=== PATIENT | male | born 1950 | race Caucasian/White ===

== ENCOUNTER 2018-05-14 08:48 | Inpatient (IN) | payer MEDICAID, SELFPAY ==
[2018-05-14 08:48] VITALS: PULSE 92; BMI 24.2
--- NOTE | 2018-05-14 09:06 | C.PDOC ---
History Of Present Illness 68 years old male w/ hx of defibrillator, Valve Replacement, afib on coumadin and CAD on plavix presents to ED for complaints of shortness of breath that began 2-3 months ago but worsened over the past 2-3 days with constant cough. Patient reports symptoms worsen with deep breaths and exertion. Patient has a defibrillator and has past surgical history of 4 CABG ("Long time ago."). He notes having a POLST which states he is DNR/DNI and to not hospitalize- However patient states that at this moment if required he would like hospitalization, and would like compressions in case his heart stopped and if he stopped breathing he would want to have a tube down his throat to help him breath. He notes that he wishes to rescind the previous POLST. No GI or complaints. Denies oxygen use at home, chest pain, asthma, COPD or Hx of smoking. He notes taking his medications normally. PMD: * [facility] Palletizer: * Dr. Hernandez Time Seen by Provider: 05/14/18 09:02 Chief Complaint (Nursing): Shortness Of Breath History Per: Patient History/Exam Limitations: no limitations Onset/Duration Of Symptoms: Days Current Symptoms Are (Timing): Still Present Initiating Event: Aspiration Exacerbating Factor(s): Exertion Current Respiratory Medications: See Home Med List Associated Symptoms: denies: Fever, Chills, Chest Pain Recent travel outside of the [place]: No Past Medical History Reviewed: Historical Data, Nursing Documentation, Vital Signs Vital Signs: Last Vital Signs Temp 98.3 F 05/14/18 08:56 Pulse 98 H 05/14/18 08:56 Resp 30 H 05/14/18 08:56 BP 158/95 H 05/14/18 08:56 Pulse Ox 92 L 05/14/18 08:56 - Medical History PMH: Anemia, Anxiety, Atrial Fibrillation, Cardia Arrhythmia, CHF, HTN, Hypercholesterolemia, Mitral Valve Prolapse, Peripheral Edema Surgical History: Coronary Stent, Pacemaker - [facility] Procedures INITIAL INSERT OF TRANS. LEADS INTO VENTRICLE (01/02/15) INSERT SING CHAMB DEV, NOT SPEC RATE RESPONSIVE (01/02/15) INSERTION OF TEMPORARY TRANS PACEMAKER SYSTEM (01/02/15) INTRODUCTION OF SERUM/TOX/VACCINE INTO MUSCLE, PERC APPROACH (05/20/15) SERUM TRANSFUSION NEC (01/02/15) Family History: States: Unknown Family Hx - Social History Hx Tobacco Use: No Hx Alcohol Use: No Hx Substance Use: No - Immunization History Hx Tetanus Toxoid Vaccination: No Hx Influenza Vaccination: Yes Hx Pneumococcal Vaccination: No Review Of Systems Constitutional: Negative for: Fever, Chills Cardiovascular: Negative for: Chest Pain, Palpitations Respiratory: Positive for: Cough (Dry ), Shortness of Breath Gastrointestinal: Negative for: Nausea, Vomiting, Abdominal Pain, Diarrhea Skin: Negative for: Rash Neurological: Negative for: Weakness, Numbness Physical Exam - Physical Exam Appears: Non-toxic, No Acute Distress Skin: Normal Color, Warm, Dry, No Rash Head: Normacephalic Eye(s): bilateral: Normal Inspection, PERRL, EOMI Oral Mucosa: Moist Neck: Normal ROM, Trachea Midline, No Midline Cervical Tenderness, No Paracervical Tenderness, Supple, Other (no meningeal signs) Chest: Symmetrical, No Tenderness Cardiovascular: Rhythm Regular Respiratory: No Accessory Muscle Use, No Rales, Rhonchi, No Stridor, No Wheezing, No Plerual Rub Gastrointestinal/Abdominal: Soft, No Tenderness, No Distention Back: Normal Inspection, No CVA Tenderness Extremity: Normal ROM Extremity: Bilateral: Atraumatic, Normal Color And Temperature, Normal ROM Pulses: Left Radial: Normal, Right Radial: Normal Neurological/Psych: Oriented x3, Normal Speech Gait: Steady ED Course And Treatment - Laboratory Results Result Diagrams: 05/14/18 09:39 05/14/18 09:39 O2 Sat by Pulse Oximetry: 92 (RA) Pulse Ox Interpretation: Abnormal - Other Rad CXR X-Ray: Viewed By Me, Read By Radiologist Interpretation: Chest x-ray two views. HISTORY: Shortness of breath. COMPARISON: 06/08/2016. FINDINGS: Moderate to severe venous congestion with prominent consolidative opacities within the mid to lower lung zones. Small bilateral pleural effusions. Aortic atherosclerotic calcification noted. Enlarged heart with prominent cardiomegaly. Prior valve replacements. Left- sided pacemaker. Status post median sternotomy. Degenerative changes in the spine and shoulders. Calcifications within the right axilla. Impression: Mod erate to severe venous congestion with prominent consolidative opacities within the mid to lower lung zones. Small bilateral pleural effusions. Aortic atherosclerotic calcification noted. Enlarged heart with prominent cardiomegaly. Prior valve replacements. Left-sided pacemaker. Status post me garcia sternotomy. Degenerative changes in the spine and shoulders. Calcifications within the right axilla. Medical Decision Making Medical Decision Makin yr old male w/ hx of Valve repair, afib on coumadin, CABGx4 on plavix p/w shortness of breath and cough. No sore throat. No erythematous throat. No Meningeal signs. No headache. No body aches. Rhonchi b/l w/ scattered wheezes. No hx of COPD per pt. ?New onset vs CHF exacerbation given chronic b/l LE swelling. Will seek labs and imaging. No chest pain. Pt has hx of POLST w/ DNR+DNI but seeks to rescind it. Given Pt wishes will rescind DNR/DNI order at this time. Plan: * Blood Gas * Blood work * CXR * Blood Culture * Albuterol/ peak flow 1300 labs reviewed: BNP elevation, lasix ordered. Labs otherwise largely unremarkable. No dark or bloody stool. No hematemesis or hemoptysis. No recent admission over the past 3 mo. No longterm stays: Levoquin ordered. Pressures stable. Appreciate consult W/ Dr. Olguin: accepts admission to her service. Pt in NAD with improved O2 sat. Speaking in full sentences, protecting airway. Disposition - Disposition Disposition Time: 13:00 Condition: GOOD - Clinical Impression Clinical Impression: CHF (congestive heart failure), PNA (pneumonia) - Scribe Statement The provider has reviewed the documentation as recorded by the Iraibkatharine Underwood All medical record entries made by the Scribe were at my direction and personally dictated by me. I have reviewed the chart and agree that the record accurately reflects my personal performance of the history, physical exam, me dical decision making, and the department course for this patient. I have also personally directed, reviewed, and agree with the discharge instructions and disposition.
[2018-05-14] MEDS ORDERED: Albuterol-Ipratrop 3 mg / 0.5 (3 ml) UD INH STA ×2 (09:26→11:01)
[2018-05-14 09:43] LABS: BASO # 0.1 K/uL (0.0-0.2); BASO % 1.4 % (0.0-2.0); EOS % 0.7 % (0.0-4.0); HEMOGLOBIN 9.3 g/dL (12.0-18.0); LYMPH # 0.5 K/uL (1.0-4.3); LYMPH % 9.9 % (20.0-40.0); MEAN CORPUSCULAR HEMOGLOBIN 28.1 pg (27.0-31.0); MEAN CORPUSCULAR HGB CONC 32.2 g/dL (33.0-37.0); MEAN PLATELET VOLUME 9.2 fL (7.2-11.7); MONO # 0.8 K/uL (0.0-0.8); NEUT # 3.9 K/uL (1.8-7.0); PLATELET COUNT 230 K/uL (130-400); RBC 3.32 Mil/uL (4.40-5.90); RED CELL DISTRIBUTION WIDTH 15.8 % (11.5-14.5); WHITE BLOOD COUNT 5.3 K/uL (4.8-10.8)
[2018-05-14 09:46] LABS: MEAN CELL VOLUME 87.2 fL (80.0-94.0)
[2018-05-14 10:06] LABS: ALB/GLOB RATIO 1.3 (1.0-2.1); ALBUMIN 4.5 g/dL (3.5-5.0); CALCIUM 8.9 mg/dl (8.6-10.4)
[2018-05-14 10:14] LABS: TROPONIN I 0.02 ng/mL (0.00-0.120)
[2018-05-14 10:22] LABS: VENOUS BLOOD GAS BASE EXCESS 0.9 mmol/L (0.0-2.0); VENOUS BLOOD GAS PCO2 51 mmHg (40-60); VENOUS BLOOD GAS PO2 28 mm/Hg (30-55); VENOUS BLOOD PH 7.34 (7.32-7.43)
--- NOTE | 2018-05-14 10:36 | RAD ---
Chest x-ray two views HISTORY: Shortness of breath. COMPARISON: 06/08/2016 FINDINGS: Moderate to severe venous congestion with prominent consolidative opacities within the mid to lower lung zones. Small bilateral pleural effusions. Aortic atherosclerotic calcification noted. Enlarged heart with prominent cardiomegaly. Prior valve replacements. Left-sided pacemaker. Status post median sternotomy. Degenerative changes in the spine and shoulders. Calcifications within the right axilla. Impression: Moderate to severe venous congestion with prominent consolidative opacities within the mid to lower lung zones. Small bilateral pleural effusions. Aortic atherosclerotic calcification noted. Enlarged heart with prominent cardiomegaly. Prior valve replacements. Left-sided pacemaker. Status post median sternotomy. Degenerative changes in the spine and shoulders. Calcifications within the right axilla.
[2018-05-14 10:40] LABS: ANISOCYTOSIS SLIGHT; LYMPHOCYTE 7 % (20-40); MONOCYTE 14 % (0-10); NEUTROPHIL 79 % (50-75); PLATELET ESTIMATE NORMAL (NORMAL); TOTAL CELLS COUNTED 100
[2018-05-14 10:41] LABS: BURR CELLS SLIGHT; HYPOCHROMIC SLIGHT; LARGE PLATELETS PRESENT; OVALOCYTES SLIGHT; POIKILOCYTOSIS SLIGHT; POLYCHROMIC SLIGHT; TOXIC GRANULATION PRESENT
[2018-05-14] MEDS ORDERED: Albuterol-Ipratrop 3 mg / 0.5 (3 ml) UD ONE (11:06)
[2018-05-14] MEDS ORDERED: Moxifloxacin IV 400mg/250ml NS 400 MG/250 ML BAG IVPB ONE ×2 (12:04→12:09)
[2018-05-14] MEDS ORDERED: MethylPREDNISolone 40 mg Vial IVP STA (12:38)
[2018-05-14 13:23] LABS: INR 3.9
[2018-05-14 13:24] LABS: PROTHROMBIN TIME 42.7 SECONDS (9.7-12.2)
--- NOTE | 2018-05-14 13:50 | CP.PCM.HP ---
<Pritesh Portillo - Last Filed: 05/14/18 18:08> History of Present Illness - History of Present Illness History of Present Illness: CC " Shortness of breath" HPI: Patient is a 68 year old male with history of CHF, A fib on Coumadin, Aortic valve replacement, mitral valve replacement, tricuspid valve replacement, CAD and CABG who presents with 2 to 3 week history of shortness of breath that worsened over the past 3 days to the point where he cannot move without coughing. He states that he has some clear sputum, denies blood in his sputum. He was seen by his director design recently who recommended pulmonary function tests and a CT chest. He states he was unable to get the CT chest because his symptoms worsened. He admits to history of chronic swelling in his legs. He states he has some bleeding from one of the varicose veins on his right foot. He admits to poor appetite, but states he has not had any weight loss. He has only been drinking some water and coffee. He denies fevers, chills, headache, dizziness, blood sputum. PMH: hx of rheumatic fever, CHF, A fib on Coumadin, Aortic valve replacement, mitral valve replacement, tricuspid valve replacement, CAD and CABG PSH: Aortic valve replacement, mitral valve replacement, tricuspid valve replacement, CABG Family hx: denied Social : denies history of tobacco, alcohol or drug use Home meds: Metoprolol 25mg PO BID, Coumadin 6mg, Simvastatin 40mg, Bumex 1mg BID, Losartan 12.5mg, Gabapentin Allergies: NKDA Revoked DNR - previously had do not hospitalize form PMD: Dr. Chaidez Cardiology: Dr. Hernandez Present on Admission - Present on Admission Any Indicators Present on Admission: No Past Patient History - Infectious Disease Hx of Infectious Diseases: None - Tetanus Immunizations Tetanus Immunization: Unknown - Past Medical History & Family History Past Medical History?: Yes - Past Social History Smoking Status: Former Smoker - CARDIAC Hx Atrial Fibrillation: Yes Hx Cardia Arrhythmia: Yes Hx Congestive Heart Failure: Yes Hx Hypercholesterolemia: Yes Hx Hypertension: Yes Hx Mitral Valve Prolapse: Yes Hx Pacemaker: Yes Hx Peripheral Edema: Yes - PULMONARY Hx Respiratory Disorders: No - NEUROLOGICAL Hx Neurological Disorder: No Other/Comment: h/o near syncope from bradycardia - HEENT Hx HEENT Problems: No - RENAL Hx Chronic Kidney Disease: No - HEMATOLOGICAL/ONCOLOGICAL Hx Anemia: Yes - INTEGUMENTARY Hx Dermatological Problems: No - MUSCULOSKELETAL/RHEUMATOLOGICAL Hx Musculoskeletal Disorders: No Hx Falls: Yes - GASTROINTESTINAL Hx Gastrointestinal Disorders: No - GENITOURINARY/GYNECOLOGICAL Hx Genitourinary Disorders: No - PSYCHIATRIC Hx Anxiety: Yes Hx Substance Use: No - SURGICAL HISTORY Hx Coronary Stent: Yes - ANESTHESIA Hx Anesthesia: Yes Hx Anesthesia Reactions: No Hx Malignant Hyperthermia: No Meds Allergies/Adverse Reactions: Allergies Allergy/AdvReac Type Severity Reaction Status Date / Time No Known Allergies Allergy Verified 05/14/18 09:15 Physical Exam - Constitutional Appears: Cachectic Additional comments: Voice soft, coughing with movement - Head Exam Head Exam: ATRAUMATIC, NORMOCEPHALIC - Eye Exam Eye Exam: EOMI, PERRL - ENT Exam ENT Exam: Mucous Membranes Dry - Neck Exam Neck exam: Positive for: Full Rom - Respiratory Exam Respiratory Exam: Rales, Respiratory Distress. absent: Clear to Auscultation Bilateral, Rhonchi, Stridor - Cardiovascular Exam Cardiovascular Exam: Clicks, +S1, +S2 Additional comments: parasternal heave - GI/Abdominal Exam GI & Abdominal Exam: Normal Bowel Sounds, Soft. absent: Distended, Firm, Guarding, Pulsatile Mass, Rebound, Rigid, Tenderness - Extremities Exam Extremities exam: Positive for: pedal edema, pedal pulses present Additional comments: (+) bilateral chronic venous stasis changes, with hyperkeratotic skin and varicosities no active bleeding. - Neurological Exam Neurological exam: Alert, Oriented x3 Results - Vital Signs Recent Vital Signs: Last Vital Signs Temp 98.1 F 05/14/18 11:20 Pulse 90 05/14/18 13:32 Resp 31 H 05/14/18 13:32 BP 119/77 05/14/18 13:32 Pulse Ox 92 L 05/14/18 13:40 - Labs Result Diagrams: 05/14/18 09:39 05/14/18 09:39 Labs: Laboratory Results - last 24 hr 05/14/18 05/14/18 05/14/18 09:39 09:39 10:17 WBC 5.3 RBC 3.32 L Hgb 9.3 L Hct 29.0 L MCV 87.2 D MCH 28.1 MCHC 32.2 L RDW 15.8 H Plt Count 230 MPV 9.2 Neut % (Auto) 73.0 Lymph % (Auto) 9.9 L [place] % (Auto) 15.0 H Eos % (Auto) 0.7 Baso % (Auto) 1.4 Neut # (Auto) 3.9 Lymph # (Auto) 0.5 L [place] # (Auto) 0.8 Eos # (Auto) 0.0 Baso # (Auto) 0.1 Neutrophils % (Manual) 79 H Lymphocytes % (Manual) 7 L Monocytes % (Manual) 14 H Toxic Granulation Present Platelet Estimate Normal Large Platelets Present Polychromasia Slight Hypochromasia (manual) Slight Poikilocytosis (manual Slight Anisocytosis (manual) Slight Ovalocytes Slight [place]ki Cells Slight PT INR APTT pO2 28 L VBG pH 7.34 VBG pCO2 51 VBG HCO3 24.3 VBG Total CO2 29.1 H VBG O2 Sat (Calc) 58.3 VBG Base Excess 0.9 VBG Potassium 4.1 Glucose 82 Lactate 1.3 Liter Flow 3.0 Sodium 139 140.0 Potassium 4.7 Chloride 100 107.0 Carbon Dioxide 27 Anion Gap 17 BUN 40 H Creatinine 1.5 Est GFR ( Amer) 56 Est GFR (Non-Af Amer) 47 Random Glucose 98 Calcium 8.9 Magnesium 1.8 Total Bilirubin 1.5 H AST 44 ALT 26 Alkaline Phosphatase 171 H Troponin I 0.0200 NT-Pro-B Natriuret Pep 3670 H Total Protein 8.0 Albumin 4.5 Globulin 3.5 Albumin/Globulin Ratio 1.3 Venous Blood Potassium 4.1 Influenza Typ A,B (EIA) 05/14/18 05/14/18 12:52 13:25 WBC RBC Hgb Hct MCV MCH MCHC RDW Plt Count MPV Neut % (Auto) Lymph % (Auto) [place] % (Auto) Eos % (Auto) Baso % (Auto) Neut # (Auto) Lymph # (Auto) [place] # (Auto) Eos # (Auto) Baso # (Auto) Neutrophils % (Manual) Lymphocytes % (Manual) Monocytes % (Manual) Toxic Granulation Platelet Estimate Large Platelets Polychromasia Hypochromasia (manual) Poikilocytosis (manual Anisocytosis (manual) Ovalocytes Rikki Cells PT 42.7 H INR 3.9 H* APTT 45 H pO2 VBG pH VBG pCO2 VBG HCO3 VBG Total CO2 VBG O2 Sat (Calc) VBG Base Excess VBG Potassium Glucose Lactate Liter Flow Sodium Potassium Chloride Carbon Dioxide Anion Gap BUN Creatinine Est GFR ( Amer) Est GFR (Non-Af Amer) Random Glucose Calcium Magnesium Total Bilirubin AST ALT Alkaline Phosphatase Troponin I NT-Pro-B Natriuret Pep Total Protein Albumin Globulin Albumin/Globulin Ratio Venous Blood Potassium Influenza Typ A,B (EIA) Negative for flu a/b Assessment & Plan - Assessment and Plan (Free Text) Plan: A/P Shortness of breath History of CHF History of Aortic valve replacement, Mitral valve replacement, Tricuspid valve replacement AICD ECHO from 02/05/18: Left ventricle is moderately dilated with mild concentric hypertrophy. Hypokinetic anteroseptal wall. LV systolic function is moderately impaired. EF is visually estimated at 35-40%. Severe diastolic dysfunction. RV moderately dilated with normal systolic function via TAPSE. Pacemaker leads in the right heart noted. Severe bi-atrial enlargement. Mechanical prosthesis in mi tral and aortic position with normal function. There is evidence of tricuspid valve annuloplasty. Severe pulmonary hypertension. Right ventricular systolic pressure is estimated at greater than 60mmHg. No gross pericardial effusion. No leukocytosis, no left shift, no bands VBG pH 7.34 pCO2 51 HCO3 24.3 Lactate 1.3 proBNP 3670 CXR: Moderate to severe venous congestion with prominent consolidative opacities within mid to lower lung zones. small bilateral pleural effusions. Aortic atherosclertic calcification noted. Enlarged heart with prominent cardiomegaly. Prior valve replacements. Left sided pacemaker. Status post median sternotomy. Degenerative changes in spine and shoulders. Calcifications within the right axilla. f/u CT chest Trops x2 negative f/u CXR tomorrow Pallative care consult, help appreciated Duonebs Q4 PRN Lasix 20mg BID Imdur 60mg PO daily Nitropaste 0.5 inch topical Flonase BID Measure daily weights I&Os Fall precautions Place on NRB mask May add BIPAP if not improved EKG: paced f/u blood cultures History of A fib On Coumadin 6mg at home Hold Coumadin PT 4.27 INR 3.9 Continue to monitor PT/INR History of HTN Losartan 12.5mg PO daily History of chronic pain Gabapentin 100mg PO TID History of HLD Crestor 10mg PO HS History of anemia H/H 9.3/29.0 Continue to monitor Transfuse as necessary PPX: Heart healthy diet GI: Not indicated at this time. DVT: Hold given INR 3.[address] Gladys Portillo, PGY1 <Wero Graham H - Last Filed: 05/15/18 07:18> Results - Vital Signs Recent Vital Signs: Last Vital Signs Temp 98.1 F 05/14/18 15:58 Pulse 90 05/15/18 01:00 Resp 20 05/14/18 15:58 BP 120/64 05/14/18 17:22 Pulse Ox 97 05/14/18 15:58 - Labs Result Diagrams: 05/14/18 09:39 05/15/18 03:30 Labs: Laboratory Results - last 24 hr 05/14/18 05/14/18 05/14/18 09:39 09:39 10:17 WBC 5.3 RBC 3.32 L Hgb 9.3 L Hct 29.0 L MCV 87.2 D MCH 28.1 MCHC 32.2 L RDW 15.8 H Plt Count 230 MPV 9.2 Neut % (Auto) 73.0 Lymph % (Auto) 9.9 L [place] % (Auto) 15.0 H Eos % (Auto) 0.7 Baso % (Auto) 1.4 Neut # (Auto) 3.9 Lymph # (Auto) 0.5 L [place] # (Auto) 0.8 Eos # (Auto) 0.0 Baso # (Auto) 0.1 Neutrophils % (Manual) 79 H Lymphocytes % (Manual) 7 L Monocytes % (Manual) 14 H Toxic Granulation Present Platelet Estimate Normal Large Platelets Present Polychromasia Slight Hypochromasia (manual) Slight Poikilocytosis (manual Slight Anisocytosis (manual) Slight Ovalocytes Slight Rikki Cells Slight PT INR APTT pO2 28 L VBG pH 7.34 VBG pCO2 51 VBG HCO3 24.3 VBG Total CO2 29.1 H VBG O2 Sat (Calc) 58.3 VBG Base Excess 0.9 VBG Potassium 4.1 Glucose 82 Lactate 1.3 Liter Flow 3.0 Sodium 139 140.0 Potassium 4.7 Chloride 100 107.0 Carbon Dioxide 27 Anion Gap 17 BUN 40 H Creatinine 1.5 Est GFR ( Amer) 56 Est GFR (Non-Af Amer) 47 POC Glucose (mg/dL) Random Glucose 98 Calcium 8.9 Phosphorus Magnesium 1.8 Total Bilirubin 1.5 H AST 44 ALT 26 Alkaline Phosphatase 171 H Total Creatine Kinase CK-MB (Mass) Troponin I 0.0200 NT-Pro-B Natriuret Pep 3670 H Total Protein 8.0 Albumin 4.5 Globulin 3.5 Albumin/Globulin Ratio 1.3 Venous Blood Potassium 4.1 Influenza Typ A,B (EIA) 05/14/18 05/14/18 05/14/18 12:52 13:25 16:27 WBC RBC Hgb Hct MCV MCH MCHC RDW Plt Count MPV Neut % (Auto) Lymph % (Auto) [place] % (Auto) Eos % (Auto) Baso % (Auto) Neut # (Auto) Lymph # (Auto) [place] # (Auto) Eos # (Auto) Baso # (Auto) Neutrophils % (Manual) Lymphocytes % (Manual) Monocytes % (Manual) Toxic Granulation Platelet Estimate Large Platelets Polychromasia Hypochromasia (manual) Poikilocytosis (manual Anisocytosis (manual) Ovalocytes [place] Cells PT 42.7 H INR 3.9 H* APTT 45 H pO2 VBG pH VBG pCO2 VBG HCO3 VBG Total CO2 VBG O2 Sat (Calc) VBG Base Excess VBG Potassium Glucose Lactate Liter Flow Sodium Potassium Chloride Carbon Dioxide Anion Gap BUN Creatinine Est GFR ( Amer) Est GFR (Non-Af Amer) POC Glucose (mg/dL) 90 Random Glucose Calcium Phosphorus Magnesium Total Bilirubin AST ALT Alkaline Phosphatase Total Creatine Kinase CK-MB (Mass) Troponin I NT-Pro-B Natriuret Pep Total Protein Albumin Globulin Albumin/Globulin Ratio Venous Blood Potassium Influenza Typ A,B (EIA) Negative for flu a/b 05/14/18 05/14/18 05/14/18 17:23 21:07 23:29 WBC RBC Hgb Hct MCV MCH MCHC RDW Plt Count MPV Neut % (Auto) Lymph % (Auto) [place] % (Auto) Eos % (Auto) Baso % (Auto) Neut # (Auto) Lymph # (Auto) [place] # (Auto) Eos # (Auto) Baso # (Auto) Neutrophils % (Manual) Lymphocytes % (Manual) Monocytes % (Manual) Toxic Granulation Platelet Estimate Large Platelets Polychromasia Hypochromasia (manual) Poikilocytosis (manual Anisocytosis (manual) Ovalocytes Rikki Cells PT INR APTT pO2 VBG pH VBG pCO2 VBG HCO3 VBG Total CO2 VBG O2 Sat (Calc) VBG Base Excess VBG Potassium Glucose Lactate Liter Flow Sodium Potassium Chloride Carbon Dioxide Anion Gap BUN Creatinine Est GFR ( Amer) Est GFR (Non-Af Amer) POC Glucose (mg/dL) 176 H Random Glucose Calcium Phosphorus Magnesium Total Bilirubin AST ALT Alkaline Phosphatase Total Creatine Kinase 107 91 CK-MB (Mass) 2.47 2.29 Troponin I 0.0210 0.0220 NT-Pro-B Natriuret Pep Total Protein Albumin Globulin Albumin/Globulin Ratio Venous Blood Potassium Influenza Typ A,B (EIA) 05/15/18 03:30 WBC RBC Hgb Hct MCV MCH MCHC RDW Plt Count MPV Neut % (Auto) Lymph % (Auto) [place] % (Auto) Eos % (Auto) Baso % (Auto) Neut # (Auto) Lymph # (Auto) [place] # (Auto) Eos # (Auto) Baso # (Auto) Neutrophils % (Manual) Lymphocytes % (Manual) Monocytes % (Manual) Toxic Granulation Platelet Estimate Large Platelets Polychromasia Hypochromasia (manual) Poikilocytosis (manual Anisocytosis (manual) Ovalocytes Rikki Cells PT INR APTT pO2 VBG pH VBG pCO2 VBG HCO3 VBG Total CO2 VBG O2 Sat (Calc) VBG Base Excess VBG Potassium Glucose Lactate Liter Flow Sodium 139 Potassium 4.2 Chloride 101 Carbon Dioxide 30 Anion Gap 13 BUN 46 H Creatinine 1.6 H Est GFR ( Amer) 52 Est GFR (Non-Af Amer) 43 POC Glucose (mg/dL) Random Glucose 137 H Calcium 8.3 L Phosphorus 5.1 H Magnesium 1.8 Total Bilirubin 0.8 AST 30 ALT 25 Alkaline Phosphatase 125 Total Creatine Kinase 79 CK-MB (Mass) 1.80 Troponin I 0.0120 NT-Pro-B Natriuret Pep Total Protein 6.5 Albumin 3.6 Globulin 2.9 Albumin/Globulin Ratio 1.2 Venous Blood Potassium Influenza Typ A,B (EIA) Attending/Attestation - Attestation I have personally seen and examined this patient.: Yes I have fully participated in the care of the patient.: Yes I have reviewed all pertinent clinical information: Yes Notes (Text): 05/15/18 07:09 Medical attending: Patient was seen and examined by me. Agree with the above note by the medical device sales consultant The patient was short of breath for the past several days and he reports it had been worseing as well. He has an extensive cardiac history as listed above in resident's note including history of heart valve complications and replacments and one can readily hear the metalic clicks on exam. He needs to continue with the oral anticoagulation. He reports he has been very compliant with medication. He does not have home O2 and reports he felt much better with the nasal cannula. We can later try Bipap however he explains he did not want that We will resume medications however for the time being hold off on his BB until he feels better At this time will do low dose lasix 20 BID as well as giving nitropaste topical and Imdur to see if this helps ease with the breathing The patient's CXRAY shows a very substantially enlarged cardiomegaly as well as some venous congestion. The patient from what I understand previously had a POLST and also a DNR and DNI order - however he was scared he says so he revoked this when comming to the hospital. I asked him how he felt about things like CPR and intubation and he said he needed to think. Later if he is not improving with the oxygen and nitropaste and imdur will consider cardiology evaluation, however I feel he's had almost everything under the sun done so far. He used to come to [facility] almost monthly in the past and has had numerous surgical interventions thus far. Right now we will need a paliative care evaluation. Wero Graham
[2018-05-14] MEDS: Nitroglycerin 2% Ointment Foilpak UD TOP SCH ×2 (15:36→20:22)
[2018-05-14] MEDS: Losartan 12.5 MG TAB PO SCH (17:22)
[2018-05-14] MEDS: Fluticasone Nasal 50 mcg/Spray NAS SCH (17:23)
[2018-05-14 17:51] LABS: TROPONIN I 0.021 ng/mL (0.00-0.120)
[2018-05-14 18:13] LABS: CK-MB 2.47 ng/mL (0.0-3.38)
[2018-05-15 00:01] LABS: CK-MB 2.29 ng/mL (0.0-3.38); TROPONIN I 0.022 ng/mL (0.00-0.120)
[2018-05-15 03:50] LABS: ALB/GLOB RATIO 1.2 (1.0-2.1); ALBUMIN 3.6 g/dL (3.5-5.0); CALCIUM 8.3 mg/dl (8.6-10.4)
[2018-05-15 03:56] LABS: CK-MB 1.8 ng/mL (0.0-3.38); TROPONIN I 0.012 ng/mL (0.00-0.120)
[2018-05-15] MEDS: Nitroglycerin 2% Ointment Foilpak UD TOP SCH ×6 (06:29→21:21)
--- NOTE | 2018-05-15 07:52 | RAD ---
Chest x-ray single frontal view HISTORY: Dyspnea. COMPARISON: 05/14/2018 FINDINGS: Status post median sternotomy. Enlarged ectatic aorta with atherosclerotic calcification at the aortic knob. Moderate to severe venous congestion. Prominent consolidative opacification in the right mid to lower lung zone as well as the left lung base. Small to moderate bilateral pleural effusions. Marked cardiomegaly. Prior valve replacement. Left-sided pacemaker. Degenerative changes in the spine and shoulders. Impression: Overall no significant interval change since the prior study.
[2018-05-15 08:11] LABS: BASO % 0.1 % (0.0-2.0); LYMPH # 0.3 K/uL (1.0-4.3); LYMPH % 5.9 % (20.0-40.0); MEAN CELL VOLUME 86.8 fL (80.0-94.0); MEAN CORPUSCULAR HEMOGLOBIN 28.4 pg (27.0-31.0); MEAN CORPUSCULAR HGB CONC 32.7 g/dL (33.0-37.0); MONO # 0.3 K/uL (0.0-0.8); MONO % 7.8 % (0.0-10.0); NEUT # 3.8 K/uL (1.8-7.0); NEUT % 86.2 % (50.0-75.0); PLATELET COUNT 227 K/uL (130-400); RBC 2.82 Mil/uL (4.40-5.90); RED CELL DISTRIBUTION WIDTH 15.4 % (11.5-14.5); WHITE BLOOD COUNT 4.4 K/uL (4.8-10.8)
[2018-05-15 08:50] LABS: INR 5.4; PROTHROMBIN TIME 59.8 SECONDS (9.7-12.2)
[2018-05-15] MEDS: Losartan 12.5 MG TAB PO SCH (10:03)
[2018-05-15] MEDS: Fluticasone Nasal 50 mcg/Spray NAS SCH ×2 (10:03→17:07)
--- NOTE | 2018-05-15 10:26 | CP.PCM.PN ---
Subjective - Date & Time of Evaluation Date of Evaluation: 05/15/18 Time of Evaluation: 09:30 - Subjective Subjective: Patient was seen and examined by me. Denied headache, denied chest pain, breathing is still short of breath, but much improved he says, denied palpitations He reported his breathing was much easier today than yesterday. He was speaking in full sentences today He was started on oxygen as well as nitropaste and Imdur PO. He does not have home O2 and feels that he is much better with it Today BP is slightly on lower side. Will hold off on BB until he feels more better. INR was still supratheraputic His CT scan of the chest yesterday is pending official read however the night almak suggested he does have pneumonia - he received abx in ER and today I restarted. There is a pending blood culture as well. As mentioned previously this is a 68 year old male with a history of rheumatic fever, CHF with pacer/AICD, A fib on Coumadin, Aortic valve replacement, mitral valve replacement, tricuspid valve replacement, CAD and CABG here with shortness of breath and CT imaging suggesting pnemonia. Objective - Vital Signs/Intake and Output Vital Signs (last 24 hours): Temp Pulse Resp BP Pulse Ox 98.2 F 90 20 120/74 99 05/15/18 07:00 05/15/18 08:37 05/15/18 07:00 05/15/18 10:03 05/15/18 07:00 Intake and Output: 05/15/18 05/15/18 06:59 18:59 Intake Total 350 Output Total 300 Balance 50 - Medications Medications: Current Medications Albuterol/Ipratropium (Duoneb 3 Mg/0.5 Mg (3 Ml) Ud) 3 ml INH RQ4 PRN PRN Reason: Shortness of Breath Fluticasone Propionate (Flonase) 2 spr JESSICA BID [facility] Last Admin: 05/15/18 10:03 Dose: 1 sprays Furosemide (Lasix) 20 mg IVP BID [facility] Last Admin: 05/15/18 10:03 Dose: 20 mg Gabapentin (Neurontin) 100 mg PO TID [facility] Last Admin: 05/15/18 10:03 Dose: 100 mg Isosorbide Mononitrate (Imdur) 60 mg PO DAILY [facility] Last Admin: 05/15/18 10:03 Dose: 60 mg Losartan Potassium (Cozaar) 12.5 mg PO DAILY [facility] Last Admin: 05/15/18 10:03 Dose: 12.5 mg Nitroglycerin (Nitro-Bid 2% Oint) 0 ea TOP Q12 [facility] Rosuvastatin Calcium (Crestor) 10 mg PO HS [facility] Last Admin: 05/14/18 21:03 Dose: 10 mg - Labs Labs: 05/15/18 07:58 05/15/18 03:30 PT 59.8 SECONDS (9.7-12.2) H D 05/15/18 07:58 INR 5.4 H* D 05/15/18 07:58 APTT 40 SECONDS (21-34) H D 05/15/18 07:58 - Constitutional Appears: Cachectic, Chronically Ill - Head Exam Head Exam: NORMAL INSPECTION, NORMOCEPHALIC - Eye Exam Eye Exam: EOMI, Normal appearance - ENT Exam ENT Exam: Mucous Membranes Moist - Respiratory Exam Respiratory Exam: Decreased Breath Sounds, Rales, Wheezes Additional comments: Bilateral wheezes and rales - Cardiovascular Exam Cardiovascular Exam: Clicks, JVD, Murmur Additional comments: Prominent S2 sound, also bilateral JVD as well. He has the metalic clcking sound Parasternal heave - GI/Abdominal Exam GI & Abdominal Exam: Soft, Normal Bowel Sounds. absent: Bruit, Distended, Firm, Guarding, Rigid, Tenderness - Neurological Exam Neurological Exam: Alert, Awake, Oriented x3 Neuro motor strength exam: Left Upper Extremity: 4, Right Upper Extremity: 4 - Psychiatric Exam Psychiatric exam: Depressed, Flat Affect - Skin Skin Exam: Normal Color, Warm Assessment and Plan - Assessment and Plan (Free Text) Assessment: Shortness of breath History of CHF with AICD History of Aortic valve replacement, Mitral valve replacement, Tricuspid valve replacement 05/15: This morning he is now speaking in full sentences and reports breathing is much easier. Decreased the nitropaste to BID, continue with the Imdur. He is wearing nasal cannula oxygen as well. We need to have PT see the patient and see if he has large desaturations in O2 when ambulating. He may need home oxygen ECHO from 02/05/18: Left ventricle is moderately dilated with mild concentric hypertrophy. Hypokinetic anteroseptal wall. LV systolic function is moderately impaired. EF is visually estimated at 35-40%. Severe diastolic dysfunction. RV m oderately dilated with normal systolic function via TAPSE. Pacemaker leads in the right heart noted. Severe bi-atrial enlargement. Mechanical prosthesis in mitral and aortic position with normal function. There is evidence of tricuspid valve annuloplasty. Severe pulmonary hypertension. Right ventricular systolic pressure is estimated at greater than 60mmHg. No gross pericardial effusion. No leukocytosis, no left shift, no bands proBNP 3670 CXR: Moderate to severe venous congestion with prominent consolidative opacities within mid to lower lung zones. small bilateral pleural effusions. Aortic atherosclertic calcification noted. Enlarged heart with prominent cardiomegaly. Prior valve replacements. Left sided pacemaker. Status post median sternotomy. Degenerative changes in spine and shoulders. Calcifications within the right axilla. f/u CT chest Trops x2 negative f/u CXR tomorrow Pallative care consult, help appreciated Duonebs Q4 PRN Lasix 20mg BID Imdur 60mg PO daily Nitropaste 0.5 inch topical Flonase BID Measure daily weights I&Os Fall precautions Place on NRB mask May add BIPAP if not improved EKG: paced History of A fib 05/15: This morning INR is still high. Please note with mechnical vavle replacement it should be more than INR 3 but for now will continue to hold. On Coumadin 6mg at home Hold Coumadin Continue to monitor PT/INR Pneumonia - community aquired Pending the official CT scan read Pending blood cultures at this time Patient is on Avelox 400 History of HTN Losartan 12.5mg PO daily History of chronic pain Gabapentin 100mg PO TID History of HLD Crestor 10mg PO HS History of anemia 05/15: Continue to monitor, transfusing patient maybe difficult given history of severe CHF. H/H 9.3/29.0 Continue to monitor Transfuse as necessary PPX: Heart healthy diet GI: Not indicated at this time.
[2018-05-15] MEDS: Albuterol-Ipratrop 3 mg / 0.5 (3 ml) UD INH PRN ×3 (11:30→19:13)
[2018-05-15] MEDS ORDERED: methylPREDNISolone 60 MG in Sodium Chloride 0.9% 100 ML IVPB SCH (11:34)
[2018-05-15 11:47] LABS: ANISOCYTOSIS SLIGHT; BANDS 1 % (0-2); GIANT PLATELETS PRESENT; HYPOCHROMIC SLIGHT; LARGE PLATELETS PRESENT; LYMPHOCYTE 5 % (20-40); MONOCYTE 8 % (0-10); NEUTROPHIL 86 % (50-75); PLATELET ESTIMATE NORMAL (NORMAL); POLYCHROMIC SLIGHT; TOTAL CELLS COUNTED 100; TOXIC GRANULATION PRESENT
[2018-05-15 11:48] LABS: OVALOCYTES SLIGHT; POIKILOCYTOSIS SLIGHT
[2018-05-15] MEDS ORDERED: Moxifloxacin IV 400mg/250ml NS 400 MG/250 ML BAG IVPB SCH (12:00)
[2018-05-15] MEDS: MethylPREDNISolone 40 mg Vial IVP SCH (12:13)
--- NOTE | 2018-05-15 12:18 | CT ---
CT chest HISTORY: Dyspnea. Comparison: X-ray dated 07/14/2017 Technique: Multiple contiguous axial images were performed through the chest without the use of intravenous contrast. Subsequently, sagittal and coronal reformatted images were obtained. This CT exam was performed using one or more of the following dose reduction techniques: Automated exposure control, adjustment of the mA and/or kV according to patient size, and/or use of iterative reconstruction technique. Findings: Massive and marked enlargement of the cardiac silhouette particularly the left atrium. Correlation with a contrast-enhanced CT is recommended to better evaluate the atrium and exclude underlying mass. Coronary calcifications. Prior coronary valve surgeries. Left-sided pacemaker. CABG. Right lung: Scattered areas of atelectasis and consolidation within the right middle lobe. Prominent dense consolidative opacity measuring 6.5 centimeters seen within the posterior aspect of the right lower lobe with adjacent trace right pleural effusion. Left lung: Focal consolidations seen within the posterior aspect of the left upper lobe inferiorly. Scattered areas of atelectasis and consolidation within the left lower lobe. Pulmonary venous congestion suggestive for CHF. Trachea thru central airways are patent. Aneurysmal dilatation of the ascending thoracic aorta measuring up to 4.6 centimeters. Atherosclerotic calcification and noted within the aorta. Shotty axillary lymph nodes. Shotty mediastinal and hilar lymph nodes. Prominent liver. Perihepatic ascites. Splenomegaly with a lobulated spleen with associated calcifications. Nodularity of the adrenal glands. Calcification within the left upper abdomen. Hiatal hernia. Degenerative changes in the spine with a kyphotic curvature. Cortical irregularity of several ribs. Impression: 1. Massive and marked cardiomegaly. Correlation with a contrast-enhanced scan may be helpful to better delineate the heart. 2. Scattered areas of atelectasis and consolidation within the right middle lobe of the lung. Prominent dense consolidative opacity measuring 6.5 centimeters seen within the posterior aspect of the right lower lobe with adjacent trace right pleural effusion. This may represent multifocal pneumonia. Clinical correlation. Post treatment interval follow-up is recommended. 3. Focal consolidations seen within the posterior aspect of the left upper lobe inferiorly in the lung. Scattered areas of atelectasis and consolidation within the left lower lobe. This may represent multifocal pneumonia. Clinical correlation. Post treatment interval follow-up is recommended. 4. Pulmonary venous congestion suggestive for CHF. Additional findings as above. A preliminary report was generated at 9:05 p.m. on 05/14/[address] Eitan Fair from [facility].
[2018-05-15] MEDS: Vitamins A & D Oint UD Foilpak TOP SCH (17:07)
[2018-05-16] MEDS: MethylPREDNISolone 40 mg Vial IVP SCH (06:01)
[2018-05-16 07:09] LABS: BASO % 0.1 % (0.0-2.0); HEMOGLOBIN 7.5 g/dL (12.0-18.0); LYMPH # 0.3 K/uL (1.0-4.3); LYMPH % 4.5 % (20.0-40.0); MEAN CELL VOLUME 86.5 fL (80.0-94.0); MEAN CORPUSCULAR HEMOGLOBIN 27.9 pg (27.0-31.0); MEAN CORPUSCULAR HGB CONC 32.2 g/dL (33.0-37.0); MEAN PLATELET VOLUME 8.7 fL (7.2-11.7); MONO # 0.5 K/uL (0.0-0.8); MONO % 8.5 % (0.0-10.0); NEUT # 4.9 K/uL (1.8-7.0); NEUT % 86.9 % (50.0-75.0); NRBC % 0.1 % (0.0-2.0); PLATELET COUNT 213 K/uL (130-400); RED CELL DISTRIBUTION WIDTH 15.2 % (11.5-14.5); WHITE BLOOD COUNT 5.7 K/uL (4.8-10.8)
[2018-05-16 07:27] LABS: INR 5.7; PROTHROMBIN TIME 62.5 SECONDS (9.7-12.2)
[2018-05-16] MEDS: Albuterol-Ipratrop 3 mg / 0.5 (3 ml) UD INH PRN ×2 (08:04→12:35)
[2018-05-16 08:13] LABS: ALB/GLOB RATIO 1.2 (1.0-2.1); ALBUMIN 3.5 g/dL (3.5-5.0)
[2018-05-16 08:56] LABS: ANISOCYTOSIS SLIGHT; HYPOCHROMIC SLIGHT; LYMPHOCYTE 3 % (20-40); MONOCYTE 8 % (0-10); NEUTROPHIL 89 % (50-75); PLATELET ESTIMATE NORMAL (NORMAL); TOTAL CELLS COUNTED 100
[2018-05-16 08:57] LABS: OVALOCYTES SLIGHT; POLYCHROMIC SLIGHT
[2018-05-16] MEDS ORDERED: Piperacill/Tazo 2.25gm in Dex 2.25 GM/50 ML BAG IVPB SCH (09:30)
[2018-05-16] MEDS: Vitamins A & D Oint UD Foilpak TOP SCH ×2 (09:51→17:32)
[2018-05-16] MEDS: Losartan 12.5 MG TAB PO SCH (09:54)
[2018-05-16] MEDS: Fluticasone Nasal 50 mcg/Spray NAS SCH ×2 (09:54→17:33)
[2018-05-16] MEDS: Piperacill/Tazo 2.25gm in Dex 2.25 GM/50 ML BAG IVPB SCH ×3 (09:59→22:00)
--- NOTE | 2018-05-16 10:10 | CP.PCM.PN ---
<Gavino Cross - Last Filed: 05/16/18 15:32> Subjective - Date & Time of Evaluation Date of Evaluation: 05/16/18 Time of Evaluation: 10:07 - Subjective Subjective: Hospitalist Service Pt seen and [id number] at bedside. Pt still complains of a sudden cough in the mornings as well as dyspnea upon minor exertion. He feels limited still in any physical activity and is breathing heavily. Pt denies cp fc nv dysuria or herrera es in bowel movements. Objective - Vital Signs/Intake and Output Vital Signs (last 24 hours): Temp Pulse Resp BP Pulse Ox 98.2 F 90 20 111/65 99 05/16/18 07:00 05/16/18 07:45 05/16/18 07:00 05/16/18 09:50 05/16/18 07:00 Intake and Output: 05/16/18 05/16/18 06:59 18:59 Intake Total 500 Balance 500 - Medications Medications: Current Medications Albuterol/Ipratropium (Duoneb 3 Mg/0.5 Mg (3 Ml) Ud) 3 ml INH RQ4 PRN PRN Reason: Shortness of Breath Last Admin: 05/16/18 08:04 Dose: 3 ml Fluticasone Propionate (Flonase) 2 spr JESSICA BID [facility] Last Admin: 05/16/18 09:54 Dose: 2 sprays Furosemide (Lasix) 20 mg IVP BID [facility] Last Admin: 05/16/18 09:50 Dose: 20 mg Gabapentin (Neurontin) 100 mg PO TID [facility] Last Admin: 05/16/18 09:50 Dose: 100 mg Piperacillin Sod/Tazobactam Sod (Zosyn 2.25 Gm Iv Premix) 2.25 gm in 50 mls @ 100 mls/hr IVPB Q6H [facility]; Protocol Influenza Virus Vaccine (Fluzone Quad [id number]) 60 mcg IM .ONCE ONE Stop: 05/18/18 10:01 Isosorbide Mononitrate (Imdur) 60 mg PO DAILY [facility] Last Admin: 05/16/18 09:50 Dose: 60 mg Losartan Potassium (Cozaar) 12.5 mg PO DAILY [facility] Last Admin: 05/16/18 09:54 Dose: 12.5 mg Nitroglycerin (Nitro-Bid 2% Oint) 0 ea TOP Q12 [facility] Last Admin: 05/15/18 21:21 Dose: Not Given Rosuvastatin Calcium (Crestor) 10 mg PO HS [facility] Last Admin: 05/15/18 21:20 Dose: 10 mg Vitamin A (Vitamin A & D Oint Ud Foilpak) 1 ea TOP BID [facility] Last Admin: 05/16/18 09:51 Dose: 1 ea - Labs Labs: 05/16/18 06:42 05/16/18 06:42 PT 62.5 SECONDS (9.7-12.2) H 05/16/18 06:42 INR 5.7 H* 05/16/18 06:42 APTT 40 SECONDS (21-34) H 05/16/18 06:42 - Constitutional Appears: Cachectic - Head Exam Head Exam: ATRAUMATIC, NORMAL INSPECTION - Eye Exam Eye Exam: EOMI, Normal appearance - ENT Exam ENT Exam: Mucous Membranes Moist - Respiratory Exam Respiratory Exam: Accessory Muscle Use, Wheezes - Cardiovascular Exam Cardiovascular Exam: Tachycardia, Clicks, +S1, +S2 - GI/Abdominal Exam GI & Abdominal Exam: Normal Bowel Sounds - Extremities Exam Additional comments: pigmentation of lower limbs with signs of venous insufficiency Assessment and Plan - Assessment and Plan (Free Text) Plan: Shortness of breath History of CHF History of Aortic valve replacement, Mitral valve replacement, Tricuspid valve replacement AICD ECHO from 02/05/18: EF 35% CXR: Moderate to severe venous congestion with prominent consolidative opacities within mid to lower lung zones. small bilateral pleural effusions. Aortic atherosclertic calcification noted. Enlarged heart with prominent cardiomegaly. Prior valve replacements. Left sided pacemaker. Status post median sternotomy. Degenerative changes in spine and shoulders. Calcifications within the right axilla. CT chest: multilobar pna CXR; severe venous congestion Pallative care consult, help appreciated Duonebs Q4 PRN Lasix 20mg BID Imdur 60mg PO daily Nitropaste 0.5 inch topical Flonase BID Measure daily weights I&Os Fall precautions History of A fib On Coumadin 6mg at home Hold Coumadin PT 6.25 INR 5.7 Continue to monitor PT/INR History of HTN Losartan 12.5mg PO daily History of chronic pain Gabapentin 100mg PO TID History of HLD Crestor 10mg PO HS History of anemia H/H 97.5/23.4 Continue to monitor Transfuse as necessary PPX: Heart healthy diet GI: Not indicated at this time. DVT: Hold given INR 5.7 Colby Connorliatyler PGY1 <Sophy Huynh - Last Filed: 05/16/18 16:10> Objective - Vital Signs/Intake and Output Vital Signs (last 24 hours): Temp Pulse Resp BP Pulse Ox 98.2 F 90 20 111/65 99 05/16/18 07:00 05/16/18 07:45 05/16/18 07:00 05/16/18 09:50 05/16/18 07:00 Intake and Output: 05/16/18 05/16/18 06:59 18:59 Intake Total 500 Balance 500 - Medications Medications: Current Medications Albuterol/Ipratropium (Duoneb 3 Mg/0.5 Mg (3 Ml) Ud) 3 ml INH RQ4 PRN PRN Reason: Shortness of Breath Last Admin: 05/16/18 12:35 Dose: 3 ml Fluticasone Propionate (Flonase) 2 spr JESSICA BID [facility] Last Admin: 05/16/18 09:54 Dose: 2 sprays Furosemide (Lasix) 20 mg IVP BID [facility] Last Admin: 05/16/18 09:50 Dose: 20 mg Gabapentin (Neurontin) 100 mg PO TID [facility] Last Admin: 05/16/18 14:45 Dose: 100 mg Piperacillin Sod/Tazobactam Sod (Zosyn 2.25 Gm Iv Premix) 2.25 gm in 50 mls @ 100 mls/hr IVPB Q6H [facility]; Protocol Last Admin: 05/16/18 09:59 Dose: 100 mls/hr Azithromycin 500 mg/ Sodium (Chloride) 250 mls @ 250 mls/hr IVPB Q24H [facility]; Protocol Last Admin: 05/16/18 14:45 Dose: 250 mls/hr Influenza Virus Vaccine (Fluzone Quad [id number]) 60 mcg IM .ONCE ONE Stop: 05/18/18 10:01 Isosorbide Mononitrate (Imdur) 60 mg PO DAILY [facility] Last Admin: 05/16/18 09:50 Dose: 60 mg Losartan Potassium (Cozaar) 12.5 mg PO DAILY [facility] Last Admin: 05/16/18 09:54 Dose: 12.5 mg Nitroglycerin (Nitro-Bid 2% Oint) 0 ea TOP Q12 [facility] Last Admin: 05/15/18 21:21 Dose: Not Given Rosuvastatin Calcium (Crestor) 10 mg PO HS [facility] Last Admin: 05/15/18 21:20 Dose: 10 mg Vitamin A (Vitamin A & D Oint Ud Foilpak) 1 ea TOP BID [facility] Last Admin: 05/16/18 09:51 Dose: 1 ea - Labs Labs: 05/16/18 06:42 05/16/18 06:42 PT 62.5 SECONDS (9.7-12.2) H 05/16/18 06:42 INR 5.7 H* 05/16/18 06:42 APTT 40 SECONDS (21-34) H 05/16/18 06:42 Attending/Attestation - Attestation I have personally seen and examined this patient.: Yes I have fully participated in the care of the patient.: Yes I have reviewed all pertinent clinical information, including history, physical exam and plan: Yes Notes (Text): 1.Shortness breath at rest with cough,limited ambulation due to sob acute systolic heart failure and possible pneumonia 2. Acute on chronic systolic heart failure History of Aortic valve replacement, Mitral valve replacement, Tricuspid valve replacement AICD ,CABG ECHO from 02/05/18: EF 35% CXR: Moderate to severe venous congestion with prominent consolidation CT chest: multilobar pna 3.Pneumonia/multilobar zosyn 4. Afib coumadin on hold due to high INR 5.HTN 6.Anemia-chronic anemia ,anemia work up continue lasix,imdur,nitropaste,flonase and losartan Discussed about advance directives. Patient wants full code and treatment to make him better d/w at bedside Assessment and the plan discussed with the resident I agree with the documentation
[2018-05-16] MEDS ORDERED: Piperacillin/Tazobact 2.25 GM in Sodium Chloride 100 ML IVPB SCH (12:30)
--- NOTE | 2018-05-16 12:57 | CP.PCM.CON ---
History of Present Illness - History of Present Illness History of Present Illness: Palliative consult requested by Doctor Francisca for goals of care discussion and Code status clarification Patient is a 68 yo male admitted from home with SOB, what started about 3 months ago, but got worse over the last 2-3 days. Patient has been coughing constantly with dyspnea on exertion. CXR on admission was significant for moderate to severe venous congestion and small B/L pleural effusion. CT chest was suspicious for pneumonia. Patient started on Zosyn IV and Lasix IV. Patient recalls signing the POLST in the past . Copy on chart indicating DNR/DNI. On this admission patient asked for Full Code WBC 5.7, Hb 7.5, PT 62.5, INR 5.7. Patient takes Coumadine and Plavix at home. PMH: defibrilator 2014, valve replacemnt, A Fib, CAD Soc. Hx: , lives in [place] with the children, she comes to visit him once a year and stays for few months at the time Fam. Hx: COPD from his father side Review of Systems - Constitutional Constitutional: Fatigue, Malaise, Weakness - EENT Eyes: absent: As Per HPI, Blind Spots, Blurred Vision, Change in Vision, Decreased Night Vision, Diplopia, Discharge, Dry Eye, Exophthalmos, Floaters, Irritation, Itchy Eyes, Loss of Peripheral Vision, Pain, Photophobia, Requires Corrective Lenses, Sees Flashes, Spots in Vision, Tunnel Vision, Other Visual Disturbances, Loss of Vision, Other Ears: absent: As Per HPI, Decreased Hearing, Ear Discharge, Ear Pain, Tinnitus, Abnormal Hearing, Disequilibrium, Dizziness, Other Nose/Mouth/Throat: absent: As Per HPI, Epistaxis, Nasal Congestion, Nasal Discharge, Nasal Obstruction, Nasal Trauma, Nose Pain, Post Nasal Drip, Sinus Pain, Sinus Pressure, Bleeding Gums, Change in Voice, Dental Pain, Dry Mouth, Dysphagia, Halitosis, Hoarsness, Lip Swelling, Mouth Lesions, Mouth Pain, Odynophagia, Sore Throat, Throat Swelling, Tongue Swelling, Facial Pain, Neck Pain, Neck Mass, Other - Cardiovascular Cardiovascular: Dyspnea, Dyspnea on Exertion - Respiratory Respiratory: Cough, Dyspnea, Dyspnea on Exertion, Chest Congestion - Gastrointestinal Gastrointestinal: absent: As Per HPI, Abdominal Pain, Belching, Bloating, Change in Bowel Habits, Change in Stool Character, Coffee Ground Emesis, Constipation, Cramping, Diarrhea, Dyspepsia, Dysphagia, Early Satiety, Excessive Flatus, Fecal Incontinence, Heartburn, Hematemesis, Hematochezia, Loose Stools, Melena, Karsten sea, Odynophagia, Temesmus, Vomiting, Other - Genitourinary Genitourinary: Voiding Freq/Small Amts - Musculoskeletal Musculoskeletal: Muscle Weakness - Integumentary Integumentary: Change in Pigmentation, Dry Skin - Neurological Neurological: Abnormal Gait - Psychiatric Psychiatric: Anxiety - Endocrine Endocrine: absent: As Per HPI, Change in Body Appearance, Change in Libido, Cold Intolorance, Deepening of Voice, Excessive Sweating, Fatigue, Flushing, Heat Intolorance, Increase in Ring/Shoe/Hat Size, Palpitations, Polydipsia, Polyphagia, Polyuria, Other - Hematologic/Lymphatic Hematologic: Easy Bleeding Past Patient History - Infectious Disease Hx of Infectious Diseases: None - Tetanus Immunizations Tetanus Immunization: Unknown - Past Medical History & Family History Past Medical History?: Yes - Past Social History Smoking Status: Former Smoker - CARDIAC Hx Atrial Fibrillation: Yes Hx Cardia Arrhythmia: Yes Hx Congestive Heart Failure: Yes Hx Hypercholesterolemia: Yes Hx Hypertension: Yes Hx Mitral Valve Prolapse: Yes Hx Pacemaker: Yes Hx Peripheral Edema: Yes - PULMONARY Hx Respiratory Disorders: No - NEUROLOGICAL Hx Neurological Disorder: No Other/Comment: h/o near syncope from bradycardia - HEENT Hx HEENT Problems: No - RENAL Hx Chronic Kidney Disease: No - HEMATOLOGICAL/ONCOLOGICAL Hx Anemia: Yes - INTEGUMENTARY Hx Dermatological Problems: No - MUSCULOSKELETAL/RHEUMATOLOGICAL Hx Musculoskeletal Disorders: No Hx Falls: Yes - GASTROINTESTINAL Hx Gastrointestinal Disorders: No - GENITOURINARY/GYNECOLOGICAL Hx Genitourinary Disorders: No - PSYCHIATRIC Hx Anxiety: Yes Hx Substance Use: No - SURGICAL HISTORY Hx Coronary Stent: Yes - ANESTHESIA Hx Anesthesia: Yes Hx Anesthesia Reactions: No Hx Malignant Hyperthermia: No Meds Allergies/Adverse Reactions: Allergies Allergy/AdvReac Type Severity Reaction Status Date / Time No Known Allergies Allergy Verified 05/14/18 09:15 - Medications Medications: Current Medications Albuterol/Ipratropium (Duoneb 3 Mg/0.5 Mg (3 Ml) Ud) 3 ml INH RQ4 PRN PRN Reason: Shortness of Breath Last Admin: 05/16/18 12:35 Dose: 3 ml Fluticasone Propionate (Flonase) 2 spr JESSICA BID [facility] Last Admin: 05/16/18 09:54 Dose: 2 sprays Furosemide (Lasix) 20 mg IVP BID [facility] Last Admin: 05/16/18 09:50 Dose: 20 mg Gabapentin (Neurontin) 100 mg PO TID [facility] Last Admin: 05/16/18 09:50 Dose: 100 mg Piperacillin Sod/Tazobactam Sod (Zosyn 2.25 Gm Iv Premix) 2.25 gm in 50 mls @ 100 mls/hr IVPB Q6H [facility]; Protocol Azithromycin 500 mg/ Sodium (Chloride) 250 mls @ 250 mls/hr IVPB Q24H [facility]; Pr otocol Influenza Virus Vaccine (Fluzone Quad [id number]) 60 mcg IM .ONCE ONE Stop: 05/18/18 10:01 Isosorbide Mononitrate (Imdur) 60 mg PO DAILY [facility] Last Admin: 05/16/18 09:50 Dose: 60 mg Losartan Potassium (Cozaar) 12.5 mg PO DAILY [facility] Last Admin: 05/16/18 09:54 Dose: 12.5 mg Nitroglycerin (Nitro-Bid 2% Oint) 0 ea TOP Q12 [facility] Last Admin: 05/15/18 21:21 Dose: Not Given Rosuvastatin Calcium (Crestor) 10 mg PO HS [facility] Last Admin: 05/15/18 21:20 Dose: 10 mg Vitamin A (Vitamin A & D Oint Ud Foilpak) 1 ea TOP BID [facility] Last Admin: 05/16/18 09:51 Dose: 1 ea Physical Exam - Constitutional Appears: Chronically Ill - Head Exam Head Exam: ATRAUMATIC, NORMAL INSPECTION, NORMOCEPHALIC - Eye Exam Eye Exam: EOMI, Normal appearance, PERRL Pupil Exam: NORMAL ACCOMODATION, PERRL - ENT Exam ENT Exam: Mucous Membranes Dry - Neck Exam Neck exam: Positive for: Normal Inspection - Respiratory Exam Respiratory Exam: Decreased Breath Sounds, Rhonchi, NORMAL BREATHING PATTERN - Cardiovascular Exam Cardiovascular Exam: +S1, +S2 - GI/Abdominal Exam GI & Abdominal Exam: Normal Bowel Sounds, Soft - Rectal Exam Rectal Exam: Deferred - Exam Exam: NORMAL INSPECTION - Extremities Exam Extremities exam: Positive for: pedal edema, tenderness, pedal pulses present - Back Exam Back exam: NORMAL INSPECTION - Neurological Exam Neurological exam: Alert, Oriented x3 - Psychiatric Exam Psychiatric exam: Anxious, Normal Affect, Normal Mood - Skin Skin Exam: Pallor, Petechiae Results - Vital Signs Recent Vital Signs: Last Vital Signs Temp 98.2 F 05/16/18 07:00 Pulse 90 05/16/18 07:45 Resp 20 05/16/18 07:00 BP 111/65 05/16/18 09:50 Pulse Ox 99 05/16/18 07:00 - Labs Result Diagrams: 05/16/18 06:42 05/16/18 06:42 Labs: Laboratory Results - last 24 hr 05/15/18 05/15/18 05/15/18 06:05 17:05 21:43 WBC RBC Hgb Hct MCV MCH MCHC RDW Plt Count MPV Neut % (Auto) Lymph % (Auto) Dawes % (Auto) Eos % (Auto) Baso % (Auto) Neut # (Auto) Lymph # (Auto) Dawes # (Auto) Eos # (Auto) Baso # (Auto) Neutrophils % (Manual) Lymphocytes % (Manual) Monocytes % (Manual) Platelet Estimate Polychromasia Hypochromasia (manual) Anisocytosis (manual) Ovalocytes PT INR APTT Sodium Potassium Chloride Carbon Dioxide Anion Gap BUN Creatinine Est GFR ( Amer) Est GFR (Non-Af Amer) POC Glucose (mg/dL) 144 H 187 H 256 H Random Glucose Calcium Phosphorus Magnesium Total Bilirubin AST ALT Alkaline Phosphatase Total Protein Albumin Globulin Albumin/Globulin Ratio 05/16/18 05/16/18 05/16/18 06:42 06:42 06:42 WBC 5.7 RBC 2.70 L Hgb 7.5 L Hct 23.4 L MCV 86.5 MCH 27.9 MCHC 32.2 L RDW 15.2 H Plt Count 213 MPV 8.7 Neut % (Auto) 86.9 H Lymph % (Auto) 4.5 L Dawes % (Auto) 8.5 Eos % (Auto) 0.0 Baso % (Auto) 0.1 Neut # (Auto) 4.9 Lymph # (Auto) 0.3 L Dawes # (Auto) 0.5 Eos # (Auto) 0.0 Baso # (Auto) 0.0 Neutrophils % (Manual) 89 H Lymphocytes % (Manual) 3 L Monocytes % (Manual) 8 Platelet Estimate Normal Polychromasia Slight Hypochromasia (manual) Slight Anisocytosis (manual) Slight Ovalocytes Slight PT 62.5 H INR 5.7 H* APTT 40 H Sodium 137 Potassium 4.2 Chloride 96 L Carbon Dioxide 27 Anion Gap 18 BUN 54 H Creatinine 2.0 H Est GFR ( Amer) 41 Est GFR (Non-Af Amer) 33 POC Glucose (mg/dL) Random Glucose 117 H Calcium 8.0 L Phosphorus 4.9 H Magnesium 2.0 Total Bilirubin 1.0 AST 27 ALT 22 Alkaline Phosphatase 90 Total Protein 6.5 Albumin 3.5 Globulin 3.0 Albumin/Globulin Ratio 1.2 Assessment & Plan - Assessment and Plan (Free Text) Assessment: Palliative consult Copy of POLST on chart indicating DNR/DNI I reviewed medical records, all diagnostic studies, examined and interviewed brian hadleyailyn at bed side Patient is alert, oriented X 3, with speech that is clear. at bed side. Pat alvin looks chronically ill. He admits to feeling tired and feeling like sleeping all the time. Breathing is shallow, lungs congested, patient coughs often, minimal sputum production. Abdomen soft, active bowel sounds, denies constipation, reports fair appetite, denies N/V. Urinates using urinal. Feels he should be urinating more since is on Lasix. Urine is clear yellow, denies burning on urination. Urine output 300 cc/ day. LEs severely discolored. Pedal pulses diminished. Good sensation to touch. Limited ROM. Reports difficulties ambulating due to pain. Neurontin 100 mg TID on board. Goals of care discussed with patient and his . His biggest concern is lack of help at home once his leaves. Patient has 5 stairs before entering his apartment. 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 Monique care as of present. Patient is trying to get Medicaid services. His lives in [place] with children. Patient does not want to return to [place] as he believes he could not get appropriate Medical care there. Code status discussed. Patient is aware of signing POLST. he states at that time he did not fully understand what he signed. As of now he wishes all agressive measures to be applied to prolong his . I further discussed POLST with emphasis on DNR/DNI. I reassured patient that it did not mean cessation of all care, but withholding aggressive interventions if pulse has stopped and no recovery was expected. Patient stated understanding and decided that as of now he remains FULL CODE and if he loses decision making capacity his ill be his surrogate decision maker. I offered my concerns that his is not here all the time and may be time when she was hard to reach. Patient asked to talk about it with his before any other decision made, but as of now he wants Full Code. Impression * Chronically ill male with CHF exacerbation * Possible pneumonia * general weakness * Anemia, Hb 7.5 * At risk for abnormal bleeding, INR 5.7, much higher than recommended for prostatic heart valves * Acute renal injury * Lack of support at home * Asking for FULL CODE Suggestions * Continue Lasix, with regards to BP * Assist with OOB to chair daily * Consider blood transfusion for Hb 7.5. Patient may need slow transfusion, over 4 hr period due to CHF and extra dose of Lasix right after transfusion * Would refer to Nephrology * SS to assist with Medicid application * FULL CODE Palliative care will remain on board for further support. Advance Care planing 50 min
[2018-05-16] MEDS: Azithromycin 500 MG in Sodium Chloride 0.9% 250 ML IVPB SCH (14:45)
[2018-05-16] MEDS: Nitroglycerin 2% Ointment Foilpak UD TOP SCH (21:59)
--- NOTE | 2018-05-16 23:00 | CARD ---
APPROVED REPORT Date of service: 05/14/2018 EKG Measurement Heart [id number] <Conclusion> Atrial-sensed ventricular-paced rhythm with occasional premature ventricular complexes Abnormal ECG
--- NOTE | 2018-05-16 23:00 | CARD ---
APPROVED REPORT Date of service: 05/14/2018 EKG Measurement Heart [id number] <Conclusion> Ventricular-paced rhythm Abnormal ECG
[2018-05-16 23:03] LABS: URINE BILIRUBIN NEGATIVE (NEGATIVE); URINE BLOOD 2+ (NEGATIVE); URINE CLARITY Clear (Clear); URINE COLOR Yellow (YELLOW); URINE GLUCOSE (UA) NORMAL (Normal); URINE HYALINE CAST 0-2 /lpf (0-2); URINE LEUKOCYTE ESTERASE NEG Leu/uL (Negative); URINE PROTEIN 1+ mg/dL (NEGATIVE); URINE UROBILINOGEN NORMAL mg/dL (0.2-1.0)
[2018-05-17] MEDS: Piperacill/Tazo 2.25gm in Dex 2.25 GM/50 ML BAG IVPB SCH ×3 (04:49→20:45)
[2018-05-17 08:28] LABS: HEMOGLOBIN 8.3 g/dL (12.0-18.0); LYMPH # 0.4 K/uL (1.0-4.3); LYMPH % 4.6 % (20.0-40.0); MEAN CELL VOLUME 86.6 fL (80.0-94.0); MEAN CORPUSCULAR HEMOGLOBIN 28.3 pg (27.0-31.0); MEAN CORPUSCULAR HGB CONC 32.7 g/dL (33.0-37.0); MEAN PLATELET VOLUME 8.4 fL (7.2-11.7); MONO # 0.7 K/uL (0.0-0.8); NEUT % 86.4 % (50.0-75.0); PLATELET COUNT 224 K/uL (130-400); RBC 2.95 Mil/uL (4.40-5.90); RED CELL DISTRIBUTION WIDTH 15.4 % (11.5-14.5); WHITE BLOOD COUNT 8.1 K/uL (4.8-10.8)
[2018-05-17 08:53] LABS: IRON 48 ug/dL (49-181)
[2018-05-17 08:59] LABS: ALB/GLOB RATIO 1.3 (1.0-2.1); CALCIUM 8.6 mg/dl (8.6-10.4)
[2018-05-17 09:02] LABS: % IRON SATURATION 13 (20-55); TOTAL IRON BINDING CAPACITY 378 ug/dL (250-450)
[2018-05-17 09:21] LABS: PROTHROMBIN TIME 33.4 SECONDS (9.7-12.2)
[2018-05-17 09:23] LABS: FERRITIN 27.4 ng/mL
[2018-05-17 10:22] LABS: LYMPHOCYTE 6 % (20-40); MONOCYTE 8 % (0-10); NEUTROPHIL 86 % (50-75); TOTAL CELLS COUNTED 100
[2018-05-17 10:23] LABS: ACANTHOCYTES SLIGHT; ANISOCYTOSIS SLIGHT; BURR CELLS SLIGHT; HYPOCHROMIC SLIGHT; OVALOCYTES SLIGHT; PLATELET ESTIMATE NORMAL (NORMAL); POIKILOCYTOSIS SLIGHT
[2018-05-17 10:24] LABS: LARGE PLATELETS PRESENT
[2018-05-17] MEDS: Fluticasone Nasal 50 mcg/Spray NAS SCH ×2 (10:29→20:45)
[2018-05-17] MEDS: Nitroglycerin 2% Ointment Foilpak UD TOP SCH ×2 (10:29→21:13)
[2018-05-17] MEDS: Vitamins A & D Oint UD Foilpak TOP SCH ×2 (10:29→20:46)
--- NOTE | 2018-05-17 10:58 | CP.PCM.PN ---
<Cande Goldstein - Last Filed: 05/17/18 16:30> Subjective - Date & Time of Evaluation Date of Evaluation: 05/17/18 Time of Evaluation: 10:55 - Subjective Subjective: PGY-1 Medicine Progress Note for Dr. Huynh's service Patient seen and examined at bedside. Patient reports ongoing cough with at time s blood. Patient states he feels very weak. Patient denies fevers, chills, chest pain, shortness of breath, n/v, constipation or diarrhea, and dysuria. Objective - Vital Signs/Intake and Output Vital Signs (last 24 hours): Temp Pulse Resp BP Pulse Ox 97.7 F 90 18 138/83 100 05/17/18 07:00 05/17/18 07:46 05/17/18 07:00 05/17/18 10:30 05/17/18 07:00 Intake and Output: 05/17/18 05/17/18 06:59 18:59 Intake Total 350 Output Total 700 Balance -350 - Medications Medications: Current Medications Albuterol/Ipratropium (Duoneb 3 Mg/0.5 Mg (3 Ml) Ud) 3 ml INH RQ4 PRN PRN Reason: Shortness of Breath Last Admin: 05/16/18 12:35 Dose: 3 ml Bumetanide (Bumex) 1 mg IVP Q8H [facility] Last Admin: 05/17/18 04:46 Dose: 1 mg Fluticasone Propionate (Flonase) 2 spr JESSICA BID [facility] Last Admin: 05/17/18 10:29 Dose: 2 sprays Gabapentin (Neurontin) 100 mg PO TID [facility] Last Admin: 05/17/18 10:30 Dose: 100 mg Piperacillin Sod/Tazobactam Sod (Zosyn 2.25 Gm Iv Premix) 2.25 gm in 50 mls @ 100 mls/hr IVPB Q6H [facility]; Protocol Last Admin: 05/17/18 10:31 Dose: 100 mls/hr Azithromycin 500 mg/ Sodium (Chloride) 250 mls @ 250 mls/hr IVPB Q24H [facility]; Protocol Last Admin: 05/16/18 14:45 Dose: 250 mls/hr Influenza Virus Vaccine (Fluzone Quad [id number]) 60 mcg IM .ONCE ONE Stop: 05/18/18 10:01 Ipratropium [place] (Atrovent) 0.5 mg IH [id number] ONE Stop: 05/17/18 10:52 Isosorbide Mononitrate (Imdur) 60 mg PO DAILY [facility] Last Admin: 05/17/18 10:29 Dose: 60 mg Losartan Potassium (Cozaar) 12.5 mg PO DAILY [facility] Last Admin: 05/16/18 09:54 Dose: 12.5 mg Metoprolol Tartrate (Lopressor) 25 mg PO BID [facility] Last Admin: 05/17/18 10:30 Dose: 25 mg Nitroglycerin (Nitro-Bid 2% Oint) 0 ea TOP Q12 [facility] Last Admin: 05/17/18 10:29 Dose: 1 ea Rosuvastatin Calcium (Crestor) 10 mg PO HS [facility] Last Admin: 05/16/18 22:00 Dose: 10 mg Vitamin A (Vitamin A & D Oint Ud Foilpak) 1 ea TOP BID [facility] Last Admin: 05/17/18 10:29 Dose: 1 ea - Labs Labs: 05/17/18 08:21 05/17/18 08:21 PT 33.4 SECONDS (9.7-12.2) H D 05/17/18 08:21 INR 3.0 D 05/17/18 08:21 APTT 38 SECONDS (21-34) H 05/17/18 08:21 - Constitutional Appears: Non-toxic, No Acute Distress - Head Exam Head Exam: NORMAL INSPECTION, NORMOCEPHALIC - Eye Exam Eye Exam: EOMI, Normal appearance. absent: Nystagmus, Scleral icterus - ENT Exam ENT Exam: Mucous Membranes Dry - Respiratory Exam Respiratory Exam: Wheezes, NORMAL BREATHING PATTERN. absent: Accessory Muscle Use, Chest Wall Tenderness, Decreased Breath Sounds, Rales, Rhonchi - Cardiovascular Exam Cardiovascular Exam: REGULAR RHYTHM, +S1, +S2. absent: Tachycardia, Murmur - GI/Abdominal Exam GI & Abdominal Exam: Soft, Normal Bowel Sounds. absent: Distended, Firm, Guarding, Tenderness - Extremities Exam Extremities Exam: absent: Calf Tenderness, Normal Inspection, Pedal Edema Additional comments: chronic bilateral dry lower extremities with skin darkening - Back Exam Back Exam: NORMAL INSPECTION. absent: CVA tenderness (L), CVA tenderness (R) - Neurological Exam Neurological Exam: Alert, Awake, Oriented x3 - Psychiatric Exam Psychiatric exam: Normal Affect, Normal Mood - Skin Skin Exam: Dry, Intact, Pallor. absent: Cyanosis Assessment and Plan - Assessment and Plan (Free Text) Assessment: 68 yo male with past medical history of CHF, Afib on Coumadin, Aortic Valve Replacement, Mitral valve replacement, Tricuspid valve replacement, CAD and CABG admitted for 2-3 week history of shortness of breath and cough. Plan: Pneumonia w/ shortness of breath Pulmonology consulted- Dr. Alcocer- recommendations appreciated Azithromycin and Zosyn- held Duonebs PRN; Atrovent 1x andrés ECHO from 02/05/18: EF 35% CXR: Moderate to severe venous congestion with prominent consolidative opacities within mid to lower lung zones. small bilateral pleural effusions. Aortic atherosclertic calcification noted. Enlarged heart with prominent cardiomegaly. Prior valve replacements. Left sided pacemaker. Status post median sternotomy. Degenerative changes in spine and shoulders. Calcifications within the right axilla. CT chest: multilobar pna CXR; severe venous congestion CAD w/ CABG Crestor 10mg po HS Bumex 1mg IVP q8 andrés Imdur 60mg po daily Metoprolol 25mg po bid [facility] Nitropaste 0.5 inch topical Hx of CHF Cardio consulted- Dr. Navas- recommendations appreciated Nephrology consulted- Dr. Berg- recommendations appreciated Measure daily weights Strict Is/Os AICD in place Bumex 1mg IVP q8 andrés Imdur 60mg po daily Hydralazine 25mg po tid andrés Lopressor 25mg po bid andrés Consider metalozone for discharge as patient may beneft iwth LOUISE Likely prerenal in etiology with low blood pressure setting and anemia Nephrology consulted- Dr. Berg- recommendations appreciated Cardiorenal etiology with increased diuretics patient Cr loses Hx of Afib INR 3.0 Will restart Coumadin tomorrow at therapeutic INR Chronic pain Gabapentin 100mg po tid HTN Bumex/Imdur/Lopressor/Hydralazine PPx Influenza vaccine DVT ppx: not indicated at this time in setting of elevated INR GI ppx: protonix 40mg daily [facility] <Sohpy Huynh - Last Filed: 05/18/18 09:15> Objective - Vital Signs/Intake and Output Vital Signs (last 24 hours): Temp Pulse Resp BP Pulse Ox 98 F 92 H 25 H 95/59 L 100 05/18/18 04:00 05/18/18 06:03 05/18/18 06:03 05/18/18 04:47 05/18/18 06:03 Intake and Output: 05/18/18 05/18/18 06:59 18:59 Intake Total 105.9 Output Total 1400 Balance -1294.1 - Medications Medications: Current Medications Albuterol/Ipratropium (Duoneb 3 Mg/0.5 Mg (3 Ml) Ud) 3 ml INH RQ4 PRN PRN Reason: Shortness of Breath Last Admin: 05/17/18 12:23 Dose: 3 ml Bumetanide (Bumex) 1 mg PO Q8H [facility] Last Admin: 05/18/18 04:38 Dose: 1 mg Fluticasone Propionate (Flonase) 2 spr JESSICA BID [facility] Last Admin: 05/17/18 20:45 Dose: Not Given Gabapentin (Neurontin) 100 mg PO TID [facility] Last Admin: 05/17/18 18:34 Dose: 100 mg Hydralazine HCl (Apresoline) 25 mg PO TID [facility] Last Admin: 05/17/18 20:45 Dose: Not Given Piperacillin Sod/Tazobactam Sod (Zosyn 2.25 Gm Iv Premix) 2.25 gm in 50 mls @ 100 mls/hr IVPB Q6H [facility]; Protocol Last Admin: 05/17/18 20:45 Dose: Not Given Milrinone Lactate/Dextrose 20 (mg/ Dextrose) 100 mls @ 5.84 mls/hr IV .Q17H8M [facility]; Protocol Last Titration: 05/17/18 22:00 Dose: 0.2 mcg/kg/min, 3.54 mls/hr Influenza Virus Vaccine (Fluzone Quad [id number]) 60 mcg IM .ONCE ONE Stop: 05/18/18 10:01 Isosorbide Mononitrate (Imdur) 60 mg PO DAILY [facility] Last Admin: 05/17/18 10:29 Dose: 60 mg Metoprolol Tartrate (Lopressor) 25 mg PO BID [facility] Last Admin: 05/17/18 18:34 Dose: 25 mg Nitroglycerin (Nitro-Bid 2% Oint) 0 ea TOP Q12 [facility] Last Admin: 05/17/18 21:13 Dose: 1 ea Pantoprazole Sodium (Protonix Ec Tab) 40 mg PO DAILY [facility] Last Admin: 05/17/18 13:24 Dose: 40 mg Rosuvastatin Calcium (Crestor) 10 mg PO HS [facility] Last Admin: 05/17/18 21:12 Dose: 10 mg Vitamin A (Vitamin A & D Oint Ud Foilpak) 1 ea TOP BID [facility] Last Admin: 05/17/18 20:46 Dose: 1 ea Warfarin Sodium (Coumadin) 5 mg PO 1800 [facility] Stop: 05/18/18 18:01 - Labs Labs: 05/18/18 05:52 05/18/18 05:53 PT 22.1 SECONDS (9.7-12.2) H D 05/18/18 05:52 INR 2.0 D 05/18/18 05:52 APTT 34 SECONDS (21-34) 05/18/18 05:52 Attending/Attestation - Attestation I have personally seen and examined this patient.: Yes I have fully participated in the care of the patient.: Yes I have reviewed all pertinent clinical information, including history, physical exam and plan: Yes Notes (Text): seen and examined today. Patient is sob at rest,No fever,white sputum lungs bilateral wheeze and rales abdomen soft and nontender leg without edema,with chronic skin changes 1.Shortness breath at rest with cough,limited ambulation due to sob acute on chronic systolic heart failure D/W Dr Pantoja. Echo film reviewed with Dr Pantoja Primacor drip ordered. Patient will go to ICU stop losartan,add hydrazine and continue ,bumex imdur ,metoprolol and crestor follow repeat Echo 2. Acute on chronic systolic heart failure History of Aortic valve replacement, Mitral valve replacement, Tricuspid valve replacement AICD ,CABG ECHO from 02/05/18: EF 35% CXR: Moderate to severe venous congestion with prominent consolidation CT chest: multilobar pna 3.Pneumonia/multilobar zosyn 4. Afib coumadin on hold due to high INR 5.HTN 6.Anemia-chronic anemia ,anemia work up 7.Acute renal insufficiency likely due to diuretics,patient needs diuretics to keep him dry Discussed about advance directives. Patient wants full code and treatment to make him better Assessment and the plan discussed with the resident I agree with the documentation
--- NOTE | 2018-05-17 11:01 | CP.PCM.CON ---
History of Present Illness - History of Present Illness History of Present Illness: HPI: Patient is a 68 year old male with history of CHF, A fib on Coumadin, Aortic valve replacement, mitral valve replacement, tricuspid valve replacement, CAD and CABG who presents with 2 to 3 week history of shortness of breath that worsened over the past 3 days to the point where he cannot move without coughing. He states that he has some clear sputum, denies blood in his sputum. pt currently had a coughing spell and feels breathless after, in apparent distress. Further ROS couldnt be obtained PMH: hx of rheumatic fever, CHF, A fib on Coumadin, Aortic valve replacement, mitral valve replacement, tricuspid valve replacement, CAD and CABG PSH: Aortic valve replacement, mitral valve replacement, tricuspid valve replacement, CABG Family hx: denied Social : denies history of tobacco, alcohol or drug use Home meds: Metoprolol 25mg PO BID, Coumadin 6mg, Simvastatin 40mg, Bumex 1mg BID, Losartan 12.5mg, Gabapentin Allergies: NKDA Review of Systems - Review of Systems Systems not reviewed;Unavailable: Acuity of Condition Past Patient History - Infectious Disease Hx of Infectious Diseases: None - Tetanus Immunizations Tetanus Immunization: Unknown - Past Medical History & Family History Past Medical History?: Yes - Past Social History Smoking Status: Former Smoker - CARDIAC Hx Atrial Fibrillation: Yes Hx Cardia Arrhythmia: Yes Hx Congestive Heart Failure: Yes Hx Hypercholesterolemia: Yes Hx Hypertension: Yes Hx Mitral Valve Prolapse: Yes Hx Pacemaker: Yes Hx Peripheral Edema: Yes - PULMONARY Hx Respiratory Disorders: No - NEUROLOGICAL Hx Neurological Disorder: No Other/Comment: h/o near syncope from bradycardia - HEENT Hx HEENT Problems: No - RENAL Hx Chronic Kidney Disease: No - HEMATOLOGICAL/ONCOLOGICAL Hx Anemia: Yes - INTEGUMENTARY Hx Dermatological Problems: No - MUSCULOSKELETAL/RHEUMATOLOGICAL Hx Musculoskeletal Disorders: No Hx Falls: Yes - GASTROINTESTINAL Hx Gastrointestinal Disorders: No - GENITOURINARY/GYNECOLOGICAL Hx Genitourinary Disorders: No - PSYCHIATRIC Hx Anxiety: Yes Hx Substance Use: No - SURGICAL HISTORY Hx Coronary Stent: Yes - ANESTHESIA Hx Anesthesia: Yes Hx Anesthesia Reactions: No Hx Malignant Hyperthermia: No Meds Allergies/Adverse Reactions: Allergies Allergy/AdvReac Type Severity Reaction Status Date / Time No Known Allergies Allergy Verified 05/14/18 09:15 - Medications Medications: Current Medications Albuterol/Ipratropium (Duoneb 3 Mg/0.5 Mg (3 Ml) Ud) 3 ml INH RQ4 PRN PRN Reason: Shortness of Breath Last Admin: 05/16/18 12:35 Dose: 3 ml Bumetanide (Bumex) 1 mg IVP Q8H [facility] Last Admin: 05/17/18 04:46 Dose: 1 mg Fluticasone Propionate (Flonase) 2 spr JESSICA BID [facility] Last Admin: 05/17/18 10:29 Dose: 2 sprays Gabapentin (Neurontin) 100 mg PO TID [facility] Last Admin: 05/17/18 10:30 Dose: 100 mg Piperacillin Sod/Tazobactam Sod (Zosyn 2.25 Gm Iv Premix) 2.25 gm in 50 mls @ 100 mls/hr IVPB Q6H [facility]; Protocol Last Admin: 05/17/18 10:31 Dose: 100 mls/hr Azithromycin 500 mg/ Sodium (Chloride) 250 mls @ 250 mls/hr IVPB Q24H [facility]; Protocol Last Admin: 05/16/18 14:45 Dose: 250 mls/hr Influenza Virus Vaccine (Fluzone Quad [id number]) 60 mcg IM .ONCE ONE Stop: 05/18/18 10:01 Ipratropium [place] (Atrovent) 0.5 mg IH [id number] ONE Stop: 05/17/18 10:52 Isosorbide Mononitrate (Imdur) 60 mg PO DAILY [facility] Last Admin: 05/17/18 10:29 Dose: 60 mg Losartan Potassium (Cozaar) 12.5 mg PO DAILY [facility] Last Admin: 05/16/18 09:54 Dose: 12.5 mg Metoprolol Tartrate (Lopressor) 25 mg PO BID [facility] Last Admin: 05/17/18 10:30 Dose: 25 mg Nitroglycerin (Nitro-Bid 2% Oint) 0 ea TOP Q12 [facility] Last Admin: 05/17/18 10:29 Dose: 1 ea Rosuvastatin Calcium (Crestor) 10 mg PO HS [facility] Last Admin: 05/16/18 22:00 Dose: 10 mg Vitamin A (Vitamin A & D Oint Ud Foilpak) 1 ea TOP BID [facility] Last Admin: 05/17/18 10:29 Dose: 1 ea Physical Exam - Constitutional Appears: In Acute Distress, Chronically Ill - Head Exam Head Exam: NORMAL INSPECTION, NORMOCEPHALIC - Eye Exam Eye Exam: Normal appearance, PERRL - ENT Exam ENT Exam: Mucous Membranes Moist, Normal Exam - Neck Exam Neck exam: Positive for: Normal Inspection - Respiratory Exam Respiratory Exam: Decreased Breath Sounds Additional comments: b/l rhonchi bases - Cardiovascular Exam Cardiovascular Exam: Irregular Rhythm - GI/Abdominal Exam GI & Abdominal Exam: Normal Bowel Sounds, Soft - Extremities Exam Extremities exam: Positive for: normal inspection - Back Exam Back exam: NORMAL INSPECTION - Neurological Exam Neurological exam: Alert, Oriented x3 - Psychiatric Exam Psychiatric exam: Anxious - Skin Skin Exam: Dry, Intact Results - Vital Signs Recent Vital Signs: Last Vital Signs Temp 97.7 F 05/17/18 07:00 Pulse 90 05/17/18 07:46 Resp 18 05/17/18 07:00 BP 138/83 05/17/18 10:30 Pulse Ox 100 05/17/18 07:00 - Labs Result Diagrams: 05/17/18 08:21 05/17/18 08:21 Labs: Laboratory Results - last 24 hr 05/16/18 05/16/18 05/16/18 16:23 21:18 22:56 WBC RBC Hgb Hct MCV MCH MCHC RDW Plt Count MPV Neut % (Auto) Lymph % (Auto) [place] % (Auto) Eos % (Auto) Baso % (Auto) Neut # (Auto) Lymph # (Auto) [place] # (Auto) Eos # (Auto) Baso # (Auto) Neutrophils % (Manual) Lymphocytes % (Manual) Monocytes % (Manual) Platelet Estimate Large Platelets Hypochromasia (manual) Poikilocytosis (manual Anisocytosis (manual) Ovalocytes [place] Cells Acanthocytes (Spur) PT INR APTT Sodium Potassium Chloride Carbon Dioxide Anion Gap BUN Creatinine Est GFR ( Amer) Est GFR (Non-Af Amer) POC Glucose (mg/dL) 114 H 110 Random Glucose Calcium Phosphorus Magnesium Iron TIBC % Saturation Ferritin Total Bilirubin AST ALT Alkaline Phosphatase Total Protein Albumin Globulin Albumin/Globulin Ratio Urine Color Urine Clarity Urine pH Ur Specific [place] Urine Protein Urine Glucose (UA) Urine Ketones Urine Blood Urine Nitrate Urine Bilirubin Urine Urobilinogen Ur Leukocyte Esterase Urine WBC (Auto) Urine RBC (Auto) Hyaline Casts Ur Random Creatinine 78.0 Ur Random Sodium 5 Ur Random Urea Nitrogn 695 1105/17/18 05/17/18 22:56 08:21 08:21 WBC 8.1 RBC 2.95 L Hgb 8.3 L Hct 25.6 L MCV 86.6 MCH 28.3 MCHC 32.7 L RDW 15.4 H Plt Count 224 MPV 8.4 Neut % (Auto) 86.4 H Lymph % (Auto) 4.6 L [place] % (Auto) 9.0 Eos % (Auto) 0.0 Baso % (Auto) 0.0 Neut # (Auto) 7.0 Lymph # (Auto) 0.4 L [place] # (Auto) 0.7 Eos # (Auto) 0.0 Baso # (Auto) 0.0 Neutrophils % (Manual) 86 H Lymphocytes % (Manual) 6 L Monocytes % (Manual) 8 Platelet Estimate Normal Large Platelets Present Hypochromasia (manual) Slight Poikilocytosis (manual Slight Anisocytosis (manual) Slight Ovalocytes Slight Rikki Cells Slight Acanthocytes (Spur) Slight PT 33.4 H D INR 3.0 D APTT 38 H Sodium Potassium Chloride Carbon Dioxide Anion Gap BUN Creatinine Est GFR ( Amer) Est GFR (Non-Af Amer) POC Glucose (mg/dL) Random Glucose Calcium Phosphorus Magnesium Iron TIBC % Saturation Ferritin Total Bilirubin AST ALT Alkaline Phosphatase Total Protein Albumin Globulin Albumin/Globulin Ratio Urine Color Yellow Urine Clarity Clear Urine pH 5.0 Ur Specific [place] 1.012 Urine Protein 1+ H Urine Glucose (UA) Normal Urine Ketones Negative Urine Blood 2+ H Urine Nitrate Negative Urine Bilirubin Negative Urine Urobilinogen Normal Ur Leukocyte Esterase Neg Urine WBC (Auto) 1 Urine RBC (Auto) 12 H Hyaline Casts 0-2 Ur Random Creatinine Ur Random Sodium Ur Random Urea Nitrogn 05/17/18 05/17/18 08:21 08:21 WBC RBC Hgb Hct MCV MCH MCHC RDW Plt Count MPV Neut % (Auto) Lymph % (Auto) [place] % (Auto) Eos % (Auto) Baso % (Auto) Neut # (Auto) Lymph # (Auto) [place] # (Auto) Eos # (Auto) Baso # (Auto) Neutrophils % (Manual) Lymphocytes % (Manual) Monocytes % (Manual) Platelet Estimate Large Platelets Hypochromasia (manual) Poikilocytosis (manual Anisocytosis (manual) Ovalocytes [place] Cells Acanthocytes (Spur) PT INR APTT Sodium 138 Potassium 4.0 Chloride 96 L Carbon Dioxide 30 Anion Gap 16 BUN 61 H Creatinine 1.8 H Est GFR ( Amer) 46 Est GFR (Non-Af Amer) 38 POC Glucose (mg/dL) Random Glucose 84 Calcium 8.6 Phosphorus 3.1 Magnesium 1.9 Iron 48 L TIBC 378 % Saturation 13 L Ferritin 27.4 Total Bilirubin 1.8 H AST 37 ALT 29 Alkaline Phosphatase 101 Total Protein 7.2 Albumin 4.0 Globulin 3.2 Albumin/Globulin Ratio 1.3 Urine Color Urine Clarity Urine pH Ur Specific [place] Urine Protein Urine Glucose (UA) Urine Ketones Urine Blood Urine Nitrate Urine Bilirubin Urine Urobilinogen Ur Leukocyte Esterase Urine WBC (Auto) Urine RBC (Auto) Hyaline Casts Ur Random Creatinine Ur Random Sodium Ur Random Urea Nitrogn Assessment & Plan - Assessment and Plan (Free Text) Assessment: -fritz -?cardiorenal / atn -microscopic hematuria of unclear etiology, further w/u depending on initial tests -ckd 3 -pneumonia -supratherapeutic inr -chf check renal US, quantify urine protein hep b/c/hiv maintain bumex hold ARB antibiotics and supportive care
[2018-05-17] MEDS: Albuterol-Ipratrop 3 mg / 0.5 (3 ml) UD INH PRN ×2 (11:50→12:23)
[2018-05-17] MEDS ORDERED: Ipratropium 0.02% Inhal Soln (0.5 mg/2.5 ml) UD IH ONE ×2 (12:45→14:02)
[2018-05-17] MEDS: Pantoprazole 40 mg EC Tab PO SCH ×2 (12:47→13:24)
[2018-05-17] MEDS: Azithromycin 500 MG in Sodium Chloride 0.9% 250 ML IVPB SCH (13:25)
--- NOTE | 2018-05-17 16:36 | CP.PCM.CON ---
History of Present Illness - History of Present Illness History of Present Illness: The patient is a 68 year old man with a history of MVR mechanical, AVR, TR annuloplasty, due to rheumatic heart disease. pt is followed by Dr Hernandez. he has dyspnea, and cxr is c/w chf and cardiomegaly. An echo performed 02/05/2018 joshua pascual bi-ventricular systolic dysfunction, normal functioning valves . Pt has an ICD ([facility] [employer]?). checked two months ago. Pt had a baseline cr of 1.5, jin to 2.0 with diuretics. ECg by oh V pacing, underlying rhythm s not clear, afib first marked first degree av block. Review of Systems - Review of Systems All systems: reviewed and no additional remarkable complaints except (as above.) Past Patient History - Infectious Disease Hx of Infectious Diseases: None - Tetanus Immunizations Tetanus Immunization: Unknown - Past Medical History & Family History Past Medical History?: Yes - Past Social History Smoking Status: Former Smoker - CARDIAC Hx Atrial Fibrillation: Yes Hx Cardia Arrhythmia: Yes Hx Congestive Heart Failure: Yes Hx Hypercholesterolemia: Yes Hx Hypertension: Yes Hx Mitral Valve Prolapse: Yes Hx Pacemaker: Yes Hx Peripheral Edema: Yes - PULMONARY Hx Respiratory Disorders: No - NEUROLOGICAL Hx Neurological Disorder: No Other/Comment: h/o near syncope from bradycardia - HEENT Hx HEENT Problems: No - RENAL Hx Chronic Kidney Disease: No - HEMATOLOGICAL/ONCOLOGICAL Hx Anemia: Yes - INTEGUMENTARY Hx Dermatological Problems: No - MUSCULOSKELETAL/RHEUMATOLOGICAL Hx Musculoskeletal Disorders: No Hx Falls: Yes - GASTROINTESTINAL Hx Gastrointestinal Disorders: No - GENITOURINARY/GYNECOLOGICAL Hx Genitourinary Disorders: No - PSYCHIATRIC Hx Anxiety: Yes Hx Substance Use: No - SURGICAL HISTORY Hx Coronary Stent: Yes - ANESTHESIA Hx Anesthesia: Yes Hx Anesthesia Reactions: No Hx Malignant Hyperthermia: No Meds Allergies/Adverse Reactions: Allergies Allergy/AdvReac Type Severity Reaction Status Date / Time No Known Allergies Allergy Verified 05/14/18 09:15 - Medications Medications: Current Medications Albuterol/Ipratropium (Duoneb 3 Mg/0.5 Mg (3 Ml) Ud) 3 ml INH RQ4 PRN PRN Reason: Shortness of Breath Last Admin: 05/17/18 12:23 Dose: 3 ml Bumetanide (Bumex) 1 mg PO Q8H [facility] Fluticasone Propionate (Flonase) 2 spr JESSICA BID [facility] Last Admin: 05/17/18 10:29 Dose: 2 sprays Gabapentin (Neurontin) 100 mg PO TID [facility] Last Admin: 05/17/18 13:24 Dose: 100 mg Piperacillin Sod/Tazobactam Sod (Zosyn 2.25 Gm Iv Premix) 2.25 gm in 50 mls @ 100 mls/hr IVPB Q6H [facility]; Protocol Last Admin: 05/17/18 10:31 Dose: 100 mls/hr Azithromycin 500 mg/ Sodium (Chloride) 250 mls @ 250 mls/hr IVPB Q24H [facility]; Protocol Last Admin: 05/17/18 13:25 Dose: 250 mls/hr Influenza Virus Vaccine (Fluzone Quad [id number]) 60 mcg IM .ONCE ONE Stop: 05/18/18 10:01 Isosorbide Mononitrate (Imdur) 60 mg PO DAILY [facility] Last Admin: 05/17/18 10:29 Dose: 60 mg Losartan Potassium (Cozaar) 12.5 mg PO DAILY [facility] Last Admin: 05/16/18 09:54 Dose: 12.5 mg Metoprolol Tartrate (Lopressor) 25 mg PO BID [facility] Last Admin: 05/17/18 10:30 Dose: 25 mg Nitroglycerin (Nitro-Bid 2% Oint) 0 ea TOP Q12 [facility] Last Admin: 05/17/18 10:29 Dose: 1 ea Pantoprazole Sodium (Protonix Ec Tab) 40 mg PO DAILY [facility] Last Admin: 05/17/18 13:24 Dose: 40 mg Rosuvastatin Calcium (Crestor) 10 mg PO HS [facility] Last Admin: 05/16/18 22:00 Dose: 10 mg Vitamin A (Vitamin A & D Oint Ud Foilpak) 1 ea TOP BID [facility] Last Admin: 05/17/18 10:29 Dose: 1 ea Physical Exam - Constitutional Appears: Chronically Ill - Head Exam Head Exam: ATRAUMATIC - ENT Exam ENT Exam: Mucous Membranes Dry - Respiratory Exam Respiratory Exam: Rales, Respiratory Distress - Cardiovascular Exam Cardiovascular Exam: REGULAR RHYTHM - GI/Abdominal Exam GI & Abdominal Exam: Normal Bowel Sounds - Exam External exam: Swelling - Extremities Exam Extremities exam: Positive for: pedal edema - Neurological Exam Neurological exam: Alert, CN II-XII Intact, Oriented x3 - Skin Skin Exam: Mottled Results - Vital Signs Recent Vital Signs: Last Vital Signs Temp 97.7 F 05/17/18 07:00 Pulse 90 05/17/18 07:46 Resp 18 05/17/18 07:00 BP 138/83 05/17/18 10:30 Pulse Ox 100 05/17/18 07:00 - Labs Result Diagrams: 05/17/18 08:21 05/17/18 08:21 Labs: Laboratory Results - last 24 hr 05/16/18 05/16/18 05/16/18 16:23 21:18 22:56 WBC RBC Hgb Hct MCV MCH MCHC RDW Plt Count MPV Neut % (Auto) Lymph % (Auto) [place] % (Auto) Eos % (Auto) Baso % (Auto) Neut # (Auto) Lymph # (Auto) [place] # (Auto) Eos # (Auto) Baso # (Auto) Neutrophils % (Manual) Lymphocytes % (Manual) Monocytes % (Manual) Platelet Estimate Large Platelets Hypochromasia (manual) Poikilocytosis (manual Anisocytosis (manual) Ovalocytes Rikki Cells Acanthocytes (Spur) PT INR APTT Sodium Potassium Chloride Carbon Dioxide Anion Gap BUN Creatinine Est GFR ( Amer) Est GFR (Non-Af Amer) POC Glucose (mg/dL) 114 H 110 Random Glucose Calcium Phosphorus Magnesium Iron TIBC % Saturation Ferritin Total Bilirubin AST ALT Alkaline Phosphatase Total Protein Albumin Globulin Albumin/Globulin Ratio Urine Color Urine Clarity Urine pH Ur Specific [place] Urine Protein Urine Glucose (UA) Urine Ketones Urine Blood Urine Nitrate Urine Bilirubin Urine Urobilinogen Ur Leukocyte Esterase Urine WBC (Auto) Urine RBC (Auto) Hyaline Casts Ur Random Creatinine 78.0 Ur Random Sodium 5 Ur Random Urea Nitrogn 695 05/16/18 05/17/18 05/17/18 22:56 08:21 08:21 WBC 8.1 RBC 2.95 L Hgb 8.3 L Hct 25.6 L MCV 86.6 MCH 28.3 MCHC 32.7 L RDW 15.4 H Plt Count 224 MPV 8.4 Neut % (Auto) 86.4 H Lymph % (Auto) 4.6 L [place] % (Auto) 9.0 Eos % (Auto) 0.0 Baso % (Auto) 0.0 Neut # (Auto) 7.0 Lymph # (Auto) 0.4 L [place] # (Auto) 0.7 Eos # (Auto) 0.0 Baso # (Auto) 0.0 Neutrophils % (Manual) 86 H Lymphocytes % (Manual) 6 L Monocytes % (Manual) 8 Platelet Estimate Normal Large Platelets Present Hypochromasia (manual) Slight Poikilocytosis (manual Slight Anisocytosis (manual) Slight Ovalocytes Slight Rikki Cells Slight Acanthocytes (Spur) Slight PT 33.4 H D INR 3.0 D APTT 38 H Sodium Potassium Chloride Carbon Dioxide Anion Gap BUN Creatinine Est GFR ( Amer) Est GFR (Non-Af Amer) POC Glucose (mg/dL) Random Glucose Calcium Phosphorus Magnesium Iron TIBC % Saturation Ferritin Total Bilirubin AST ALT Alkaline Phosphatase Total Protein Albumin Globulin Albumin/Globulin Ratio Urine Color Yellow Urine Clarity Clear Urine pH 5.0 Ur Specific [place] 1.012 Urine Protein 1+ H Urine Glucose (UA) Normal Urine Ketones Negative Urine Blood 2+ H Urine Nitrate Negative Urine Bilirubin Negative Urine Urobilinogen Normal Ur Leukocyte Esterase Neg Urine WBC (Auto) 1 Urine RBC (Auto) 12 H Hyaline Casts 0-2 Ur Random Creatinine Ur Random Sodium Ur Random Urea Nitrogn 05/17/18 05/17/18 08:21 08:21 WBC RBC Hgb Hct MCV MCH MCHC RDW Plt Count MPV Neut % (Auto) Lymph % (Auto) [place] % (Auto) Eos % (Auto) Baso % (Auto) Neut # (Auto) Lymph # (Auto) [place] # (Auto) Eos # (Auto) Baso # (Auto) Neutrophils % (Manual) Lymphocytes % (Manual) Monocytes % (Manual) Platelet Estimate Large Platelets Hypochromasia (manual) Poikilocytosis (manual Anisocytosis (manual) Ovalocytes R[place]ki Cells Acanthocytes (Spur) PT INR APTT Sodium 138 Potassium 4.0 Chloride 96 L Carbon Dioxide 30 Anion Gap 16 BUN 61 H Creatinine 1.8 H Est GFR ( Amer) 46 Est GFR (Non-Af Amer) 38 POC Glucose (mg/dL) Random Glucose 84 Calcium 8.6 Phosphorus 3.1 Magnesium 1.9 Iron 48 L TIBC 378 % Saturation 13 L Ferritin 27.4 Total Bilirubin 1.8 H AST 37 ALT 29 Alkaline Phosphatase 101 Total Protein 7.2 Albumin 4.0 Globulin 3.2 Albumin/Globulin Ratio 1.3 Urine Color Urine Clarity Urine pH Ur Specific [place] Urine Protein Urine Glucose (UA) Urine Ketones Urine Blood Urine Nitrate Urine Bilirubin Urine Urobilinogen Ur Leukocyte Esterase Urine WBC (Auto) Urine RBC (Auto) Hyaline Casts Ur Random Creatinine Ur Random Sodium Ur Random Urea Nitrogn - EKG Data EKG Interpreted by: Myself (vvi pacing, underling rhythm not clear) Assessment & Plan - Assessment and Plan (Free Text) Assessment: 1. CHF: Pt has cardiorenal syndrome, and it will likely not be possible to keep this patient's lung dry unless diuretics are used and cr will surely rise. Holding diuretics is not possible at the moment. 2. ECG does not clearly show p waves, and thee are no atrial spikes. Pt may be in afib: if so, cardioversion and or ablation would be beneficial: will have icd interrogated to determine rhythm. Alternatively, if the pt has a marked first degree av block, ppm optimization of pr interval can be performed. 3. Stop jani inhibitor and replace with hydralazine and nitrates. continue beta blas 4. Pt may benefit from bi ventricualr pacing, as the interventricular septum demonstrates marked dysynergy on echo. After interrogation of icd, all options can be discussed. 5. Will transfer pt to [facility] for milrinone holiday. If pt responds well to milrinone, chronic milrinone infusion can be considered, but this would be a palliative treatment, and likely require c cath pre and post infusion to demonstrate clear benefit , in order to secure payment.
[2018-05-17] MEDS ORDERED: Primacor 1 mg/ml Inj (10 ml) IVP ONE (16:41)
--- NOTE | 2018-05-17 16:43 | CP.PCM.CON ---
History of Present Illness - History of Present Illness History of Present Illness: Patient is a 68 y/o male with PMHx of CHF, A-fib, Aortic. mitral, and triscupid valve replacements, CAD with CABG repair who presents with SOB for the past 3 months that worsened in the past 3 days. He states that there is coughing ass ociated with his SOB and clear sputum comes out. He also complains of chronic b/l leg swelling. He denies any blood in the sputum. Patient states that movement, speaking, and exertion worsen his SOB. Bumetanide was administered in place of Lasix and the patient felt improvement with breathing and urination. On 05/14, the patients ABG showed pO2 of 28 and VBG total CO2 of 29.1. PFT's and repeat Chest CT are pending. Currently, the patient states that symptoms are slightly improved but still complains of SOB. Denies chest pain, headache, blurry vision. Admits to palpitations and cough with clear sputum. On physical exam,b/l rales and mild assocary muslce use are noted. PMHx: Hx of Rheumatic fever, CHF, A-fib (on Coumadin), CAD PSHx: Aortic/mitral/triscuspid valve repair, CABG Home Meds: Metorpolol 25 mg PO BID, Coumadin 6mg, Simvastatin 40 mg, Bumex 1 mg BID, Losartan 12.5 mg, Gabapentin FHx: Denies Allergies: NKDA Social: Denies drugs, alcohol, tobacco use -CXR 05/14 : Moderate-Severe venous congestion with promiment consolidative opacities in mid-lower lungs, small b/l pleural effusions, cardiomegaly. 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 PNA, venous congestion suggestive of CHF - CXR 05/15: no change from prior CXR Past Patient History - Infectious Disease Hx of Infectious Diseases: None - Tetanus Immunizations Tetanus Immunization: Unknown - Past Medical History & Family History Past Medical History?: Yes - Past Social History Smoking Status: Former Smoker - CARDIAC Hx Atrial Fibrillation: Yes Hx Cardia Arrhythmia: Yes Hx Congestive Heart Failure: Yes Hx Hypercholesterolemia: Yes Hx Hypertension: Yes Hx Mitral Valve Prolapse: Yes Hx Pacemaker: Yes Hx Peripheral Edema: Yes - PULMONARY Hx Respiratory Disorders: No - NEUROLOGICAL Hx Neurological Disorder: No Other/Comment: h/o near syncope from bradycardia - HEENT Hx HEENT Problems: No - RENAL Hx Chronic Kidney Disease: No - HEMATOLOGICAL/ONCOLOGICAL Hx Anemia: Yes - INTEGUMENTARY Hx Dermatological Problems: No - MUSCULOSKELETAL/RHEUMATOLOGICAL Hx Musculoskeletal Disorders: No Hx Falls: Yes - GASTROINTESTINAL Hx Gastrointestinal Disorders: No - GENITOURINARY/GYNECOLOGICAL Hx Genitourinary Disorders: No - PSYCHIATRIC Hx Anxiety: Yes Hx Substance Use: No - SURGICAL HISTORY Hx Coronary Stent: Yes - ANESTHESIA Hx Anesthesia: Yes Hx Anesthesia Reactions: No Hx Malignant Hyperthermia: No Meds Allergies/Adverse Reactions: Allergies Allergy/AdvReac Type Severity Reaction Status Date / Time No Known Allergies Allergy Verified 05/14/18 09:15 - Medications Medications: Current Medications Albuterol/Ipratropium (Duoneb 3 Mg/0.5 Mg (3 Ml) Ud) 3 ml INH RQ4 PRN PRN Reason: Shortness of Breath Last Admin: 05/17/18 12:23 Dose: 3 ml Bumetanide (Bumex) 1 mg PO Q8H [facility] Fluticasone Propionate (Flonase) 2 spr JESSICA BID [facility] Last Admin: 05/17/18 10:29 Dose: 2 sprays Gabapentin (Neurontin) 100 mg PO TID [facility] Last Admin: 05/17/18 13:24 Dose: 100 mg Hydralazine HCl (Apresoline) 25 mg PO TID [facility] Piperacillin Sod/Tazobactam Sod (Zosyn 2.25 Gm Iv Premix) 2.25 gm in 50 mls @ 100 mls/hr IVPB Q6H [facility]; Protocol Last Admin: 05/17/18 10:31 Dose: 100 mls/hr Azithromycin 500 mg/ Sodium (Chloride) 250 mls @ 250 mls/hr IVPB Q24H [facility]; Protocol Last Admin: 05/17/18 13:25 Dose: 250 mls/hr Influenza Virus Vaccine (Fluzone Quad [id number]) 60 mcg IM .ONCE ONE Stop: 05/18/18 10:01 Isosorbide Mononitrate (Imdur) 60 mg PO DAILY [facility] Last Admin: 05/17/18 10:29 Dose: 60 mg Metoprolol Tartrate (Lopressor) 25 mg PO BID [facility] Nitroglycerin (Nitro-Bid 2% Oint) 0 ea TOP Q12 [facility] Last Admin: 05/17/18 10:29 Dose: 1 ea Pantoprazole Sodium (Protonix Ec Tab) 40 mg PO DAILY [facility] Last Admin: 05/17/18 13:24 Dose: 40 mg Rosuvastatin Calcium (Crestor) 10 mg PO HS [facility] Last Admin: 05/16/18 22:00 Dose: 10 mg Vitamin A (Vitamin A & D Oint Ud Foilpak) 1 ea TOP BID [facility] Last Admin: 05/17/18 10:29 Dose: 1 ea Results - Vital Signs Recent Vital Signs: Last Vital Signs Temp 97.8 F 05/17/18 15:00 Pulse 90 05/17/18 15:00 Resp 20 05/17/18 15:00 BP 93/61 L 05/17/18 15:00 Pulse Ox 99 05/17/18 15:00 - Labs Result Diagrams: 05/17/18 08:21 05/17/18 08:21 Labs: Laboratory Results - last 24 hr 05/16/18 05/16/18 05/16/18 16:23 21:18 22:56 WBC RBC Hgb Hct MCV MCH MCHC RDW Plt Count MPV Neut % (Auto) Lymph % (Auto) Page % (Auto) Eos % (Auto) Baso % (Auto) Neut # (Auto) Lymph # (Auto) Page # (Auto) Eos # (Auto) Baso # (Auto) Neutrophils % (Manual) Lymphocytes % (Manual) Monocytes % (Manual) Platelet Estimate Large Platelets Hypochromasia (manual) Poikilocytosis (manual Anisocytosis (manual) Ovalocytes [place] Cells Acanthocytes (Spur) PT INR APTT Sodium Potassium Chloride Carbon Dioxide Anion Gap BUN Creatinine Est GFR ( Amer) Est GFR (Non-Af Amer) POC Glucose (mg/dL) 114 H 110 Random Glucose Calcium Phosphorus Magnesium Iron TIBC % Saturation Ferritin Total Bilirubin AST ALT Alkaline Phosphatase Total Protein Albumin Globulin Albumin/Globulin Ratio Urine Color Urine Clarity Urine pH Ur Specific [place] Urine Protein Urine Glucose (UA) Urine Ketones Urine Blood Urine Nitrate Urine Bilirubin Urine Urobilinogen Ur Leukocyte Esterase Urine WBC (Auto) Urine RBC (Auto) Hyaline Casts Ur Random Creatinine 78.0 Ur Random Sodium 5 Ur Random Urea Nitrogn 695 05/16/18 05/17/18 05/17/18 22:56 08:21 08:21 WBC 8.1 RBC 2.95 L Hgb 8.3 L Hct 25.6 L MCV 86.6 MCH 28.3 MCHC 32.7 L RDW 15.4 H Plt Count 224 MPV 8.4 Neut % (Auto) 86.4 H Lymph % (Auto) 4.6 L Page % (Auto) 9.0 Eos % (Auto) 0.0 Baso % (Auto) 0.0 Neut # (Auto) 7.0 Lymph # (Auto) 0.4 L Page # (Auto) 0.7 Eos # (Auto) 0.0 Baso # (Auto) 0.0 Neutrophils % (Manual) 86 H Lymphocytes % (Manual) 6 L Monocytes % (Manual) 8 Platelet Estimate Normal Large Platelets Present Hypochromasia (manual) Slight Poikilocytosis (manual Slight Anisocytosis (manual) Slight Ovalocytes Slight [place] Cells Slight Acanthocytes (Spur) Slight PT 33.4 H D INR 3.0 D APTT 38 H Sodium Potassium Chloride Carbon Dioxide Anion Gap BUN Creatinine Est GFR ( Amer) Est GFR (Non-Af Amer) POC Glucose (mg/dL) Random Glucose Calcium Phosphorus Magnesium Iron TIBC % Saturation Ferritin Total Bilirubin AST ALT Alkaline Phosphatase Total Protein Albumin Globulin Albumin/Globulin Ratio Urine Color Yellow Urine Clarity Clear Urine pH 5.0 Ur Specific [place] 1.012 Urine Protein 1+ H Urine Glucose (UA) Normal Urine Ketones Negative Urine Blood 2+ H Urine Nitrate Negative Urine Bilirubin Negative Urine Urobilinogen Normal Ur Leukocyte Esterase Neg Urine WBC (Auto) 1 Urine RBC (Auto) 12 H Hyaline Casts 0-2 Ur Random Creatinine Ur Random Sodium Ur Random Urea Nitrogn 05/17/18 05/17/18 08:21 08:21 WBC RBC Hgb Hct MCV MCH MCHC RDW Plt Count MPV Neut % (Auto) Lymph % (Auto) Page % (Auto) Eos % (Auto) Baso % (Auto) Neut # (Auto) Lymph # (Auto) Page # (Auto) Eos # (Auto) Baso # (Auto) Neutrophils % (Manual) Lymphocytes % (Manual) Monocytes % (Manual) Platelet Estimate Large Platelets Hypochromasia (manual) Poikilocytosis (manual Anisocytosis (manual) Ovalocytes [place] Cells Acanthocytes (Spur) PT INR APTT Sodium 138 Potassium 4.0 Chloride 96 L Carbon Dioxide 30 Anion Gap 16 BUN 61 H Creatinine 1.8 H Est GFR ( Amer) 46 Est GFR (Non-Af Amer) 38 POC Glucose (mg/dL) Random Glucose 84 Calcium 8.6 Phosphorus 3.1 Magnesium 1.9 Iron 48 L TIBC 378 % Saturation 13 L Ferritin 27.4 Total Bilirubin 1.8 H AST 37 ALT 29 Alkaline Phosphatase 101 Total Protein 7.2 Albumin 4.0 Globulin 3.2 Albumin/Globulin Ratio 1.3 Urine Color Urine Clarity Urine pH Ur Specific [place] Urine Protein Urine Glucose (UA) Urine Ketones Urine Blood Urine Nitrate Urine Bilirubin Urine Urobilinogen Ur Leukocyte Esterase Urine WBC (Auto) Urine RBC (Auto) Hyaline Casts Ur Random Creatinine Ur Random Sodium Ur Random Urea Nitrogn
[2018-05-17] MEDS: Milrinone 20 MG in Dextrose 5% In Water 80 ML IV SCH (21:13)
[2018-05-18 06:29] LABS: HEMOGLOBIN 7.9 g/dL (12.0-18.0); MEAN CELL VOLUME 87.1 fL (80.0-94.0); MEAN CORPUSCULAR HEMOGLOBIN 28.2 pg (27.0-31.0); MEAN CORPUSCULAR HGB CONC 32.4 g/dL (33.0-37.0); MEAN PLATELET VOLUME 8.9 fL (7.2-11.7); NEUT # 6.1 K/uL (1.8-7.0); NRBC % 0.1 % (0.0-2.0); WHITE BLOOD COUNT 7.7 K/uL (4.8-10.8)
[2018-05-18 06:32] LABS: BASO % 0.2 % (0.0-2.0); EOS % 0.5 % (0.0-4.0); LYMPH # 0.5 K/uL (1.0-4.3); MONO % 12.5 % (0.0-10.0); NEUT % 79.8 % (50.0-75.0); PLATELET COUNT 216 K/uL (130-400); RBC 2.81 Mil/uL (4.40-5.90); RED CELL DISTRIBUTION WIDTH 15.2 % (11.5-14.5)
[2018-05-18 06:42] LABS: ALB/GLOB RATIO 1.3 (1.0-2.1); ALBUMIN 3.6 g/dL (3.5-5.0); CALCIUM 8.1 mg/dl (8.6-10.4)
[2018-05-18 07:26] LABS: PROTHROMBIN TIME 22.1 SECONDS (9.7-12.2)
[2018-05-18 08:23] LABS: LYMPHOCYTE 7 % (20-40); MONOCYTE 4 % (0-10); NEUTROPHIL 89 % (50-75); PLATELET ESTIMATE NORMAL (NORMAL); TOTAL CELLS COUNTED 100
[2018-05-18 08:24] LABS: ANISOCYTOSIS SLIGHT; HYPOCHROMIC SLIGHT
[2018-05-18 08:25] LABS: OVALOCYTES SLIGHT; POLYCHROMIC SLIGHT
--- NOTE | 2018-05-18 08:52 | CP.CCUPN ---
<Kevin Love - Last Filed: 05/18/18 18:02> CCU Subjective - Physician Review Subjective (Free Text): 05/18/18 11:56 PGY-1 Critical Care Progress Note for Dr. Alcocer Patient seen and examined at bedside this AM. No acute overnight events reported. Primacor drip started at 0.3 mcg/kg/min tolerated well by pt. Endorses generalized weakness. Denies fevers, chills, chest pain, shortness of breath, n/v/d/c, dysuria. Critical Care Time Spent (in minutes): 35 CCU Objective - Vital Signs / Intake & Output Vital Signs (Last 4 hours): Vital Signs Pulse Resp Pulse Ox 05/18/18 06:03 92 H 25 H 100 05/18/18 05:00 91 H 27 H 100 Intake and Output (Last 8hrs): Intake & Output 05/17/18 05/18/18 05/18/18 22:59 06:59 14:59 Intake Total 70.8 35.1 Output Total 200 1200 Balance -129.2 -1164.9 Weight 142 lb 9.6 oz Intake: IV 15 Intake, IV Amount 5.8 35.1 Left Forearm 5.8 35.1 Oral 50 Output: Urine 200 1200 Urine, Voided 200 1200 Other: # Bowel Movements 1 - Physical Exam Head: Positive for: Atraumatic, Normocephalic Pupils: Positive for: PERRL Extroacular Muscles: Positive for: EOMI Mouth: Positive for: Dry Respiratory/Chest: Positive for: Respiratory Distress, Rales Cardiovascular: Positive for: Regular Rate and Rhythm, Normal S1, S2 Abdomen: Positive for: Normal Bowel Sounds. Negative for: Tenderness, Distention, Peritoneal Signs, Rebound, Guarding Upper Extremity: Positive for: Normal Inspection, NORMAL PULSES, Neurovascularly Intact, Capillary Refill < 2s Lower Extremity: Positive for: Edema, NORMAL PULSES, Neurovascularly Intact, Capillary Refill < 2 s Neurological: Positive for: CN II-XII Intact Psychiatric: Positive for: Alert, Oriented x 3 - Medications Active Medications: Active Medications Generic Name Dose Route Start Last Admin Trade Name Freq PRN Reason Stop Dose Admin Albuterol/Ipratropium 3 ml 05/14/18 14:48 05/17/18 12:23 Duoneb 3 Mg/0.5 Mg (3 Ml) Ud INH 3 ml RQ4 PRN Administration Shortness of Breath Bumetanide 1 mg 05/17/18 21:00 05/18/18 04:38 Bumex PO 1 mg Q8H AYDEE Administration Fluticasone Propionate 2 spr 05/14/18 18:00 05/17/18 20:45 Flonase JESSICA Not Given BID AYDEE Gabapentin 100 mg 05/14/18 18:00 05/17/18 18:34 Neurontin PO 100 mg TID AYDEE Administration Hydralazine HCl 25 mg 05/17/18 18:00 05/17/18 20:45 Apresoline PO Not Given TID AYDEE Piperacillin Sod/Tazobactam Sod 2.25 gm in 50 mls @ 100 mls/hr 05/16/18 10:00 05/17/18 20:45 Zosyn 2.25 Gm Iv Premix IVPB Not Given Q6H AYDEE Protocol Milrinone Lactate/Dextrose 20 100 mls @ 5.84 mls/hr 05/17/18 16:45 05/17/18 22:00 mg/ Dextrose IV 0.2 mcg/kg/min .Q17H8M AYDEE 3.54 mls/hr Titration Protocol 0.33 MCG/KG/MIN Influenza Virus Vaccine 60 mcg 05/18/18 10:00 Fluzone Quad [id number] IM 05/18/18 10:01 .ONCE ONE Isosorbide Mononitrate 60 mg 05/14/18 15:00 05/17/18 10:29 Imdur PO 60 mg DAILY AYDEE Administration Metoprolol Tartrate 25 mg 05/17/18 16:27 05/17/18 18:34 Lopressor PO 25 mg BID AYDEE Administration Nitroglycerin 0 ea 05/15/18 10:00 05/17/18 21:13 Nitro-Bid 2% Oint TOP 1 ea Q12 AYDEE Administration Pantoprazole Sodium 40 mg 05/17/18 11:15 05/17/18 13:24 Protonix Ec Tab PO 40 mg DAILY AYDEE Administration Rosuvastatin Calcium 10 mg 05/14/18 22:00 05/17/18 21:12 Crestor PO 10 mg HS AYDEE Administration Vitamin A 1 ea 05/15/18 18:00 05/17/18 20:46 Vitamin A & D Oint Ud Foilpak TOP 1 ea BID AYDEE Administration Warfarin Sodium 5 mg 05/18/18 18:00 Coumadin PO 05/18/18 18:01 1800 AYDEE - Patient Studies Lab Studies: Microbiology Studies 05/14/18 10:36 Blood Culture - Preliminary Blood NO GROWTH AFTER 3 DAYS 05/14/18 10:16 Blood Culture - Preliminary Blood NO GROWTH AFTER 3 DAYS Lab Studies 05/18/18 05/18/18 05/18/18 Range/Units 08:35 05:53 05:52 WBC 7.7 (4.8-10.8) K/uL RBC 2.81 L (4.40-5.90) Mil/uL Hgb 7.9 L (12.0-18.0) g/dL Hct 24.5 L (35.0-51.0) % MCV 87.1 (80.0-94.0) fL MCH 28.2 (27.0-31.0) pg MCHC 32.4 L (33.0-37.0) g/dL RDW 15.2 H (11.5-14.5) % Plt Count 216 (130-400) K/uL MPV 8.9 (7.2-11.7) fL Neut % (Auto) 79.8 H (50.0-75.0) % Lymph % (Auto) 7.0 L (20.0-40.0) % Kern % (Auto) 12.5 H (0.0-10.0) % Eos % (Auto) 0.5 (0.0-4.0) % Baso % (Auto) 0.2 (0.0-2.0) % Neut # (Auto) 6.1 (1.8-7.0) K/uL Lymph # (Auto) 0.5 L (1.0-4.3) K/uL Kern # (Auto) 1.0 H (0.0-0.8) K/uL Eos # (Auto) 0.0 (0.0-0.7) K/uL Baso # (Auto) 0.0 (0.0-0.2) K/uL Neutrophils % (Manual) 89 H (50-75) % Lymphocytes % (Manual) 7 L (20-40) % Monocytes % (Manual) 4 (0-10) % Platelet Estimate Normal (NORMAL) Large Platelets Polychromasia Slight Hypochromasia (manual) Slight Poikilocytosis (manual Anisocytosis (manual) Slight Ovalocytes Slight Rikki Cells Acanthocytes (Spur) PT (9.7-12.2) SECONDS INR APTT (21-34) SECONDS Sodium 138 (132-148) mmol/L Potassium 3.6 (3.6-5.2) mmol/L Chloride 100 (98-107) mmol/L Carbon Dioxide 28 (22-30) mmol/L Anion Gap 14 (10-20) BUN 57 H (9-20) mg/dL Creatinine 1.7 H (0.8-1.5) mg/dL Est GFR ( Amer) 49 Est GFR (Non-Af Amer) 40 POC Glucose (mg/dL) 74 (65-110) mg/dL Random Glucose 90 (75-110) mg/dL Calcium 8.1 L (8.6-10.4) mg/dl Phosphorus 3.2 (2.5-4.5) mg/dL Magnesium 1.8 (1.6-2.3) mg/dL Iron (49-181) ug/dL TIBC (250-450) ug/dL % Saturation (20-55) Ferritin ng/mL Total Bilirubin 1.3 (0.2-1.3) mg/dL AST 35 (17-59) U/L ALT 30 (21-72) U/L Alkaline Phosphatase 99 (38-126) U/L Total Protein 6.5 (6.3-8.3) g/dL Albumin 3.6 (3.5-5.0) g/dL Globulin 2.9 (2.2-3.9) gm/dL Albumin/Globulin Ratio 1.3 (1.0-2.1) 05/18/18 05/17/18 05/17/18 Range/Units 05:52 21:24 08:21 WBC (4.8-10.8) K/uL RBC (4.40-5.90) Mil/uL Hgb (12.0-18.0) g/dL Hct (35.0-51.0) % MCV (80.0-94.0) fL MCH (27.0-31.0) pg MCHC (33.0-37.0) g/dL RDW (11.5-14.5) % Plt Count (130-400) K/uL MPV (7.2-11.7) fL Neut % (Auto) (50.0-75.0) % Lymph % (Auto) (20.0-40.0) % Kern % (Auto) (0.0-10.0) % Eos % (Auto) (0.0-4.0) % Baso % (Auto) (0.0-2.0) % Neut # (Auto) (1.8-7.0) K/uL Lymph # (Auto) (1.0-4.3) K/uL Kern # (Auto) (0.0-0.8) K/uL Eos # (Auto) (0.0-0.7) K/uL Baso # (Auto) (0.0-0.2) K/uL Neutrophils % (Manual) (50-75) % Lymphocytes % (Manual) (20-40) % Monocytes % (Manual) (0-10) % Platelet Estimate (NORMAL) Large Platelets Polychromasia Hypochromasia (manual) Poikilocytosis (manual Anisocytosis (manual) Ovalocytes Rikki Cells Acanthocytes (Spur) PT 22.1 H D (9.7-12.2) SECONDS INR 2.0 D APTT 34 (21-34) SECONDS Sodium (132-148) mmol/L Potassium (3.6-5.2) mmol/L Chloride (98-107) mmol/L Carbon Dioxide (22-30) mmol/L Anion Gap (10-20) BUN (9-20) mg/dL Creatinine (0.8-1.5) mg/dL Est GFR ( Amer) Est GFR (Non-Af Amer) POC Glucose (mg/dL) 117 H (65-110) mg/dL Random Glucose (75-110) mg/dL Calcium (8.6-10.4) mg/dl Phosphorus (2.5-4.5) mg/dL Magnesium (1.6-2.3) mg/dL Iron 48 L (49-181) ug/dL TIBC 378 (250-450) ug/dL % Saturation 13 L (20-55) Ferritin ng/mL Total Bilirubin (0.2-1.3) mg/dL AST (17-59) U/L ALT (21-72) U/L Alkaline Phosphatase (38-126) U/L Total Protein (6.3-8.3) g/dL Albumin (3.5-5.0) g/dL Globulin (2.2-3.9) gm/dL Albumin/Globulin Ratio (1.0-2.1) 05/17/18 05/17/18 05/17/18 Range/Units 08:21 08:21 08:21 WBC (4.8-10.8) K/uL RBC (4.40-5.90) Mil/uL Hgb (12.0-18.0) g/dL Hct (35.0-51.0) % MCV (80.0-94.0) fL MCH (27.0-31.0) pg MCHC (33.0-37.0) g/dL RDW (11.5-14.5) % Plt Count (130-400) K/uL MPV (7.2-11.7) fL Neut % (Auto) (50.0-75.0) % Lymph % (Auto) (20.0-40.0) % Kern % (Auto) (0.0-10.0) % Eos % (Auto) (0.0-4.0) % Baso % (Auto) (0.0-2.0) % Neut # (Auto) (1.8-7.0) K/uL Lymph # (Auto) (1.0-4.3) K/uL Kern # (Auto) (0.0-0.8) K/uL Eos # (Auto) (0.0-0.7) K/uL Baso # (Auto) (0.0-0.2) K/uL Neutrophils % (Manual) 86 H (50-75) % Lymphocytes % (Manual) 6 L (20-40) % Monocytes % (Manual) 8 (0-10) % Platelet Estimate Normal (NORMAL) Large Platelets Present Polychromasia Hypochromasia (manual) Slight Poikilocytosis (manual Slight Anisocytosis (manual) Slight Ovalocytes Slight Elsie Cells Slight Acanthocytes (Spur) Slight PT 33.4 H D (9.7-12.2) SECONDS INR 3.0 D APTT (21-34) SECONDS Sodium 138 (132-148) mmol/L Potassium 4.0 (3.6-5.2) mmol/L Chloride 96 L (98-107) mmol/L Carbon Dioxide 30 (22-30) mmol/L Anion Gap 16 (10-20) BUN 61 H (9-20) mg/dL Creatinine 1.8 H (0.8-1.5) mg/dL Est GFR ( Amer) 46 Est GFR (Non-Af Amer) 38 POC Glucose (mg/dL) (65-110) mg/dL Random Glucose 84 (75-110) mg/dL Calcium 8.6 (8.6-10.4) mg/dl Phosphorus 3.1 (2.5-4.5) mg/dL Magnesium 1.9 (1.6-2.3) mg/dL Iron (49-181) ug/dL TIBC (250-450) ug/dL % Saturation (20-55) Ferritin 27.4 ng/mL Total Bilirubin 1.8 H (0.2-1.3) mg/dL AST 37 (17-59) U/L ALT 29 (21-72) U/L Alkaline Phosphatase 101 (38-126) U/L Total Protein 7.2 (6.3-8.3) g/dL Albumin 4.0 (3.5-5.0) g/dL Globulin 3.2 (2.2-3.9) gm/dL Albumin/Globulin Ratio 1.3 (1.0-2.1) Laboratory Results - last 24 hr 05/17/18 05/17/18 05/17/18 08:21 08:21 08:21 WBC RBC Hgb Hct MCV MCH MCHC RDW Plt Count MPV Neut % (Auto) Lymph % (Auto) Kern % (Auto) Eos % (Auto) Baso % (Auto) Neut # (Auto) Lymph # (Auto) Kern # (Auto) Eos # (Auto) Baso # (Auto) Neutrophils % (Manual) 86 H Lymphocytes % (Manual) 6 L Monocytes % (Manual) 8 Platelet Estimate Normal Large Platelets Present Polychromasia Hypochromasia (manual) Slight Poikilocytosis (manual Slight Anisocytosis (manual) Slight Ovalocytes Slight Elsie Cells Slight Acanthocytes (Spur) Slight PT 33.4 H D INR 3.0 D APTT Sodium 138 Potassium 4.0 Chloride 96 L Carbon Dioxide 30 Anion Gap 16 BUN 61 H Creatinine 1.8 H Est GFR ( Amer) 46 Est GFR (Non-Af Amer) 38 POC Glucose (mg/dL) Random Glucose 84 Calcium 8.6 Phosphorus 3.1 Magnesium 1.9 Iron TIBC % Saturation Ferritin 27.4 Total Bilirubin 1.8 H AST 37 ALT 29 Alkaline Phosphatase 101 Total Protein 7.2 Albumin 4.0 Globulin 3.2 Albumin/Globulin Ratio 1.3 05/17/18 05/17/18 05/18/18 08:21 21:24 05:52 WBC RBC Hgb Hct MCV MCH MCHC RDW Plt Count MPV Neut % (Auto) Lymph % (Auto) Kern % (Auto) Eos % (Auto) Baso % (Auto) Neut # (Auto) Lymph # (Auto) Kern # (Auto) Eos # (Auto) Baso # (Auto) Neutrophils % (Manual) Lymphocytes % (Manual) Monocytes % (Manual) Platelet Estimate Large Platelets Polychromasia Hypochromasia (manual) Poikilocytosis (manual Anisocytosis (manual) Ovalocytes Rikki Cells Acanthocytes (Spur) PT 22.1 H D INR 2.0 D APTT 34 Sodium Potassium Chloride Carbon Dioxide Anion Gap BUN Creatinine Est GFR ( Amer) Est GFR (Non-Af Amer) POC Glucose (mg/dL) 117 H Random Glucose Calcium Phosphorus Magnesium Iron 48 L TIBC 378 % Saturation 13 L Ferritin Total Bilirubin AST ALT Alkaline Phosphatase Total Protein Albumin Globulin Albumin/Globulin Ratio 05/18/18 05/18/18 05/18/18 05:52 05:53 08:35 WBC 7.7 RBC 2.81 L Hgb 7.9 L Hct 24.5 L MCV 87.1 MCH 28.2 MCHC 32.4 L RDW 15.2 H Plt Count 216 MPV 8.9 Neut % (Auto) 79.8 H Lymph % (Auto) 7.0 L Kern % (Auto) 12.5 H Eos % (Auto) 0.5 Baso % (Auto) 0.2 Neut # (Auto) 6.1 Lymph # (Auto) 0.5 L Kern # (Auto) 1.0 H Eos # (Auto) 0.0 Baso # (Auto) 0.0 Neutrophils % (Manual) 89 H Lymphocytes % (Manual) 7 L Monocytes % (Manual) 4 Platelet Estimate Normal Large Platelets Polychromasia Slight Hypochromasia (manual) Slight Poikilocytosis (manual Anisocytosis (manual) Slight Ovalocytes Slight Elsie Cells Acanthocytes (Spur) PT INR APTT Sodium 138 Potassium 3.6 Chloride 100 Carbon Dioxide 28 Anion Gap 14 BUN 57 H Creatinine 1.7 H Est GFR ( Amer) 49 Est GFR (Non-Af Amer) 40 POC Glucose (mg/dL) 74 Random Glucose 90 Calcium 8.1 L Phosphorus 3.2 Magnesium 1.8 Iron TIBC % Saturation Ferritin Total Bilirubin 1.3 AST 35 ALT 30 Alkaline Phosphatase 99 Total Protein 6.5 Albumin 3.6 Globulin 2.9 Albumin/Globulin Ratio 1.3 Fingerstick Blood Sugar Results: 117 Review of Systems - Review of Systems All systems: reviewed and no additional remarkable complaints except Review of Systems: as per [facility] Critical Care Progress Note - Nutrition Nutrition: Nutrition Category Date Time Status Heart Healthy Diet [DIET] Diets 05/14/18 Breakfast Active Assessment/Plan - Assessment and Plan (Free Text) Assessment: 68 yo male with past medical history of CHF, Afib on Coumadin, aortic/mitral/tricuspid valve replacement, CAD and CABG admitted for 2-3 week history of shortness of breath and cough that worsened over last 2-3 days. CTC- massive cardiomegaly, severe systolic CHF, multifocal PNA. Plan: Neuro: -chronic pain, on neurontin 100 TID Pulm: -f/u CXR (05/18) -CXR (05/15): No significant interval changes since prior study -CXR (05/14): Moderate to severe venous congestion with prominent consolidative opacities within the mid to lower lung zones. Small bilateral pleural effusions. Aortic atherosclerotic calcifications noted. Enlarged heart with prominent car diomegaly. Prior valve replacements. L sided pacemaker. Status post median sternotomy. Calcifications within the R axilla. -Chest CT (05/14): Massive cardiomegaly. Scattered areas of atelectasis and consolidation within the R middle lobe of the lung. Prominent dense consolidative opacity measuring 6.5cm seen within the posterior aspect of the R lower lobe with adjacent trace R pleural effusion. This may represent multifocal PNA. Pulmonary venous congestion suggestive of CHF. Focal consolidations within the posterior aspect of the L upper lobe inferiorly in the lung. Scattered area of atelectasis and consolidation within the L lower lobe. -continue w/ zosyn CV: -ECHO from 02/05/18: EF 35% -Cardiology (Dr. Pantoja) on board: Echo performed on 02/05/2018 demonstrates bi-ventricular systolic dysfunction, normal functioning valves. C/w beta blas, stop ACEi and replace with hydralazine and nitrates. ICU for milrinone holiday. -Acute on Chronic systolic CHF -Primacor drip ordered -lopressor 25 BID -Imdur 60 Daily Heme: -chronic anemia -anemia workup -coumadin on hold due to high INR -on heparin drip Renal: -LOUISE likely 2/2 diuretics, patient needs diuretics to keep him dry -Pt had baseline Cr of 1.5, jin to 2.0 with diuretics -CKD 3 -Nephrology on board: check renal us, quantify urine protein. Maintain Bumex, hold ARBs. GI: -protonix ID: -on zosyn PPx, Diet, Disposition -on heparin drip, coumadin on hold due to supratherapeutic INR -GI: protonix -Diet: HHD -Code status: Full code Case discussed with Dr. Leodan Love DO, PGY-1 <Shaun Alcocer S - Last Filed: 05/18/18 18:27> CCU Objective - Vital Signs / Intake & Output Vital Signs (Last 4 hours): Vital Signs Temp Pulse Resp BP Pulse Ox 05/18/18 17:18 98/56 L 05/18/18 16:47 93 H 24 98/56 L 100 05/18/18 16:00 97.9 F 100 05/18/18 15:47 95/57 L 05/18/18 15:40 90 05/18/18 15:02 92 H 26 H 109/58 L 100 Intake and Output (Last 8hrs): Intake & Output 05/18/18 05/18/18 05/18/18 06:59 14:59 22:59 Intake Total 35.1 297.1 346.5 Output Total 1200 1200 200 Balance -1164.9 -902.9 146.5 Weight 142 lb 9.6 oz Intake: IV 85 Intake, IV Amount 35.1 62.1 346.5 Left Forearm 35.1 27.3 11.7 Left Forearm Y-Port 300 Right Forearm 34.8 34.8 Oral 150 Output: Urine 1200 1200 200 Urine, Voided 1200 1200 200 Other: # Voids Urine, Voided 1 1 # Bowel Movements 1 - Medications Active Medications: Active Medications Generic Name Dose Route Start Last Admin Trade Name Freq PRN Reason Stop Dose Admin Albuterol/Ipratropium 3 ml 05/14/18 14:48 05/18/18 15:40 Duoneb 3 Mg/0.5 Mg (3 Ml) Ud INH 3 ml RQ4 PRN Administration Shortness of Breath Bumetanide 1 mg 05/17/18 21:00 05/18/18 13:07 Bumex PO Not Given Q8H AYDEE Fluticasone Propionate 2 spr 05/14/18 18:00 05/18/18 17:17 Flonase JESSICA 2 sprays BID AYDEE Administration Furosemide 40 mg 05/18/18 19:00 Lasix IVP Q12H AYDEE Gabapentin 100 mg 05/14/18 18:00 05/18/18 17:17 Neurontin PO 100 mg TID AYDEE Administration Hydralazine HCl 25 mg 05/17/18 18:00 05/18/18 17:17 Apresoline PO 25 mg TID AYDEE Administration Piperacillin Sod/Tazobactam Sod 2.25 gm in 50 mls @ 100 mls/hr 05/16/18 10:00 05/18/18 16:41 Zosyn 2.25 Gm Iv Premix IVPB 100 mls/hr Q6H AYDEE Administration Protocol Milrinone Lactate/Dextrose 20 100 mls @ 5.84 mls/hr 05/17/18 16:45 05/18/18 11:40 mg/ Dextrose IV 0.2 mcg/kg/min .Q17H8M AYDEE 3.54 mls/hr Administration Protocol 0.33 MCG/KG/MIN Heparin Sodium/Sodium Chloride 25,000 units in 250 mls @ 11.643 mls/hr 05/18/18 12:15 05/18/18 12:19 Heparin 95488 Units/250ml 1/2 Normal Saline IV 18 units/kg/hr .[id number] PRN 11.643 mls/hr PROTOCOL Administration Protocol 18 UNITS/KG/HR Azithromycin 500 mg/ Sodium 250 mls @ 250 mls/hr 05/18/18 16:30 05/18/18 17:18 Chloride IVPB 250 mls/hr DAILY AYDEE Administration Protocol Isosorbide Mononitrate 60 mg 05/14/18 15:00 05/18/18 11:03 Imdur PO 60 mg DAILY AYDEE Administration Metoprolol Tartrate 25 mg 05/17/18 16:27 05/18/18 17:18 Lopressor PO 25 mg BID AYDEE Administration Pantoprazole Sodium 40 mg 05/17/18 11:15 05/18/18 11:01 Protonix Ec Tab PO 40 mg DAILY AYDEE Administration Rosuvastatin Calcium 10 mg 05/14/18 22:00 05/17/18 21:12 Crestor PO 10 mg HS AYDEE Administration Vitamin A 1 ea 05/15/18 18:00 05/18/18 17:19 Vitamin A & D Oint Ud Foilpak TOP 1 ea BID AYDEE Administration - Patient Studies Lab Studies: Microbiology Studies 05/14/18 10:36 Blood Culture - Preliminary Blood NO GROWTH AFTER 4 DAYS 05/14/18 10:16 Blood Culture - Preliminary Blood NO GROWTH AFTER 4 DAYS Lab Studies 05/18/18 05/18/18 05/18/18 Range/Units 17:50 16:08 12:24 WBC (4.8-10.8) K/uL RBC (4.40-5.90) Mil/uL Hgb (12.0-18.0) g/dL Hct (35.0-51.0) % MCV (80.0-94.0) fL MCH (27.0-31.0) pg MCHC (33.0-37.0) g/dL RDW (11.5-14.5) % Plt Count (130-400) K/uL MPV (7.2-11.7) fL Neut % (Auto) (50.0-75.0) % Lymph % (Auto) (20.0-40.0) % Kern % (Auto) (0.0-10.0) % Eos % (Auto) (0.0-4.0) % Baso % (Auto) (0.0-2.0) % Neut # (Auto) (1.8-7.0) K/uL Lymph # (Auto) (1.0-4.3) K/uL Kern # (Auto) (0.0-0.8) K/uL Eos # (Auto) (0.0-0.7) K/uL Baso # (Auto) (0.0-0.2) K/uL Neutrophils % (Manual) (50-75) % Lymphocytes % (Manual) (20-40) % Monocytes % (Manual) (0-10) % Eosinophils % (Manual) (0-4) % Platelet Estimate (NORMAL) Polychromasia Hypochromasia (manual) Poikilocytosis (manual Anisocytosis (manual) Ovalocytes PT 23.1 H 24.2 H (9.7-12.2) SECONDS INR 2.1 2.2 APTT 104 H* D 92 H D (21-34) SECONDS Sodium (132-148) mmol/L Potassium (3.6-5.2) mmol/L Chloride (98-107) mmol/L Carbon Dioxide (22-30) mmol/L Anion Gap (10-20) BUN (9-20) mg/dL Creatinine (0.8-1.5) mg/dL Est GFR ( Amer) Est GFR (Non-Af Amer) POC Glucose (mg/dL) 129 H (65-110) mg/dL Random Glucose (75-110) mg/dL Calcium (8.6-10.4) mg/dl Phosphorus (2.5-4.5) mg/dL Magnesium (1.6-2.3) mg/dL Total Bilirubin (0.2-1.3) mg/dL AST (17-59) U/L ALT (21-72) U/L Alkaline Phosphatase (38-126) U/L Total Protein (6.3-8.3) g/dL Albumin (3.5-5.0) g/dL Globulin (2.2-3.9) gm/dL Albumin/Globulin Ratio (1.0-2.1) 05/18/18 05/18/18 05/18/18 Range/Units 12:24 11:12 08:35 WBC 8.5 (4.8-10.8) K/uL RBC 2.80 L (4.40-5.90) Mil/uL Hgb 7.9 L (12.0-18.0) g/dL Hct 24.1 L (35.0-51.0) % MCV 86.1 (80.0-94.0) fL MCH 28.3 (27.0-31.0) pg MCHC 32.9 L (33.0-37.0) g/dL RDW 15.2 H (11.5-14.5) % Plt Count 201 (130-400) K/uL MPV 8.2 (7.2-11.7) fL Neut % (Auto) 80.2 H (50.0-75.0) % Lymph % (Auto) 6.6 L (20.0-40.0) % Kern % (Auto) 11.8 H (0.0-10.0) % Eos % (Auto) 1.1 (0.0-4.0) % Baso % (Auto) 0.3 (0.0-2.0) % Neut # (Auto) 6.8 (1.8-7.0) K/uL Lymph # (Auto) 0.6 L (1.0-4.3) K/uL Kern # (Auto) 1.0 H (0.0-0.8) K/uL Eos # (Auto) 0.1 (0.0-0.7) K/uL Baso # (Auto) 0.0 (0.0-0.2) K/uL Neutrophils % (Manual) 79 H (50-75) % Lymphocytes % (Manual) 6 L (20-40) % Monocytes % (Manual) 13 H (0-10) % Eosinophils % (Manual) 2 (0-4) % Platelet Estimate Normal (NORMAL) Polychromasia Hypochromasia (manual) Slight Poikilocytosis (manual Slight Anisocytosis (manual) Slight Ovalocytes Slight PT (9.7-12.2) SECONDS INR APTT (21-34) SECONDS Sodium (132-148) mmol/L Potassium (3.6-5.2) mmol/L Chloride (98-107) mmol/L Carbon Dioxide (22-30) mmol/L Anion Gap (10-20) BUN (9-20) mg/dL Creatinine (0.8-1.5) mg/dL Est GFR ( Amer) Est GFR (Non-Af Amer) POC Glucose (mg/dL) 111 H 74 (65-110) mg/dL Random Glucose (75-110) mg/dL Calcium (8.6-10.4) mg/dl Phosphorus (2.5-4.5) mg/dL Magnesium (1.6-2.3) mg/dL Total Bilirubin (0.2-1.3) mg/dL AST (17-59) U/L ALT (21-72) U/L Alkaline Phosphatase (38-126) U/L Total Protein (6.3-8.3) g/dL Albumin (3.5-5.0) g/dL Globulin (2.2-3.9) gm/dL Albumin/Globulin Ratio (1.0-2.1) 05/18/18 05/18/18 05/18/18 Range/Units 05:53 05:52 05:52 WBC 7.7 (4.8-10.8) K/uL RBC 2.81 L (4.40-5.90) Mil/uL Hgb 7.9 L (12.0-18.0) g/dL Hct 24.5 L (35.0-51.0) % MCV 87.1 (80.0-94.0) fL MCH 28.2 (27.0-31.0) pg MCHC 32.4 L (33.0-37.0) g/dL RDW 15.2 H (11.5-14.5) % Plt Count 216 (130-400) K/uL MPV 8.9 (7.2-11.7) fL Neut % (Auto) 79.8 H (50.0-75.0) % Lymph % (Auto) 7.0 L (20.0-40.0) % Kern % (Auto) 12.5 H (0.0-10.0) % Eos % (Auto) 0.5 (0.0-4.0) % Baso % (Auto) 0.2 (0.0-2.0) % Neut # (Auto) 6.1 (1.8-7.0) K/uL Lymph # (Auto) 0.5 L (1.0-4.3) K/uL Kern # (Auto) 1.0 H (0.0-0.8) K/uL Eos # (Auto) 0.0 (0.0-0.7) K/uL Baso # (Auto) 0.0 (0.0-0.2) K/uL Neutrophils % (Manual) 89 H (50-75) % Lymphocytes % (Manual) 7 L (20-40) % Monocytes % (Manual) 4 (0-10) % Eosinophils % (Manual) (0-4) % Platelet Estimate Normal (NORMAL) Polychromasia Slight Hypochromasia (manual) Slight Poikilocytosis (manual Anisocytosis (manual) Slight Ovalocytes Slight PT 22.1 H D (9.7-12.2) SECONDS INR 2.0 D APTT 34 (21-34) SECONDS Sodium 138 (132-148) mmol/L Potassium 3.6 (3.6-5.2) mmol/L Chloride 100 (98-107) mmol/L Carbon Dioxide 28 (22-30) mmol/L Anion Gap 14 (10-20) BUN 57 H (9-20) mg/dL Creatinine 1.7 H (0.8-1.5) mg/dL Est GFR ( Amer) 49 Est GFR (Non-Af Amer) 40 POC Glucose (mg/dL) (65-110) mg/dL Random Glucose 90 (75-110) mg/dL Calcium 8.1 L (8.6-10.4) mg/dl Phosphorus 3.2 (2.5-4.5) mg/dL Magnesium 1.8 (1.6-2.3) mg/dL Total Bilirubin 1.3 (0.2-1.3) mg/dL AST 35 (17-59) U/L ALT 30 (21-72) U/L Alkaline Phosphatase 99 (38-126) U/L Total Protein 6.5 (6.3-8.3) g/dL Albumin 3.6 (3.5-5.0) g/dL Globulin 2.9 (2.2-3.9) gm/dL Albumin/Globulin Ratio 1.3 (1.0-2.1) 05/17/18 Range/Units 21:24 WBC (4.8-10.8) K/uL RBC (4.40-5.90) Mil/uL Hgb (12.0-18.0) g/dL Hct (35.0-51.0) % MCV (80.0-94.0) fL MCH (27.0-31.0) pg MCHC (33.0-37.0) g/dL RDW (11.5-14.5) % Plt Count (130-400) K/uL MPV (7.2-11.7) fL Neut % (Auto) (50.0-75.0) % Lymph % (Auto) (20.0-40.0) % Kern % (Auto) (0.0-10.0) % Eos % (Auto) (0.0-4.0) % Baso % (Auto) (0.0-2.0) % Neut # (Auto) (1.8-7.0) K/uL Lymph # (Auto) (1.0-4.3) K/uL Kern # (Auto) (0.0-0.8) K/uL Eos # (Auto) (0.0-0.7) K/uL Baso # (Auto) (0.0-0.2) K/uL Neutrophils % (Manual) (50-75) % Lymphocytes % (Manual) (20-40) % Monocytes % (Manual) (0-10) % Eosinophils % (Manual) (0-4) % Platelet Estimate (NORMAL) Polychromasia Hypochromasia (manual) Poikilocytosis (manual Anisocytosis (manual) Ovalocytes PT (9.7-12.2) SECONDS INR APTT (21-34) SECONDS Sodium (132-148) mmol/L Potassium (3.6-5.2) mmol/L Chloride (98-107) mmol/L Carbon Dioxide (22-30) mmol/L Anion Gap (10-20) BUN (9-20) mg/dL Creatinine (0.8-1.5) mg/dL Est GFR ( Amer) Est GFR (Non-Af Amer) POC Glucose (mg/dL) 117 H (65-110) mg/dL Random Glucose (75-110) mg/dL Calcium (8.6-10.4) mg/dl Phosphorus (2.5-4.5) mg/dL Magnesium (1.6-2.3) mg/dL Total Bilirubin (0.2-1.3) mg/dL AST (17-59) U/L ALT (21-72) U/L Alkaline Phosphatase (38-126) U/L Total Protein (6.3-8.3) g/dL Albumin (3.5-5.0) g/dL Globulin (2.2-3.9) gm/dL Albumin/Globulin Ratio (1.0-2.1) Laboratory Results - last 24 hr 05/17/18 05/18/18 05/18/18 21:24 05:52 05:52 WBC 7.7 RBC 2.81 L Hgb 7.9 L Hct 24.5 L MCV 87.1 MCH 28.2 MCHC 32.4 L RDW 15.2 H Plt Count 216 MPV 8.9 Neut % (Auto) 79.8 H Lymph % (Auto) 7.0 L Kern % (Auto) 12.5 H Eos % (Auto) 0.5 Baso % (Auto) 0.2 Neut # (Auto) 6.1 Lymph # (Auto) 0.5 L Kern # (Auto) 1.0 H Eos # (Auto) 0.0 Baso # (Auto) 0.0 Neutrophils % (Manual) 89 H Lymphocytes % (Manual) 7 L Monocytes % (Manual) 4 Eosinophils % (Manual) Platelet Estimate Normal Polychromasia Slight Hypochromasia (manual) Slight Poikilocytosis (manual Anisocytosis (manual) Slight Ovalocytes Slight PT 22.1 H D INR 2.0 D APTT 34 Sodium Potassium Chloride Carbon Dioxide Anion Gap BUN Creatinine Est GFR ( Amer) Est GFR (Non-Af Amer) POC Glucose (mg/dL) 117 H Random Glucose Calcium Phosphorus Magnesium Total Bilirubin AST ALT Alkaline Phosphatase Total Protein Albumin Globulin Albumin/Globulin Ratio 05/18/18 05/18/18 05/18/18 05:53 08:35 11:12 WBC RBC Hgb Hct MCV MCH MCHC RDW Plt Count MPV Neut % (Auto) Lymph % (Auto) Kern % (Auto) Eos % (Auto) Baso % (Auto) Neut # (Auto) Lymph # (Auto) Kern # (Auto) Eos # (Auto) Baso # (Auto) Neutrophils % (Manual) Lymphocytes % (Manual) Monocytes % (Manual) Eosinophils % (Manual) Platelet Estimate Polychromasia Hypochromasia (manual) Poikilocytosis (manual Anisocytosis (manual) Ovalocytes PT INR APTT Sodium 138 Potassium 3.6 Chloride 100 Carbon Dioxide 28 Anion Gap 14 BUN 57 H Creatinine 1.7 H Est GFR ( Amer) 49 Est GFR (Non-Af Amer) 40 POC Glucose (mg/dL) 74 111 H Random Glucose 90 Calcium 8.1 L Phosphorus 3.2 Magnesium 1.8 Total Bilirubin 1.3 AST 35 ALT 30 Alkaline Phosphatase 99 Total Protein 6.5 Albumin 3.6 Globulin 2.9 Albumin/Globulin Ratio 1.3 05/18/18 05/18/18 05/18/18 12:24 12:24 16:08 WBC 8.5 RBC 2.80 L Hgb 7.9 L Hct 24.1 L MCV 86.1 MCH 28.3 MCHC 32.9 L RDW 15.2 H Plt Count 201 MPV 8.2 Neut % (Auto) 80.2 H Lymph % (Auto) 6.6 L Kern % (Auto) 11.8 H Eos % (Auto) 1.1 Baso % (Auto) 0.3 Neut # (Auto) 6.8 Lymph # (Auto) 0.6 L Kern # (Auto) 1.0 H Eos # (Auto) 0.1 Baso # (Auto) 0.0 Neutrophils % (Manual) 79 H Lymphocytes % (Manual) 6 L Monocytes % (Manual) 13 H Eosinophils % (Manual) 2 Platelet Estimate Normal Polychromasia Hypochromasia (manual) Slight Poikilocytosis (manual Slight Anisocytosis (manual) Slight Ovalocytes Slight PT 24.2 H INR 2.2 APTT 92 H D Sodium Potassium Chloride Carbon Dioxide Anion Gap BUN Creatinine Est GFR ( Amer) Est GFR (Non-Af Amer) POC Glucose (mg/dL) 129 H Random Glucose Calcium Phosphorus Magnesium Total Bilirubin AST ALT Alkaline Phosphatase Total Protein Albumin Globulin Albumin/Globulin Ratio 05/18/18 17:50 WBC RBC Hgb Hct MCV MCH MCHC RDW Plt Count MPV Neut % (Auto) Lymph % (Auto) Kern % (Auto) Eos % (Auto) Baso % (Auto) Neut # (Auto) Lymph # (Auto) Kern # (Auto) Eos # (Auto) Baso # (Auto) Neutrophils % (Manual) Lymphocytes % (Manual) Monocytes % (Manual) Eosinophils % (Manual) Platelet Estimate Polychromasia Hypochromasia (manual) Poikilocytosis (manual Anisocytosis (manual) Ovalocytes PT 23.1 H INR 2.1 APTT 104 H* D Sodium Potassium Chloride Carbon Dioxide Anion Gap BUN Creatinine Est GFR ( Amer) Est GFR (Non-Af Amer) POC Glucose (mg/dL) Random Glucose Calcium Phosphorus Magnesium Total Bilirubin AST ALT Alkaline Phosphatase Total Protein Albumin Globulin Albumin/Globulin Ratio Critical Care Progress Note - Nutrition Nutrition: Nutrition Category Date Time Status Heart Healthy Diet [DIET] Diets 05/14/18 Breakfast Active Attending/Attestation - Attestation I have personally seen and examined this patient.: Yes I have fully participated in the care of the patient.: Yes I have reviewed all pertinent clinical information: Yes Notes (Text): 05/18/18 18:26 patient seen and examined in the intensive care unit. remains on milrinone drip continue anticoagulation Continue antibiotics for multifocal infiltrat Patient was placed on BiPAP for shortness of breath Monitor ABG Patient diuresed after giving Lasix and breathing better
[2018-05-18] MEDS: Albuterol-Ipratrop 3 mg / 0.5 (3 ml) UD INH PRN ×3 (09:42→20:07)
[2018-05-18] MEDS ORDERED: Heparin25000 units/250ml 1/2NS 25,000 UNITS/250 ML BAG IV PRN (09:47)
[2018-05-18] MEDS ORDERED: Influenza Vaccine 60 MCG/0.5 ML SYR (3 yr & up) IM ONE (10:00)
[2018-05-18] MEDS: Pantoprazole 40 mg EC Tab PO SCH (11:01)
[2018-05-18] MEDS: Vitamins A & D Oint UD Foilpak TOP SCH ×2 (11:08→17:19)
[2018-05-18] MEDS: Fluticasone Nasal 50 mcg/Spray NAS SCH ×2 (11:16→17:17)
[2018-05-18] MEDS: Milrinone 20 MG in Dextrose 5% In Water 80 ML IV SCH (11:40)
[2018-05-18] MEDS: Heparin25000 units/250ml 1/2NS 25,000 UNITS/250 ML BAG IV PRN (12:19)
[2018-05-18 12:30] LABS: BASO % 0.3 % (0.0-2.0); EOS # 0.1 K/uL (0.0-0.7); EOS % 1.1 % (0.0-4.0); HEMOGLOBIN 7.9 g/dL (12.0-18.0); LYMPH # 0.6 K/uL (1.0-4.3); LYMPH % 6.6 % (20.0-40.0); MEAN CELL VOLUME 86.1 fL (80.0-94.0); MEAN CORPUSCULAR HEMOGLOBIN 28.3 pg (27.0-31.0); MEAN CORPUSCULAR HGB CONC 32.9 g/dL (33.0-37.0); MEAN PLATELET VOLUME 8.2 fL (7.2-11.7); MONO % 11.8 % (0.0-10.0); NEUT # 6.8 K/uL (1.8-7.0); NEUT % 80.2 % (50.0-75.0); NRBC % 0.1 % (0.0-2.0); PLATELET COUNT 201 K/uL (130-400); RED CELL DISTRIBUTION WIDTH 15.2 % (11.5-14.5); WHITE BLOOD COUNT 8.5 K/uL (4.8-10.8)
[2018-05-18 12:38] LABS: INR 2.2; PROTHROMBIN TIME 24.2 SECONDS (9.7-12.2)
[2018-05-18 13:12] LABS: ANISOCYTOSIS SLIGHT; EOSINOPHIL 2 % (0-4); HYPOCHROMIC SLIGHT; LYMPHOCYTE 6 % (20-40); MONOCYTE 13 % (0-10); NEUTROPHIL 79 % (50-75); PLATELET ESTIMATE NORMAL (NORMAL); POIKILOCYTOSIS SLIGHT; TOTAL CELLS COUNTED 100
[2018-05-18 13:13] LABS: OVALOCYTES SLIGHT
--- NOTE | 2018-05-18 15:24 | RAD ---
Date of service: 05/18/2018 HISTORY: chf COMPARISON: 05/15/2018 FINDINGS: LUNGS: Right parahilar opacity grossly unchanged. PLEURA: Bilateral small pleural effusion, left greater than right. No pneumothorax. CARDIOVASCULAR: No aortic atherosclerotic calcification present. Cardiomegaly. Mitral valve replacement. Sternotomy wires. AICD. No congestive change. OSSEOUS STRUCTURES: No significant abnormalities. VISUALIZED UPPER ABDOMEN: Normal. OTHER FINDINGS: None. IMPRESSION: Right parahilar opacity and small bilateral pleural effusion. Cardiomegaly.
--- NOTE | 2018-05-18 16:23 | CP.PCM.PN ---
Subjective - Date & Time of Evaluation Date of Evaluation: 05/18/18 Time of Evaluation: 16:00 - Subjective Subjective: Patient is on BIPAP,Discussed with dr Alcocer and RN patient was short of breath this afternoon and placed on BIPAP No fever,no nausea,no vomiting,Eating ok Objective - Vital Signs/Intake and Output Vital Signs (last 24 hours): Temp Pulse Resp BP Pulse Ox 98.3 F 90 26 H 109/58 L 100 05/18/18 08:00 05/18/18 15:40 05/18/18 15:02 05/18/18 15:02 05/18/18 15:02 Intake and Output: 05/18/18 05/18/18 06:59 18:59 Intake Total 105.9 266.2 Output Total 1400 1200 Balance -1294.1 -933.8 - Medications Medications: Current Medications Albuterol/Ipratropium (Duoneb 3 Mg/0.5 Mg (3 Ml) Ud) 3 ml INH RQ4 PRN PRN Reason: Shortness of Breath Last Admin: 05/18/18 15:40 Dose: 3 ml Bumetanide (Bumex) 1 mg PO Q8H [facility] Last Admin: 05/18/18 13:07 Dose: Not Given Fluticasone Propionate (Flonase) 2 spr JESSICA BID [facility] Last Admin: 05/18/18 11:16 Dose: 2 sprays Gabapentin (Neurontin) 100 mg PO TID [facility] Last Admin: 05/18/18 13:08 Dose: 100 mg Hydralazine HCl (Apresoline) 25 mg PO TID [facility] Last Admin: 05/18/18 13:08 Dose: 25 mg Piperacillin Sod/Tazobactam Sod (Zosyn 2.25 Gm Iv Premix) 2.25 gm in 50 mls @ 100 mls/hr IVPB Q6H [facility]; Protocol Last Admin: 05/17/18 20:45 Dose: Not Given Milrinone Lactate/Dextrose 20 (mg/ Dextrose) 100 mls @ 5.84 mls/hr IV .Q17H8M [facility]; Protocol Last Admin: 05/18/18 11:40 Dose: 0.2 mcg/kg/min, 3.54 mls/hr Heparin Sodium/Sodium Chloride (Heparin 93804 Units/250ml 1/2 Normal Saline) 25,000 units in 250 mls @ 11.643 mls/hr IV .[id number] PRN; Protocol PRN Reason: PROTOCOL Last Admin: 05/18/18 12:19 Dose: 18 units/kg/hr, 11.643 mls/hr Azithromycin 500 mg/ Sodium (Chloride) 250 mls @ 250 mls/hr IVPB DAILY [facility]; Protocol Isosorbide Mononitrate (Imdur) 60 mg PO DAILY [facility] Last Admin: 05/18/18 11:03 Dose: 60 mg Metoprolol Tartrate (Lopressor) 25 mg PO BID [facility] Last Admin: 05/18/18 11:00 Dose: 25 mg Pantoprazole Sodium (Protonix Ec Tab) 40 mg PO DAILY [facility] Last Admin: 05/18/18 11:01 Dose: 40 mg Rosuvastatin Calcium (Crestor) 10 mg PO HS [facility] Last Admin: 05/17/18 21:12 Dose: 10 mg Vitamin A (Vitamin A & D Oint Ud Foilpak) 1 ea TOP BID [facility] Last Admin: 05/18/18 11:08 Dose: 1 ea - Labs Labs: 05/18/18 12:24 05/18/18 05:53 PT 24.2 SECONDS (9.7-12.2) H 05/18/18 12:24 INR 2.2 05/18/18 12:24 APTT 92 SECONDS (21-34) H D 05/18/18 12:24 - Constitutional Appears: Chronically Ill - Head Exam Head Exam: ATRAUMATIC - Eye Exam Eye Exam: Normal appearance - ENT Exam ENT Exam: Mucous Membranes Moist - Neck Exam Neck Exam: Full ROM - Respiratory Exam Respiratory Exam: Rales - Cardiovascular Exam Cardiovascular Exam: Tachycardia, REGULAR RHYTHM - GI/Abdominal Exam GI & Abdominal Exam: Soft, Normal Bowel Sounds - Extremities Exam Extremities Exam: Full ROM - Back Exam Back Exam: NORMAL INSPECTION - Neurological Exam Neurological Exam: Awake, Oriented x3 - Psychiatric Exam Psychiatric exam: Normal Mood - Skin Skin Exam: Dry Assessment and Plan - Assessment and Plan (Free Text) Plan: 1. Acute on chronic systolic heart failure History of Aortic valve replacement, Mitral valve replacement, Tricuspid valve replacement AICD ,CABG started on Primacor drip last night Cardio consulted- Dr. Navas- recommendations appreciated Strict Is/Os Bumex 1mg IVP q8 aydee Imdur 60mg po daily Hydralazine 25mg po tid aydee Lopressor 25mg po bid aydee INR came down to 2 on heparin drip and Coumadin,maintain INR between 3.0 t0 3.5 2.Pneumonia w/ shortness of breath Pulmonology consulted- Dr. Alcocer- recommendations appreciated Azithromycin and Zosyn- Duonebs PRN; Atrovent 1x aydee ECHO from 02/05/18: EF 35% CXR: Moderate to severe venous congestion with prominent consolidative opacities within mid to lower lung zones. small bilateral pleural effusions. Aortic atherosclertic calcification noted. Enlarged heart with prominent cardiomegaly. Prior valve replacements. Left sided pacemaker. Status post median sternotomy. Degenerative changes in spine and shoulders. Calcifications within the right axilla. CT chest: multilobar pna CXR; severe venous congestion 3.CAD w/ CABG Crestor 10mg po HS Bumex 1mg IVP q8 aydee Imdur 60mg po daily Metoprolol 25mg po bid [facility] Nitropaste 0.5 inch topical 4.LOUISE Likely prerenal in etiology with low blood pressure setting and anemia Nephrology consulted Cardiorenal etiology with increased diuretics patient Cr loses 5.Hx of Afib 6.Chronic pain Gabapentin 100mg po tid HTN Bumex/Imdur/Lopressor/Hydralazine PPx Influenza vaccine DVT ppx: not indicated at this time in setting of elevated INR GI ppx: protonix 40mg daily [facility]
[2018-05-18] MEDS: Piperacill/Tazo 2.25gm in Dex 2.25 GM/50 ML BAG IVPB SCH ×2 (16:41→21:37)
[2018-05-18] MEDS: Azithromycin 500 MG in Sodium Chloride 0.9% 250 ML IVPB SCH (17:18)
[2018-05-18 18:01] LABS: INR 2.1; PROTHROMBIN TIME 23.1 SECONDS (9.7-12.2)
[2018-05-19] MEDS: Piperacill/Tazo 2.25gm in Dex 2.25 GM/50 ML BAG IVPB SCH ×2 (03:36→09:26)
[2018-05-19] MEDS: Milrinone 20 MG in Dextrose 5% In Water 80 ML IV SCH ×3 (04:07→21:34)
[2018-05-19 06:23] LABS: BASO % 0.2 % (0.0-2.0); EOS % 0.1 % (0.0-4.0); LYMPH # 0.2 K/uL (1.0-4.3); LYMPH % 2.8 % (20.0-40.0); MEAN CELL VOLUME 87.6 fL (80.0-94.0); MEAN CORPUSCULAR HEMOGLOBIN 28.9 pg (27.0-31.0); MONO # 0.2 K/uL (0.0-0.8); MONO % 2.8 % (0.0-10.0); NEUT # 5.3 K/uL (1.8-7.0); NEUT % 94.1 % (50.0-75.0); PLATELET COUNT 184 K/uL (130-400); RBC 2.75 Mil/uL (4.40-5.90); RED CELL DISTRIBUTION WIDTH 15.2 % (11.5-14.5); WHITE BLOOD COUNT 5.6 K/uL (4.8-10.8)
[2018-05-19 06:30] LABS: INR 2.2; PROTHROMBIN TIME 23.8 SECONDS (9.7-12.2)
[2018-05-19 06:38] LABS: ALB/GLOB RATIO 1.2 (1.0-2.1); ALBUMIN 3.7 g/dL (3.5-5.0); CALCIUM 8.5 mg/dl (8.6-10.4)
[2018-05-19] MEDS: Albuterol-Ipratrop 3 mg / 0.5 (3 ml) UD INH PRN (07:45)
--- NOTE | 2018-05-19 07:46 | CARD ---
APPROVED REPORT Date of service: 05/14/2018 EKG Measurement Heart [id number] <Conclusion> Ventricular-paced rhythm Abnormal ECG
[2018-05-19] MEDS ORDERED: Acetylcysteine 20% Inhal Soln (4ml) INH SCH (08:00)
[2018-05-19 08:45] LABS: LYMPHOCYTE 2 % (20-40); MONOCYTE 2 % (0-10); NEUTROPHIL 96 % (50-75); PLATELET ESTIMATE NORMAL (NORMAL); TOTAL CELLS COUNTED 100
[2018-05-19 08:52] LABS: ANISOCYTOSIS SLIGHT
[2018-05-19 08:53] LABS: HYPOCHROMIC SLIGHT; LARGE PLATELETS PRESENT; POLYCHROMIC SLIGHT; TOXIC GRANULATION PRESENT
[2018-05-19] MEDS: Pantoprazole 40 mg EC Tab PO SCH (09:25)
[2018-05-19] MEDS: Fluticasone Nasal 50 mcg/Spray NAS SCH ×2 (09:25→17:14)
[2018-05-19] MEDS: Vitamins A & D Oint UD Foilpak TOP SCH ×2 (09:25→17:04)
[2018-05-19] MEDS: Azithromycin 500 MG in Sodium Chloride 0.9% 250 ML IVPB SCH (09:26)
[2018-05-19] MEDS: Heparin25000 units/250ml 1/2NS 25,000 UNITS/250 ML BAG IV PRN (09:51)
[2018-05-19] MEDS: MethylPREDNISolone 40 mg Vial IVP SCH ×2 (09:54→17:04)
--- NOTE | 2018-05-19 10:07 | CP.PCM.PN ---
Subjective - Date & Time of Evaluation Date of Evaluation: 05/19/18 Time of Evaluation: 09:40 - Subjective Subjective: The patient seen and examined Still complaining off shortness of breath On milrinone drip On Lasix and steroids Continue nebulizer treatment BiPAP as needed Continue antibiotics Objective - Vital Signs/Intake and Output Vital Signs (last 24 hours): Temp Pulse Resp BP Pulse Ox 97.6 F 92 H 27 H 123/86 100 05/19/18 08:00 05/19/18 08:00 05/19/18 08:00 05/19/18 09:25 05/19/18 08:00 Intake and Output: 05/19/18 05/19/18 06:59 18:59 Intake Total 321.5 137.9 Output Total 1450 250 Balance -1128.5 -112.1 - Medications Medications: Current Medications Albuterol/Ipratropium (Duoneb 3 Mg/0.5 Mg (3 Ml) Ud) 3 ml INH RQ4 [facility] Fluticasone Propionate (Flonase) 2 spr JESSICA BID [facility] Last Admin: 05/19/18 09:25 Dose: 2 sprays Furosemide (Lasix) 40 mg IVP Q12H [facility] Last Admin: 05/19/18 06:09 Dose: 40 mg Gabapentin (Neurontin) 100 mg PO TID [facility] Last Admin: 05/19/18 09:25 Dose: 100 mg Hydralazine HCl (Apresoline) 25 mg PO TID [facility] Last Admin: 05/19/18 09:24 Dose: 25 mg Milrinone Lactate/Dextrose 20 (mg/ Dextrose) 100 mls @ 5.84 mls/hr IV .Q17H8M [facility]; Protocol Last Admin: 05/19/18 04:07 Dose: Not Given Heparin Sodium/Sodium Chloride (Heparin 84593 Units/250ml 1/2 Normal Saline) 25,000 units in 250 mls @ 11.643 mls/hr IV .[id number] PRN; Protocol PRN Reason: PROTOCOL Last Admin: 05/19/18 09:51 Dose: 14 units/kg/hr, 9.055 mls/hr Azithromycin 500 mg/ Sodium (Chloride) 250 mls @ 250 mls/hr IVPB DAILY [facility]; Protocol Last Admin: 05/19/18 09:26 Dose: 250 mls/hr Cefepime HCl (Maxipime Iv 1 Gm Premix) 1 gm in 50 mls @ 100 mls/hr IVPB Q24H [facility]; Protocol Isosorbide Mononitrate (Imdur) 60 mg PO DAILY [facility] Last Admin: 05/19/18 09:25 Dose: 60 mg Methylprednisolone (Solu-Medrol) 40 mg IVP Q8H [facility] Last Admin: 05/19/18 09:54 Dose: 40 mg Metoprolol Tartrate (Lopressor) 25 mg PO BID [facility] Last Admin: 05/19/18 09:25 Dose: 25 mg Pantoprazole Sodium (Protonix Ec Tab) 40 mg PO DAILY [facility] Last Admin: 05/19/18 09:25 Dose: 40 mg Rosuvastatin Calcium (Crestor) 10 mg PO HS [facility] Last Admin: 05/18/18 21:11 Dose: 10 mg Vitamin A (Vitamin A & D Oint Ud Foilpak) 1 ea TOP BID [facility] Last Admin: 05/19/18 09:25 Dose: 1 ea - Labs Labs: 05/19/18 06:15 05/19/18 06:12 PT 23.8 SECONDS (9.7-12.2) H 05/19/18 06:21 INR 2.2 05/19/18 06:21 APTT 89 SECONDS (21-34) H D 05/19/18 06:21
[2018-05-19] MEDS: Albuterol-Ipratrop 3 mg / 0.5 (3 ml) UD INH SCH ×3 (12:00→21:00)
[2018-05-19] MEDS: Cefepime IV 1 gm in Dextrose 1 GM/50 ML BAG IVPB SCH (12:21)
--- NOTE | 2018-05-19 13:05 | CP.PCM.PN ---
Subjective - Date & Time of Evaluation Date of Evaluation: 05/19/18 Time of Evaluation: 12:20 - Subjective Subjective: Patient was on BIPAP this afternoon,He is not feeling well,Denies any improvement in his breathing,feels the same c/o cough ,no fever, Getting Milrinone drip. Objective - Vital Signs/Intake and Output Vital Signs (last 24 hours): Temp Pulse Resp BP Pulse Ox 97.0 F L 92 H 21 110/60 100 05/19/18 12:00 05/19/18 12:06 05/19/18 12:00 05/19/18 11:48 05/19/18 12:00 Intake and Output: 05/19/18 05/19/18 06:59 18:59 Intake Total 321.5 439.5 Output Total 1450 550 Balance -1128.5 -110.5 - Medications Medications: Current Medications Albuterol/Ipratropium (Duoneb 3 Mg/0.5 Mg (3 Ml) Ud) 3 ml INH RQ4 [facility] Last Admin: 05/19/18 12:00 Dose: 3 ml Fluticasone Propionate (Flonase) 2 spr JESSICA BID [facility] Last Admin: 05/19/18 09:25 Dose: 2 sprays Furosemide (Lasix) 40 mg IVP Q12H [facility] Last Admin: 05/19/18 06:09 Dose: 40 mg Gabapentin (Neurontin) 100 mg PO TID [facility] Last Admin: 05/19/18 09:25 Dose: 100 mg Hydralazine HCl (Apresoline) 25 mg PO TID [facility] Last Admin: 05/19/18 09:24 Dose: 25 mg Milrinone Lactate/Dextrose 20 (mg/ Dextrose) 100 mls @ 5.84 mls/hr IV .Q17H8M [facility]; Protocol Last Admin: 05/19/18 04:07 Dose: Not Given Heparin Sodium/Sodium Chloride (Heparin 91936 Units/250ml 1/2 Normal Saline) 25,000 units in 250 mls @ 11.643 mls/hr IV .[id number] PRN; Protocol PRN Reason: PROTOCOL Last Admin: 05/19/18 09:51 Dose: 14 units/kg/hr, 9.055 mls/hr Azithromycin 500 mg/ Sodium (Chloride) 250 mls @ 250 mls/hr IVPB DAILY [facility]; Protocol Last Admin: 05/19/18 09:26 Dose: 250 mls/hr Cefepime HCl (Maxipime Iv 1 Gm Premix) 1 gm in 50 mls @ 100 mls/hr IVPB Q24H [facility]; Protocol Last Admin: 05/19/18 12:21 Dose: 100 mls/hr Isosorbide Mononitrate (Imdur) 60 mg PO DAILY [facility] Last Admin: 05/19/18 09:25 Dose: 60 mg Methylprednisolone (Solu-Medrol) 40 mg IVP Q8H [facility] Last Admin: 05/19/18 09:54 Dose: 40 mg Metoprolol Tartrate (Lopressor) 25 mg PO BID [facility] Last Admin: 05/19/18 09:25 Dose: 25 mg Pantoprazole Sodium (Protonix Ec Tab) 40 mg PO DAILY [facility] Last Admin: 05/19/18 09:25 Dose: 40 mg Rosuvastatin Calcium (Crestor) 10 mg PO HS [facility] Last Admin: 05/18/18 21:11 Dose: 10 mg Vitamin A (Vitamin A & D Oint Ud Foilpak) 1 ea TOP BID [facility] Last Admin: 05/19/18 09:25 Dose: 1 ea - Labs Labs: 05/19/18 06:15 05/19/18 06:12 PT 23.8 SECONDS (9.7-12.2) H 05/19/18 06:21 INR 2.2 05/19/18 06:21 APTT 98 SECONDS (21-34) H D 05/19/18 12:43 - Constitutional Appears: Older Than Stated Age, Chronically Ill - Head Exam Head Exam: NORMAL INSPECTION - Eye Exam Eye Exam: Normal appearance - ENT Exam ENT Exam: Mucous Membranes Moist - Neck Exam Neck Exam: Full ROM - Respiratory Exam Respiratory Exam: Rales, Wheezes - Cardiovascular Exam Cardiovascular Exam: REGULAR RHYTHM - GI/Abdominal Exam GI & Abdominal Exam: Soft, Normal Bowel Sounds - Extremities Exam Extremities Exam: Full ROM - Back Exam Back Exam: NORMAL INSPECTION - Neurological Exam Neurological Exam: Awake, Oriented x3 - Psychiatric Exam Psychiatric exam: Normal Mood - Skin Skin Exam: Dry Assessment and Plan - Assessment and Plan (Free Text) Plan: 1. Acute on chronic systolic heart failure History of Aortic valve replacement, Mitral valve replacement, Tricuspid valve replacement AICD ,CABG on Primacor drip Cardio consulted- Dr. Navas- recommendations appreciated Strict Is/Os lasix 40mg bid Imdur 60mg po daily Hydralazine 25mg po tid andrés Lopressor 25mg po bid [facility] INR is 2.2,Coumadin 5mg tonight,continue heparin drip on heparin drip and Coumadin, INR goal between 3.0 t0 3.5 2.Pneumonia w/ shortness of breath Pulmonology consulted- Dr. Alcocer- recommendations appreciated On Azithromycin ,off zosyn,started on cefepime by Dr gissel Perla PRN; Atrovent 1x andrés on solimedrol ECHO from 02/05/18: EF 35% CXR: Moderate to severe venous congestion with prominent consolidative opacities within mid to lower lung zones. small bilateral pleural effusions. Aortic atherosclertic calcification noted. Enlarged heart with prominent cardiomegaly. Prior valve replacements. Left sided pacemaker. Status post median sternotomy. Degenerative changes in spine and shoulders. Calcifications within the right axilla. CT chest: multilobar pna CXR; severe venous congestion 3.CAD w/ CABG Crestor 10mg po HS lasix 40mg bid Imdur 60mg po daily Metoprolol 25mg po bid [facility] Nitropaste 0.5 inch topical 4.LOUISE Likely prerenal in etiology with low blood pressure setting and anemia Nephrology consulted Cardiorenal etiology with increased diuretics patient Cr loses 5.Hx of Afib 6.Chronic pain Gabapentin 100mg po tid HTN Bumex/Imdur/Lopressor/Hydralazine PPx Influenza vaccine DVT ppx: not indicated at this time in setting of elevated INR GI ppx: protonix 40mg daily [facility]
--- NOTE | 2018-05-19 16:07 | CP.PCM.PN ---
Subjective - Date & Time of Evaluation Date of Evaluation: 05/19/18 Time of Evaluation: 16:01 - Subjective Subjective: Patient admitted to ICU for acute on chronic heart failure currently on milrinone Objective - Vital Signs/Intake and Output Vital Signs (last 24 hours): Temp Pulse Resp BP Pulse Ox 97.0 F L 90 25 H 124/71 100 05/19/18 12:00 05/19/18 15:00 05/19/18 15:00 05/19/18 14:49 05/19/18 15:00 Intake and Output: 05/19/18 05/19/18 06:59 18:59 Intake Total 321.5 549.8 Output Total 1450 850 Balance -1128.5 -300.2 - Medications Medications: Current Medications Acetylcysteine (Acetylcysteine 20%) 4 ml INH RQ6 [facility] Albuterol/Ipratropium (Duoneb 3 Mg/0.5 Mg (3 Ml) Ud) 3 ml INH RQ4 [facility] Last Admin: 05/19/18 12:00 Dose: 3 ml Fluticasone Propionate (Flonase) 2 spr JESSICA BID [facility] Last Admin: 05/19/18 09:25 Dose: 2 sprays Furosemide (Lasix) 40 mg IVP Q12H [facility] Last Admin: 05/19/18 06:09 Dose: 40 mg Gabapentin (Neurontin) 100 mg PO TID [facility] Last Admin: 05/19/18 13:47 Dose: 100 mg Hydralazine HCl (Apresoline) 25 mg PO TID [facility] Last Admin: 05/19/18 13:47 Dose: 25 mg Milrinone Lactate/Dextrose 20 (mg/ Dextrose) 100 mls @ 5.84 mls/hr IV .Q17H8M [facility]; Protocol Last Admin: 05/19/18 04:07 Dose: Not Given Heparin Sodium/Sodium Chloride (Heparin 43840 Units/250ml 1/2 Normal Saline) 25,000 units in 250 mls @ 11.643 mls/hr IV .[id number] PRN; Protocol PRN Reason: PROTOCOL Last Titration: 05/19/18 13:54 Dose: 12 units/kg/hr, 7.762 mls/hr Azithromycin 500 mg/ Sodium (Chloride) 250 mls @ 250 mls/hr IVPB DAILY [facility]; Protocol Last Admin: 05/19/18 09:26 Dose: 250 mls/hr Cefepime HCl (Maxipime Iv 1 Gm Premix) 1 gm in 50 mls @ 100 mls/hr IVPB Q24H [facility]; Protocol Last Admin: 05/19/18 12:21 Dose: 100 mls/hr Insulin Human Regular (Novolin R) 0 unit SC ACHS [facility]; Protocol Isosorbide Mononitrate (Imdur) 60 mg PO DAILY [facility] Last Admin: 05/19/18 09:25 Dose: 60 mg Methylprednisolone (Solu-Medrol) 40 mg IVP Q8H [facility] Last Admin: 05/19/18 09:54 Dose: 40 mg Metoprolol Tartrate (Lopressor) 25 mg PO BID [facility] Last Admin: 05/19/18 09:25 Dose: 25 mg Pantoprazole Sodium (Protonix Ec Tab) 40 mg PO DAILY [facility] Last Admin: 05/19/18 09:25 Dose: 40 mg Rosuvastatin Calcium (Crestor) 10 mg PO HS [facility] Last Admin: 05/18/18 21:11 Dose: 10 mg Vitamin A (Vitamin A & D Oint Ud Foilpak) 1 ea TOP BID [facility] Last Admin: 05/19/18 09:25 Dose: 1 ea Warfarin Sodium (Coumadin) 5 mg PO 1800 [facility] Stop: 05/19/18 18:01 - Labs Labs: 05/19/18 06:15 05/19/18 06:12 PT 23.8 SECONDS (9.7-12.2) H 05/19/18 06:21 INR 2.2 05/19/18 06:21 APTT 98 SECONDS (21-34) H D 05/19/18 12:43 Assessment and Plan - Assessment and Plan (Free Text) Assessment: 68 yo male with past medical history of CHF, Afib on Coumadin, aortic/mitral/tricuspid valve replacement, CAD and CABG admitted for 2-3 week history of shortness of breath and cough that worsened over last 2-3 days. CTC- massive cardiomegaly, severe systolic CHF, multifocal PNA. -Chronic systolic heart failure: -Acute on Chronic systolic CHF -continue milrinone, contineu current medications as per cardiology -ECHO from 02/05/18: EF 35% -Cardiology (Dr. Pantoja) on board: Echo performed on 02/05/2018 demonstrates bi-ventricular systolic dysfunction, normal functioning valves. C/w beta blas, stop ACEi and replace with hydralazine and nitrates. ICU for milrinone Pulm: Chronic respiratory failure:continue bi-pap -avoid fluid overloaded states (+)wheezing, contineu solumedrol + bronchodilators Heme: -chronic anemia -anemia workup -monitor for any bleeding Renal:LOUISE cardiorenal syndrome:avoid nephrotoxic drugs contineu DVT/PUD ppx -protonix -monitor INR >2.2
--- NOTE | 2018-05-19 16:14 | CP.PCM.PN ---
Subjective - Date & Time of Evaluation Date of Evaluation: 05/19/18 Time of Evaluation: 16:12 - Subjective Subjective: Patient seen and examined On Bipap, no chest pain Objective - Vital Signs/Intake and Output Vital Signs (last 24 hours): Temp Pulse Resp BP Pulse Ox 97.0 F L 90 25 H 124/71 100 05/19/18 12:00 05/19/18 15:00 05/19/18 15:00 05/19/18 14:49 05/19/18 15:00 Intake and Output: 05/19/18 05/19/18 06:59 18:59 Intake Total 321.5 549.8 Output Total 1450 850 Balance -1128.5 -300.2 - Medications Medications: Current Medications Acetylcysteine (Acetylcysteine 20%) 4 ml INH RQ6 AYDEE Albuterol/Ipratropium (Duoneb 3 Mg/0.5 Mg (3 Ml) Ud) 3 ml INH RQ4 AYDEE Last Admin: 05/19/18 12:00 Dose: 3 ml Fluticasone Propionate (Flonase) 2 spr JESSICA BID AYDEE Last Admin: 05/19/18 09:25 Dose: 2 sprays Furosemide (Lasix) 40 mg IVP Q12H AYDEE Last Admin: 05/19/18 06:09 Dose: 40 mg Gabapentin (Neurontin) 100 mg PO TID AYDEE Last Admin: 05/19/18 13:47 Dose: 100 mg Hydralazine HCl (Apresoline) 25 mg PO TID AYDEE Last Admin: 05/19/18 13:47 Dose: 25 mg Milrinone Lactate/Dextrose 20 (mg/ Dextrose) 100 mls @ 5.84 mls/hr IV .Q17H8M AYDEE; Protocol Last Admin: 05/19/18 04:07 Dose: Not Given Heparin Sodium/Sodium Chloride (Heparin 76794 Units/250ml 1/2 Normal Saline) 25,000 units in 250 mls @ 11.643 mls/hr IV .[id number] PRN; Protocol PRN Reason: PROTOCOL Last Titration: 05/19/18 13:54 Dose: 12 units/kg/hr, 7.762 mls/hr Azithromycin 500 mg/ Sodium (Chloride) 250 mls @ 250 mls/hr IVPB DAILY AYDEE; Protocol Last Admin: 05/19/18 09:26 Dose: 250 mls/hr Cefepime HCl (Maxipime Iv 1 Gm Premix) 1 gm in 50 mls @ 100 mls/hr IVPB Q24H [facility]; Protocol Last Admin: 05/19/18 12:21 Dose: 100 mls/hr Insulin Human Regular (Novolin R) 0 unit SC ACHS [facility]; Protocol Isosorbide Mononitrate (Imdur) 60 mg PO DAILY [facility] Last Admin: 05/19/18 09:25 Dose: 60 mg Methylprednisolone (Solu-Medrol) 40 mg IVP Q8H [facility] Last Admin: 05/19/18 09:54 Dose: 40 mg Metoprolol Tartrate (Lopressor) 25 mg PO BID [facility] Last Admin: 05/19/18 09:25 Dose: 25 mg Pantoprazole Sodium (Protonix Ec Tab) 40 mg PO DAILY [facility] Last Admin: 05/19/18 09:25 Dose: 40 mg Rosuvastatin Calcium (Crestor) 10 mg PO HS [facility] Last Admin: 05/18/18 21:11 Dose: 10 mg Vitamin A (Vitamin A & D Oint Ud Foilpak) 1 ea TOP BID [facility] Last Admin: 05/19/18 09:25 Dose: 1 ea Warfarin Sodium (Coumadin) 5 mg PO 1800 [facility] Stop: 05/19/18 18:01 - Labs Labs: 05/19/18 06:15 05/19/18 06:12 PT 23.8 SECONDS (9.7-12.2) H 05/19/18 06:21 INR 2.2 05/19/18 06:21 APTT 98 SECONDS (21-34) H D 05/19/18 12:43 - Head Exam Head Exam: NORMAL INSPECTION, NORMOCEPHALIC - Eye Exam Pupil Exam: PERRL - ENT Exam ENT Exam: Mucous Membranes Moist - Respiratory Exam Respiratory Exam: Rales - Cardiovascular Exam Cardiovascular Exam: REGULAR RHYTHM, JVD, +S1, +S2, Murmur - GI/Abdominal Exam GI & Abdominal Exam: Soft, Tenderness. absent: Bruit, Firm, Mass - Neurological Exam Neurological Exam: CN II-XII Intact Assessment and Plan (1) Acute on chronic systolic congestive heart failure Assessment & Plan: Diuresed 1800 ml over 24 hours Maintaining BP on milrinone Still significantly fluid overloaded Creatinine is stable Cont with milrinone and furosemide Status: Acute (2) Hx of mitral valve replacement with mechanical valve Assessment & Plan: COnt with IV heparin for mwachinical MVR F/u PTT Status: Acute (3) Persistent atrial fibrillation Assessment & Plan: Interrogation of AICD (Mary) revealed abscence of atrial lead, which could ID possible underlying AF EKG and telemetry without discernible P waves Cont with anticoagulation Will ask for EP input Status: Acute
[2018-05-19] MEDS: (Novolin R) Insulin Human Regular 100 units/ml vial SC SCH ×2 (17:04→21:33)
[2018-05-19] MEDS: Acetylcysteine 20% Inhal Soln (4ml) INH SCH (21:00)
[2018-05-20] MEDS: Albuterol-Ipratrop 3 mg / 0.5 (3 ml) UD INH SCH ×5 (00:21→20:05)
[2018-05-20 02:45] LABS: BASO % 0.1 % (0.0-2.0); HEMOGLOBIN 7.6 g/dL (12.0-18.0); LYMPH # 0.2 K/uL (1.0-4.3); LYMPH % 1.8 % (20.0-40.0); MEAN CELL VOLUME 85.7 fL (80.0-94.0); MEAN CORPUSCULAR HEMOGLOBIN 27.8 pg (27.0-31.0); MEAN CORPUSCULAR HGB CONC 32.4 g/dL (33.0-37.0); MEAN PLATELET VOLUME 8.2 fL (7.2-11.7); MONO # 0.4 K/uL (0.0-0.8); MONO % 4.1 % (0.0-10.0); NEUT # 8.3 K/uL (1.8-7.0); PLATELET COUNT 206 K/uL (130-400); RBC 2.74 Mil/uL (4.40-5.90); RED CELL DISTRIBUTION WIDTH 15.3 % (11.5-14.5); WHITE BLOOD COUNT 8.8 K/uL (4.8-10.8)
[2018-05-20 02:56] LABS: INR 3.1; PROTHROMBIN TIME 34.5 SECONDS (9.7-12.2)
[2018-05-20 03:00] LABS: ALB/GLOB RATIO 1.3 (1.0-2.1); ALBUMIN 3.9 g/dL (3.5-5.0); CALCIUM 8.6 mg/dl (8.6-10.4)
[2018-05-20] MEDS: Acetylcysteine 20% Inhal Soln (4ml) INH SCH ×2 (03:09→07:50)
[2018-05-20] MEDS: MethylPREDNISolone 40 mg Vial IVP SCH ×3 (06:46→22:11)
--- NOTE | 2018-05-20 07:02 | CP.CCUPN ---
<Kevin Love - Last Filed: 05/20/18 14:04> CCU Subjective - Physician Review Subjective (Free Text): 05/20/18 07:01 PGY-1 Critical Care Progress Note for Dr. Wallace Patient seen and examined at bedside this AM. No acute overnight events reported. No chest pain endorsed, remains on milrinone drip. Critical Care Time Spent (in minutes): 35 CCU Objective - Vital Signs / Intake & Output Vital Signs (Last 4 hours): Vital Signs Temp Pulse Resp BP Pulse Ox 05/20/18 06:12 102/69 05/20/18 06:00 92 H 32 H 98 05/20/18 05:47 102/69 05/20/18 05:00 90 23 100 05/20/18 04:48 101/68 05/20/18 04:00 97.5 F L 91 H 23 99 05/20/18 03:48 106/65 Intake and Output (Last 8hrs): Intake & Output 05/19/18 05/20/18 05/20/18 22:59 06:59 14:59 Intake Total 433.6 182.9 Output Total 1250 600 Balance -816.4 -417.1 Weight 140 lb Intake: IV 100 101 Intake, IV Amount 93.6 81.9 Left Forearm 31.2 35.1 Right Forearm 62.4 46.8 Oral 240 Output: Urine 1250 600 Urine, Voided 1250 600 Other: # Bowel Movements 1 - Physical Exam Head: Positive for: Atraumatic, Normocephalic Pupils: Positive for: PERRL Extroacular Muscles: Positive for: EOMI Mouth: Positive for: Dry Respiratory/Chest: Positive for: Respiratory Distress, Rales Cardiovascular: Positive for: Regular Rate and Rhythm, Normal S1, S2 Abdomen: Positive for: Normal Bowel Sounds. Negative for: Tenderness, Distention, Peritoneal Signs, Rebound, Guarding Upper Extremity: Positive for: Normal Inspection, NORMAL PULSES, Neurovascularly Intact, Capillary Refill < 2s Lower Extremity: Positive for: Edema, NORMAL PULSES, Neurovascularly Intact, Capillary Refill < 2 s Neurological: Positive for: CN II-XII Intact Psychiatric: Positive for: Alert, Oriented x 3 - Medications Active Medications: Active Medications Generic Name Dose Route Start Last Admin Trade Name Freq PRN Reason Stop Dose Admin Acetylcysteine 4 ml 05/19/18 13:15 05/20/18 03:09 Acetylcysteine 20% INH 4 ml RQ6 AYDEE Administration Albuterol/Ipratropium 3 ml 05/19/18 12:00 05/20/18 03:10 Duoneb 3 Mg/0.5 Mg (3 Ml) Ud INH 3 ml RQ4 AYDEE Administration Fluticasone Propionate 2 spr 05/14/18 18:00 05/19/18 17:14 Flonase JESSICA 2 sprays BID AYDEE Administration Furosemide 40 mg 05/18/18 19:00 05/20/18 06:12 Lasix IVP 40 mg Q12H AYDEE Administration Gabapentin 100 mg 05/14/18 18:00 05/19/18 17:03 Neurontin PO 100 mg TID AYDEE Administration Hydralazine HCl 25 mg 05/17/18 18:00 05/19/18 17:03 Apresoline PO 25 mg TID AYDEE Administration Milrinone Lactate/Dextrose 20 100 mls @ 5.84 mls/hr 05/17/18 16:45 05/19/18 21:34 mg/ Dextrose IV Not Given .Q17H8M AYDEE Protocol 0.33 MCG/KG/MIN Heparin Sodium/Sodium Chloride 25,000 units in 250 mls @ 11.643 mls/hr 05/18/18 12:15 05/20/18 03:00 Heparin 47790 Units/250ml 1/2 Normal Saline IV 0 units/kg/hr .[id number] PRN 0 mls/hr PROTOCOL Titration Protocol 18 UNITS/KG/HR Azithromycin 500 mg/ Sodium 250 mls @ 250 mls/hr 05/18/18 16:30 05/19/18 09:26 Chloride IVPB 250 mls/hr DAILY AYDEE Administration Protocol Cefepime HCl 1 gm in 50 mls @ 100 mls/hr 05/19/18 09:45 05/19/18 12:21 Maxipime Iv 1 Gm Premix IVPB 100 mls/hr Q24H AYDEE Administration Protocol Insulin Human Regular 0 unit 05/19/18 16:30 05/19/18 21:33 Novolin R SC Not Given ACHS [facility] Protocol Isosorbide Mononitrate 60 mg 05/14/18 15:00 05/19/18 09:25 Imdur PO 60 mg DAILY AYDEE Administration Methylprednisolone 40 mg 05/20/18 06:40 05/20/18 06:46 Solu-Medrol IVP 40 mg Q8H AYDEE Administration Metoprolol Tartrate 25 mg 05/17/18 16:27 05/19/18 17:03 Lopressor PO 25 mg BID AYDEE Administration Pantoprazole Sodium 40 mg 05/17/18 11:15 05/19/18 09:25 Protonix Ec Tab PO 40 mg DAILY AYDEE Administration Rosuvastatin Calcium 10 mg 05/14/18 22:00 05/19/18 21:33 Crestor PO 10 mg HS AYDEE Administration Vitamin A 1 ea 05/15/18 18:00 05/19/18 17:04 Vitamin A & D Oint Ud Foilpak TOP 1 ea BID AYDEE Administration - Patient Studies Lab Studies: Microbiology Studies 05/18/18 05:36 MRSA Culture (Admit) - Final Nose MRSA NOT DETECTED 05/14/18 10:36 Blood Culture - Final Blood NO GROWTH AFTER 5 DAYS Gram Stain - Final TEST NOT PERFORMED 05/14/18 10:16 Blood Culture - Final Blood NO GROWTH AFTER 5 DAYS Gram Stain - Final TEST NOT PERFORMED Lab Studies 05/20/18 05/20/18 05/20/18 Range/Units 02:40 02:40 02:40 WBC 8.8 D (4.8-10.8) K/uL RBC 2.74 L (4.40-5.90) Mil/uL Hgb 7.6 L (12.0-18.0) g/dL Hct 23.5 L (35.0-51.0) % MCV 85.7 (80.0-94.0) fL MCH 27.8 (27.0-31.0) pg MCHC 32.4 L (33.0-37.0) g/dL RDW 15.3 H (11.5-14.5) % Plt Count 206 (130-400) K/uL MPV 8.2 (7.2-11.7) fL Neut % (Auto) 94.0 H (50.0-75.0) % Lymph % (Auto) 1.8 L (20.0-40.0) % [place] % (Auto) 4.1 (0.0-10.0) % Eos % (Auto) 0.0 (0.0-4.0) % Baso % (Auto) 0.1 (0.0-2.0) % Neut # (Auto) 8.3 H (1.8-7.0) K/uL Lymph # (Auto) 0.2 L (1.0-4.3) K/uL [place] # (Auto) 0.4 (0.0-0.8) K/uL Eos # (Auto) 0.0 (0.0-0.7) K/uL Baso # (Auto) 0.0 (0.0-0.2) K/uL Neutrophils % (Manual) (50-75) % Lymphocytes % (Manual) (20-40) % Monocytes % (Manual) (0-10) % Toxic Granulation Platelet Estimate (NORMAL) Large Platelets Polychromasia Hypochromasia (manual) Anisocytosis (manual) PT 34.5 H D (9.7-12.2) SECONDS INR 3.1 H* APTT 84 H D (21-34) SECONDS Sodium 138 (132-148) mmol/L Potassium 3.6 (3.6-5.2) mmol/L Chloride 96 L (98-107) mmol/L Carbon Dioxide 31 H (22-30) mmol/L Anion Gap 14 (10-20) BUN 57 H (9-20) mg/dL Creatinine 1.8 H (0.8-1.5) mg/dL Est GFR ( Amer) 46 Est GFR (Non-Af Amer) 38 POC Glucose (mg/dL) (65-110) mg/dL Random Glucose 167 H (75-110) mg/dL Calcium 8.6 (8.6-10.4) mg/dl Magnesium 1.8 (1.6-2.3) mg/dL Total Bilirubin 1.1 (0.2-1.3) mg/dL AST 28 (17-59) U/L ALT 36 (21-72) U/L Alkaline Phosphatase 84 (38-126) U/L Total Protein 6.9 (6.3-8.3) g/dL Albumin 3.9 (3.5-5.0) g/dL Globulin 3.0 (2.2-3.9) gm/dL Albumin/Globulin Ratio 1.3 (1.0-2.1) 05/19/18 05/19/18 05/19/18 Range/Units 21:24 20:12 16:25 WBC (4.8-10.8) K/uL RBC (4.40-5.90) Mil/uL Hgb (12.0-18.0) g/dL Hct (35.0-51.0) % MCV (80.0-94.0) fL MCH (27.0-31.0) pg MCHC (33.0-37.0) g/dL RDW (11.5-14.5) % Plt Count (130-400) K/uL MPV (7.2-11.7) fL Neut % (Auto) (50.0-75.0) % Lymph % (Auto) (20.0-40.0) % [place] % (Auto) (0.0-10.0) % Eos % (Auto) (0.0-4.0) % Baso % (Auto) (0.0-2.0) % Neut # (Auto) (1.8-7.0) K/uL Lymph # (Auto) (1.0-4.3) K/uL [place] # (Auto) (0.0-0.8) K/uL Eos # (Auto) (0.0-0.7) K/uL Baso # (Auto) (0.0-0.2) K/uL Neutrophils % (Manual) (50-75) % Lymphocytes % (Manual) (20-40) % Monocytes % (Manual) (0-10) % Toxic Granulation Platelet Estimate (NORMAL) Large Platelets Polychromasia Hypochromasia (manual) Anisocytosis (manual) PT (9.7-12.2) SECONDS INR APTT 91 H D (21-34) SECONDS Sodium (132-148) mmol/L Potassium (3.6-5.2) mmol/L Chloride (98-107) mmol/L Carbon Dioxide (22-30) mmol/L Anion Gap (10-20) BUN (9-20) mg/dL Creatinine (0.8-1.5) mg/dL Est GFR ( Amer) Est GFR (Non-Af Amer) POC Glucose (mg/dL) 154 H 91 (65-110) mg/dL Random Glucose (75-110) mg/dL Calcium (8.6-10.4) mg/dl Magnesium (1.6-2.3) mg/dL Total Bilirubin (0.2-1.3) mg/dL AST (17-59) U/L ALT (21-72) U/L Alkaline Phosphatase (38-126) U/L Total Protein (6.3-8.3) g/dL Albumin (3.5-5.0) g/dL Globulin (2.2-3.9) gm/dL Albumin/Globulin Ratio (1.0-2.1) 05/19/18 05/19/18 05/19/18 Range/Units 12:43 11:10 07:37 WBC (4.8-10.8) K/uL RBC (4.40-5.90) Mil/uL Hgb (12.0-18.0) g/dL Hct (35.0-51.0) % MCV (80.0-94.0) fL MCH (27.0-31.0) pg MCHC (33.0-37.0) g/dL RDW (11.5-14.5) % Plt Count (130-400) K/uL MPV (7.2-11.7) fL Neut % (Auto) (50.0-75.0) % Lymph % (Auto) (20.0-40.0) % [place] % (Auto) (0.0-10.0) % Eos % (Auto) (0.0-4.0) % Baso % (Auto) (0.0-2.0) % Neut # (Auto) (1.8-7.0) K/uL Lymph # (Auto) (1.0-4.3) K/uL [place] # (Auto) (0.0-0.8) K/uL Eos # (Auto) (0.0-0.7) K/uL Baso # (Auto) (0.0-0.2) K/uL Neutrophils % (Manual) (50-75) % Lymphocytes % (Manual) (20-40) % Monocytes % (Manual) (0-10) % Toxic Granulation Platelet Estimate (NORMAL) Large Platelets Polychromasia Hypochromasia (manual) Anisocytosis (manual) PT (9.7-12.2) SECONDS INR APTT 98 H D (21-34) SECONDS Sodium (132-148) mmol/L Potassium (3.6-5.2) mmol/L Chloride (98-107) mmol/L Carbon Dioxide (22-30) mmol/L Anion Gap (10-20) BUN (9-20) mg/dL Creatinine (0.8-1.5) mg/dL Est GFR ( Amer) Est GFR (Non-Af Amer) POC Glucose (mg/dL) 229 H 103 (65-110) mg/dL Random Glucose (75-110) mg/dL Calcium (8.6-10.4) mg/dl Magnesium (1.6-2.3) mg/dL Total Bilirubin (0.2-1.3) mg/dL AST (17-59) U/L ALT (21-72) U/L Alkaline Phosphatase (38-126) U/L Total Protein (6.3-8.3) g/dL Albumin (3.5-5.0) g/dL Globulin (2.2-3.9) gm/dL Albumin/Globulin Ratio (1.0-2.1) 05/19/18 Range/Units 06:15 WBC (4.8-10.8) K/uL RBC (4.40-5.90) Mil/uL Hgb (12.0-18.0) g/dL Hct (35.0-51.0) % MCV (80.0-94.0) fL MCH (27.0-31.0) pg MCHC (33.0-37.0) g/dL RDW (11.5-14.5) % Plt Count (130-400) K/uL MPV (7.2-11.7) fL Neut % (Auto) (50.0-75.0) % Lymph % (Auto) (20.0-40.0) % [place] % (Auto) (0.0-10.0) % Eos % (Auto) (0.0-4.0) % Baso % (Auto) (0.0-2.0) % Neut # (Auto) (1.8-7.0) K/uL Lymph # (Auto) (1.0-4.3) K/uL [place] # (Auto) (0.0-0.8) K/uL Eos # (Auto) (0.0-0.7) K/uL Baso # (Auto) (0.0-0.2) K/uL Neutrophils % (Manual) 96 H (50-75) % Lymphocytes % (Manual) 2 L (20-40) % Monocytes % (Manual) 2 (0-10) % Toxic Granulation Present Platelet Estimate Normal (NORMAL) Large Platelets Present Polychromasia Slight Hypochromasia (manual) Slight Anisocytosis (manual) Slight PT (9.7-12.2) SECONDS INR APTT (21-34) SECONDS Sodium (132-148) mmol/L Potassium (3.6-5.2) mmol/L Chloride (98-107) mmol/L Carbon Dioxide (22-30) mmol/L Anion Gap (10-20) BUN (9-20) mg/dL Creatinine (0.8-1.5) mg/dL Est GFR ( Amer) Est GFR (Non-Af Amer) POC Glucose (mg/dL) (65-110) mg/dL Random Glucose (75-110) mg/dL Calcium (8.6-10.4) mg/dl Magnesium (1.6-2.3) mg/dL Total Bilirubin (0.2-1.3) mg/dL AST (17-59) U/L ALT (21-72) U/L Alkaline Phosphatase (38-126) U/L Total Protein (6.3-8.3) g/dL Albumin (3.5-5.0) g/dL Globulin (2.2-3.9) gm/dL Albumin/Globulin Ratio (1.0-2.1) Laboratory Results - last 24 hr 05/19/18 05/19/18 05/19/18 06:15 07:37 11:10 WBC RBC Hgb Hct MCV MCH MCHC RDW Plt Count MPV Neut % (Auto) Lymph % (Auto) [place] % (Auto) Eos % (Auto) Baso % (Auto) Neut # (Auto) Lymph # (Auto) [place] # (Auto) Eos # (Auto) Baso # (Auto) Neutrophils % (Manual) 96 H Lymphocytes % (Manual) 2 L Monocytes % (Manual) 2 Toxic Granulation Present Platelet Estimate Normal Large Platelets Present Polychromasia Slight Hypochromasia (manual) Slight Anisocytosis (manual) Slight PT INR APTT Sodium Potassium Chloride Carbon Dioxide Anion Gap BUN Creatinine Est GFR ( Amer) Est GFR (Non-Af Amer) POC Glucose (mg/dL) 103 229 H Random Glucose Calcium Magnesium Total Bilirubin AST ALT Alkaline Phosphatase Total Protein Albumin Globulin Albumin/Globulin Ratio 05/19/18 05/19/18 05/19/18 12:43 16:25 20:12 WBC RBC Hgb Hct MCV MCH MCHC RDW Plt Count MPV Neut % (Auto) Lymph % (Auto) [place] % (Auto) Eos % (Auto) Baso % (Auto) Neut # (Auto) Lymph # (Auto) [place] # (Auto) Eos # (Auto) Baso # (Auto) Neutrophils % (Manual) Lymphocytes % (Manual) Monocytes % (Manual) Toxic Granulation Platelet Estimate Large Platelets Polychromasia Hypochromasia (manual) Anisocytosis (manual) PT INR APTT 98 H D 91 H D Sodium Potassium Chloride Carbon Dioxide Anion Gap BUN Creatinine Est GFR ( Amer) Est GFR (Non-Af Amer) POC Glucose (mg/dL) 91 Random Glucose Calcium Magnesium Total Bilirubin AST ALT Alkaline Phosphatase Total Protein Albumin Globulin Albumin/Globulin Ratio 05/19/18 05/20/18 05/20/18 21:24 02:40 02:40 WBC RBC Hgb Hct MCV MCH MCHC RDW Plt Count MPV Neut % (Auto) Lymph % (Auto) [place] % (Auto) Eos % (Auto) Baso % (Auto) Neut # (Auto) Lymph # (Auto) [place] # (Auto) Eos # (Auto) Baso # (Auto) Neutrophils % (Manual) Lymphocytes % (Manual) Monocytes % (Manual) Toxic Granulation Platelet Estimate Large Platelets Polychromasia Hypochromasia (manual) Anisocytosis (manual) PT 34.5 H D INR 3.1 H* APTT 84 H D Sodium 138 Potassium 3.6 Chloride 96 L Carbon Dioxide 31 H Anion Gap 14 BUN 57 H Creatinine 1.8 H Est GFR ( Amer) 46 Est GFR (Non-Af Amer) 38 POC Glucose (mg/dL) 154 H Random Glucose 167 H Calcium 8.6 Magnesium 1.8 Total Bilirubin 1.1 AST 28 ALT 36 Alkaline Phosphatase 84 Total Protein 6.9 Albumin 3.9 Globulin 3.0 Albumin/Globulin Ratio 1.3 05/20/18 02:40 WBC 8.8 D RBC 2.74 L Hgb 7.6 L Hct 23.5 L MCV 85.7 MCH 27.8 MCHC 32.4 L RDW 15.3 H Plt Count 206 MPV 8.2 Neut % (Auto) 94.0 H Lymph % (Auto) 1.8 L [place] % (Auto) 4.1 Eos % (Auto) 0.0 Baso % (Auto) 0.1 Neut # (Auto) 8.3 H Lymph # (Auto) 0.2 L [place] # (Auto) 0.4 Eos # (Auto) 0.0 Baso # (Auto) 0.0 Neutrophils % (Manual) Lymphocytes % (Manual) Monocytes % (Manual) Toxic Granulation Platelet Estimate Large Platelets Polychromasia Hypochromasia (manual) Anisocytosis (manual) PT INR APTT Sodium Potassium Chloride Carbon Dioxide Anion Gap BUN Creatinine Est GFR ( Amer) Est GFR (Non-Af Amer) POC Glucose (mg/dL) Random Glucose Calcium Magnesium Total Bilirubin AST ALT Alkaline Phosphatase Total Protein Albumin Globulin Albumin/Globulin Ratio Fingerstick Blood Sugar Results: 154 Review of Systems - Review of Systems All systems: reviewed and no additional remarkable complaints except Review of Systems: as per HPI Critical Care Progress Note - Nutrition Nutrition: Nutrition Category Date Time Status Heart Healthy Diet [DIET] Diets 05/14/18 Breakfast Active Assessment/Plan - Assessment and Plan (Free Text) Assessment: 68 yo male with past medical history of CHF, Afib on Coumadin, aortic/mitral/tricuspid valve replacement, CAD and CABG admitted for 2-3 week hi story of shortness of breath and cough that worsened over last 2-3 days. CTC- massive cardiomegaly, severe systolic CHF, multifocal PNA. Plan: Neuro: -chronic pain, on neurontin 100 TID Pulm: -f/u CXR (05/18) -CXR (05/15): No significant interval changes since prior study -CXR (05/14): Moderate to severe venous congestion with prominent consolidative opacities within the mid to lower lung zones. Small bilateral pleural effusions. Aortic atherosclerotic calcifications noted. Enlarged heart with prominent cardiomegaly. Prior valve replacements. L sided pacemaker. Status post median sternotomy. Calcifications within the R axilla. -Chest CT (05/14): Massive cardiomegaly. Scattered areas of atelectasis and consolidation within the R middle lobe of the lung. Prominent dense consolidative opacity measuring 6.5cm seen within the posterior aspect of the R lower lobe with adjacent trace R pleural effusion. This may represent multifocal PNA. Pulmonary venous congestion suggestive of CHF. Focal consolidations within the posterior aspect of the L upper lobe inferiorly in the lung. Scattered area of atelectasis and consolidation within the L lower lobe. -continue w/ zosyn CV: -ECHO from 02/05/18: EF 35% -Cardiology (Dr. Pantoja) on board: Echo performed on 02/05/2018 demonstrates b i-ventricular systolic dysfunction, normal functioning valves. C/w beta blas, stop ACEi and replace with hydralazine and nitrates. ICU for milrinone holiday. -Acute on Chronic systolic CHF -Primacor drip -lopressor 25 BID -Imdur 60 Daily Heme: -chronic anemia -anemia workup -coumadin 5 mg PO -INR 3.1, heparin drip stopped Renal: -LOUISE likely 2/2 diuretics, patient needs diuretics to keep him dry -Pt had baseline Cr of 1.5, jin to 2.0 with diuretics -CKD 3 -Nephrology on board: check renal us, quantify urine protein. Maintain Bumex, hold ARBs. GI: -protonix ID: -on azithromycin, cefepime PPx, Diet, Disposition -on heparin drip stopped, coumadin resumed -GI: protonix -Diet: HHD -Code status: Full code Case discussed with Dr. Rodrigo Love DO, PGY-1 <Bart Wallace - Last Filed: 05/20/18 15:13> CCU Objective - Vital Signs / Intake & Output Vital Signs (Last 4 hours): Vital Signs Pulse Resp BP Pulse Ox 05/20/18 14:36 96 H 05/20/18 14:35 106 H 24 121/73 96 05/20/18 14:00 92 H 27 H 99 05/20/18 13:48 92 H 24 121/73 97 05/20/18 13:00 92 H 27 H 99 05/20/18 12:48 92 H 25 H 114/75 95 05/20/18 12:12 95 H 05/20/18 12:00 95 H 30 H 92 L 05/20/18 11:48 90 30 H 112/76 91 L Intake and Output (Last 8hrs): Intake & Output 05/20/18 05/20/18 05/20/18 06:59 14:59 22:59 Intake Total 182.9 907.3 Output Total 600 400 Balance -417.1 507.3 Weight 140 lb Intake: IV 101 100 Intake, IV Amount 81.9 327.3 Left Forearm 35.1 27.3 Right Forearm 46.8 Right Hand 300 Oral 480 Output: Urine 600 400 Urine, Voided 600 400 Other: # Voids Urine, Voided 1 # Bowel Movements 1 - Medications Active Medications: Active Medications Generic Name Dose Route Start Last Admin Trade Name Freq PRN Reason Stop Dose Admin Albuterol/Ipratropium 3 ml 05/19/18 12:00 05/20/18 07:50 Duoneb 3 Mg/0.5 Mg (3 Ml) Ud INH 3 ml RQ4 AYDEE Administration Fluticasone Propionate 2 spr 05/14/18 18:00 05/20/18 09:30 Flonase JESSICA 2 sprays BID AYDEE Administration Furosemide 40 mg 05/18/18 19:00 05/20/18 06:12 Lasix IVP 40 mg Q12H AYDEE Administration Gabapentin 100 mg 05/14/18 18:00 05/20/18 14:32 Neurontin PO 100 mg TID AYDEE Administration Hydralazine HCl 25 mg 05/17/18 18:00 05/20/18 14:31 Apresoline PO 25 mg TID AYDEE Administration Milrinone Lactate/Dextrose 20 100 mls @ 5.84 mls/hr 05/17/18 16:45 05/20/18 14:35 mg/ Dextrose IV 0.2 mcg/kg/min .Q17H8M AYDEE 3.54 mls/hr Administration Protocol 0.33 MCG/KG/MIN Azithromycin 500 mg/ Sodium 250 mls @ 250 mls/hr 05/18/18 16:30 05/20/18 10:01 Chloride IVPB 250 mls/hr DAILY AYDEE Administration Protocol Cefepime HCl 1 gm in 50 mls @ 100 mls/hr 05/19/18 09:45 05/20/18 09:16 Maxipime Iv 1 Gm Premix IVPB 100 mls/hr Q24H AYDEE Administration Protocol Insulin Human Regular 0 unit 05/19/18 16:30 05/20/18 14:33 Novolin R SC 2 u ACHS AYDEE Administration Protocol Isosorbide Mononitrate 60 mg 11/17/18 15:00 05/20/18 09:15 Imdur PO 60 mg DAILY AYDEE Administration Methylprednisolone 40 mg 05/20/18 06:40 05/20/18 14:31 Solu-Medrol IVP 40 mg Q8H AYDEE Administration Metoprolol Tartrate 25 mg 05/17/18 16:27 05/20/18 09:15 Lopressor PO 25 mg BID AYDEE Administration Pantoprazole Sodium 40 mg 05/17/18 11:15 05/20/18 09:15 Protonix Ec Tab PO 40 mg DAILY AYDEE Administration Rosuvastatin Calcium 10 mg 05/14/18 22:00 05/19/18 21:33 Crestor PO 10 mg HS AYDEE Administration Vitamin A 1 ea 05/15/18 18:00 05/20/18 09:19 Vitamin A & D Oint Ud Foilpak TOP 1 ea BID AYDEE Administration Warfarin Sodium 5 mg 05/20/18 18:00 Coumadin PO 05/20/18 18:01 1800 [facility] - Patient Studies Lab Studies: Microbiology Studies 05/18/18 05:36 MRSA Culture (Admit) - Final Nose MRSA NOT DETECTED 05/14/18 10:36 Blood Culture - Final Blood NO GROWTH AFTER 5 DAYS Gram Stain - Final TEST NOT PERFORMED 05/14/18 10:16 Blood Culture - Final Blood NO GROWTH AFTER 5 DAYS Gram Stain - Final TEST NOT PERFORMED Lab Studies 05/20/18 05/20/18 05/20/18 Range/Units 13:07 07:36 02:40 WBC 8.8 D (4.8-10.8) K/uL RBC 2.74 L (4.40-5.90) Mil/uL Hgb 7.6 L (12.0-18.0) g/dL Hct 23.5 L (35.0-51.0) % MCV 85.7 (80.0-94.0) fL MCH 27.8 (27.0-31.0) pg MCHC 32.4 L (33.0-37.0) g/dL RDW 15.3 H (11.5-14.5) % Plt Count 206 (130-400) K/uL MPV 8.2 (7.2-11.7) fL Neut % (Auto) 94.0 H (50.0-75.0) % Lymph % (Auto) 1.8 L (20.0-40.0) % [place] % (Auto) 4.1 (0.0-10.0) % Eos % (Auto) 0.0 (0.0-4.0) % Baso % (Auto) 0.1 (0.0-2.0) % Neut # (Auto) 8.3 H (1.8-7.0) K/uL Lymph # (Auto) 0.2 L (1.0-4.3) K/uL [place] # (Auto) 0.4 (0.0-0.8) K/uL Eos # (Auto) 0.0 (0.0-0.7) K/uL Baso # (Auto) 0.0 (0.0-0.2) K/uL Neutrophils % (Manual) 95 H (50-75) % Lymphocytes % (Manual) 1 L (20-40) % Monocytes % (Manual) 4 (0-10) % Platelet Estimate Normal (NORMAL) PT (9.7-12.2) SECONDS INR APTT (21-34) SECONDS Sodium (132-148) mmol/L Potassium (3.6-5.2) mmol/L Chloride (98-107) mmol/L Carbon Dioxide (22-30) mmol/L Anion Gap (10-20) BUN (9-20) mg/dL Creatinine (0.8-1.5) mg/dL Est GFR ( Amer) Est GFR (Non-Af Amer) POC Glucose (mg/dL) 184 H 115 H (65-110) mg/dL Random Glucose (75-110) mg/dL Calcium (8.6-10.4) mg/dl Magnesium (1.6-2.3) mg/dL Total Bilirubin (0.2-1.3) mg/dL AST (17-59) U/L ALT (21-72) U/L Alkaline Phosphatase (38-126) U/L Total Protein (6.3-8.3) g/dL Albumin (3.5-5.0) g/dL Globulin (2.2-3.9) gm/dL Albumin/Globulin Ratio (1.0-2.1) 05/20/18 05/20/18 05/19/18 Range/Units 02:40 02:40 21:24 WBC (4.8-10.8) K/uL RBC (4.40-5.90) Mil/uL Hgb (12.0-18.0) g/dL Hct (35.0-51.0) % MCV (80.0-94.0) fL MCH (27.0-31.0) pg MCHC (33.0-37.0) g/dL RDW (11.5-14.5) % Plt Count (130-400) K/uL MPV (7.2-11.7) fL Neut % (Auto) (50.0-75.0) % Lymph % (Auto) (20.0-40.0) % [place] % (Auto) (0.0-10.0) % Eos % (Auto) (0.0-4.0) % Baso % (Auto) (0.0-2.0) % Neut # (Auto) (1.8-7.0) K/uL Lymph # (Auto) (1.0-4.3) K/uL [place] # (Auto) (0.0-0.8) K/uL Eos # (Auto) (0.0-0.7) K/uL Baso # (Auto) (0.0-0.2) K/uL Neutrophils % (Manual) (50-75) % Lymphocytes % (Manual) (20-40) % Monocytes % (Manual) (0-10) % Platelet Estimate (NORMAL) PT 34.5 H D (9.7-12.2) SECONDS INR 3.1 H* APTT 84 H D (21-34) SECONDS Sodium 138 (132-148) mmol/L Potassium 3.6 (3.6-5.2) mmol/L Chloride 96 L (98-107) mmol/L Carbon Dioxide 31 H (22-30) mmol/L Anion Gap 14 (10-20) BUN 57 H (9-20) mg/dL Creatinine 1.8 H (0.8-1.5) mg/dL Est GFR ( Amer) 46 Est GFR (Non-Af Amer) 38 POC Glucose (mg/dL) 154 H (65-110) mg/dL Random Glucose 167 H (75-110) mg/dL Calcium 8.6 (8.6-10.4) mg/dl Magnesium 1.8 (1.6-2.3) mg/dL Total Bilirubin 1.1 (0.2-1.3) mg/dL AST 28 (17-59) U/L ALT 36 (21-72) U/L Alkaline Phosphatase 84 (38-126) U/L Total Protein 6.9 (6.3-8.3) g/dL Albumin 3.9 (3.5-5.0) g/dL Globulin 3.0 (2.2-3.9) gm/dL Albumin/Globulin Ratio 1.3 (1.0-2.1) 05/19/18 05/19/18 05/19/18 Range/Units 20:12 16:25 11:10 WBC (4.8-10.8) K/uL RBC (4.40-5.90) Mil/uL Hgb (12.0-18.0) g/dL Hct (35.0-51.0) % MCV (80.0-94.0) fL MCH (27.0-31.0) pg MCHC (33.0-37.0) g/dL RDW (11.5-14.5) % Plt Count (130-400) K/uL MPV (7.2-11.7) fL Neut % (Auto) (50.0-75.0) % Lymph % (Auto) (20.0-40.0) % [place] % (Auto) (0.0-10.0) % Eos % (Auto) (0.0-4.0) % Baso % (Auto) (0.0-2.0) % Neut # (Auto) (1.8-7.0) K/uL Lymph # (Auto) (1.0-4.3) K/uL [place] # (Auto) (0.0-0.8) K/uL Eos # (Auto) (0.0-0.7) K/uL Baso # (Auto) (0.0-0.2) K/uL Neutrophils % (Manual) (50-75) % Lymphocytes % (Manual) (20-40) % Monocytes % (Manual) (0-10) % Platelet Estimate (NORMAL) PT (9.7-12.2) SECONDS INR APTT 91 H D (21-34) SECONDS Sodium (132-148) mmol/L Potassium (3.6-5.2) mmol/L Chloride (98-107) mmol/L Carbon Dioxide (22-30) mmol/L Anion Gap (10-20) BUN (9-20) mg/dL Creatinine (0.8-1.5) mg/dL Est GFR ( Amer) Est GFR (Non-Af Amer) POC Glucose (mg/dL) 91 229 H (65-110) mg/dL Random Glucose (75-110) mg/dL Calcium (8.6-10.4) mg/dl Magnesium (1.6-2.3) mg/dL Total Bilirubin (0.2-1.3) mg/dL AST (17-59) U/L ALT (21-72) U/L Alkaline Phosphatase (38-126) U/L Total Protein (6.3-8.3) g/dL Albumin (3.5-5.0) g/dL Globulin (2.2-3.9) gm/dL Albumin/Globulin Ratio (1.0-2.1) 05/19/18 Range/Units 07:37 WBC (4.8-10.8) K/uL RBC (4.40-5.90) Mil/uL Hgb (12.0-18.0) g/dL Hct (35.0-51.0) % MCV (80.0-94.0) fL MCH (27.0-31.0) pg MCHC (33.0-37.0) g/dL RDW (11.5-14.5) % Plt Count (130-400) K/uL MPV (7.2-11.7) fL Neut % (Auto) (50.0-75.0) % Lymph % (Auto) (20.0-40.0) % [place] % (Auto) (0.0-10.0) % Eos % (Auto) (0.0-4.0) % Baso % (Auto) (0.0-2.0) % Neut # (Auto) (1.8-7.0) K/uL Lymph # (Auto) (1.0-4.3) K/uL [place] # (Auto) (0.0-0.8) K/uL Eos # (Auto) (0.0-0.7) K/uL Baso # (Auto) (0.0-0.2) K/uL Neutrophils % (Manual) (50-75) % Lymphocytes % (Manual) (20-40) % Monocytes % (Manual) (0-10) % Platelet Estimate (NORMAL) PT (9.7-12.2) SECONDS INR APTT (21-34) SECONDS Sodium (132-148) mmol/L Potassium (3.6-5.2) mmol/L Chloride (98-107) mmol/L Carbon Dioxide (22-30) mmol/L Anion Gap (10-20) BUN (9-20) mg/dL Creatinine (0.8-1.5) mg/dL Est GFR ( Amer) Est GFR (Non-Af Amer) POC Glucose (mg/dL) 103 (65-110) mg/dL Random Glucose (75-110) mg/dL Calcium (8.6-10.4) mg/dl Magnesium (1.6-2.3) mg/dL Total Bilirubin (0.2-1.3) mg/dL AST (17-59) U/L ALT (21-72) U/L Alkaline Phosphatase (38-126) U/L Total Protein (6.3-8.3) g/dL Albumin (3.5-5.0) g/dL Globulin (2.2-3.9) gm/dL Albumin/Globulin Ratio (1.0-2.1) Laboratory Results - last 24 hr 05/19/18 05/19/18 05/19/18 07:37 11:10 16:25 WBC RBC Hgb Hct MCV MCH MCHC RDW Plt Count MPV Neut % (Auto) Lymph % (Auto) [place] % (Auto) Eos % (Auto) Baso % (Auto) Neut # (Auto) Lymph # (Auto) [place] # (Auto) Eos # (Auto) Baso # (Auto) Neutrophils % (Manual) Lymphocytes % (Manual) Monocytes % (Manual) Platelet Estimate PT INR APTT Sodium Potassium Chloride Carbon Dioxide Anion Gap BUN Creatinine Est GFR ( Amer) Est GFR (Non-Af Amer) POC Glucose (mg/dL) 103 229 H 91 Random Glucose Calcium Magnesium Total Bilirubin AST ALT Alkaline Phosphatase Total Protein Albumin Globulin Albumin/Globulin Ratio 05/19/18 05/19/18 05/20/18 20:12 21:24 02:40 WBC RBC Hgb Hct MCV MCH MCHC RDW Plt Count MPV Neut % (Auto) Lymph % (Auto) [place] % (Auto) Eos % (Auto) Baso % (Auto) Neut # (Auto) Lymph # (Auto) [place] # (Auto) Eos # (Auto) Baso # (Auto) Neutrophils % (Manual) Lymphocytes % (Manual) Monocytes % (Manual) Platelet Estimate PT 34.5 H D INR 3.1 H* APTT 91 H D 84 H D Sodium Potassium Chloride Carbon Dioxide Anion Gap BUN Creatinine Est GFR ( Amer) Est GFR (Non-Af Amer) POC Glucose (mg/dL) 154 H Random Glucose Calcium Magnesium Total Bilirubin AST ALT Alkaline Phosphatase Total Protein Albumin Globulin Albumin/Globulin Ratio 05/20/18 05/20/18 05/20/18 02:40 02:40 07:36 WBC 8.8 D RBC 2.74 L Hgb 7.6 L Hct 23.5 L MCV 85.7 MCH 27.8 MCHC 32.4 L RDW 15.3 H Plt Count 206 MPV 8.2 Neut % (Auto) 94.0 H Lymph % (Auto) 1.8 L [place] % (Auto) 4.1 Eos % (Auto) 0.0 Baso % (Auto) 0.1 Neut # (Auto) 8.3 H Lymph # (Auto) 0.2 L [place] # (Auto) 0.4 Eos # (Auto) 0.0 Baso # (Auto) 0.0 Neutrophils % (Manual) 95 H Lymphocytes % (Manual) 1 L Monocytes % (Manual) 4 Platelet Estimate Normal PT INR APTT Sodium 138 Potassium 3.6 Chloride 96 L Carbon Dioxide 31 H Anion Gap 14 BUN 57 H Creatinine 1.8 H Est GFR ( Amer) 46 Est GFR (Non-Af Amer) 38 POC Glucose (mg/dL) 115 H Random Glucose 167 H Calcium 8.6 Magnesium 1.8 Total Bilirubin 1.1 AST 28 ALT 36 Alkaline Phosphatase 84 Total Protein 6.9 Albumin 3.9 Globulin 3.0 Albumin/Globulin Ratio 1.3 05/20/18 13:07 WBC RBC Hgb Hct MCV MCH MCHC RDW Plt Count MPV Neut % (Auto) Lymph % (Auto) [place] % (Auto) Eos % (Auto) Baso % (Auto) Neut # (Auto) Lymph # (Auto) [place] # (Auto) Eos # (Auto) Baso # (Auto) Neutrophils % (Manual) Lymphocytes % (Manual) Monocytes % (Manual) Platelet Estimate PT INR APTT Sodium Potassium Chloride Carbon Dioxide Anion Gap BUN Creatinine Est GFR ( Amer) Est GFR (Non-Af Amer) POC Glucose (mg/dL) 184 H Random Glucose Calcium Magnesium Total Bilirubin AST ALT Alkaline Phosphatase Total Protein Albumin Globulin Albumin/Globulin Ratio Critical Care Progress Note - Nutrition Nutrition: Nutrition Category Date Time Status Heart Healthy Diet [DIET] Diets 05/14/18 Breakfast Active Assessment/Plan - Assessment and Plan (Free Text) Plan: Severe systolic heart failure:continue rx as per cardiolgy team -patient is on constant dose of milrione not being titrataed -cardiology input regarding possible d/c hoem with milrinone ggt for fpc - Date & Time Date: 05/20/18 Time: 15:13
[2018-05-20 07:08] LABS: LYMPHOCYTE 1 % (20-40); MONOCYTE 4 % (0-10); NEUTROPHIL 95 % (50-75); PLATELET ESTIMATE NORMAL (NORMAL); TOTAL CELLS COUNTED 100
[2018-05-20] MEDS: (Novolin R) Insulin Human Regular 100 units/ml vial SC SCH ×4 (07:30→22:14)
--- NOTE | 2018-05-20 08:02 | CP.PCM.PN ---
Subjective - Date & Time of Evaluation Date of Evaluation: 05/20/18 Time of Evaluation: 07:59 - Subjective Subjective: Seen and examined Some improved breathing, no chest pain Objective - Vital Signs/Intake and Output Vital Signs (last 24 hours): Temp Pulse Resp BP Pulse Ox 97.5 F L 92 H 31 H 117/69 98 05/20/18 04:00 05/20/18 07:00 05/20/18 07:00 05/20/18 06:48 05/20/18 07:00 Intake and Output: 05/20/18 05/20/18 06:59 18:59 Intake Total 229.7 Output Total 1000 Balance -770.3 - Medications Medications: Current Medications Acetylcysteine (Acetylcysteine 20%) 4 ml INH RQ6 [facility] Last Admin: 05/20/18 03:09 Dose: 4 ml Albuterol/Ipratropium (Duoneb 3 Mg/0.5 Mg (3 Ml) Ud) 3 ml INH RQ4 [facility] Last Admin: 05/20/18 03:10 Dose: 3 ml Fluticasone Propionate (Flonase) 2 spr JESSICA BID [facility] Last Admin: 05/19/18 17:14 Dose: 2 sprays Furosemide (Lasix) 40 mg IVP Q12H [facility] Last Admin: 05/20/18 06:12 Dose: 40 mg Gabapentin (Neurontin) 100 mg PO TID [facility] Last Admin: 05/19/18 17:03 Dose: 100 mg Hydralazine HCl (Apresoline) 25 mg PO TID [facility] Last Admin: 05/19/18 17:03 Dose: 25 mg Milrinone Lactate/Dextrose 20 (mg/ Dextrose) 100 mls @ 5.84 mls/hr IV .Q17H8M [facility]; Protocol Last Admin: 05/19/18 21:34 Dose: Not Given Heparin Sodium/Sodium Chloride (Heparin 93591 Units/250ml 1/2 Normal Saline) 25,000 units in 250 mls @ 11.643 mls/hr IV .[id number] PRN; Protocol PRN Reason: PROTOCOL Last Titration: 05/20/18 03:00 Dose: 0 units/kg/hr, 0 mls/hr Azithromycin 500 mg/ Sodium (Chloride) 250 mls @ 250 mls/hr IVPB DAILY [facility]; Protocol Last Admin: 11/22/18 09:26 Dose: 250 mls/hr Cefepime HCl (Maxipime Iv 1 Gm Premix) 1 gm in 50 mls @ 100 mls/hr IVPB Q24H [facility]; Protocol Last Admin: 05/19/18 12:21 Dose: 100 mls/hr Insulin Human Regular (Novolin R) 0 unit SC ACHS [facility]; Protocol Last Admin: 05/19/18 21:33 Dose: Not Given Isosorbide Mononitrate (Imdur) 60 mg PO DAILY [facility] Last Admin: 05/19/18 09:25 Dose: 60 mg Methylprednisolone (Solu-Medrol) 40 mg IVP Q8H [facility] Last Admin: 05/20/18 06:46 Dose: 40 mg Metoprolol Tartrate (Lopressor) 25 mg PO BID [facility] Last Admin: 05/19/18 17:03 Dose: 25 mg Pantoprazole Sodium (Protonix Ec Tab) 40 mg PO DAILY [facility] Last Admin: 05/19/18 09:25 Dose: 40 mg Rosuvastatin Calcium (Crestor) 10 mg PO HS [facility] Last Admin: 05/19/18 21:33 Dose: 10 mg Vitamin A (Vitamin A & D Oint Ud Foilpak) 1 ea TOP BID [facility] Last Admin: 05/19/18 17:04 Dose: 1 ea - Labs Labs: 05/20/18 02:40 05/20/18 02:40 PT 34.5 SECONDS (9.7-12.2) H D 05/20/18 02:40 INR 3.1 H* 05/20/18 02:40 APTT 84 SECONDS (21-34) H D 05/20/18 02:40 - Head Exam Head Exam: ATRAUMATIC, NORMOCEPHALIC - Eye Exam Pupil Exam: PERRL - Respiratory Exam Respiratory Exam: Rales - Cardiovascular Exam Cardiovascular Exam: REGULAR RHYTHM, +S1, +S2, Murmur - GI/Abdominal Exam GI & Abdominal Exam: Soft. absent: Tenderness - Extremities Exam Extremities Exam: Tenderness - Psychiatric Exam Psychiatric exam: Normal Affect - Skin Skin Exam: Normal Color, Warm Assessment and Plan (1) Acute on chronic systolic congestive heart failure Assessment & Plan: Good urine output with milrinone and furosemide Cont with milrinone, unable to tolerate higher dose bc BP Cont with furosemide Is and Os Status: Acute (2) Hx of mitral valve replacement with mechanical valve Assessment & Plan: INR is therapeutic at 3.0 DC heaprin and con tiwth warfarin 5 mg daily F/u INR Normal functioning AVR/MVr on echo Status: Acute (3) Persistent atrial fibrillation Assessment & Plan: Interrogation of AICD (Mary) revealed abscence of atrial lead, which could ID possible underlying AF EKG and telemetry without discernible P waves Cont with anticoagulation Will ask for EP input Status: Acute
[2018-05-20] MEDS: Pantoprazole 40 mg EC Tab PO SCH (09:15)
[2018-05-20] MEDS: Cefepime IV 1 gm in Dextrose 1 GM/50 ML BAG IVPB SCH (09:16)
[2018-05-20] MEDS: Vitamins A & D Oint UD Foilpak TOP SCH ×2 (09:19→19:11)
[2018-05-20] MEDS: Fluticasone Nasal 50 mcg/Spray NAS SCH ×2 (09:30→19:12)
[2018-05-20] MEDS: Azithromycin 500 MG in Sodium Chloride 0.9% 250 ML IVPB SCH (10:01)
[2018-05-20] MEDS: Milrinone 20 MG in Dextrose 5% In Water 80 ML IV SCH (14:35)
--- NOTE | 2018-05-20 15:58 | CP.PCM.PN ---
Subjective - Date & Time of Evaluation Date of Evaluation: 05/20/18 Time of Evaluation: 15:00 - Subjective Subjective: patient was sitting and eating lunch, Has mild to moderate sob,patient looks better than yesterday,off BIPAP and talking in full sentence. On Milrinone drip Patient's at bedside Objective - Vital Signs/Intake and Output Vital Signs (last 24 hours): Temp Pulse Resp BP Pulse Ox 97.7 F 96 H 24 121/73 96 05/20/18 08:00 05/20/18 14:36 05/20/18 14:35 05/20/18 14:35 05/20/18 14:35 Intake and Output: 05/20/18 05/20/18 06:59 18:59 Intake Total 229.7 907.3 Output Total 1000 400 Balance -770.3 507.3 - Medications Medications: Current Medications Albuterol/Ipratropium (Duoneb 3 Mg/0.5 Mg (3 Ml) Ud) 3 ml INH RQ4 [facility] Last Admin: 05/20/18 07:50 Dose: 3 ml Fluticasone Propionate (Flonase) 2 spr JESSICA BID [facility] Last Admin: 05/20/18 09:30 Dose: 2 sprays Furosemide (Lasix) 40 mg IVP Q12H [facility] Last Admin: 05/20/18 06:12 Dose: 40 mg Gabapentin (Neurontin) 100 mg PO TID [facility] Last Admin: 05/20/18 14:32 Dose: 100 mg Hydralazine HCl (Apresoline) 25 mg PO TID [facility] Last Admin: 05/20/18 14:31 Dose: 25 mg Milrinone Lactate/Dextrose 20 (mg/ Dextrose) 100 mls @ 5.84 mls/hr IV .Q17H8M [facility]; Protocol Last Admin: 05/20/18 14:35 Dose: 0.2 mcg/kg/min, 3.54 mls/hr Azithromycin 500 mg/ Sodium (Chloride) 250 mls @ 250 mls/hr IVPB DAILY [facility]; Protocol Last Admin: 05/20/18 10:01 Dose: 250 mls/hr Cefepime HCl (Maxipime Iv 1 Gm Premix) 1 gm in 50 mls @ 100 mls/hr IVPB Q24H [facility]; Protocol Last Admin: 05/20/18 09:16 Dose: 100 mls/hr Insulin Human Regular (Novolin R) 0 unit SC ACHS [facility]; Protocol Last Admin: 05/20/18 14:33 Dose: 2 u Isosorbide Mononitrate (Imdur) 60 mg PO DAILY [facility] Last Admin: 05/20/18 09:15 Dose: 60 mg Methylprednisolone (Solu-Medrol) 40 mg IVP Q8H [facility] Last Admin: 05/20/18 14:31 Dose: 40 mg Metoprolol Tartrate (Lopressor) 25 mg PO BID [facility] Last Admin: 05/20/18 09:15 Dose: 25 mg Pantoprazole Sodium (Protonix Ec Tab) 40 mg PO DAILY [facility] Last Admin: 05/20/18 09:15 Dose: 40 mg Rosuvastatin Calcium (Crestor) 10 mg PO HS [facility] Last Admin: 05/19/18 21:33 Dose: 10 mg Vitamin A (Vitamin A & D Oint Ud Foilpak) 1 ea TOP BID [facility] Last Admin: 05/20/18 09:19 Dose: 1 ea Warfarin Sodium (Coumadin) 5 mg PO 1800 [facility] Stop: 05/20/18 18:01 - Labs Labs: 05/20/18 02:40 05/20/18 02:40 PT 34.5 SECONDS (9.7-12.2) H D 05/20/18 02:40 INR 3.1 H* 05/20/18 02:40 APTT 84 SECONDS (21-34) H D 05/20/18 02:40 - Constitutional Appears: Chronically Ill - Head Exam Head Exam: NORMAL INSPECTION - Eye Exam Eye Exam: Normal appearance - ENT Exam ENT Exam: Mucous Membranes Moist - Neck Exam Neck Exam: Full ROM - Respiratory Exam Respiratory Exam: Rales, Wheezes. absent: Accessory Muscle Use - Cardiovascular Exam Cardiovascular Exam: REGULAR RHYTHM - GI/Abdominal Exam GI & Abdominal Exam: Soft, Normal Bowel Sounds - Extremities Exam Extremities Exam: Full ROM - Back Exam Back Exam: NORMAL INSPECTION - Neurological Exam Neurological Exam: Awake, Oriented x3 - Psychiatric Exam Psychiatric exam: Normal Mood - Skin Skin Exam: Dry Assessment and Plan - Assessment and Plan (Free Text) Plan: 1. Acute on chronic systolic heart failure History of Aortic valve replacement, Mitral valve replacement, Tricuspid valve replacement AICD ,CABG on Primacor drip Cardio consulted- Dr. Navas- recommendations appreciated Strict Is/Os lasix 40mg bid Imdur 60mg po daily Hydralazine 25mg po tid [facility]rés Lopressor 25mg po bid andrés INR is 3.1,Coumadin 5mg tonight,off heparin drip INR goal between 3.0 t0 3.5 (As per clarification operator Interrogation of AICD (Mary) revealed abscence of atrial lead, which could ID possible underlying AF EKG and telemetry without discernible P waves,Cont with anticoagulation,planning for EP input) 2.Pneumonia w/ shortness of breath Pulmonology consulted- Dr. Alcocer- recommendations appreciated On Azithromycin and cefepime Duonebs PRN; Atrovent 1x andrés on solu medrol 40mg q8h ECHO from 02/05/18: EF 35% CXR: Moderate to severe venous congestion with prominent consolidative opacities within mid to lower lung zones. small bilateral pleural effusions. Aortic atherosclertic calcification noted. Enlarged heart with prominent cardiomegaly. Prior valve replacements. Left sided pacemaker. Status post median sternotomy. Degenerative changes in spine and shoulders. Calcifications within the right axilla. CT chest: multilobar pna CXR; severe venous congestion 3.CAD w/ CABG Crestor 10mg po HS lasix 40mg bid Imdur 60mg po daily Metoprolol 25mg po bid [facility] Nitropaste 0.5 inch topical 4.LOUISE Likely prerenal in etiology with low blood pressure setting and anemia Nephrology consulted Cardiorenal etiology with increased diuretics patient Cr loses 5.Atrial fibrillation today's INR 3.1,continue coumadin 5mg (as per clarification operator Interrogation of AICD (Mary) revealed abscence of atrial lead, which could ID possible underlying AF EKG and telemetry without discernible P waves,Cont with anticoagulation,planning for EP input) 6.Chronic pain Gabapentin 100mg po tid HTN Bumex/Imdur/Lopressor/Hydralazine PPx Influenza vaccine DVT ppx: not indicated at this time in setting of elevated INR GI ppx: protonix 40mg daily [facility]
[2018-05-21] MEDS: Albuterol-Ipratrop 3 mg / 0.5 (3 ml) UD INH SCH ×6 (00:17→20:51)
[2018-05-21] MEDS: Milrinone 20 MG in Dextrose 5% In Water 80 ML IV SCH ×2 (06:00→22:55)
[2018-05-21] MEDS: MethylPREDNISolone 40 mg Vial IVP SCH ×3 (06:09→22:51)
[2018-05-21 06:31] LABS: BASO % 0.1 % (0.0-2.0); LYMPH # 0.1 K/uL (1.0-4.3); LYMPH % 1.6 % (20.0-40.0); MEAN CELL VOLUME 86.7 fL (80.0-94.0); MEAN CORPUSCULAR HEMOGLOBIN 27.7 pg (27.0-31.0); MEAN PLATELET VOLUME 8.8 fL (7.2-11.7); MONO # 0.2 K/uL (0.0-0.8); MONO % 2.4 % (0.0-10.0); NEUT # 8.1 K/uL (1.8-7.0); NEUT % 95.9 % (50.0-75.0); PLATELET COUNT 219 K/uL (130-400); RBC 2.87 Mil/uL (4.40-5.90); RED CELL DISTRIBUTION WIDTH 15.8 % (11.5-14.5); WHITE BLOOD COUNT 8.4 K/uL (4.8-10.8)
[2018-05-21 06:37] LABS: ALB/GLOB RATIO 1.4 (1.0-2.1); ALBUMIN 4.1 g/dL (3.5-5.0); CALCIUM 9.1 mg/dl (8.6-10.4)
[2018-05-21 07:23] LABS: INR 3.9; PROTHROMBIN TIME 42.7 SECONDS (9.7-12.2)
[2018-05-21] MEDS: (Novolin R) Insulin Human Regular 100 units/ml vial SC SCH ×4 (08:45→22:20)
--- NOTE | 2018-05-21 08:52 | CP.PCM.PN ---
Subjective - Date & Time of Evaluation Date of Evaluation: 05/21/18 Time of Evaluation: 08:52 - Subjective Subjective: Sitting on the bed and eating breakfast He looks better this morning,off BIPAP,talking in full sentence. He slept good BIPAP on last night,He is feeling better today Objective - Vital Signs/Intake and Output Vital Signs (last 24 hours): Temp Pulse Resp BP Pulse Ox 97.3 F L 91 H 23 138/81 96 05/21/18 08:00 05/21/18 08:02 05/21/18 08:02 05/21/18 08:02 05/21/18 08:02 Intake and Output: 05/21/18 05/21/18 06:59 18:59 Intake Total 526.8 7.8 Output Total 800 0 Balance -273.2 7.8 - Medications Medications: Current Medications Albuterol/Ipratropium (Duoneb 3 Mg/0.5 Mg (3 Ml) Ud) 3 ml INH RQ4 [facility] Last Admin: 05/21/18 08:24 Dose: 3 ml Fluticasone Propionate (Flonase) 2 spr JESSICA BID [facility] Last Admin: 05/20/18 19:12 Dose: 2 sprays Furosemide (Lasix) 40 mg IVP Q12H [facility] Last Admin: 05/21/18 06:05 Dose: 40 mg Gabapentin (Neurontin) 100 mg PO TID [facility] Last Admin: 05/20/18 19:10 Dose: 100 mg Hydralazine HCl (Apresoline) 25 mg PO TID [facility] Last Admin: 05/20/18 19:00 Dose: Not Given Milrinone Lactate/Dextrose 20 (mg/ Dextrose) 100 mls @ 5.84 mls/hr IV .Q17H8M [facility]; Protocol Last Admin: 05/21/18 06:00 Dose: Not Given Azithromycin 500 mg/ Sodium (Chloride) 250 mls @ 250 mls/hr IVPB DAILY [facility]; Protocol Last Admin: 05/20/18 10:01 Dose: 250 mls/hr Cefepime HCl (Maxipime Iv 1 Gm Premix) 1 gm in 50 mls @ 100 mls/hr IVPB Q24H [facility]; Protocol Last Admin: 05/20/18 09:16 Dose: 100 mls/hr Insulin Human Regular (Novolin R) 0 unit SC ACHS [facility]; Protocol Last Admin: 05/21/18 08:45 Dose: Not Given Isosorbide Mononitrate (Imdur) 60 mg PO DAILY [facility] Last Admin: 05/20/18 09:15 Dose: 60 mg Methylprednisolone (Solu-Medrol) 40 mg IVP Q8H [facility] Last Admin: 05/21/18 06:09 Dose: 40 mg Metoprolol Tartrate (Lopressor) 25 mg PO BID [facility] Last Admin: 05/20/18 19:10 Dose: 25 mg Pantoprazole Sodium (Protonix Ec Tab) 40 mg PO DAILY [facility] Last Admin: 05/20/18 09:15 Dose: 40 mg Rosuvastatin Calcium (Crestor) 10 mg PO HS [facility] Last Admin: 05/20/18 22:09 Dose: 10 mg Vitamin A (Vitamin A & D Oint Ud Foilpak) 1 ea TOP BID [facility] Last Admin: 05/20/18 19:11 Dose: 1 ea - Labs Labs: 05/21/18 06:23 05/21/18 06:07 PT 42.7 SECONDS (9.7-12.2) H D 05/21/18 06:30 INR 3.9 H* 05/21/18 06:30 APTT 84 SECONDS (21-34) H D 05/20/18 02:40 - Constitutional Appears: No Acute Distress, Chronically Ill - Head Exam Head Exam: NORMAL INSPECTION - Eye Exam Eye Exam: Normal appearance - ENT Exam ENT Exam: Mucous Membranes Moist - Neck Exam Neck Exam: Full ROM - Respiratory Exam Respiratory Exam: Accessory Muscle Use, Rales, Wheezes. absent: Chest Wall Tenderness, Respiratory Distress - Cardiovascular Exam Cardiovascular Exam: REGULAR RHYTHM - GI/Abdominal Exam GI & Abdominal Exam: Soft, Normal Bowel Sounds - Extremities Exam Extremities Exam: Full ROM - Back Exam Back Exam: NORMAL INSPECTION - Neurological Exam Neurological Exam: Awake, Oriented x3 - Psychiatric Exam Psychiatric exam: Normal Mood - Skin Skin Exam: Dry Assessment and Plan - Assessment and Plan (Free Text) Plan: 1. Acute on chronic systolic heart failure History of Aortic valve replacement, Mitral valve replacement, Tricuspid valve replacement AICD ,CABG on Milrinone drip feeling better today. Cardio consulted- Dr. Navas- recommendations appreciated Strict Is/Os lasix 40mg bid Imdur 60mg po daily Hydralazine 25mg po tid [facility] Lopressor 25mg po bid andrés INR is 3.9,hold coumadin tonight and start on 3mg tomorrow INR goal between 3.0 t0 3.5 (As per sterile process coordinator Interrogation of AICD (Mary) revealed abscence of atrial lead, which could ID possible underlying AF EKG and telemetry without discernible P waves,Cont with anticoagulation,planning for EP input) 2.Pneumonia w/ shortness of breath Pulmonology consulted- Dr. Alcocer- recommendations appreciated On Azithromycin and cefepime Duonebs PRN; Atrovent 1x andrés on solu medrol 40mg [id number] like to come off steroid. I explained that he is improving we will consider continue for now. ECHO from 02/05/18: EF 35% CXR: Moderate to severe venous congestion with prominent consolidative opacities within mid to lower lung zones. small bilateral pleural effusions. Aortic atherosclertic calcification noted. Enlarged heart with prominent cardiomegaly. Prior valve replacements. Left sided pacemaker. Status post median sternotomy. Degenerative changes in spine and shoulders. Calcifications within the right axilla. CT chest: multilobar pna CXR; severe venous congestion 3.CAD w/ CABG Crestor 10mg po HS lasix 40mg bid Imdur 60mg po daily Metoprolol 25mg po bid [facility]és Nitropaste 0.5 inch topical 4.LOUISE Likely prerenal in etiology with low blood pressure setting and anemia Nephrology consulted Cardiorenal etiology with increased diuretics patient Cr loses 5.Atrial fibrillation today's INR 3.9,hold Coumadin tonight,Start 3mg tomorrow night. He came with high INR on 5mg coumadin and he is on antibiotics which can increase INR (as per sterile process coordinator Interrogation of AICD (Mary) revealed abscence of atrial lead, which could ID possible underlying AF EKG and telemetry without discernible P waves,Cont with anticoagulation,planning for EP input) 6.Chronic pain Gabapentin 100mg po tid HTN Bumex/Imdur/Lopressor/Hydralazine PPx Influenza vaccine DVT ppx: not indicated at this time in setting of elevated INR GI ppx: protonix 40mg daily andrés
[2018-05-21] MEDS: Fluticasone Nasal 50 mcg/Spray NAS SCH ×2 (09:24→17:44)
[2018-05-21] MEDS: Pantoprazole 40 mg EC Tab PO SCH (09:25)
[2018-05-21] MEDS: Cefepime IV 1 gm in Dextrose 1 GM/50 ML BAG IVPB SCH (09:25)
[2018-05-21] MEDS: Azithromycin 500 MG in Sodium Chloride 0.9% 250 ML IVPB SCH (09:26)
[2018-05-21] MEDS: Vitamins A & D Oint UD Foilpak TOP SCH ×2 (09:26→17:45)
[2018-05-21 10:25] LABS: MONOCYTE 4 % (0-10); TOTAL CELLS COUNTED 100
[2018-05-21 10:26] LABS: LYMPHOCYTE 2 % (20-40); NEUTROPHIL 94 % (50-75); PLATELET ESTIMATE NORMAL (NORMAL)
--- NOTE | 2018-05-21 10:26 | CP.PCM.PN ---
Subjective - Date & Time of Evaluation Date of Evaluation: 05/21/18 Time of Evaluation: 10:22 - Subjective Subjective: Patient seen and examined at bedside. PAtient awake, alert, feeling better. Objective - Vital Signs/Intake and Output Vital Signs (last 24 hours): Temp Pulse Resp BP Pulse Ox 97.3 F L 90 19 151/100 H 96 05/21/18 08:00 05/21/18 09:00 05/21/18 09:00 05/21/18 09:24 05/21/18 09:00 Intake and Output: 05/21/18 05/21/18 06:59 18:59 Intake Total 526.8 251.7 Output Total 800 150 Balance -273.2 101.7 - Medications Medications: Current Medications Albuterol/Ipratropium (Duoneb 3 Mg/0.5 Mg (3 Ml) Ud) 3 ml INH RQ4 [facility] Last Admin: 05/21/18 08:24 Dose: 3 ml Fluticasone Propionate (Flonase) 2 spr JESSICA BID [facility] Last Admin: 05/21/18 09:24 Dose: 2 sprays Furosemide (Lasix) 40 mg IVP Q12H [facility] Last Admin: 05/21/18 06:05 Dose: 40 mg Gabapentin (Neurontin) 100 mg PO TID [facility] Last Admin: 05/21/18 09:25 Dose: 100 mg Hydralazine HCl (Apresoline) 25 mg PO TID [facility] Last Admin: 05/21/18 09:24 Dose: 25 mg Milrinone Lactate/Dextrose 20 (mg/ Dextrose) 100 mls @ 5.84 mls/hr IV .Q17H8M [facility]; Protocol Last Admin: 05/21/18 06:00 Dose: Not Given Azithromycin 500 mg/ Sodium (Chloride) 250 mls @ 250 mls/hr IVPB DAILY [facility]; Protocol Last Admin: 05/21/18 09:26 Dose: 250 mls/hr Cefepime HCl (Maxipime Iv 1 Gm Premix) 1 gm in 50 mls @ 100 mls/hr IVPB Q24H [facility]; Protocol Last Admin: 05/21/18 09:25 Dose: 100 mls/hr Insulin Human Regular (Novolin R) 0 unit SC ACHS [facility]; Protocol Last Admin: 05/21/18 08:45 Dose: Not Given Isosorbide Mononitrate (Imdur) 60 mg PO DAILY [facility] Last Admin: 05/21/18 09:24 Dose: 60 mg Methylprednisolone (Solu-Medrol) 40 mg IVP Q8H [facility] Last Admin: 05/21/18 06:09 Dose: 40 mg Metoprolol Tartrate (Lopressor) 25 mg PO BID [facility] Last Admin: 05/21/18 09:24 Dose: 25 mg Pantoprazole Sodium (Protonix Ec Tab) 40 mg PO DAILY [facility] Last Admin: 05/21/18 09:25 Dose: 40 mg Rosuvastatin Calcium (Crestor) 10 mg PO HS [facility] Last Admin: 05/20/18 22:09 Dose: 10 mg Vitamin A (Vitamin A & D Oint Ud Foilpak) 1 ea TOP BID [facility] Last Admin: 05/21/18 09:26 Dose: 1 ea - Labs Labs: 05/21/18 06:23 05/21/18 06:07 PT 42.7 SECONDS (9.7-12.2) H D 05/21/18 06:30 INR 3.9 H* 05/21/18 06:30 APTT 84 SECONDS (21-34) H D 05/20/18 02:40 - Head Exam Head Exam: ATRAUMATIC, NORMAL INSPECTION - Neck Exam Additional comments: (+)JVD - Respiratory Exam Respiratory Exam: Rhonchi - Cardiovascular Exam Cardiovascular Exam: +S1, +S2, Murmur Additional comments: tlick - Neurological Exam Neurological Exam: Alert, Awake, Oriented x3 Assessment and Plan - Assessment and Plan (Free Text) Assessment: 68 yo male with past medical history of CHF, Afib on Coumadin, aortic/mitral/tricuspid valve replacement, CAD and CABG admitted for 2-3 week history of shortness of breath and cough that worsened over last 2-3 days. CTC- massive cardiomegaly, severe systolic CHF, multifocal PNA. -Lobar Pneumonia: continue abx as per ID, de-escalate abx -chronic severe systolic hert failure:continue heart medications as per cardiology -metallic valve: continue coumadin, INR >3.0 today, hold coumadin today -Cardiorenal syndrom:avoid neprhotoxic drugs -DVT ppxL INR >2.0 PUD ppx Patient remains hemodynamically stable and will benefit from detention milrinone ggt. PAtient encouraged to consider facility where LVAD or heart transplant mera ilable. Prognosis poor
[2018-05-21 10:27] LABS: ANISOCYTOSIS SLIGHT; POIKILOCYTOSIS SLIGHT
[2018-05-21 10:28] LABS: HYPOCHROMIC SLIGHT; LARGE PLATELETS PRESENT; OVALOCYTES SLIGHT; TEARDROP CELLS SLIGHT
--- NOTE | 2018-05-21 13:23 | RAD ---
Date of service: 05/21/2018 HISTORY: eval lungs COMPARISON: 05/18/2018 FINDINGS: LUNGS: Opacity at right lung base grossly unchanged. No other abnormal opacity is appreciated. PLEURA: Possible very small bilateral pleural effusion. No pneumothorax. CARDIOVASCULAR: Cardiomegaly. AICD. Mitral valve replacement. Aortic valve replacement. Mild congestive change. OSSEOUS STRUCTURES: No significant abnormalities. VISUALIZED UPPER ABDOMEN: Normal. OTHER FINDINGS: None. IMPRESSION: Right basilar opacity unchanged. Cardiomegaly. AICD. Possible very small bilateral pleural effusion. Congestive change.
--- NOTE | 2018-05-21 14:14 | CARD ---
APPROVED REPORT Date of service: 05/20/2018 EXAM: Two-dimensional and M-mode echocardiogram with Doppler and color Doppler. Other Information Quality : GoodRhythm : INDICATION Congestive Heart Failure Surgery/Intervention Status/Post Aortic Valve Replacement: Status/Post Mitral Valve Replacement: Mechanical TV Replacement 2D DIMENSIONS IVSd1.0 (0.7-1.1cm)LVDd5.1 (3.9-5.9cm) PWd1.4 (0.7-1.1cm)LA [id number] (18-58mL) LVDs4.1 (2.5-4.0cm)FS (%) 20.6 % LVEF (%)41.7 (>50%)LVEF (Alexander's)45.94 % M-Mode DIMENSIONS IVSd1.14 (0.7-1.1cm)LVDd5.76 (4.0-5.6cm) PWd1.11 (0.7-1.1cm)FS (%) 25 % LVDs4.33 (2.0-3.8cm)TAPSE14.65 cm LVEF (%)48 (>50%) Aortic Valve AoV Peak Fimgufdb720.6cm/sAoV VTI64.9cmAO Peak GR.48mmHg LVOT Peak Bsuomvsh91.5cm/Paola Mean GR.29mmHg Mitral Valve MV E Xkztekqx428.7cm/sMV E Peak Gr.48mmHgMV E Mean Gr.20mmHg MV FDF79ghQ/A ratio0.0MVA (PHT)2.47cm2 TDI E/Lateral E'0.0E/Medial E'0.0 Tricuspid Valve TR Peak Oakrejod969mw/sTR Peak Gr.[id number] LEFT VENTRICLE The Left Ventricle is borderline dilated. There is normal left ventricular wall thickness. Left ventricle systolic function is mildly to moderately impaired. The Ejection Fraction is 40-45%. Regional wall motion abnormalities noted. There is moderate to severe hypokinesis in the mid-anteroseptal wall. The left ventricular diastolic function is normal. No left ventricle thrombus noted on this study. RIGHT VENTRICLE The right ventricle is moderately dilated. Systolic function is mildly to moderately reduced. There is a pacemaker lead in the right ventricle. ATRIA The left atrium is moderately dilated. The right atrium is moderately dilated. There is a pacemaker lead seen in the right atrium. AORTIC VALVE There is an aortic valve prosthesis. Bioprosthesis leaflets are not well visualized. There is a mild increase in peak velocity with MV peak E gradient of 48 mmHg and mean of 20 mmHg. Mitral valve area is 2.42 cm2. MITRAL VALVE There is a mechanical mitral valve prosthesis. Prosthetic mitral valve appears well seated. There is a mild increase in mitral E velocity with MV E peak gradient of 48 and mean gradient of 20 mm Hg. Mitral Valve area is 2.47 cm2. TRICUSPID VALVE There is severe tricuspid regurgitation. Right ventricular systolic pressure is estimated at greater than 60 mmHg. There is severe pulmonary hypertension. PULMONIC VALVE There is mild to moderate pulmonic valvular regurgitation. GREAT VESSELS The aortic root is normal in size. Dilated IVC with poor inspiration collapse is consistent with elevated right atrial pressure. PERICARDIAL EFFUSION There is no pericardial effusion. <Conclusion> The Left Ventricle is borderline dilated. Left ventricle systolic function is mildly to moderately impaired. The Ejection Fraction is 40-45%. Regional wall motion abnormalities noted. The right ventricle is moderately dilated. RV systolic function is mildly to moderately reduced. The left atrium is moderately dilated. The right atrium is moderately dilated. There is an aortic valve prosthesis. There is a mild increase in peak velocity with max gradient of 48mmHg and mean gradient of 28 mmHg. There is a mechanical mitral valve prosthesis. Prosthetic mitral valve appears well seated. There is a mild increase in mitral E velocity with MV E peak gradient of 48 and mean gradient of 20 mm Hg. Mitral Valve area is 2.47 cm2. There is severe tricuspid regurgitation. There is severe pulmonary hypertension. There is mild to moderate pulmonic valvular regurgitation.
--- NOTE | 2018-05-21 16:48 | CP.PCM.PN ---
Subjective - Date & Time of Evaluation Date of Evaluation: 05/21/18 Time of Evaluation: 16:48 - Subjective Subjective: Seen and examined Still short of breath No chest pain Objective - Vital Signs/Intake and Output Vital Signs (last 24 hours): Temp Pulse Resp BP Pulse Ox 98.9 F 92 H 25 H 113/63 98 05/21/18 16:00 05/21/18 16:00 05/21/18 16:00 05/21/18 15:48 05/21/18 16:00 Intake and Output: 05/21/18 05/21/18 06:59 18:59 Intake Total 526.8 879.0 Output Total 800 725 Balance -273.2 154.0 - Medications Medications: Current Medications Albuterol/Ipratropium (Duoneb 3 Mg/0.5 Mg (3 Ml) Ud) 3 ml INH RQ4 [facility] Last Admin: 05/21/18 13:57 Dose: 3 ml Fluticasone Propionate (Flonase) 2 spr JESSICA BID COUNTS INCLUDE 234 BEDS AT THE [facility] Last Admin: 05/21/18 09:24 Dose: 2 sprays Furosemide (Lasix) 40 mg IVP Q12H COUNTS INCLUDE 234 BEDS AT THE [facility] Last Admin: 05/21/18 06:05 Dose: 40 mg Gabapentin (Neurontin) 100 mg PO TID [facility] Last Admin: 05/21/18 14:16 Dose: 100 mg Hydralazine HCl (Apresoline) 25 mg PO TID COUNTS INCLUDE 234 BEDS AT THE [facility] Last Admin: 05/21/18 14:16 Dose: 25 mg Milrinone Lactate/Dextrose 20 (mg/ Dextrose) 100 mls @ 5.84 mls/hr IV .Q17H8M [facility]; Protocol Last Admin: 05/21/18 06:00 Dose: Not Given Azithromycin 500 mg/ Sodium (Chloride) 250 mls @ 250 mls/hr IVPB DAILY COUNTS INCLUDE 234 BEDS AT THE [facility]; Protocol Last Admin: 05/21/18 09:26 Dose: 250 mls/hr Cefepime HCl (Maxipime Iv 1 Gm Premix) 1 gm in 50 mls @ 100 mls/hr IVPB Q24H [facility]; Protocol Last Admin: 05/21/18 09:25 Dose: 100 mls/hr Insulin Human Regular (Novolin R) 0 unit SC ACHS [facility]; Protocol Last Admin: 05/21/18 16:32 Dose: Not Given Isosorbide Mononitrate (Imdur) 60 mg PO DAILY [facility]S [facility]CLUDE 234 BEDS AT THE [facility] Last Admin: 05/21/18 09:24 Dose: 60 mg Methylprednisolone (Solu-Medrol) 40 mg IVP Q8H COUNTS INCLUDE 234 BEDS AT THE [facility] Last Admin: 05/21/18 14:16 Dose: 40 mg Metoprolol Tartrate (Lopressor) 25 mg PO BID COUNTS INCLUDE 234 BEDS AT THE [facility] Last Admin: 05/21/18 09:24 Dose: 25 mg Pantoprazole Sodium (Protonix Ec Tab) 40 mg PO DAILY COUNTS INCLUDE 234 BEDS AT THE [facility] Last Admin: 05/21/18 09:25 Dose: 40 mg Rosuvastatin Calcium (Crestor) 10 mg PO HS COUNTS INCLUDE 234 BEDS AT THE [facility] Last Admin: 05/20/18 22:09 Dose: 10 mg Vitamin A (Vitamin A & D Oint Ud Foilpak) 1 ea TOP BID COUNTS INCLUDE 234 BEDS AT THE [facility] Last Admin: 05/21/18 09:26 Dose: 1 ea - Labs Labs: 05/21/18 06:23 05/21/18 06:07 PT 42.7 SECONDS (9.7-12.2) H D 05/21/18 06:30 INR 3.9 H* 05/21/18 06:30 APTT 84 SECONDS (21-34) H D 05/20/18 02:40 - Head Exam Head Exam: ATRAUMATIC, NORMOCEPHALIC - Respiratory Exam Respiratory Exam: Rales - Cardiovascular Exam Cardiovascular Exam: REGULAR RHYTHM, RRR, +S1, +S2 - GI/Abdominal Exam GI & Abdominal Exam: Soft. absent: Tenderness - Neurological Exam Neurological Exam: CN II-XII Intact, Oriented x3 Assessment and Plan (1) Acute on chronic systolic congestive heart failure Assessment & Plan: Good urine output with milrinone and furosemide Cont with milrinone, unable to tolerate higher dose bc BP and elevated creatinine Cont with furosemide Is and Os Status: Acute (2) Hx of mitral valve replacement with mechanical valve Assessment & Plan: INR is therapeutic at 3.9 Warfain is on hold tonight F/u INR Normal functioning AVR/MVr on echo Status: Acute (3) Persistent atrial fibrillation Assessment & Plan: ( Interrogation of AICD (Mary) revealed absence of atrial lead, which could ID possible underlying AF EKG and telemetry without discernible P waves Cont with anticoagulation Likely chronic AF Status: Acute
--- NOTE | 2018-05-21 19:42 | CP.PCM.PN ---
Subjective - Date & Time of Evaluation Date of Evaluation: 05/21/18 Time of Evaluation: 19:35 - Subjective Subjective: patient seen and examined Patient on BiPAP Still complaining of shortness of breath Afebrile Continue antibiotics for pneumonia Continue diuretics Taper steroids Followup chest x-ray Objective - Vital Signs/Intake and Output Vital Signs (last 24 hours): Temp Pulse Resp BP Pulse Ox 98.9 F 92 H 22 119/72 100 05/21/18 16:00 05/21/18 19:00 05/21/18 19:00 05/21/18 18:48 05/21/18 19:00 Intake and Output: 05/21/18 05/22/18 18:59 06:59 Intake Total 1126.8 3.9 Output Total 925 Balance 201.8 3.9 - Medications Medications: Current Medications Albuterol/Ipratropium (Duoneb 3 Mg/0.5 Mg (3 Ml) Ud) 3 ml INH RQ4 [facility] Last Admin: 05/21/18 15:58 Dose: 3 ml Fluticasone Propionate (Flonase) 2 spr JESSICA BID [facility] Last Admin: 05/21/18 17:44 Dose: 2 sprays Furosemide (Lasix) 40 mg IVP Q12H [facility] Last Admin: 05/21/18 18:10 Dose: 40 mg Gabapentin (Neurontin) 100 mg PO TID [facility] Last Admin: 05/21/18 17:45 Dose: 100 mg Hydralazine HCl (Apresoline) 25 mg PO TID [facility] Last Admin: 05/21/18 17:44 Dose: 25 mg Milrinone Lactate/Dextrose 20 (mg/ Dextrose) 100 mls @ 5.84 mls/hr IV .Q17H8M [facility]; Protocol Last Admin: 05/21/18 06:00 Dose: Not Given Azithromycin 500 mg/ Sodium (Chloride) 250 mls @ 250 mls/hr IVPB DAILY [facility]; Protocol Last Admin: 05/21/18 09:26 Dose: 250 mls/hr Cefepime HCl (Maxipime Iv 1 Gm Premix) 1 gm in 50 mls @ 100 mls/hr IVPB Q24H [facility]; Protocol Last Admin: 05/21/18 09:25 Dose: 100 mls/hr Insulin Human Regular (Novolin R) 0 unit SC ACHS [facility]; Protocol Last Admin: 05/21/18 16:32 Dose: Not Given Isosorbide Mononitrate (Imdur) 60 mg PO DAILY [facility] Last Admin: 05/21/18 09:24 Dose: 60 mg Methylprednisolone (Solu-Medrol) 40 mg IVP Q8H [facility] Last Admin: 05/21/18 14:16 Dose: 40 mg Metoprolol Tartrate (Lopressor) 25 mg PO BID [facility] Last Admin: 05/21/18 17:45 Dose: 25 mg Pantoprazole Sodium (Protonix Ec Tab) 40 mg PO DAILY [facility] Last Admin: 05/21/18 09:25 Dose: 40 mg Rosuvastatin Calcium (Crestor) 10 mg PO HS [facility] Last Admin: 05/20/18 22:09 Dose: 10 mg Vitamin A (Vitamin A & D Oint Ud Foilpak) 1 ea TOP BID [facility] Last Admin: 05/21/18 17:45 Dose: 1 ea - Labs Labs: 05/21/18 06:23 05/21/18 06:07 PT 42.7 SECONDS (9.7-12.2) H D 05/21/18 06:30 INR 3.9 H* 05/21/18 06:30 APTT 84 SECONDS (21-34) H D 05/20/18 02:40
[2018-05-22] MEDS: Albuterol-Ipratrop 3 mg / 0.5 (3 ml) UD INH SCH ×6 (00:23→20:39)
[2018-05-22] MEDS: MethylPREDNISolone 40 mg Vial IVP SCH (05:58)
[2018-05-22 06:53] LABS: ALB/GLOB RATIO 1.3 (1.0-2.1); ALBUMIN 4.1 g/dL (3.5-5.0); CALCIUM 9.1 mg/dl (8.6-10.4)
[2018-05-22 07:13] LABS: INR 4.5
[2018-05-22 07:28] LABS: BASO % 0.1 % (0.0-2.0); HEMOGLOBIN 7.8 g/dL (12.0-18.0); LYMPH # 0.1 K/uL (1.0-4.3); LYMPH % 1.8 % (20.0-40.0); MEAN CELL VOLUME 87.1 fL (80.0-94.0); MEAN CORPUSCULAR HEMOGLOBIN 27.6 pg (27.0-31.0); MEAN CORPUSCULAR HGB CONC 31.7 g/dL (33.0-37.0); MONO # 0.3 K/uL (0.0-0.8); MONO % 4.5 % (0.0-10.0); NEUT # 6.7 K/uL (1.8-7.0); NEUT % 93.6 % (50.0-75.0); NRBC % 0.3 % (0.0-2.0); PLATELET COUNT 219 K/uL (130-400); RBC 2.81 Mil/uL (4.40-5.90); RED CELL DISTRIBUTION WIDTH 15.9 % (11.5-14.5); WHITE BLOOD COUNT 7.2 K/uL (4.8-10.8)
[2018-05-22] MEDS: (Novolin R) Insulin Human Regular 100 units/ml vial SC SCH ×4 (08:00→22:00)
--- NOTE | 2018-05-22 08:34 | CP.PCM.PN ---
Subjective - Date & Time of Evaluation Date of Evaluation: 05/22/18 Time of Evaluation: 08:34 - Subjective Subjective: Patient was on BIPAP,has SOB and fluid overload.Not feeling great,complaining of sob and leg pain.He is on gabapentin with not much help no fever Objective - Vital Signs/Intake and Output Vital Signs (last 24 hours): Temp Pulse Resp BP Pulse Ox 97.8 F 92 H 24 140/76 100 05/22/18 04:00 05/22/18 08:25 05/22/18 06:02 05/22/18 06:05 05/22/18 06:02 Intake and Output: 05/22/18 05/22/18 06:59 18:59 Intake Total 626.8 Output Total 850 Balance -223.2 - Medications Medications: Current Medications Albuterol/Ipratropium (Duoneb 3 Mg/0.5 Mg (3 Ml) Ud) 3 ml INH RQ4 [facility] Last Admin: 05/22/18 08:25 Dose: 3 ml Fluticasone Propionate (Flonase) 2 spr JESSICA BID [facility] Last Admin: 05/21/18 17:44 Dose: 2 sprays Furosemide (Lasix) 40 mg IVP Q12H [facility] Last Admin: 05/22/18 06:05 Dose: 40 mg Gabapentin (Neurontin) 100 mg PO TID [facility] Last Admin: 05/21/18 17:45 Dose: 100 mg Hydralazine HCl (Apresoline) 25 mg PO TID [facility] Last Admin: 05/21/18 17:44 Dose: 25 mg Milrinone Lactate/Dextrose 20 (mg/ Dextrose) 100 mls @ 5.84 mls/hr IV .Q17H8M [facility]; Protocol Last Admin: 05/21/18 22:55 Dose: 0.2 mcg/kg/min, 3.54 mls/hr Azithromycin 500 mg/ Sodium (Chloride) 250 mls @ 250 mls/hr IVPB DAILY [facility]; Protocol Last Admin: 05/21/18 09:26 Dose: 250 mls/hr Cefepime HCl (Maxipime Iv 1 Gm Premix) 1 gm in 50 mls @ 100 mls/hr IVPB Q24H [facility]; Protocol Last Admin: 05/21/18 09:25 Dose: 100 mls/hr Insulin Human Regular (Novolin R) 0 unit SC ACHS [facility]; Protocol Last Admin: 05/21/18 22:20 Dose: Not Given Isosorbide Mononitrate (Imdur) 60 mg PO DAILY [facility] Last Admin: 05/21/18 09:24 Dose: 60 mg Methylprednisolone (Solu-Medrol) 40 mg IVP Q8H [facility] Last Admin: 05/22/18 05:58 Dose: 40 mg Metoprolol Tartrate (Lopressor) 25 mg PO BID [facility] Last Admin: 05/21/18 17:45 Dose: 25 mg Morphine Sulfate (Morphine) 2 mg IVP Q4 PRN PRN Reason: Pain, moderate (4-7) Pantoprazole Sodium (Protonix Ec Tab) 40 mg PO DAILY [facility] Last Admin: 05/21/18 09:25 Dose: 40 mg Rosuvastatin Calcium (Crestor) 10 mg PO HS [facility] Last Admin: 05/21/18 22:51 Dose: 10 mg Vitamin A (Vitamin A & D Oint Ud Foilpak) 1 ea TOP BID [facility] Last Admin: 05/21/18 17:45 Dose: 1 ea - Labs Labs: 05/22/18 07:04 05/22/18 06:20 PT 49.0 SECONDS (9.7-12.2) H D 05/22/18 06:28 INR 4.5 H* 05/22/18 06:28 APTT 84 SECONDS (21-34) H D 05/20/18 02:40 - Constitutional Appears: Non-toxic - Head Exam Head Exam: NORMAL INSPECTION - Eye Exam Eye Exam: Normal appearance - ENT Exam ENT Exam: Mucous Membranes Moist - Neck Exam Neck Exam: Full ROM - Respiratory Exam Respiratory Exam: Rales, Wheezes - Cardiovascular Exam Cardiovascular Exam: REGULAR RHYTHM - GI/Abdominal Exam GI & Abdominal Exam: Soft, Normal Bowel Sounds - Extremities Exam Extremities Exam: Full ROM, Pedal Edema (chronic skin changes) - Back Exam Back Exam: NORMAL INSPECTION - Neurological Exam Neurological Exam: Awake, Oriented x3 - Psychiatric Exam Psychiatric exam: Normal Affect, Normal Mood - Skin Skin Exam: Dry, Rash (chronic dermatitis) Assessment and Plan - Assessment and Plan (Free Text) Plan: 1. Acute on chronic systolic heart failure History of Aortic valve replacement, Mitral valve replacement, Tricuspid valve replacement AICD ,CABG Discussed with Dr Sanchez who agree with adding Zaroxolyn and continue on Milrinone drip Patient applied for MEDICAID.Its pending. Starting on Milrinone home infusion will be expensive for this patient lasix 40mg bid Imdur 60mg po daily Hydralazine 25mg po tid andrés Lopressor 25mg po bid andrés INR is high today its 4.5.hold coumadin tonight INR goal between 3.0 t0 3.5 (As per poolroom table attendant Interrogation of AICD (Mary) revealed abscence of atrial lead, which could ID possible underlying AF EKG and telemetry without discernible P waves,Cont with anticoagulation,planning for EP input) 2.Pneumonia w/ shortness of breath no fever,no leukocytosis, Today we added pulmicort,on ceftriaxone and doxy Duonebs PRN Chest x ray without changes ECHO from 02/05/18: EF 35% CXR: Moderate to severe venous congestion with prominent consolidative opacities within mid to lower lung zones. small bilateral pleural effusions. Aortic atherosclertic calcification noted. Enlarged heart with prominent cardiomegaly. Prior valve replacements. Left sided pacemaker. Status post median sternotomy. Degenerative changes in spine and shoulders. Calcifications within the right axilla. CT chest: multilobar pna CXR; severe venous congestion 3.CAD w/ CABG Crestor 10mg po HS lasix 40mg bid Imdur 60mg po daily Metoprolol 25mg po bid andrés Nitropaste 0.5 inch topical zaroxylin added 4.LOUISE Likely prerenal in etiology with low blood pressure setting and anemia Nephrology consulted Cardiorenal etiology with increased diuretics patient Cr loses 5.Atrial fibrillation today's INR 4.5,hold Coumadin tonight,follow inr (as per poolroom table attendant Interrogation of AICD (Mary) revealed abscence of atrial lead, which could ID possible underlying AF EKG and telemetry without discernible P waves,Cont with anticoagulation,planning for EP input) 6.Chronic pain Gabapentin 100mg po tid HTN Bumex/Imdur/Lopressor/Hydralazine PPx Influenza vaccine DVT ppx: not indicated at this time in setting of elevated INR GI ppx: protonix 40mg daily andrés
[2018-05-22 09:58] LABS: ANISOCYTOSIS SLIGHT; LYMPHOCYTE 2 % (20-40); MONOCYTE 3 % (0-10); NEUTROPHIL 95 % (50-75); PLATELET ESTIMATE NORMAL (NORMAL); POIKILOCYTOSIS SLIGHT; TOTAL CELLS COUNTED 100
[2018-05-22 09:59] LABS: BURR CELLS SLIGHT; HYPOCHROMIC SLIGHT; LARGE PLATELETS PRESENT; OVALOCYTES SLIGHT; POLYCHROMIC SLIGHT
[2018-05-22] MEDS: Azithromycin 500 MG in Sodium Chloride 0.9% 250 ML IVPB SCH (10:03)
[2018-05-22] MEDS: Pantoprazole 40 mg EC Tab PO SCH (10:03)
[2018-05-22] MEDS: Fluticasone Nasal 50 mcg/Spray NAS SCH ×2 (10:04→18:26)
[2018-05-22] MEDS: Vitamins A & D Oint UD Foilpak TOP SCH ×2 (10:06→18:26)
[2018-05-22] MEDS: Cefepime IV 1 gm in Dextrose 1 GM/50 ML BAG IVPB SCH (10:23)
--- NOTE | 2018-05-22 12:34 | CP.PCM.PN ---
Subjective - Date & Time of Evaluation Date of Evaluation: 05/22/18 Time of Evaluation: 12:19 - Subjective Subjective: No events, patient still needing bipap, sob has been stable. On asking mentioned had 2 stents within last 3 yrs. Objective - Vital Signs/Intake and Output Vital Signs (last 24 hours): Temp Pulse Resp BP Pulse Ox 97.5 F L 93 H 25 H 102/62 98 05/22/18 08:00 05/22/18 11:00 05/22/18 11:00 05/22/18 10:49 05/22/18 11:00 Intake and Output: 05/22/18 05/22/18 06:59 18:59 Intake Total 626.8 239.5 Output Total 850 750 Balance -223.2 -510.5 - Medications Medications: Current Medications Acetaminophen (Tylenol 325mg Tab) 650 mg PO Q6 PRN PRN Reason: Pain, moderate (4-7) Albuterol/Ipratropium (Duoneb 3 Mg/0.5 Mg (3 Ml) Ud) 3 ml INH RQ4 [facility] Last Admin: 05/22/18 11:21 Dose: 3 ml Budesonide (Pulmicort Respules) 0.5 mg INH RQ12 [facility] Clopidogrel Bisulfate (Plavix) 75 mg PO DAILY [facility] Last Admin: 05/22/18 11:20 Dose: 75 mg Doxycycline Hyclate (Doryx) 100 mg PO Q12H [facility]; Protocol Last Admin: 05/22/18 11:20 Dose: 100 mg Famotidine (Pepcid) 20 mg PO DAILY [facility] Fluticasone Propionate (Flonase) 2 spr JESSICA BID [facility] Last Admin: 05/22/18 10:04 Dose: 2 sprays Furosemide (Lasix) 40 mg IVP Q12H [facility] Last Admin: 05/22/18 06:05 Dose: 40 mg Gabapentin (Neurontin) 300 mg PO BID [facility] Hydralazine HCl (Apresoline) 25 mg PO TID [facility] Last Admin: 05/22/18 10:03 Dose: 25 mg Milrinone Lactate/Dextrose 20 (mg/ Dextrose) 100 mls @ 5.84 mls/hr IV .Q17H8M [facility]; Protocol Last Admin: 05/21/18 22:55 Dose: 0.2 mcg/kg/min, 3.54 mls/hr Ceftriaxone Sodium 1 gm/ (Sodium Chloride) 100 mls @ 100 mls/hr IVPB DAILY [facility]; Protocol Insulin Human Regular (Novolin R) 0 unit SC ACHS [facility]; Protocol Last Admin: 05/22/18 08:00 Dose: Not Given Isosorbide Mononitrate (Imdur) 60 mg PO DAILY [facility] Last Admin: 05/22/18 10:04 Dose: 60 mg Metolazone (Zaroxolyn) 2.5 mg PO DAILY [facility] Metoprolol Tartrate (Lopressor) 25 mg PO BID [facility] Last Admin: 05/22/18 10:04 Dose: 25 mg Rosuvastatin Calcium (Crestor) 10 mg PO HS [facility] Last Admin: 05/21/18 22:51 Dose: 10 mg Vitamin A (Vitamin A & D Oint Ud Foilpak) 1 ea TOP BID [facility] Last Admin: 05/22/18 10:06 Dose: 1 ea - Labs Labs: 05/22/18 07:04 05/22/18 06:20 PT 49.0 SECONDS (9.7-12.2) H D 05/22/18 06:28 INR 4.5 H* 05/22/18 06:28 APTT 84 SECONDS (21-34) H D 05/20/18 02:40 - Additional Findings Additional findings: * HEENT RANDY * Neck supple * chest basal rales b/l * CVS regular, paced rhythm, aicd felt * PA soft, nt bs present * Ext b/l purplish discoloration, edematous, h/l paraasthesia with pins and needles sensation, pulses present * LOCATION DIRECTOR awake oriented x3 no fnd * Skin normal turgor Assessment and Plan - Assessment and Plan (Free Text) Assessment: * CMG * AVR, MVR functional as per recent echo * SOB stablizing, still needing bipap, fio2 being titrated 60 to 45, on milrinone low dose * H/o CAD with 2 stents about 3yr back * CRI * ? infiltrates * No h/o smoking or second hand smoking * Neuropathic pain in the legs worsened by swelling * Plan: * Will d/w cardiology about ischemic w/u * Patient was on metolozone 5mg, will restart at 2.5 mg * Maintain INR to 3-3.5 range * DC systemic steroids, add inhaled steroids * Reduce abx coverage to rocephin and oral doxy * Restart plavix * Increased neurontin to 300mg bid, added lidocaine patch * Titrate resp support once off bipap my transfer to floor * See orders for detail.
[2018-05-22] MEDS: Lidocaine 5% Patch TD SCH (12:35)
--- NOTE | 2018-05-22 12:40 | CP.PCM.PN ---
Subjective - Date & Time of Evaluation Date of Evaluation: 05/22/18 Time of Evaluation: 12:38 - Subjective Subjective: Seen and examined No chest pain Still significant dyspnea Objective - Vital Signs/Intake and Output Vital Signs (last 24 hours): Temp Pulse Resp BP Pulse Ox 97.5 F L 91 H 24 116/68 98 05/22/18 08:00 05/22/18 12:00 05/22/18 12:00 05/22/18 11:48 05/22/18 12:00 Intake and Output: 05/22/18 05/22/18 06:59 18:59 Intake Total 626.8 239.5 Output Total 850 750 Balance -223.2 -510.5 - Medications Medications: Current Medications Acetaminophen (Tylenol 325mg Tab) 650 mg PO Q6 PRN PRN Reason: Pain, moderate (4-7) Albuterol/Ipratropium (Duoneb 3 Mg/0.5 Mg (3 Ml) Ud) 3 ml INH RQ4 [facility] Last Admin: 05/22/18 11:21 Dose: 3 ml Budesonide (Pulmicort Respules) 0.5 mg INH RQ12 [facility] Clopidogrel Bisulfate (Plavix) 75 mg PO DAILY [facility] Last Admin: 05/22/18 11:20 Dose: 75 mg Doxycycline Hyclate (Doryx) 100 mg PO Q12H [facility]; Protocol Last Admin: 05/22/18 11:20 Dose: 100 mg Famotidine (Pepcid) 20 mg PO DAILY [facility] Fluticasone Propionate (Flonase) 2 spr JESSICA BID [facility] Last Admin: 05/22/18 10:04 Dose: 2 sprays Furosemide (Lasix) 40 mg IVP Q12H [facility] Last Admin: 05/22/18 06:05 Dose: 40 mg Gabapentin (Neurontin) 300 mg PO BID [facility] Hydralazine HCl (Apresoline) 25 mg PO TID [facility] Last Admin: 05/22/18 10:03 Dose: 25 mg Milrinone Lactate/Dextrose 20 (mg/ Dextrose) 100 mls @ 5.84 mls/hr IV .Q17H8M [facility]; Protocol Last Admin: 05/21/18 22:55 Dose: 0.2 mcg/kg/min, 3.54 mls/hr Ceftriaxone Sodium 1 gm/ (Sodium Chloride) 100 mls @ 100 mls/hr IVPB DAILY [facility]; Protocol Insulin Human Regular (Novolin R) 0 unit SC ACHS [facility]; Protocol Last Admin: 05/22/18 12:25 Dose: 3 u Isosorbide Mononitrate (Imdur) 60 mg PO DAILY [facility] Last Admin: 05/22/18 10:04 Dose: 60 mg Lidocaine (Lidoderm) 2 ea TD DAILY [facility] Last Admin: 05/22/18 12:35 Dose: 2 ea Metolazone (Zaroxolyn) 2.5 mg PO DAILY [facility] Metoprolol Tartrate (Lopressor) 25 mg PO BID [facility] Last Admin: 05/22/18 10:04 Dose: 25 mg Rosuvastatin Calcium (Crestor) 10 mg PO HS [facility] Last Admin: 05/21/18 22:51 Dose: 10 mg Vitamin A (Vitamin A & D Oint Ud Foilpak) 1 ea TOP BID [facility] Last Admin: 05/22/18 10:06 Dose: 1 ea - Labs Labs: 05/22/18 07:04 05/22/18 06:20 PT 49.0 SECONDS (9.7-12.2) H D 05/22/18 06:28 INR 4.5 H* 05/22/18 06:28 APTT 84 SECONDS (21-34) H D 05/20/18 02:40 - Constitutional Appears: Chronically Ill - Head Exam Head Exam: ATRAUMATIC, NORMOCEPHALIC - Respiratory Exam Respiratory Exam: Rales - Cardiovascular Exam Cardiovascular Exam: REGULAR RHYTHM, RRR, +S1, +S2, Murmur - GI/Abdominal Exam GI & Abdominal Exam: Soft. absent: Tenderness - Extremities Exam Extremities Exam: Pedal Edema, Tenderness - Neurological Exam Neurological Exam: CN II-XII Intact, Oriented x3 - Skin Skin Exam: Warm Assessment and Plan (1) Acute on chronic systolic congestive heart failure Assessment & Plan: Still significant fluid overload and intermittent dependance on BiPAP Cont with mirinone Cont with furosemide Agree with metolazone Is and Os Daily weights When becomes more euvolemic, can consider milrinone challenge with RHC for technician terminal and repeater infusion Status: Acute (2) Hx of mitral valve replacement with mechanical valve Assessment & Plan: Supratherapeutic INR, likely in setting of abx Hold warfarin Repeat INR Status: Acute (3) Persistent atrial fibrillation Assessment & Plan: Likely underlying AF Cont with meds Anticolagulated Status: Acute
--- NOTE | 2018-05-22 13:53 | CP.PCM.PN ---
Subjective - Date & Time of Evaluation Date of Evaluation: 05/22/18 Time of Evaluation: 13:51 - Subjective Subjective: Pulmonary Follow up, Covering Dr Alcocer The patient was Seen/interviewed and examined by me at the bedside, Medical records reviewed and Management issues were discussed and formulated with the house staff. Events reviewed 68 Years old Male with pst medical history of CHF, Afib on Coumadin, aortic/mitral/tricuspid valve replacement, CAD and CABG Who was admitted for 2-3 week history of shortness of breath and cough that worsened over last 2-3 days. CTC-massive cardiomegaly, severe systolic CHF, multifocal PNA. Started on broad s[ectrum antibiotics and Iv diuresis Patient comfortable, NAD Pt AAO x3, follows commands, Anxious. Afebrile, NSR Minimal improvement of respiratory status, still requiring BIPAP Saturation 96% Objective - Vital Signs/Intake and Output Vital Signs (last 24 hours): Temp Pulse Resp BP Pulse Ox 97.5 F L 91 H 24 116/68 98 05/22/18 08:00 05/22/18 12:00 05/22/18 12:00 05/22/18 11:48 05/22/18 12:00 Intake and Output: 05/22/18 05/22/18 06:59 18:59 Intake Total 626.8 239.5 Output Total 850 750 Balance -223.2 -510.5 - Medications Medications: Current Medications Acetaminophen (Tylenol 325mg Tab) 650 mg PO Q6 PRN PRN Reason: Pain, moderate (4-7) Albuterol/Ipratropium (Duoneb 3 Mg/0.5 Mg (3 Ml) Ud) 3 ml INH RQ4 [facility] Last Admin: 05/22/18 11:21 Dose: 3 ml Budesonide (Pulmicort Respules) 0.5 mg INH RQ12 [facility] Clopidogrel Bisulfate (Plavix) 75 mg PO DAILY [facility] Last Admin: 05/22/18 11:20 Dose: 75 mg Doxycycline Hyclate (Doryx) 100 mg PO Q12H [facility]; Protocol Last Admin: 05/22/18 11:20 Dose: 100 mg Famotidine (Pepcid) 20 mg PO DAILY [facility] Fluticasone Propionate (Flonase) 2 spr JESSICA BID [facility] Last Admin: 05/22/18 10:04 Dose: 2 sprays Furosemide (Lasix) 40 mg IVP Q12H [facility] Last Admin: 05/22/18 06:05 Dose: 40 mg Gabapentin (Neurontin) 300 mg PO BID [facility] Hydralazine HCl (Apresoline) 25 mg PO TID [facility] Last Admin: 05/22/18 13:30 Dose: 25 mg Milrinone Lactate/Dextrose 20 (mg/ Dextrose) 100 mls @ 5.84 mls/hr IV .Q17H8M [facility]; Protocol Last Admin: 05/21/18 22:55 Dose: 0.2 mcg/kg/min, 3.54 mls/hr Ceftriaxone Sodium 1 gm/ (Sodium Chloride) 100 mls @ 100 mls/hr IVPB DAILY [facility]; Protocol Insulin Human Regular (Novolin R) 0 unit SC ACHS [facility]; Protocol Last Admin: 05/22/18 12:25 Dose: 3 u Isosorbide Mononitrate (Imdur) 60 mg PO DAILY [facility] Last Admin: 05/22/18 10:04 Dose: 60 mg Lidocaine (Lidoderm) 2 ea TD DAILY [facility] Last Admin: 05/22/18 12:35 Dose: 2 ea Metolazone (Zaroxolyn) 2.5 mg PO DAILY [facility] Metoprolol Tartrate (Lopressor) 25 mg PO BID [facility] Last Admin: 05/22/18 10:04 Dose: 25 mg Rosuvastatin Calcium (Crestor) 10 mg PO HS [facility] Last Admin: 05/21/18 22:51 Dose: 10 mg Vitamin A (Vitamin A & D Oint Ud Foilpak) 1 ea TOP BID [facility] Last Admin: 05/22/18 10:06 Dose: 1 ea - Labs Labs: 05/22/18 07:04 05/22/18 06:20 PT 49.0 SECONDS (9.7-12.2) H D 05/22/18 06:28 INR 4.5 H* 05/22/18 06:28 APTT 84 SECONDS (21-34) H D 05/20/18 02:40 - Constitutional Appears: Well, Non-toxic - Head Exam Head Exam: ATRAUMATIC, NORMAL INSPECTION - Eye Exam Eye Exam: absent: Conjunctival injection Pupil Exam: NORMAL ACCOMODATION, PERRL - ENT Exam ENT Exam: Mucous Membranes Moist, Normal Exam - Neck Exam Neck Exam: Full ROM. absent: Lymphadenopathy, Meningismus, Tenderness - Respiratory Exam Respiratory Exam: Decreased Breath Sounds, Prolonged Expiratory Phase, Rales, Rhonchi. absent: Accessory Muscle Use, Chest Wall Tenderness, Wheezes, Respiratory Distress - Cardiovascular Exam Cardiovascular Exam: +S2, +S4. absent: Bradycardia, Tachycardia - GI/Abdominal Exam GI & Abdominal Exam: Soft, Normal Bowel Sounds. absent: Tenderness - Extremities Exam Extremities Exam: Full ROM, Normal Capillary Refill, Pedal Edema. absent: Calf Tenderness, Normal Inspection - Back Exam Back Exam: absent: CVA tenderness (L), CVA tenderness (R) - Neurological Exam Neurological Exam: Alert, Awake, Oriented x3 Assessment and Plan (1) Respiratory distress Status: Acute (2) Acute on chronic systolic congestive heart failure Status: Acute (3) PNA (pneumonia) Status: Acute (4) CHF (congestive heart failure) Status: Chronic (5) LOUISE (acute kidney injury) Status: Acute (6) CHF exacerbation Status: Acute - Assessment and Plan (Free Text) Assessment: Continue antibiotics for pneumonia as per ID, de-escalate abx Continue Albuterol/Ipratropium (Duoneb) INH RQ4 Budesonide (Pulmicort Respules) 0.5 mg INH RQ12 Continue diuretics, Optimize fluid status, Strict I&O, daily Wt Heart medications as per cardiology Taper steroids Followup chest x-ray DVT ppx, Pt on coumadin
[2018-05-22] MEDS: Milrinone 20 MG in Dextrose 5% In Water 80 ML IV SCH ×2 (17:00→22:01)
[2018-05-22] MEDS: Budesonide 0.5 mg/2 ml Inhal Susp UD INH SCH (20:39)
[2018-05-23] MEDS: Albuterol-Ipratrop 3 mg / 0.5 (3 ml) UD INH SCH ×6 (00:13→19:57)
[2018-05-23 05:44] LABS: BASO % 0.1 % (0.0-2.0); HEMOGLOBIN 7.9 g/dL (12.0-18.0); LYMPH # 0.4 K/uL (1.0-4.3); LYMPH % 3.8 % (20.0-40.0); MEAN CORPUSCULAR HEMOGLOBIN 27.6 pg (27.0-31.0); MEAN CORPUSCULAR HGB CONC 31.8 g/dL (33.0-37.0); MEAN PLATELET VOLUME 8.9 fL (7.2-11.7); MONO # 1.2 K/uL (0.0-0.8); MONO % 12.1 % (0.0-10.0); NEUT # 8.1 K/uL (1.8-7.0); NRBC % 0.1 % (0.0-2.0); PLATELET COUNT 224 K/uL (130-400); RBC 2.85 Mil/uL (4.40-5.90); RED CELL DISTRIBUTION WIDTH 15.7 % (11.5-14.5); WHITE BLOOD COUNT 9.6 K/uL (4.8-10.8)
[2018-05-23 06:07] LABS: ALB/GLOB RATIO 1.3 (1.0-2.1); ALBUMIN 4.1 g/dL (3.5-5.0); CALCIUM 8.9 mg/dl (8.6-10.4)
[2018-05-23 06:24] LABS: PROTHROMBIN TIME 40.2 SECONDS (9.7-12.2)
[2018-05-23 06:26] LABS: INR 3.7
[2018-05-23] MEDS: (Novolin R) Insulin Human Regular 100 units/ml vial SC SCH ×4 (07:30→21:50)
[2018-05-23 08:21] LABS: LYMPHOCYTE 9 % (20-40); MONOCYTE 11 % (0-10); NEUTROPHIL 80 % (50-75); PLATELET ESTIMATE NORMAL (NORMAL); TOTAL CELLS COUNTED 100
[2018-05-23 08:22] LABS: ANISOCYTOSIS SLIGHT; HYPOCHROMIC SLIGHT; POIKILOCYTOSIS SLIGHT
[2018-05-23 08:23] LABS: BURR CELLS SLIGHT
[2018-05-23] MEDS: Vitamins A & D Oint UD Foilpak TOP SCH ×2 (09:49→17:59)
[2018-05-23] MEDS: Fluticasone Nasal 50 mcg/Spray NAS SCH ×2 (09:49→18:01)
[2018-05-23] MEDS: metOLazone 2.5 MG TAB PO SCH (09:51)
[2018-05-23] MEDS: Lidocaine 5% Patch TD SCH (09:52)
--- NOTE | 2018-05-23 11:15 | CP.PCM.PN ---
Subjective - Date & Time of Evaluation Date of Evaluation: 05/23/18 Time of Evaluation: 11:11 - Subjective Subjective: Pt still remains short of breath at rest, in spite of good diuresis and maximal medical therapy. CXR from 05/21 reports mild congestive change. Remains anemic. INR good. Objective - Vital Signs/Intake and Output Vital Signs (last 24 hours): Temp Pulse Resp BP Pulse Ox 97.6 F 94 H 24 144/67 99 05/23/18 04:00 05/23/18 10:00 05/23/18 10:00 05/23/18 09:56 05/23/18 10:00 Intake and Output: 05/23/18 05/23/18 06:59 18:59 Intake Total 532.9 535.6 Output Total 800 200 Balance -267.1 335.6 - Medications Medications: Current Medications Acetaminophen (Tylenol 325mg Tab) 650 mg PO Q6 PRN PRN Reason: Pain, moderate (4-7) Albuterol/Ipratropium (Duoneb 3 Mg/0.5 Mg (3 Ml) Ud) 3 ml INH RQ4 [facility] Last Admin: 05/23/18 03:22 Dose: 3 ml Budesonide (Pulmicort Respules) 0.5 mg INH RQ12 [facility] Last Admin: 05/22/18 20:39 Dose: 0.5 mg Clopidogrel Bisulfate (Plavix) 75 mg PO DAILY [facility] Last Admin: 05/23/18 09:54 Dose: 75 mg Doxycycline Hyclate (Doryx) 100 mg PO Q12H [facility]; Protocol Last Admin: 05/23/18 09:51 Dose: 100 mg Famotidine (Pepcid) 20 mg PO DAILY [facility] Last Admin: 05/23/18 09:50 Dose: 20 mg Fluticasone Propionate (Flonase) 2 spr JESSICA BID [facility] Last Admin: 05/23/18 09:49 Dose: 2 sprays Furosemide (Lasix) 40 mg IVP Q12H [facility] Last Admin: 05/23/18 06:45 Dose: 40 mg Gabapentin (Neurontin) 300 mg PO BID [facility] Last Admin: 05/23/18 09:46 Dose: 300 mg Hydralazine HCl (Apresoline) 25 mg PO TID [facility] Last Admin: 05/23/18 09:50 Dose: 25 mg Milrinone Lactate/Dextrose 20 (mg/ Dextrose) 100 mls @ 5.84 mls/hr IV .Q17H8M [facility]; Protocol Last Admin: 05/22/18 22:01 Dose: 0.2 mcg/kg/min, 3.54 mls/hr Ceftriaxone Sodium 1 gm/ (Sodium Chloride) 100 mls @ 100 mls/hr IVPB DAILY [facility]; Protocol Last Admin: 05/23/18 09:54 Dose: 100 mls/hr Insulin Human Regular (Novolin R) 0 unit SC ACHS [facility]; Protocol Last Admin: 05/23/18 07:30 Dose: Not Given Isosorbide Mononitrate (Imdur) 60 mg PO DAILY [facility] Last Admin: 05/23/18 09:49 Dose: 60 mg Lidocaine (Lidoderm) 2 ea TD DAILY [facility] Last Admin: 05/23/18 09:52 Dose: 2 ea Metolazone (Zaroxolyn) 2.5 mg PO DAILY [facility] Last Admin: 05/23/18 09:51 Dose: 2.5 mg Metoprolol Tartrate (Lopressor) 25 mg PO BID [facility] Last Admin: 05/23/18 09:48 Dose: 25 mg Rosuvastatin Calcium (Crestor) 10 mg PO HS [facility] Last Admin: 05/22/18 21:59 Dose: 10 mg Vitamin A (Vitamin A & D Oint Ud Foilpak) 1 ea TOP BID [facility] Last Admin: 05/23/18 09:49 Dose: 1 ea - Labs Labs: 05/23/18 05:37 05/23/18 05:37 PT 40.2 SECONDS (9.7-12.2) H D 05/23/18 05:37 INR 3.7 H* 05/23/18 05:37 APTT 84 SECONDS (21-34) H D 05/20/18 02:40 - Constitutional Appears: Cachectic, Chronically Ill - Head Exam Head Exam: ATRAUMATIC, NORMAL INSPECTION - Eye Exam Eye Exam: EOMI - ENT Exam ENT Exam: Mucous Membranes Moist - Neck Exam Neck Exam: Full ROM, Thyromegaly - Respiratory Exam Respiratory Exam: Decreased Breath Sounds, Wheezes - Cardiovascular Exam Cardiovascular Exam: Irregular Rhythm - GI/Abdominal Exam GI & Abdominal Exam: Normal Bowel Sounds - Extremities Exam Extremities Exam: Pedal Edema - Back Exam Back Exam: NORMAL INSPECTION - Neurological Exam Neurological Exam: Alert, Awake - Psychiatric Exam Psychiatric exam: Normal Affect, Normal Mood - Skin Skin Exam: Normal Color Assessment and Plan - Assessment and Plan (Free Text) Assessment: 1. Pt has not improved, in spite of diuresis. Echo reviewed: LV systolic function somewhat better with milrinone, but still moderately reduced. Prosthetic valves are not obstructed. 2. Chronic afib. 3. Pt is know to jordan paredes and Dr todd Chauhan, head of transplantation> I will reach out to him.
--- NOTE | 2018-05-23 12:01 | CP.PCM.PN ---
Subjective - Date & Time of Evaluation Date of Evaluation: 05/23/18 Time of Evaluation: 11:45 - Subjective Subjective: Patient's family member his was at bedside and we discussed. Patient continues to need the Bipap due to ongoing shortness of breath. The patient has been on the IV Milrinone and also IV lasix. Urine out put recorded yesterday was 1,700 ml Per cardiology the patient may need transfer Objective - Vital Signs/Intake and Output Vital Signs (last 24 hours): Temp Pulse Resp BP Pulse Ox 97.6 F 94 H 24 144/67 99 05/23/18 04:00 05/23/18 10:00 05/23/18 10:00 05/23/18 09:56 05/23/18 10:00 Intake and Output: 05/23/18 05/23/18 06:59 18:59 Intake Total 532.9 535.6 Output Total 800 200 Balance -267.1 335.6 - Medications Medications: Current Medications Acetaminophen (Tylenol 325mg Tab) 650 mg PO Q6 PRN PRN Reason: Pain, moderate (4-7) Albuterol/Ipratropium (Duoneb 3 Mg/0.5 Mg (3 Ml) Ud) 3 ml INH RQ4 [facility] Last Admin: 05/23/18 03:22 Dose: 3 ml Budesonide (Pulmicort Respules) 0.5 mg INH RQ12 [facility] Last Admin: 05/22/18 20:39 Dose: 0.5 mg Clopidogrel Bisulfate (Plavix) 75 mg PO DAILY [facility] Last Admin: 05/23/18 09:54 Dose: 75 mg Doxycycline Hyclate (Doryx) 100 mg PO Q12H [facility]; Protocol Last Admin: 05/23/18 09:51 Dose: 100 mg Famotidine (Pepcid) 20 mg PO DAILY [facility] Last Admin: 05/23/18 09:50 Dose: 20 mg Fluticasone Propionate (Flonase) 2 spr JESSICA BID [facility] Last Admin: 05/23/18 09:49 Dose: 2 sprays Furosemide (Lasix) 40 mg IVP Q12H [facility] Last Admin: 05/23/18 06:45 Dose: 40 mg Gabapentin (Neurontin) 300 mg PO BID [facility] Last Admin: 05/23/18 09:46 Dose: 300 mg Hydralazine HCl (Apresoline) 25 mg PO TID [facility] Last Admin: 05/23/18 09:50 Dose: 25 mg Milrinone Lactate/Dextrose 20 (mg/ Dextrose) 100 mls @ 5.84 mls/hr IV .Q17H8M [facility]; Protocol Last Admin: 05/22/18 22:01 Dose: 0.2 mcg/kg/min, 3.54 mls/hr Ceftriaxone Sodium 1 gm/ (Sodium Chloride) 100 mls @ 100 mls/hr IVPB DAILY [facility]; Protocol Last Admin: 05/23/18 09:54 Dose: 100 mls/hr Insulin Human Regular (Novolin R) 0 unit SC ACHS [facility]; Protocol Last Admin: 05/23/18 11:29 Dose: 2 u Isosorbide Mononitrate (Imdur) 60 mg PO DAILY [facility] Last Admin: 05/23/18 09:49 Dose: 60 mg Lidocaine (Lidoderm) 2 ea TD DAILY [facility] Last Admin: 05/23/18 09:52 Dose: 2 ea Metolazone (Zaroxolyn) 2.5 mg PO DAILY [facility] Last Admin: 05/23/18 09:51 Dose: 2.5 mg Metoprolol Tartrate (Lopressor) 25 mg PO BID [facility] Last Admin: 05/23/18 09:48 Dose: 25 mg Rosuvastatin Calcium (Crestor) 10 mg PO HS [facility] Last Admin: 05/22/18 21:59 Dose: 10 mg Vitamin A (Vitamin A & D Oint Ud Foilpak) 1 ea TOP BID [facility] Last Admin: 05/23/18 09:49 Dose: 1 ea - Labs Labs: 05/23/18 05:37 05/23/18 05:37 PT 40.2 SECONDS (9.7-12.2) H D 05/23/18 05:37 INR 3.7 H* 05/23/18 05:37 APTT 84 SECONDS (21-34) H D 05/20/18 02:40 - Constitutional Appears: Cachectic, Chronically Ill - Head Exam Head Exam: NORMAL INSPECTION - Eye Exam Eye Exam: EOMI, Normal appearance - ENT Exam ENT Exam: Mucous Membranes Moist - Respiratory Exam Respiratory Exam: Decreased Breath Sounds, Rales, Rhonchi - Cardiovascular Exam Cardiovascular Exam: Clicks, Irregular Rhythm, Murmur Additional comments: Mechanical clicks - Extremities Exam Extremities Exam: absent: Pedal Edema - Neurological Exam Neurological Exam: Alert, Awake, Oriented x3 Neuro motor strength exam: Left Upper Extremity: 4, Right Upper Extremity: 4 - Psychiatric Exam Psychiatric exam: Anxious, Depressed - Skin Skin Exam: Normal Color, Warm Assessment and Plan - Assessment and Plan (Free Text) Assessment: 1. Acute on chronic systolic heart failure History of Aortic valve replacement, Mitral valve replacement, Tricuspid valve replacement AICD ,CABG 05/23: Patient remains short of breath requiring the Bipap at night and most the day. He has been on the milrinone and lasix and zaroxyln INR 3.7. Urine out put was 1,700 recorded yesterday Updated family member at bedside as well Milrinone ggt Lasix 40mg bid Imdur 60mg po daily Hydralazine 25mg po tid andrés Lopressor 25mg po bid andrés (As per ion exchange operator Interrogation of AICD (Mary) revealed abscence of atrial lead, which could ID possible underlying AF EKG and telemetry without discernible P waves,Cont with anticoagulation,planning for EP input) 2. Pneumonia w/ shortness of breath 05/23: Currently afebrile and WBC stable. He is on pulmicort and doxycycline Today we added pulmicort,on ceftriaxone and doxy Duonebs PRN Chest x ray without changes ECHO from 02/05/18: EF 35% CXR: Moderate to severe venous congestion with prominent consolidative opacities within mid to lower lung zones. small bilateral pleural effusions. Aortic atherosclertic calcification noted. Enlarged heart with prominent cardiomegaly. Prior valve replacements. Left sided pacemaker. Status post median sternotomy. Degenerative changes in spine and shoulders. Calcifications within the right axilla. CT chest: multilobar pna CXR; severe venous congestion 3.CAD w/ CABG 05/23: Patient remains on crestor, imdur, plavix, ASA, BB Crestor 10mg po HS lasix 40mg bid Imdur 60mg po daily Metoprolol 25mg po bid andrés Zaroxylin 4.LOUISE Likely prerenal in etiology with low blood pressure setting and anemia Nephrology consulted Cardiorenal etiology with increased diuretics patient Cr loses 5.Atrial fibrillation INR 3.7 today (as per ion exchange operator Interrogation of AICD (Mary) revealed abscence of atrial lead, which could ID possible underlying AF EKG and telemetry without discernible P waves,Cont with anticoagulation,planning for EP input) 6.Chronic pain Gabapentin 100mg po tid HTN Bumex/Imdur/Lopressor/Hydralazine PPx Influenza vaccine DVT ppx: not indicated at this time in setting of elevated INR GI ppx: protonix 40mg daily andrés
--- NOTE | 2018-05-23 13:13 | CP.CCUPN ---
CCU Subjective - Physician Review Subjective (Free Text): 05/23/18 13:10 PGY-1 Critical Care Progress Note for Dr. Wallace Patient seen and examined at bedside this AM. No acute overnight events reported. No chest pain endorsed, remains on milrinone drip. Requires intermittent bipap use for ongoing shortness of breath at rest despite adequate diuresis and optimal medical therapy. 12 pt ROS reviewed and otherwise negative at this time. Critical Care Time Spent (in minutes): 35 CCU Objective - Vital Signs / Intake & Output Vital Signs (Last 4 hours): Vital Signs Pulse Resp BP Pulse Ox 05/23/18 12:00 95 H 30 H 99 05/23/18 11:58 91 H 29 H 124/80 100 05/23/18 11:00 94 H 22 99 05/23/18 10:56 94 H 25 H 132/75 05/23/18 10:00 94 H 24 99 05/23/18 09:56 96 H 22 144/67 97 05/23/18 09:48 137/68 Intake and Output (Last 8hrs): Intake & Output 05/22/18 05/23/18 05/23/18 22:59 06:59 14:59 Intake Total 481.2 271.2 535.6 Output Total 500 300 200 Balance -18.8 -28.8 335.6 Weight 165 lb 9 oz Intake: IV 100 Intake, IV Amount 31.2 31.2 115.6 Left Forearm 31.2 31.2 15.6 Right Hand 100 Oral 350 240 420 Output: Urine 500 300 200 Urine, Voided 500 300 200 Other: # Voids Urine, Voided 0 1 # Bowel Movements 0 - Physical Exam Head: Positive for: Atraumatic, Normocephalic Pupils: Positive for: PERRL Extroacular Muscles: Positive for: EOMI Mouth: Positive for: Dry Neck: Positive for: Normal Range of Motion Respiratory/Chest: Positive for: Rales, Rhonchi Cardiovascular: Positive for: Normal S1, S2, Irregular Rhythm Abdomen: Positive for: Normal Bowel Sounds. Negative for: Tenderness, Distention, Peritoneal Signs, Rebound, Guarding Upper Extremity: Positive for: Normal Inspection, NORMAL PULSES, Neurovascularly Intact, Capillary Refill < 2s Lower Extremity: Positive for: Edema, NORMAL PULSES, Neurovascularly Intact, Capillary Refill < 2 s Neurological: Positive for: CN II-XII Intact Skin: Positive for: Warm, Dry, Normal Color Psychiatric: Positive for: Alert, Oriented x 3, Anxious, Depressed Mood - Medications Active Medications: Active Medications Generic Name Dose Route Start Last Admin Trade Name Freq PRN Reason Stop Dose Admin Acetaminophen 650 mg 05/22/18 10:21 Tylenol 325mg Tab PO Q6 PRN Pain, moderate (4-7) Albuterol/Ipratropium 3 ml 05/19/18 12:00 05/23/18 03:22 Duoneb 3 Mg/0.5 Mg (3 Ml) Ud INH 3 ml RQ4 AYDEE Administration Budesonide 0.5 mg 05/22/18 20:00 05/22/18 20:39 Pulmicort Respules INH 0.5 mg RQ12 AYDEE Administration Clopidogrel Bisulfate 75 mg 05/22/18 10:30 05/23/18 09:54 Plavix PO 75 mg DAILY AYDEE Administration Doxycycline Hyclate 100 mg 05/22/18 10:30 05/23/18 09:51 Doryx PO 100 mg Q12H AYDEE Administration Protocol Famotidine 20 mg 05/23/18 10:00 05/23/18 09:50 Pepcid PO 20 mg DAILY AYDEE Administration Fluticasone Propionate 2 spr 05/14/18 18:00 05/23/18 09:49 Flonase JESSICA 2 sprays BID AYDEE Administration Furosemide 40 mg 05/18/18 19:00 05/23/18 06:45 Lasix IVP 40 mg Q12H AYDEE Administration Gabapentin 300 mg 05/22/18 18:00 05/23/18 09:46 Neurontin PO 300 mg BID AYDEE Administration Hydralazine HCl 25 mg 05/17/18 18:00 05/23/18 09:50 Apresoline PO 25 mg TID AYDEE Administration Milrinone Lactate/Dextrose 20 100 mls @ 5.84 mls/hr 05/17/18 16:45 05/22/18 22:01 mg/ Dextrose IV 0.2 mcg/kg/min .Q17H8M AYDEE 3.54 mls/hr Administration Protocol 0.33 MCG/KG/MIN Ceftriaxone Sodium 1 gm/ 100 mls @ 100 mls/hr 05/23/18 10:00 05/23/18 09:54 Sodium Chloride IVPB 100 mls/hr DAILY AYDEE Administration Protocol Insulin Human Regular 0 unit 05/19/18 16:30 05/23/18 11:29 Novolin R SC 2 u ACHS AYDEE Administration Protocol Isosorbide Mononitrate 60 mg 05/14/18 15:00 05/23/18 09:49 Imdur PO 60 mg DAILY AYDEE Administration Lidocaine 2 ea 05/22/18 12:30 05/23/18 09:52 Lidoderm TD 2 ea DAILY AYDEE Administration Metolazone 2.5 mg 05/23/18 10:00 05/23/18 09:51 Zaroxolyn PO 2.5 mg DAILY AYDEE Administration Metoprolol Tartrate 25 mg 05/17/18 16:27 05/23/18 09:48 Lopressor PO 25 mg BID AYDEE Administration Rosuvastatin Calcium 10 mg 05/14/18 22:00 05/22/18 21:59 Crestor PO 10 mg HS AYDEE Administration Vitamin A 1 ea 05/15/18 18:00 05/23/18 09:49 Vitamin A & D Oint Ud Foilpak TOP 1 ea BID AYDEE Administration - Patient Studies Lab Studies: Microbiology Studies 05/20/18 18:00 Gram Stain - Final Sputum Induced Sputum Culture - Final Yeast Species Lab Studies 05/23/18 05/23/18 05/23/18 Range/Units 05:37 05:37 05:37 WBC 9.6 (4.8-10.8) K/uL RBC 2.85 L (4.40-5.90) Mil/uL Hgb 7.9 L (12.0-18.0) g/dL Hct 24.8 L (35.0-51.0) % MCV 87.0 (80.0-94.0) fL MCH 27.6 (27.0-31.0) pg MCHC 31.8 L (33.0-37.0) g/dL RDW 15.7 H (11.5-14.5) % Plt Count 224 (130-400) K/uL MPV 8.9 (7.2-11.7) fL Neut % (Auto) 84.0 H (50.0-75.0) % Lymph % (Auto) 3.8 L (20.0-40.0) % [place] % (Auto) 12.1 H (0.0-10.0) % Eos % (Auto) 0.0 (0.0-4.0) % Baso % (Auto) 0.1 (0.0-2.0) % Neut # (Auto) 8.1 H (1.8-7.0) K/uL Lymph # (Auto) 0.4 L (1.0-4.3) K/uL [place] # (Auto) 1.2 H (0.0-0.8) K/uL Eos # (Auto) 0.0 (0.0-0.7) K/uL Baso # (Auto) 0.0 (0.0-0.2) K/uL Neutrophils % (Manual) 80 H (50-75) % Lymphocytes % (Manual) 9 L (20-40) % Monocytes % (Manual) 11 H (0-10) % Platelet Estimate Normal (NORMAL) Hypochromasia (manual) Slight Poikilocytosis (manual Slight Anisocytosis (manual) Slight [place] Cells Slight PT 40.2 H D (9.7-12.2) SECONDS INR 3.7 H* Sodium 138 (132-148) mmol/L Potassium 3.9 (3.6-5.2) mmol/L Chloride 97 L (98-107) mmol/L Carbon Dioxide 29 (22-30) mmol/L Anion Gap 17 (10-20) BUN 86 H (9-20) mg/dL Creatinine 1.8 H (0.8-1.5) mg/dL Est GFR ( Amer) 46 Est GFR (Non-Af Amer) 38 POC Glucose (mg/dL) (65-110) mg/dL Random Glucose 168 H (75-110) mg/dL Calcium 8.9 (8.6-10.4) mg/dl Phosphorus 3.6 (2.5-4.5) mg/dL Magnesium 1.9 (1.6-2.3) mg/dL Total Bilirubin 1.5 H (0.2-1.3) mg/dL AST 61 H D (17-59) U/L ALT 61 (21-72) U/L Alkaline Phosphatase 88 (38-126) U/L Total Protein 7.1 (6.3-8.3) g/dL Albumin 4.1 (3.5-5.0) g/dL Globulin 3.0 (2.2-3.9) gm/dL Albumin/Globulin Ratio 1.3 (1.0-2.1) 05/22/18 05/22/18 05/22/18 Range/Units 21:07 16:07 12:01 WBC (4.8-10.8) K/uL RBC (4.40-5.90) Mil/uL Hgb (12.0-18.0) g/dL Hct (35.0-51.0) % MCV (80.0-94.0) fL MCH (27.0-31.0) pg MCHC (33.0-37.0) g/dL RDW (11.5-14.5) % Plt Count (130-400) K/uL MPV (7.2-11.7) fL Neut % (Auto) (50.0-75.0) % Lymph % (Auto) (20.0-40.0) % [place] % (Auto) (0.0-10.0) % Eos % (Auto) (0.0-4.0) % Baso % (Auto) (0.0-2.0) % Neut # (Auto) (1.8-7.0) K/uL Lymph # (Auto) (1.0-4.3) K/uL [place] # (Auto) (0.0-0.8) K/uL Eos # (Auto) (0.0-0.7) K/uL Baso # (Auto) (0.0-0.2) K/uL Neutrophils % (Manual) (50-75) % Lymphocytes % (Manual) (20-40) % Monocytes % (Manual) (0-10) % Platelet Estimate (NORMAL) Hypochromasia (manual) Poikilocytosis (manual Anisocytosis (manual) [place] Cells PT (9.7-12.2) SECONDS INR Sodium (132-148) mmol/L Potassium (3.6-5.2) mmol/L Chloride (98-107) mmol/L Carbon Dioxide (22-30) mmol/L Anion Gap (10-20) BUN (9-20) mg/dL Creatinine (0.8-1.5) mg/dL Est GFR ( Amer) Est GFR (Non-Af Amer) POC Glucose (mg/dL) 126 H 120 H 233 H (65-110) mg/dL Random Glucose (75-110) mg/dL Calcium (8.6-10.4) mg/dl Phosphorus (2.5-4.5) mg/dL Magnesium (1.6-2.3) mg/dL Total Bilirubin (0.2-1.3) mg/dL AST (17-59) U/L ALT (21-72) U/L Alkaline Phosphatase (38-126) U/L Total Protein (6.3-8.3) g/dL Albumin (3.5-5.0) g/dL Globulin (2.2-3.9) gm/dL Albumin/Globulin Ratio (1.0-2.1) 05/22/18 Range/Units 08:04 WBC (4.8-10.8) K/uL RBC (4.40-5.90) Mil/uL Hgb (12.0-18.0) g/dL Hct (35.0-51.0) % MCV (80.0-94.0) fL MCH (27.0-31.0) pg MCHC (33.0-37.0) g/dL RDW (11.5-14.5) % Plt Count (130-400) K/uL MPV (7.2-11.7) fL Neut % (Auto) (50.0-75.0) % Lymph % (Auto) (20.0-40.0) % [place] % (Auto) (0.0-10.0) % Eos % (Auto) (0.0-4.0) % Baso % (Auto) (0.0-2.0) % Neut # (Auto) (1.8-7.0) K/uL Lymph # (Auto) (1.0-4.3) K/uL [place] # (Auto) (0.0-0.8) K/uL Eos # (Auto) (0.0-0.7) K/uL Baso # (Auto) (0.0-0.2) K/uL Neutrophils % (Manual) (50-75) % Lymphocytes % (Manual) (20-40) % Monocytes % (Manual) (0-10) % Platelet Estimate (NORMAL) Hypochromasia (manual) Poikilocytosis (manual Anisocytosis (manual) [place] Cells PT (9.7-12.2) SECONDS INR Sodium (132-148) mmol/L Potassium (3.6-5.2) mmol/L Chloride (98-107) mmol/L Carbon Dioxide (22-30) mmol/L Anion Gap (10-20) BUN (9-20) mg/dL Creatinine (0.8-1.5) mg/dL Est GFR ( Amer) Est GFR (Non-Af Amer) POC Glucose (mg/dL) 95 (65-110) mg/dL Random Glucose (75-110) mg/dL Calcium (8.6-10.4) mg/dl Phosphorus (2.5-4.5) mg/dL Magnesium (1.6-2.3) mg/dL Total Bilirubin (0.2-1.3) mg/dL AST (17-59) U/L ALT (21-72) U/L Alkaline Phosphatase (38-126) U/L Total Protein (6.3-8.3) g/dL Albumin (3.5-5.0) g/dL Globulin (2.2-3.9) gm/dL Albumin/Globulin Ratio (1.0-2.1) Laboratory Results - last 24 hr 05/22/18 05/22/18 05/22/18 08:04 12:01 16:07 WBC RBC Hgb Hct MCV MCH MCHC RDW Plt Count MPV Neut % (Auto) Lymph % (Auto) [place] % (Auto) Eos % (Auto) Baso % (Auto) Neut # (Auto) Lymph # (Auto) [place] # (Auto) Eos # (Auto) Baso # (Auto) Neutrophils % (Manual) Lymphocytes % (Manual) Monocytes % (Manual) Platelet Estimate Hypochromasia (manual) Poikilocytosis (manual Anisocytosis (manual) [place] Cells PT INR Sodium Potassium Chloride Carbon Dioxide Anion Gap BUN Creatinine Est GFR ( Amer) Est GFR (Non-Af Amer) POC Glucose (mg/dL) 95 233 H 120 H Random Glucose Calcium Phosphorus Magnesium Total Bilirubin AST ALT Alkaline Phosphatase Total Protein Albumin Globulin Albumin/Globulin Ratio 05/22/18 05/23/18 05/23/18 21:07 05:37 05:37 WBC RBC Hgb Hct MCV MCH MCHC RDW Plt Count MPV Neut % (Auto) Lymph % (Auto) [place] % (Auto) Eos % (Auto) Baso % (Auto) Neut # (Auto) Lymph # (Auto) [place] # (Auto) Eos # (Auto) Baso # (Auto) Neutrophils % (Manual) Lymphocytes % (Manual) Monocytes % (Manual) Platelet Estimate Hypochromasia (manual) Poikilocytosis (manual Anisocytosis (manual) [place] Cells PT 40.2 H D INR 3.7 H* Sodium 138 Potassium 3.9 Chloride 97 L Carbon Dioxide 29 Anion Gap 17 BUN 86 H Creatinine 1.8 H Est GFR ( Amer) 46 Est GFR (Non-Af Amer) 38 POC Glucose (mg/dL) 126 H Random Glucose 168 H Calcium 8.9 Phosphorus 3.6 Magnesium 1.9 Total Bilirubin 1.5 H AST 61 H D ALT 61 Alkaline Phosphatase 88 Total Protein 7.1 Albumin 4.1 Globulin 3.0 Albumin/Globulin Ratio 1.3 05/23/18 05:37 WBC 9.6 RBC 2.85 L Hgb 7.9 L Hct 24.8 L MCV 87.0 MCH 27.6 MCHC 31.8 L RDW 15.7 H Plt Count 224 MPV 8.9 Neut % (Auto) 84.0 H Lymph % (Auto) 3.8 L [place] % (Auto) 12.1 H Eos % (Auto) 0.0 Baso % (Auto) 0.1 Neut # (Auto) 8.1 H Lymph # (Auto) 0.4 L [place] # (Auto) 1.2 H Eos # (Auto) 0.0 Baso # (Auto) 0.0 Neutrophils % (Manual) 80 H Lymphocytes % (Manual) 9 L Monocytes % (Manual) 11 H Platelet Estimate Normal Hypochromasia (manual) Slight Poikilocytosis (manual Slight Anisocytosis (manual) Slight [place] Cells Slight PT INR Sodium Potassium Chloride Carbon Dioxide Anion Gap BUN Creatinine Est GFR ( Amer) Est GFR (Non-Af Amer) POC Glucose (mg/dL) Random Glucose Calcium Phosphorus Magnesium Total Bilirubin AST ALT Alkaline Phosphatase Total Protein Albumin Globulin Albumin/Globulin Ratio Fingerstick Blood Sugar Results: 152 Review of Systems - Review of Systems All systems: reviewed and no additional remarkable complaints except Review of Systems: as per HPI Critical Care Progress Note - Nutrition Nutrition: Nutrition Category Date Time Status Heart Healthy Diet [DIET] Diets 05/14/18 Breakfast Active Assessment/Plan - Assessment and Plan (Free Text) Assessment: 68 yo male with past medical history of CHF, Afib on Coumadin, aortic/mitral/tricuspid valve replacement, CAD and CABG admitted for 2-3 week history of shortness of breath and cough that worsened over last 2-3 days. CTC- massive cardiomegaly, severe systolic CHF, multifocal PNA. Plan: Neuro: Neuropathic pain -on neurontin 100 TID Pulm: Hypoxic respiratory failure -still needing bipap Pneumonia -afebrile, no leukocytosis -CXR (05/21): R basilar opacity unchanged. Cardiomegaly. AICD. Possible very small b/l pleural effusion. Congestive changes. -duonebs, pulmicort -rocephin, doxycycline CV: Acute on chronic systolic heart failure Hx of aortic/mitral/tricuspid valve replacement s/p AICD placement, CABG -ECHO from 02/05/18: EF 35% -remains dyspneic requiring intermittent bipap use -milrinone ggt -lasix 40 BID -imdur 60 daily -hydralazine 25 tid -Lopressor 25 bid -metolazone 2.5 daily -Cardio recs (Dr. Pantoja) appreciated: Pt has not improved, in spite of diuresis. Echo reviewed: LV systolic function somewhat better with milrinone, but still moderately reduced. Prosthetic valves are not obstructed. Pt is know to Bess paredes and Dr Masood Chauhan, head of transplantation. Will reach out to him re:transfer CAD w/ CABG -asa, plavix, statin, BB, imdur Heme: Atrial fibrillation -INR 3.7 (05/23) -anticoagulation not indicated at this time in setting of elevated INR -per Cardio: interrogation of AICD revealed abscence of atrial lead, which could ID possible underlying AF. EKG and telemetry without discernible P waves,Cont with anticoagulation,planning for EP input Renal: LOUISE -Pt had baseline Cr of 1.5, jin to 2.0 with diuretics -likely 2/2 diuretics, patient needs diuretics to keep him dry CKD 3 -Nephrology on board: check renal us, quantify urine protein. Maintain Bumex, hold ARBs. GI: -protonix ID: -on rocephin, doxycycline PPx, Diet, Disposition -GI: protonix -Diet: HHD -Code status: Full code Case discussed with Dr. Leyla Love DO, PGY-1
[2018-05-23] MEDS: Milrinone 20 MG in Dextrose 5% In Water 80 ML IV SCH (18:05)
[2018-05-23] MEDS: Budesonide 0.5 mg/2 ml Inhal Susp UD INH SCH (19:57)
[2018-05-24] MEDS: Albuterol-Ipratrop 3 mg / 0.5 (3 ml) UD INH SCH ×4 (00:46→14:04)
[2018-05-24] MEDS: Milrinone 20 MG in Dextrose 5% In Water 80 ML IV SCH (05:28)
[2018-05-24 06:09] LABS: BASO % 0.2 % (0.0-2.0); EOS % 0.3 % (0.0-4.0); HEMOGLOBIN 7.6 g/dL (12.0-18.0); LYMPH # 0.3 K/uL (1.0-4.3); LYMPH % 2.7 % (20.0-40.0); MEAN CELL VOLUME 86.6 fL (80.0-94.0); MEAN CORPUSCULAR HEMOGLOBIN 27.5 pg (27.0-31.0); MEAN CORPUSCULAR HGB CONC 31.7 g/dL (33.0-37.0); MEAN PLATELET VOLUME 8.7 fL (7.2-11.7); MONO # 1.6 K/uL (0.0-0.8); MONO % 13.6 % (0.0-10.0); NEUT # 9.7 K/uL (1.8-7.0); NEUT % 83.2 % (50.0-75.0); PLATELET COUNT 206 K/uL (130-400); RBC 2.78 Mil/uL (4.40-5.90); RED CELL DISTRIBUTION WIDTH 15.9 % (11.5-14.5); WHITE BLOOD COUNT 11.7 K/uL (4.8-10.8)
[2018-05-24 07:12] LABS: ALB/GLOB RATIO 1.4 (1.0-2.1); ALBUMIN 3.9 g/dL (3.5-5.0); ALT/SGPT 60 U/L (21-72); AST/SGOT 54 U/L (17-59); BLOOD UREA NITROGEN 86 mg/dL (9-20); CALCIUM 9.1 mg/dl (8.6-10.4); GFR NON-AFRICAN AMERICAN 51
[2018-05-24] MEDS: Budesonide 0.5 mg/2 ml Inhal Susp UD INH SCH ×2 (08:10→19:56)
[2018-05-24 08:24] LABS: BANDS 2 % (0-2); EOSINOPHIL 1 % (0-4); LYMPHOCYTE 1 % (20-40); MONOCYTE 11 % (0-10); NEUTROPHIL 85 % (50-75); PLATELET ESTIMATE NORMAL (NORMAL); TOTAL CELLS COUNTED 100
[2018-05-24 08:25] LABS: ANISOCYTOSIS SLIGHT; BURR CELLS SLIGHT; HYPOCHROMIC SLIGHT; POIKILOCYTOSIS SLIGHT; TARGET CELLS SLIGHT
--- NOTE | 2018-05-24 08:35 | CP.CCUPN ---
<Kevin Love - Last Filed: 05/24/18 15:17> CCU Subjective - Physician Review Subjective (Free Text): 05/24/18 08:35 PGY-1 Critical Care Progress Note for Dr. Alcocer Patient seen and examined at bedside this AM. Patient continues to have persistent shortness of breath requiring intermittent bipap. Remains on the milrinone drip as well as lasix and zaroxyln. Patient endorses new onset R groin/lower abdominal pain this morning, signficant scrotal swelling is noted. Per at bedside, patient has hx of hernia. 12 pt ROS reviewed and otherwise remains unchanged at this time. Critical Care Time Spent (in minutes): 35 CCU Objective - Vital Signs / Intake & Output Vital Signs (Last 4 hours): Vital Signs Pulse Resp BP Pulse Ox 05/24/18 08:00 90 29 H 100 05/24/18 07:55 91 H 25 H 122/71 99 05/24/18 07:00 93 H 21 97 05/24/18 06:56 91 H 20 114/69 90 L 05/24/18 06:32 101/62 05/24/18 06:17 101/62 05/24/18 05:56 92 H 16 145/70 99 05/24/18 05:28 92 H 22 138/63 100 05/24/18 05:00 97 H 20 100 05/24/18 04:55 94 H 20 138/63 98 Intake and Output (Last 8hrs): Intake & Output 05/23/18 05/24/18 05/24/18 22:59 06:59 14:59 Intake Total 481.2 131.2 7.8 Output Total 1500 1050 0 Balance -1018.8 -918.8 7.8 Weight 143 lb 4.807 oz Intake: IV 0 Intake, IV Amount 31.2 31.2 7.8 Left Forearm 31.2 31.2 7.8 Oral 450 100 0 Output: Urine 1500 1050 0 Urine, Voided 1500 1050 0 Other: # Voids Urine, Voided 1 # Bowel Movements 0 0 0 - Physical Exam Head: Positive for: Atraumatic, Normocephalic Pupils: Positive for: PERRL Extroacular Muscles: Positive for: EOMI Mouth: Positive for: Dry Neck: Positive for: Normal Range of Motion Respiratory/Chest: Positive for: Rales, Rhonchi Cardiovascular: Positive for: Normal S1, S2, Irregular Rhythm Abdomen: Positive for: Tenderness, Normal Bowel Sounds, Hernias (R inguinal hernia). Negative for: Distention, Peritoneal Signs, Rebound, Guarding Genitourinary Male: Positive for: Testicle Swelling (R scrotal swelling) Upper Extremity: Positive for: Normal Inspection, NORMAL PULSES, Neurovascularly Intact, Capillary Refill < 2s Lower Extremity: Positive for: Edema, NORMAL PULSES, Neurovascularly Intact, Capillary Refill < 2 s Neurological: Positive for: CN II-XII Intact Skin: Positive for: Warm, Dry, Normal Color Psychiatric: Positive for: Alert, Oriented x 3, Anxious, Depressed Mood - Medications Active Medications: Active Medications Generic Name Dose Route Start Last Admin Trade Name Freq PRN Reason Stop Dose Admin Acetaminophen 650 mg 05/22/18 10:21 Tylenol 325mg Tab PO Q6 PRN Pain, moderate (4-7) Albuterol/Ipratropium 3 ml 05/19/18 12:00 05/24/18 03:39 Duoneb 3 Mg/0.5 Mg (3 Ml) Ud INH 3 ml RQ4 AYDEE Administration Budesonide 0.5 mg 05/22/18 20:00 05/23/18 19:57 Pulmicort Respules INH 0.5 mg RQ12 AYDEE Administration Clopidogrel Bisulfate 75 mg 05/22/18 10:30 05/23/18 09:54 Plavix PO 75 mg DAILY AYDEE Administration Doxycycline Hyclate 100 mg 05/22/18 10:30 05/23/18 21:49 Doryx PO 100 mg Q12H AYDEE Administration Protocol Famotidine 20 mg 05/23/18 10:00 05/23/18 09:50 Pepcid PO 20 mg DAILY AYDEE Administration Fluticasone Propionate 2 spr 05/14/18 18:00 05/23/18 18:01 Flonase JESSICA 2 sprays BID AYDEE Administration Furosemide 40 mg 05/18/18 19:00 05/24/18 06:32 Lasix IVP 40 mg Q12H AYDEE Administration Gabapentin 300 mg 05/22/18 18:00 05/23/18 17:58 Neurontin PO 300 mg BID AYDEE Administration Hydralazine HCl 25 mg 05/17/18 18:00 05/23/18 17:58 Apresoline PO 25 mg TID AYDEE Administration Ceftriaxone Sodium 1 gm/ 100 mls @ 100 mls/hr 05/23/18 10:00 05/23/18 09:54 Sodium Chloride IVPB 100 mls/hr DAILY AYDEE Administration Protocol Milrinone Lactate/Dextrose 20 100 mls @ 4.51 mls/hr 05/24/18 03:00 05/24/18 05:28 mg/ Dextrose IV 0.17 mcg/kg/min .[id number] AYDEE 3.9 mls/hr Titration Protocol 0.2 MCG/KG/MIN Insulin Human Regular 0 unit 05/19/18 16:30 05/23/18 21:50 Novolin R SC Not Given ACHS AYDEE Protocol Isosorbide Mononitrate 60 mg 05/14/18 15:00 05/23/18 09:49 Imdur PO 60 mg DAILY AYDEE Administration Lidocaine 2 ea 05/22/18 12:30 05/23/18 09:52 Lidoderm TD 2 ea DAILY AYDEE Administration Metolazone 2.5 mg 05/23/18 10:00 05/23/18 09:51 Zaroxolyn PO 2.5 mg DAILY AYDEE Administration Metoprolol Tartrate 25 mg 05/17/18 16:27 05/23/18 17:58 Lopressor PO 25 mg BID AYDEE Administration Rosuvastatin Calcium 10 mg 05/14/18 22:00 05/23/18 21:49 Crestor PO 10 mg HS AYDEE Administration Vitamin A 1 ea 05/15/18 18:00 05/23/18 17:59 Vitamin A & D Oint Ud Foilpak TOP 1 ea BID AYDEE Administration - Patient Studies Lab Studies: Lab Studies 05/24/18 05/24/18 05/23/18 Range/Units 06:05 06:03 21:47 WBC 11.7 H (4.8-10.8) K/uL RBC 2.78 L (4.40-5.90) Mil/uL Hgb 7.6 L (12.0-18.0) g/dL Hct 24.1 L (35.0-51.0) % MCV 86.6 (80.0-94.0) fL MCH 27.5 (27.0-31.0) pg MCHC 31.7 L (33.0-37.0) g/dL RDW 15.9 H (11.5-14.5) % Plt Count 206 (130-400) K/uL MPV 8.7 (7.2-11.7) fL Neut % (Auto) 83.2 H (50.0-75.0) % Lymph % (Auto) 2.7 L (20.0-40.0) % [place] % (Auto) 13.6 H (0.0-10.0) % Eos % (Auto) 0.3 (0.0-4.0) % Baso % (Auto) 0.2 (0.0-2.0) % Neut # (Auto) 9.7 H (1.8-7.0) K/uL Lymph # (Auto) 0.3 L (1.0-4.3) K/uL [place] # (Auto) 1.6 H (0.0-0.8) K/uL Eos # (Auto) 0.0 (0.0-0.7) K/uL Baso # (Auto) 0.0 (0.0-0.2) K/uL Neutrophils % (Manual) 85 H (50-75) % Band Neutrophils % 2 (0-2) % Lymphocytes % (Manual) 1 L (20-40) % Monocytes % (Manual) 11 H (0-10) % Eosinophils % (Manual) 1 (0-4) % Platelet Estimate Normal (NORMAL) Hypochromasia (manual) Slight Poikilocytosis (manual Slight Basophilic Stippling Slight Anisocytosis (manual) Slight Target Cells Slight [place] Cells Slight Sodium 140 (132-148) mmol/L Potassium 3.6 (3.6-5.2) mmol/L Chloride 97 L (98-107) mmol/L Carbon Dioxide 35 H (22-30) mmol/L Anion Gap 11 (10-20) BUN 86 H (9-20) mg/dL Creatinine 1.4 (0.8-1.5) mg/dL Est GFR ( Amer) > 60 Est GFR (Non-Af Amer) 51 POC Glucose (mg/dL) 169 H (65-110) mg/dL Random Glucose 87 (75-110) mg/dL Calcium 9.1 (8.6-10.4) mg/dl Phosphorus 3.3 (2.5-4.5) mg/dL Magnesium 1.8 (1.6-2.3) mg/dL Total Bilirubin 1.8 H (0.2-1.3) mg/dL AST 54 (17-59) U/L ALT 60 (21-72) U/L Alkaline Phosphatase 88 (38-126) U/L Total Protein 6.8 (6.3-8.3) g/dL Albumin 3.9 (3.5-5.0) g/dL Globulin 2.8 (2.2-3.9) gm/dL Albumin/Globulin Ratio 1.4 (1.0-2.1) 05/23/18 05/23/18 05/23/18 Range/Units 16:18 16:01 11:08 WBC (4.8-10.8) K/uL RBC (4.40-5.90) Mil/uL Hgb (12.0-18.0) g/dL Hct (35.0-51.0) % MCV (80.0-94.0) fL MCH (27.0-31.0) pg MCHC (33.0-37.0) g/dL RDW (11.5-14.5) % Plt Count (130-400) K/uL MPV (7.2-11.7) fL Neut % (Auto) (50.0-75.0) % Lymph % (Auto) (20.0-40.0) % [place] % (Auto) (0.0-10.0) % Eos % (Auto) (0.0-4.0) % Baso % (Auto) (0.0-2.0) % Neut # (Auto) (1.8-7.0) K/uL Lymph # (Auto) (1.0-4.3) K/uL [place] # (Auto) (0.0-0.8) K/uL Eos # (Auto) (0.0-0.7) K/uL Baso # (Auto) (0.0-0.2) K/uL Neutrophils % (Manual) (50-75) % Band Neutrophils % (0-2) % Lymphocytes % (Manual) (20-40) % Monocytes % (Manual) (0-10) % Eosinophils % (Manual) (0-4) % Platelet Estimate (NORMAL) Hypochromasia (manual) Poikilocytosis (manual Basophilic Stippling Anisocytosis (manual) Target Cells [place] Cells Sodium (132-148) mmol/L Potassium (3.6-5.2) mmol/L Chloride (98-107) mmol/L Carbon Dioxide (22-30) mmol/L Anion Gap (10-20) BUN (9-20) mg/dL Creatinine (0.8-1.5) mg/dL Est GFR ( Amer) Est GFR (Non-Af Amer) POC Glucose (mg/dL) 86 67 152 H (65-110) mg/dL Random Glucose (75-110) mg/dL Calcium (8.6-10.4) mg/dl Phosphorus (2.5-4.5) mg/dL Magnesium (1.6-2.3) mg/dL Total Bilirubin (0.2-1.3) mg/dL AST (17-59) U/L ALT (21-72) U/L Alkaline Phosphatase (38-126) U/L Total Protein (6.3-8.3) g/dL Albumin (3.5-5.0) g/dL Globulin (2.2-3.9) gm/dL Albumin/Globulin Ratio (1.0-2.1) 05/23/18 Range/Units 07:23 WBC (4.8-10.8) K/uL RBC (4.40-5.90) Mil/uL Hgb (12.0-18.0) g/dL Hct (35.0-51.0) % MCV (80.0-94.0) fL MCH (27.0-31.0) pg MCHC (33.0-37.0) g/dL RDW (11.5-14.5) % Plt Count (130-400) K/uL MPV (7.2-11.7) fL Neut % (Auto) (50.0-75.0) % Lymph % (Auto) (20.0-40.0) % [place] % (Auto) (0.0-10.0) % Eos % (Auto) (0.0-4.0) % Baso % (Auto) (0.0-2.0) % Neut # (Auto) (1.8-7.0) K/uL Lymph # (Auto) (1.0-4.3) K/uL [place] # (Auto) (0.0-0.8) K/uL Eos # (Auto) (0.0-0.7) K/uL Baso # (Auto) (0.0-0.2) K/uL Neutrophils % (Manual) (50-75) % Band Neutrophils % (0-2) % Lymphocytes % (Manual) (20-40) % Monocytes % (Manual) (0-10) % Eosinophils % (Manual) (0-4) % Platelet Estimate (NORMAL) Hypochromasia (manual) Poikilocytosis (manual Basophilic Stippling Anisocytosis (manual) Target Cells [place] Cells Sodium (132-148) mmol/L Potassium (3.6-5.2) mmol/L Chloride (98-107) mmol/L Carbon Dioxide (22-30) mmol/L Anion Gap (10-20) BUN (9-20) mg/dL Creatinine (0.8-1.5) mg/dL Est GFR ( Amer) Est GFR (Non-Af Amer) POC Glucose (mg/dL) 99 (65-110) mg/dL Random Glucose (75-110) mg/dL Calcium (8.6-10.4) mg/dl Phosphorus (2.5-4.5) mg/dL Magnesium (1.6-2.3) mg/dL Total Bilirubin (0.2-1.3) mg/dL AST (17-59) U/L ALT (21-72) U/L Alkaline Phosphatase (38-126) U/L Total Protein (6.3-8.3) g/dL Albumin (3.5-5.0) g/dL Globulin (2.2-3.9) gm/dL Albumin/Globulin Ratio (1.0-2.1) Laboratory Results - last 24 hr 05/23/18 05/23/18 05/23/18 07:23 11:08 16:01 WBC RBC Hgb Hct MCV MCH MCHC RDW Plt Count MPV Neut % (Auto) Lymph % (Auto) [place] % (Auto) Eos % (Auto) Baso % (Auto) Neut # (Auto) Lymph # (Auto) [place] # (Auto) Eos # (Auto) Baso # (Auto) Neutrophils % (Manual) Band Neutrophils % Lymphocytes % (Manual) Monocytes % (Manual) Eosinophils % (Manual) Platelet Estimate Hypochromasia (manual) Poikilocytosis (manual Basophilic Stippling Anisocytosis (manual) Target Cells Rikki Cells Sodium Potassium Chloride Carbon Dioxide Anion Gap BUN Creatinine Est GFR ( Amer) Est GFR (Non-Af Amer) POC Glucose (mg/dL) 99 152 H 67 Random Glucose Calcium Phosphorus Magnesium Total Bilirubin AST ALT Alkaline Phosphatase Total Protein Albumin Globulin Albumin/Globulin Ratio 05/23/18 05/23/18 05/24/18 16:18 21:47 06:03 WBC RBC Hgb Hct MCV MCH MCHC RDW Plt Count MPV Neut % (Auto) Lymph % (Auto) [place] % (Auto) Eos % (Auto) Baso % (Auto) Neut # (Auto) Lymph # (Auto) [place] # (Auto) Eos # (Auto) Baso # (Auto) Neutrophils % (Manual) Band Neutrophils % Lymphocytes % (Manual) Monocytes % (Manual) Eosinophils % (Manual) Platelet Estimate Hypochromasia (manual) Poikilocytosis (manual Basophilic Stippling Anisocytosis (manual) Target Cells Rikki Cells Sodium 140 Potassium 3.6 Chloride 97 L Carbon Dioxide 35 H Anion Gap 11 BUN 86 H Creatinine 1.4 Est GFR ( Amer) > 60 Est GFR (Non-Af Amer) 51 POC Glucose (mg/dL) 86 169 H Random Glucose 87 Calcium 9.1 Phosphorus 3.3 Magnesium 1.8 Total Bilirubin 1.8 H AST 54 ALT 60 Alkaline Phosphatase 88 Total Protein 6.8 Albumin 3.9 Globulin 2.8 Albumin/Globulin Ratio 1.4 05/24/18 06:05 WBC 11.7 H RBC 2.78 L Hgb 7.6 L Hct 24.1 L MCV 86.6 MCH 27.5 MCHC 31.7 L RDW 15.9 H Plt Count 206 MPV 8.7 Neut % (Auto) 83.2 H Lymph % (Auto) 2.7 L [place] % (Auto) 13.6 H Eos % (Auto) 0.3 Baso % (Auto) 0.2 Neut # (Auto) 9.7 H Lymph # (Auto) 0.3 L [place] # (Auto) 1.6 H Eos # (Auto) 0.0 Baso # (Auto) 0.0 Neutrophils % (Manual) 85 H Band Neutrophils % 2 Lymphocytes % (Manual) 1 L Monocytes % (Manual) 11 H Eosinophils % (Manual) 1 Platelet Estimate Normal Hypochromasia (manual) Slight Poikilocytosis (manual Slight Basophilic Stippling Slight Anisocytosis (manual) Slight Target Cells Slight Rikki Cells Slight Sodium Potassium Chloride Carbon Dioxide Anion Gap BUN Creatinine Est GFR ( Amer) Est GFR (Non-Af Amer) POC Glucose (mg/dL) Random Glucose Calcium Phosphorus Magnesium Total Bilirubin AST ALT Alkaline Phosphatase Total Protein Albumin Globulin Albumin/Globulin Ratio Fingerstick Blood Sugar Results: 65 Review of Systems - Review of Systems All systems: reviewed and no additional remarkable complaints except Review of Systems: as per HPI Critical Care Progress Note - Nutrition Nutrition: Nutrition Category Date Time Status Heart Healthy Diet [DIET] Diets 05/14/18 Breakfast Active Assessment/Plan - Assessment and Plan (Free Text) Assessment: 68 yo male with past medical history of CHF, Afib on Coumadin, aortic/mitral/tricuspid valve replacement, CAD and CABG admitted for 2-3 week history of shortness of breath and cough that worsened over last 2-3 days. CTC- massive cardiomegaly, severe systolic CHF, multifocal PNA. Plan: Neuro: Neuropathic pain -on neurontin 100 TID Pulm: Hypoxic respiratory failure -still needing bipap Pneumonia -afebrile, no leukocytosis -CXR (05/21): R basilar opacity unchanged. Cardiomegaly. AICD. Possible very small b/l pleural effusion. Congestive changes. -duonebs, pulmicort -on rocephin, doxycycline CV: Acute on chronic systolic heart failure Hx of aortic/mitral/tricuspid valve replacement s/p AICD placement, CABG -ECHO from 02/05/18: EF 35% -remains dyspneic requiring intermittent bipap use -milrinone ggt -lasix 40 BID -imdur 60 daily -hydralazine 25 tid -Lopressor 25 bid -metolazone 2.5 daily -Cardio recs (Dr. Pantoja) appreciated: Pt has not improved, in spite of diuresis. Echo reviewed: LV systolic function somewhat better with milrinone, but still moderately reduced. Prosthetic valves are not obstructed. Pt is know to Bess reggie and Dr Masood Chauhan, head of transplantation. Will reach out to him re:transfer CAD w/ CABG -asa, plavix, statin, BB, imdur Heme: Atrial fibrillation -INR 3.7 (05/23) -anticoagulation not indicated at this time in setting of elevated INR -per Cardio: interrogation of AICD revealed abscence of atrial lead, which could ID possible underlying AF. EKG and telemetry without discernible P waves,Cont with anticoagulation,planning for EP input Renal: LOUISE -Pt had baseline Cr of 1.5, jin to 2.0 with diuretics -likely 2/2 diuretics, patient needs diuretics to keep him dry CKD 3 -Nephrology on board: check renal us, quantify urine protein. Maintain Bumex, hold ARBs. GI: -Abdomen obstruction series XR (05/24): Large R groin possibly R scrotal bowel containing hernia. A complete or high grade bowel obstruction seen. -NPO for now except meds : Large R inguinal hernia Hematoma -CT abd/pelvis (05/24): New R anterior abdominal wall rectus muscle/sheath hematoma, 11.2 x 6 cm. Large R inguinal hernia contains bowel loop without evidence of bowel obstruction or incarceration. Mild to moderate constipation. Gallstones without evidence of acute cholecystitis. Cardiomegaly. -f/u Surgical recs ID: -on rocephin, doxycycline PPx, Diet, Disposition -GI: protonix -Diet: NPO -Code status: Full code Case discussed with Dr. Leodan Love DO, PGY-1 <Shaun Alcocer - Last Filed: 05/25/18 16:05> CCU Objective - Vital Signs / Intake & Output Vital Signs (Last 4 hours): Vital Signs Pulse Resp BP Pulse Ox 05/25/18 15:00 90 26 H 93 L 05/25/18 14:37 90 27 H 103/61 95 05/25/18 14:07 92 H 28 H 109/57 L 94 L 05/25/18 14:00 91 H 19 96 05/25/18 13:37 103/65 05/25/18 13:07 90 14 107/60 93 L 05/25/18 13:00 90 31 H 94 L 05/25/18 12:37 91 H 22 108/59 L 98 05/25/18 12:08 90 24 111/66 95 Intake and Output (Last 8hrs): Intake & Output 11/05/25/18 05/25/18 06:59 14:59 22:59 Intake Total 635.1 965.1 3.9 Output Total 1100 1300 Balance -464.9 -334.9 3.9 Weight 145 lb 4 oz Intake: IV 100 Intake, IV Amount 195.1 145.1 3.9 Left Forearm 35.1 35.1 3.9 Right Forearm 160 110 Oral 390 720 Other 50 Red Blood Cells Cpd As1 50 Lr Unit [id number] Output: Urine 1100 1300 Urine, Voided 1100 1300 Other: # Bowel Movements 0 - Medications Active Medications: Active Medications Generic Name Dose Route Start Last Admin Trade Name Freq PRN Reason Stop Dose Admin Acetaminophen 650 mg 05/22/18 10:21 05/25/18 11:38 Tylenol 325mg Tab PO 650 mg Q6 PRN Administration Pain, moderate (4-7) Budesonide 0.5 mg 05/22/18 20:00 05/25/18 08:11 Pulmicort Respules INH 0.5 mg RQ12 AYDEE Administration Clopidogrel Bisulfate 75 mg 05/22/18 10:30 05/25/18 09:31 Plavix PO 75 mg DAILY AYDEE Administration Doxycycline Hyclate 100 mg 05/22/18 10:30 05/25/18 09:33 Doryx PO 100 mg Q12H AYDEE Administration Protocol Famotidine 20 mg 05/23/18 10:00 05/25/18 09:31 Pepcid PO 20 mg DAILY AYEDE Administration Fluticasone Propionate 2 spr 05/14/18 18:00 05/25/18 09:29 Flonase JESSICA 2 sprays BID AYDEE Administration Furosemide 40 mg 05/18/18 19:00 05/25/18 05:59 Lasix IVP 40 mg Q12H AYDEE Administration Gabapentin 300 mg 05/22/18 18:00 05/25/18 09:31 Neurontin PO 300 mg BID AYDEE Administration Hydralazine HCl 25 mg 05/17/18 18:00 05/25/18 14:53 Apresoline PO 25 mg TID AYDEE Administration Ceftriaxone Sodium 1 gm/ 100 mls @ 100 mls/hr 05/23/18 10:00 05/25/18 09:43 Sodium Chloride IVPB 100 mls/hr DAILY AYDEE Administration Protocol Milrinone Lactate/Dextrose 20 100 mls @ 4.51 mls/hr 05/24/18 03:00 05/25/18 09:44 mg/ Dextrose IV 0.17 mcg/kg/min .[id number] AYDEE 3.9 mls/hr Administration Protocol 0.2 MCG/KG/MIN Insulin Human Regular 0 unit 05/19/18 16:30 05/25/18 12:44 Novolin R SC 2 u ACHS AYDEE Administration Protocol Isosorbide Mononitrate 60 mg 05/14/18 15:00 05/25/18 09:29 Imdur PO 60 mg DAILY AYDEE Administration Lidocaine 2 ea 05/22/18 12:30 05/25/18 09:29 Lidoderm TD 2 ea DAILY AYDEE Administration Metolazone 2.5 mg 05/23/18 10:00 05/25/18 09:32 Zaroxolyn PO 2.5 mg DAILY AYDEE Administration Metoprolol Tartrate 25 mg 05/17/18 16:27 05/25/18 09:30 Lopressor PO 25 mg BID AYDEE Administration Morphine Sulfate 2 mg 05/24/18 09:48 05/24/18 16:48 Morphine IV 2 mg Q3 PRN Administration PAIN, SEVERE 8-10 Phytonadione 10 mg 05/24/18 19:05 05/25/18 09:31 Vitamin K Inj IM 05/26/18 10:01 10 mg DAILY AYDEE Administration Phytonadione 10 mg 05/25/18 10:00 Vitamin K Inj IV BID AYDEE Rosuvastatin Calcium 10 mg 05/14/18 22:00 05/24/18 21:46 Crestor PO 10 mg HS AYDEE Administration Vitamin A 1 ea 05/15/18 18:00 05/25/18 09:32 Vitamin A & D Oint Ud Foilpak TOP 1 ea BID AYDEE Administration - Patient Studies Lab Studies: Lab Studies 05/25/18 05/25/18 05/25/18 Range/Units 11:06 07:23 05:42 WBC (4.8-10.8) K/uL RBC (4.40-5.90) Mil/uL Hgb (12.0-18.0) g/dL Hct (35.0-51.0) % MCV (80.0-94.0) fL MCH (27.0-31.0) pg MCHC (33.0-37.0) g/dL RDW (11.5-14.5) % Plt Count (130-400) K/uL MPV (7.2-11.7) fL Neut % (Auto) (50.0-75.0) % Lymph % (Auto) (20.0-40.0) % [place] % (Auto) (0.0-10.0) % Eos % (Auto) (0.0-4.0) % Baso % (Auto) (0.0-2.0) % Neut # (Auto) (1.8-7.0) K/uL Lymph # (Auto) (1.0-4.3) K/uL [place] # (Auto) (0.0-0.8) K/uL Eos # (Auto) (0.0-0.7) K/uL Baso # (Auto) (0.0-0.2) K/uL Neutrophils % (Manual) (50-75) % Lymphocytes % (Manual) (20-40) % Monocytes % (Manual) (0-10) % Platelet Estimate (NORMAL) Hypochromasia (manual) Poikilocytosis (manual Anisocytosis (manual) Microcytosis (manual) Target Cells Tear Drop Cells Ovalocytes Rikki Cells PT 24.5 H D (9.7-12.2) SECONDS INR 2.2 D Sodium (132-148) mmol/L Potassium (3.6-5.2) mmol/L Chloride (98-107) mmol/L Carbon Dioxide (22-30) mmol/L Anion Gap (10-20) BUN (9-20) mg/dL Creatinine (0.8-1.5) mg/dL Est GFR ( Amer) Est GFR (Non-Af Amer) POC Glucose (mg/dL) 187 H 120 H (65-110) mg/dL Random Glucose (75-110) mg/dL Calcium (8.6-10.4) mg/dl Phosphorus (2.5-4.5) mg/dL Magnesium (1.6-2.3) mg/dL Total Bilirubin (0.2-1.3) mg/dL AST (17-59) U/L ALT (21-72) U/L Alkaline Phosphatase (38-126) U/L Total Protein (6.3-8.3) g/dL Albumin (3.5-5.0) g/dL Globulin (2.2-3.9) gm/dL Albumin/Globulin Ratio (1.0-2.1) Blood Type Antibody Screen 05/25/18 05/25/18 05/24/18 Range/Units 05:42 05:42 22:12 WBC 11.7 H (4.8-10.8) K/uL RBC 2.98 L (4.40-5.90) Mil/uL Hgb 8.4 L (12.0-18.0) g/dL Hct 25.8 L (35.0-51.0) % MCV 86.5 (80.0-94.0) fL MCH 28.1 (27.0-31.0) pg MCHC 32.4 L (33.0-37.0) g/dL RDW 15.2 H (11.5-14.5) % Plt Count 180 (130-400) K/uL MPV 9.5 (7.2-11.7) fL Neut % (Auto) 85.0 H (50.0-75.0) % Lymph % (Auto) 1.9 L (20.0-40.0) % [place] % (Auto) 12.7 H (0.0-10.0) % Eos % (Auto) 0.4 (0.0-4.0) % Baso % (Auto) 0.0 (0.0-2.0) % Neut # (Auto) 9.9 H (1.8-7.0) K/uL Lymph # (Auto) 0.2 L (1.0-4.3) K/uL [place] # (Auto) 1.5 H (0.0-0.8) K/uL Eos # (Auto) 0.0 (0.0-0.7) K/uL Baso # (Auto) 0.0 (0.0-0.2) K/uL Neutrophils % (Manual) 89 H (50-75) % Lymphocytes % (Manual) 3 L (20-40) % Monocytes % (Manual) 8 (0-10) % Platelet Estimate Normal (NORMAL) Hypochromasia (manual) Slight Poikilocytosis (manual Slight Anisocytosis (manual) Slight Microcytosis (manual) Slight Target Cells Slight Tear Drop Cells Slight Ovalocytes Slight Rikki Cells Slight PT (9.7-12.2) SECONDS INR Sodium 136 (132-148) mmol/L Potassium 3.7 (3.6-5.2) mmol/L Chloride 93 L (98-107) mmol/L Carbon Dioxide 34 H (22-30) mmol/L Anion Gap 13 (10-20) BUN 82 H (9-20) mg/dL Creatinine 1.4 (0.8-1.5) mg/dL Est GFR ( Amer) > 60 Est GFR (Non-Af Amer) 51 POC Glucose (mg/dL) 103 (65-110) mg/dL Random Glucose 125 H (75-110) mg/dL Calcium 8.7 (8.6-10.4) mg/dl Phosphorus 3.9 (2.5-4.5) mg/dL Magnesium 1.9 (1.6-2.3) mg/dL Total Bilirubin 1.6 H (0.2-1.3) mg/dL AST 39 (17-59) U/L ALT 48 (21-72) U/L Alkaline Phosphatase 79 (38-126) U/L Total Protein 6.2 L (6.3-8.3) g/dL Albumin 3.8 (3.5-5.0) g/dL Globulin 2.5 (2.2-3.9) gm/dL Albumin/Globulin Ratio 1.5 (1.0-2.1) Blood Type Antibody Screen 05/24/18 05/24/18 Range/Units 16:17 10:57 WBC (4.8-10.8) K/uL RBC (4.40-5.90) Mil/uL Hgb (12.0-18.0) g/dL Hct (35.0-51.0) % MCV (80.0-94.0) fL MCH (27.0-31.0) pg MCHC (33.0-37.0) g/dL RDW (11.5-14.5) % Plt Count (130-400) K/uL MPV (7.2-11.7) fL Neut % (Auto) (50.0-75.0) % Lymph % (Auto) (20.0-40.0) % [place] % (Auto) (0.0-10.0) % Eos % (Auto) (0.0-4.0) % Baso % (Auto) (0.0-2.0) % Neut # (Auto) (1.8-7.0) K/uL Lymph # (Auto) (1.0-4.3) K/uL [place] # (Auto) (0.0-0.8) K/uL Eos # (Auto) (0.0-0.7) K/uL Baso # (Auto) (0.0-0.2) K/uL Neutrophils % (Manual) (50-75) % Lymphocytes % (Manual) (20-40) % Monocytes % (Manual) (0-10) % Platelet Estimate (NORMAL) Hypochromasia (manual) Poikilocytosis (manual Anisocytosis (manual) Microcytosis (manual) Target Cells Tear Drop Cells Ovalocytes [place] Cells PT (9.7-12.2) SECONDS INR Sodium (132-148) mmol/L Potassium (3.6-5.2) mmol/L Chloride (98-107) mmol/L Carbon Dioxide (22-30) mmol/L Anion Gap (10-20) BUN (9-20) mg/dL Creatinine (0.8-1.5) mg/dL Est GFR ( Amer) Est GFR (Non-Af Amer) POC Glucose (mg/dL) 87 (65-110) mg/dL Random Glucose (75-110) mg/dL Calcium (8.6-10.4) mg/dl Phosphorus (2.5-4.5) mg/dL Magnesium (1.6-2.3) mg/dL Total Bilirubin (0.2-1.3) mg/dL AST (17-59) U/L ALT (21-72) U/L Alkaline Phosphatase (38-126) U/L Total Protein (6.3-8.3) g/dL Albumin (3.5-5.0) g/dL Globulin (2.2-3.9) gm/dL Albumin/Globulin Ratio (1.0-2.1) Blood Type A POSITIVE Antibody Screen Negative Laboratory Results - last 24 hr 05/24/18 05/24/18 05/24/18 10:57 16:17 22:12 WBC RBC Hgb Hct MCV MCH MCHC RDW Plt Count MPV Neut % (Auto) Lymph % (Auto) [place] % (Auto) Eos % (Auto) Baso % (Auto) Neut # (Auto) Lymph # (Auto) [place] # (Auto) Eos # (Auto) Baso # (Auto) Neutrophils % (Manual) Lymphocytes % (Manual) Monocytes % (Manual) Platelet Estimate Hypochromasia (manual) Poikilocytosis (manual Anisocytosis (manual) Microcytosis (manual) Target Cells Tear Drop Cells Ovalocytes Rikki Cells PT INR Sodium Potassium Chloride Carbon Dioxide Anion Gap BUN Creatinine Est GFR ( Amer) Est GFR (Non-Af Amer) POC Glucose (mg/dL) 87 103 Random Glucose Calcium Phosphorus Magnesium Total Bilirubin AST ALT Alkaline Phosphatase Total Protein Albumin Globulin Albumin/Globulin Ratio Blood Type A POSITIVE Antibody Screen Negative 05/25/18 05/25/18 05/25/18 05:42 05:42 05:42 WBC 11.7 H RBC 2.98 L Hgb 8.4 L Hct 25.8 L MCV 86.5 MCH 28.1 MCHC 32.4 L RDW 15.2 H Plt Count 180 MPV 9.5 Neut % (Auto) 85.0 H Lymph % (Auto) 1.9 L [place] % (Auto) 12.7 H Eos % (Auto) 0.4 Baso % (Auto) 0.0 Neut # (Auto) 9.9 H Lymph # (Auto) 0.2 L [place] # (Auto) 1.5 H Eos # (Auto) 0.0 Baso # (Auto) 0.0 Neutrophils % (Manual) 89 H Lymphocytes % (Manual) 3 L Monocytes % (Manual) 8 Platelet Estimate Normal Hypochromasia (manual) Slight Poikilocytosis (manual Slight Anisocytosis (manual) Slight Microcytosis (manual) Slight Target Cells Slight Tear Drop Cells Slight Ovalocytes Slight R[place]ki Cells Slight PT 24.5 H D INR 2.2 D Sodium 136 Potassium 3.7 Chloride 93 L Carbon Dioxide 34 H Anion Gap 13 BUN 82 H Creatinine 1.4 Est GFR ( Amer) > 60 Est GFR (Non-Af Amer) 51 POC Glucose (mg/dL) Random Glucose 125 H Calcium 8.7 Phosphorus 3.9 Magnesium 1.9 Total Bilirubin 1.6 H AST 39 ALT 48 Alkaline Phosphatase 79 Total Protein 6.2 L Albumin 3.8 Globulin 2.5 Albumin/Globulin Ratio 1.5 Blood Type Antibody Screen 05/25/18 05/25/18 07:23 11:06 WBC RBC Hgb Hct MCV MCH MCHC RDW Plt Count MPV Neut % (Auto) Lymph % (Auto) [place] % (Auto) Eos % (Auto) Baso % (Auto) Neut # (Auto) Lymph # (Auto) [place] # (Auto) Eos # (Auto) Baso # (Auto) Neutrophils % (Manual) Lymphocytes % (Manual) Monocytes % (Manual) Platelet Estimate Hypochromasia (manual) Poikilocytosis (manual Anisocytosis (manual) Microcytosis (manual) Target Cells Tear Drop Cells Ovalocytes Rikki Cells PT INR Sodium Potassium Chloride Carbon Dioxide Anion Gap BUN Creatinine Est GFR ( Amer) Est GFR (Non-Af Amer) POC Glucose (mg/dL) 120 H 187 H Random Glucose Calcium Phosphorus Magnesium Total Bilirubin AST ALT Alkaline Phosphatase Total Protein Albumin Globulin Albumin/Globulin Ratio Blood Type Antibody Screen Critical Care Progress Note - Nutrition Nutrition: Nutrition Category Date Time Status Heart Healthy Diet [DIET] Diets 05/24/18 Dinner Active NPO Diet [DIET] Diets 05/26/18 Dinner Active NPO Diet [DIET] Diets 05/27/18 Breakfast Active Attending/Attestation - Attestation Notes (Text): patient seen and examined in the intensive care . Patient remains on BiPAP for shortness of breath Continue diuretics Surgery consulted for inguinal hernia and plan for reduction under local anesthesia as patient is a high-risk Continue present treatment for now Continue milrinone drip
--- NOTE | 2018-05-24 09:50 | CP.PCM.PN ---
Subjective - Date & Time of Evaluation Date of Evaluation: 05/24/18 Time of Evaluation: 09:15 - Subjective Subjective: Patient explains he has a history of inguinal hernia and early this morning developed a lot of scrotal swelling and also abdominal pain. On exam he has the ongoing shortness of breath with rhales/crackes however today with a lot of abdominal pain with palpation of the abdomen as well as the inguinal area. Obstructive series ordered and there will be a CT of the abdomen and pelvis in case there is complication of the hernia. The concern is if he does have complication with this hernia then it maybe very difficult for patient to go to OR if he requires surgery Objective - Vital Signs/Intake and Output Vital Signs (last 24 hours): Temp Pulse Resp BP Pulse Ox 98 F 90 29 H 122/71 100 05/24/18 04:00 05/24/18 08:00 05/24/18 08:00 05/24/18 07:55 05/24/18 08:00 Intake and Output: 05/24/18 05/24/18 06:59 18:59 Intake Total 396.8 7.8 Output Total 1750 0 Balance -1353.2 7.8 - Medications Medications: Current Medications Acetaminophen (Tylenol 325mg Tab) 650 mg PO Q6 PRN PRN Reason: Pain, moderate (4-7) Albuterol/Ipratropium (Duoneb 3 Mg/0.5 Mg (3 Ml) Ud) 3 ml INH RQ4 [facility] Last Admin: 05/24/18 03:39 Dose: 3 ml Budesonide (Pulmicort Respules) 0.5 mg INH RQ12 [facility] Last Admin: 05/23/18 19:57 Dose: 0.5 mg Clopidogrel Bisulfate (Plavix) 75 mg PO DAILY [facility] Last Admin: 05/23/18 09:54 Dose: 75 mg Doxycycline Hyclate (Doryx) 100 mg PO Q12H [facility]; Protocol Last Admin: 05/23/18 21:49 Dose: 100 mg Famotidine (Pepcid) 20 mg PO DAILY [facility] Last Admin: 05/23/18 09:50 Dose: 20 mg Fluticasone Propionate (Flonase) 2 spr JESSICA BID [facility] Last Admin: 05/23/18 18:01 Dose: 2 sprays Furosemide (Lasix) 40 mg IVP Q12H [facility] Last Admin: 05/24/18 06:32 Dose: 40 mg Gabapentin (Neurontin) 300 mg PO BID [facility] Last Admin: 05/23/18 17:58 Dose: 300 mg Hydralazine HCl (Apresoline) 25 mg PO TID [facility] Last Admin: 05/23/18 17:58 Dose: 25 mg Ceftriaxone Sodium 1 gm/ (Sodium Chloride) 100 mls @ 100 mls/hr IVPB DAILY [facility]; Protocol Last Admin: 05/23/18 09:54 Dose: 100 mls/hr Milrinone Lactate/Dextrose 20 (mg/ Dextrose) 100 mls @ 4.51 mls/hr IV .[id number] [facility]; Protocol Last Titration: 05/24/18 05:28 Dose: 0.17 mcg/kg/min, 3.9 mls/hr Insulin Human Regular (Novolin R) 0 unit SC ACHS [facility]; Protocol Last Admin: 05/23/18 21:50 Dose: Not Given Isosorbide Mononitrate (Imdur) 60 mg PO DAILY [facility] Last Admin: 05/23/18 09:49 Dose: 60 mg Lidocaine (Lidoderm) 2 ea TD DAILY [facility] Last Admin: 05/23/18 09:52 Dose: 2 ea Metolazone (Zaroxolyn) 2.5 mg PO DAILY [facility] Last Admin: 05/23/18 09:51 Dose: 2.5 mg Metoprolol Tartrate (Lopressor) 25 mg PO BID [facility] Last Admin: 05/23/18 17:58 Dose: 25 mg Rosuvastatin Calcium (Crestor) 10 mg PO HS [facility] Last Admin: 05/23/18 21:49 Dose: 10 mg Vitamin A (Vitamin A & D Oint Ud Foilpak) 1 ea TOP BID [facility] Last Admin: 05/23/18 17:59 Dose: 1 ea - Labs Labs: 05/24/18 06:05 05/24/18 06:03 PT 40.2 SECONDS (9.7-12.2) H D 05/23/18 05:37 INR 3.7 H* 05/23/18 05:37 APTT 84 SECONDS (21-34) H D 05/20/18 02:40 - Constitutional Appears: Unkempt, Chronically Ill - Head Exam Head Exam: NORMAL INSPECTION - Eye Exam Eye Exam: EOMI - ENT Exam ENT Exam: Mucous Membranes Moist - Respiratory Exam Respiratory Exam: Decreased Breath Sounds, Rales - Cardiovascular Exam Cardiovascular Exam: Irregular Rhythm - GI/Abdominal Exam GI & Abdominal Exam: Guarding, Tenderness Additional comments: Hernia right side inguinal hernia. - Neurological Exam Neurological Exam: Alert, Awake, Oriented x3 Neuro motor strength exam: Left Upper Extremity: 5, Right Upper Extremity: 5 - Psychiatric Exam Psychiatric exam: Anxious, Flat Affect - Skin Skin Exam: Normal Color, Warm Assessment and Plan - Assessment and Plan (Free Text) Assessment: 1. Acute on chronic systolic heart failure History of Aortic valve replacement, Mitral valve replacement, Tricuspid valve replacement AICD ,CABG 05/24: Again has to use Bipap at night and intermittently throughout the day. Urine out put was 1250 yesterday. And he remains on the IV Milrinone ggt as well as Lasix and Zaroxyln 05/23: Patient remains short of breath requiring the Bipap at night and most the day. He has been on the milrinone and lasix and zaroxyln INR 3.7. 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 Abdominal pain - inguinal hernia Patient has inguinal hernia and it having significant amount of pain. NPO now except meds, also obstructive3 series ordered and CT scan of the abdomen and pelvis in case there could be an obstruction 2. Pneumonia w/ shortness of breath 05/23: Currently afebrile and WBC stable. He is on pulmicort and doxycycline Today we added pulmicort,on ceftriaxone and doxy Duonebs PRN Chest x ray without changes ECHO from 02/05/18: EF 35% CXR: Moderate to severe venous congestion with prominent consolidative opacities within mid to lower lung zones. small bilateral pleural effusions. Aortic atherosclertic calcification noted. Enlarged heart with prominent cardiomegaly. Prior valve replacements. Left sided pacemaker. Status post median sternotomy. Degenerative changes in spine and shoulders. Calcifications within the right axilla. CT chest: multilobar pna CXR; severe venous congestion 3.CAD w/ CABG 05/23: Patient remains on crestor, imdur, plavix, ASA, BB Crestor 10mg po HS lasix 40mg bid Imdur 60mg po daily Metoprolol 25mg po bid andrés Zaroxylin 4.LOUISE Likely prerenal in etiology with low blood pressure setting and anemia Nephrology consulted Cardiorenal etiology with increased diuretics patient Cr loses 5.Atrial fibrillation INR 3.7 today (as per metal fabricating shop helper Interrogation of AICD (Mary) revealed abscence of atrial lead, which could ID possible underlying AF EKG and telemetry without discernible P waves,Cont with anticoagulation,planning for EP input) 6.Chronic pain Gabapentin 100mg po tid HTN Bumex/Imdur/Lopressor/Hydralazine PPx Influenza vaccine DVT ppx: not indicated at this time in setting of elevated INR GI ppx: protonix 40mg daily andrés
[2018-05-24] MEDS: Vitamins A & D Oint UD Foilpak TOP SCH ×2 (10:00→18:35)
[2018-05-24] MEDS: metOLazone 2.5 MG TAB PO SCH (10:07)
[2018-05-24] MEDS: Fluticasone Nasal 50 mcg/Spray NAS SCH ×2 (10:08→18:34)
[2018-05-24] MEDS: Lidocaine 5% Patch TD SCH (10:08)
--- NOTE | 2018-05-24 12:48 | CT ---
Date of service: 05/24/2018 PROCEDURE: CT Abdomen and Pelvis without intravenous contrast HISTORY: new onset abdominal pain, r/o bleed COMPARISON: Comparison is made with the previous study dated 09/20/2014 TECHNIQUE: Axial and reformatted coronal and sagittal CT images of the head abdomen and pelvis were obtained without IV or oral contrast administration.. Contrast dose: 0 Radiation dose: Total exam DLP = 848.34 mGy-cm. This CT exam was performed using one or more of the following dose reduction techniques: Automated exposure control, adjustment of the mA and/or kV according to patient size, and/or use of iterative reconstruction technique. FINDINGS: LOWER THORAX: Markedly enlargement of the heart is again noted. Metallic wires are extending to the heart. There is airspace consolidation at the right lower lobe may represent pneumonia atelectasis or in post neoplasm consolidation. There is also left lung base airspace consolidation. Trace bilateral pleural effusions are noted. LIVER: Mild hepatomegaly is noted. GALLBLADDER AND BILE DUCTS: Gallstones are noted without evidence of acute cholecystitis or biliary obstruction. PANCREAS: Unremarkable. No gross lesion or ductal dilatation. SPLEEN: Unremarkable. ADRENALS: Unremarkable. No mass. KIDNEYS AND URETERS: Unremarkable. No hydronephrosis. No solid mass. VASCULATURE: Unremarkable. No aortic aneurysm. There are scattered aortic atherosclerotic calcification. BOWEL: Ebpu-fo-zvhseypn constipation noted. No obstruction. No gross mural thickening. APPENDIX: No evidence of appendicitis. PERITONEUM: Unremarkable. No free fluid. No free air. LYMPH NODES: Unremarkable. No enlarged lymph nodes. BLADDER: Unremarkable. REPRODUCTIVE: The prostate is moderately enlarged. BONES: No acute fracture. OTHER FINDINGS: Interval appearance of heterogeneous hematoma in the right anterior rectal muscle/sheath which measures 11.2 centimeter in the transverse diameter and 6 centimeter in the largest AP diameter. Interval appearance of moderate to large size right inguinal hernia contains bowel loops without evidence of bowel obstruction or incarceration. IMPRESSION: New right anterior abdominal wall rectus muscle/sheath hematoma measures 11.2 x 6 centimeter. Large right inguinal hernia contains bowel loop without evidence of bowel obstruction or incarceration. Ocxj-yq-pvozywza constipation. Gallstones without evidence of acute cholecystitis. Cardiomegaly.
[2018-05-24] MEDS: (Novolin R) Insulin Human Regular 100 units/ml vial SC SCH ×4 (12:55→22:00)
--- NOTE | 2018-05-24 15:02 | RAD ---
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 FINDINGS: CHEST: Lungs: Limited visualization left lung base-atelectasis and or infiltrate small left pleural effusion here considerations. This greater obscuration is an interval change. Cardiovascular: Marked cardiomegaly-similar. Position/ configuration of pacemaker in place 2 now noted. No aortic atherosclerotic calcification present Pleura: Bilateral pleural effusions. No pneumothorax. Other findings: None. ABDOMEN AND PELVIS: Bowel: Bowel gas extending into the right groin and possibly right scrotal sac. No complete obstruction suggested. Some left mid to the lower abdominal bowel loops is unclear if small or large bowel appear borderline prominent. Extensive stool in right colon. Extensive sutures project over right groin Free air: None. Bones: Unremarkable. Other findings: None. IMPRESSION: Marked cardiomegaly. Increase density left lung base-considerations atelectasis, effusion and/or infiltrate. Additional underlying pathology and not excluded. Small right pleural effusion. Marked cardiomegaly-similar. Large right groin possibly right scrotal bowel containing hernia. A complete or high-grade bowel obstruction seen. Partial obstruction not excluded. Comments-as per communication with IC nurse, Marisol, please note the subsequent CT abdomen pelvic study for further findings regarding the bowel containing right hernia
--- NOTE | 2018-05-24 17:44 | CP.PCM.PN ---
Subjective - Date & Time of Evaluation Date of Evaluation: 05/24/18 Time of Evaluation: 17:44 - Subjective Subjective: Pt is anxious, still short of breath at rest, has developed lower abdominal pain. Objective - Vital Signs/Intake and Output Vital Signs (last 24 hours): Temp Pulse Resp BP Pulse Ox 97.9 F 97 H 22 112/66 97 05/24/18 16:16 05/24/18 16:33 05/24/18 16:33 05/24/18 16:33 05/24/18 16:33 Intake and Output: 05/24/18 05/24/18 06:59 18:59 Intake Total 396.8 139.0 Output Total 1750 1550 Balance -1353.2 -1411.0 - Medications Medications: Current Medications Acetaminophen (Tylenol 325mg Tab) 650 mg PO Q6 PRN PRN Reason: Pain, moderate (4-7) Budesonide (Pulmicort Respules) 0.5 mg INH RQ12 [facility] Last Admin: 05/24/18 08:10 Dose: 0.5 mg Clopidogrel Bisulfate (Plavix) 75 mg PO DAILY [facility] Last Admin: 05/24/18 10:07 Dose: 75 mg Doxycycline Hyclate (Doryx) 100 mg PO Q12H [facility]; Protocol Last Admin: 05/24/18 10:07 Dose: 100 mg Famotidine (Pepcid) 20 mg PO DAILY [facility] Last Admin: 05/24/18 10:07 Dose: 20 mg Fluticasone Propionate (Flonase) 2 spr JESSICA BID [facility] Last Admin: 05/24/18 10:08 Dose: 2 sprays Furosemide (Lasix) 40 mg IVP Q12H [facility] Last Admin: 05/24/18 06:32 Dose: 40 mg Gabapentin (Neurontin) 300 mg PO BID [facility] Last Admin: 05/24/18 10:07 Dose: 300 mg Hydralazine HCl (Apresoline) 25 mg PO TID [facility] Last Admin: 05/24/18 15:22 Dose: 25 mg Ceftriaxone Sodium 1 gm/ (Sodium Chloride) 100 mls @ 100 mls/hr IVPB DAILY [facility]; Protocol Last Admin: 05/24/18 10:07 Dose: 100 mls/hr Milrinone Lactate/Dextrose 20 (mg/ Dextrose) 100 mls @ 4.51 mls/hr IV .[id number] [facility]; Protocol Last Titration: 05/24/18 05:28 Dose: 0.17 mcg/kg/min, 3.9 mls/hr Insulin Human Regular (Novolin R) 0 unit SC ACHS [facility]; Protocol Last Admin: 05/24/18 12:56 Dose: Not Given Isosorbide Mononitrate (Imdur) 60 mg PO DAILY [facility] Last Admin: 05/24/18 10:07 Dose: 60 mg Lidocaine (Lidoderm) 2 ea TD DAILY [facility] Last Admin: 05/24/18 10:08 Dose: 2 ea Metolazone (Zaroxolyn) 2.5 mg PO DAILY [facility] Last Admin: 05/24/18 10:07 Dose: 2.5 mg Metoprolol Tartrate (Lopressor) 25 mg PO BID [facility] Last Admin: 05/24/18 10:09 Dose: 25 mg Morphine Sulfate (Morphine) 2 mg IV Q3 PRN PRN Reason: PAIN, SEVERE 8-10 Last Admin: 05/24/18 16:48 Dose: 2 mg Rosuvastatin Calcium (Crestor) 10 mg PO HS [facility] Last Admin: 05/23/18 21:49 Dose: 10 mg Vitamin A (Vitamin A & D Oint Ud Foilpak) 1 ea TOP BID [facility] Last Admin: 05/24/18 10:00 Dose: 1 ea - Labs Labs: 05/24/18 06:05 05/24/18 06:03 PT 40.2 SECONDS (9.7-12.2) H D 05/23/18 05:37 INR 3.7 H* 05/23/18 05:37 APTT 84 SECONDS (21-34) H D 05/20/18 02:40 - Constitutional Appears: Chronically Ill - Head Exam Head Exam: ATRAUMATIC - Eye Exam Eye Exam: EOMI - ENT Exam ENT Exam: Mucous Membranes Dry - Respiratory Exam Respiratory Exam: Rhonchi, Respiratory Distress - Cardiovascular Exam Cardiovascular Exam: REGULAR RHYTHM - GI/Abdominal Exam GI & Abdominal Exam: Tenderness, Hypoactive Bowel Sounds - Exam External exam: Swelling - Extremities Exam Extremities Exam: Pedal Edema - Neurological Exam Neurological Exam: Alert, Awake, CN II-XII Intact - Psychiatric Exam Psychiatric exam: Anxious - Skin Skin Exam: Dry Assessment and Plan - Assessment and Plan (Free Text) Assessment: 1. Abdominal pain: pt 's ct shows a non obstructed hernia, and there are loops of bowel in the scrotal sac. 2. CT also demonstrates increased pleural effusions. maximal Treatment for chf has not helped, in site of good diuresis and improved kidney function. I contaced Dr Ritesh Chauhan of [facility], transplant team, to see if he has any suggestions. Waiting for him to review pt's BI chart and call back. 3. Pt has rectus hematoma, but needs anticoagulation. Mechanical valves and afib have high risk of thrombosis. No coags orderwd for today> will order for tomorrow.
[2018-05-24] MEDS: Phytonadione 10 mg/ml Inj (Adult) IM SCH (21:45)
[2018-05-25] MEDS: Milrinone 20 MG in Dextrose 5% In Water 80 ML IV SCH ×2 (05:12→09:44)
[2018-05-25 05:52] LABS: EOS % 0.4 % (0.0-4.0); HEMOGLOBIN 8.4 g/dL (12.0-18.0); LYMPH # 0.2 K/uL (1.0-4.3); LYMPH % 1.9 % (20.0-40.0); MEAN CELL VOLUME 86.5 fL (80.0-94.0); MEAN CORPUSCULAR HEMOGLOBIN 28.1 pg (27.0-31.0); MEAN CORPUSCULAR HGB CONC 32.4 g/dL (33.0-37.0); MEAN PLATELET VOLUME 9.5 fL (7.2-11.7); MONO # 1.5 K/uL (0.0-0.8); MONO % 12.7 % (0.0-10.0); NEUT # 9.9 K/uL (1.8-7.0); PLATELET COUNT 180 K/uL (130-400); RBC 2.98 Mil/uL (4.40-5.90); RED CELL DISTRIBUTION WIDTH 15.2 % (11.5-14.5); WHITE BLOOD COUNT 11.7 K/uL (4.8-10.8)
[2018-05-25 05:56] LABS: INR 2.2; PROTHROMBIN TIME 24.5 SECONDS (9.7-12.2)
[2018-05-25 06:21] LABS: ALB/GLOB RATIO 1.5 (1.0-2.1); ALBUMIN 3.8 g/dL (3.5-5.0); ALT/SGPT 48 U/L (21-72); AST/SGOT 39 U/L (17-59); BLOOD UREA NITROGEN 82 mg/dL (9-20); CALCIUM 8.7 mg/dl (8.6-10.4); GFR NON-AFRICAN AMERICAN 51
[2018-05-25] MEDS: Budesonide 0.5 mg/2 ml Inhal Susp UD INH SCH ×3 (08:10→20:06)
[2018-05-25 08:38] LABS: ANISOCYTOSIS SLIGHT; LYMPHOCYTE 3 % (20-40); MICROCYTOSIS SLIGHT; MONOCYTE 8 % (0-10); NEUTROPHIL 89 % (50-75); PLATELET ESTIMATE NORMAL (NORMAL); POIKILOCYTOSIS SLIGHT; TOTAL CELLS COUNTED 100
[2018-05-25 08:41] LABS: OVALOCYTES SLIGHT; TARGET CELLS SLIGHT
[2018-05-25 08:42] LABS: HYPOCHROMIC SLIGHT
[2018-05-25 08:43] LABS: BURR CELLS SLIGHT; TEARDROP CELLS SLIGHT
--- NOTE | 2018-05-25 08:52 | CP.CCUPN ---
<Kevin Love - Last Filed: 05/25/18 13:29> CCU Subjective - Physician Review Subjective (Free Text): 05/25/18 08:49 PGY-1 Critical Care Progress Note for Dr. Alcocer Patient seen and examined at bedside this AM. Received 1 unit pRBC transfusion last night with appropriate Hb response. Patient continues to have persistent shortness of breath requiring intermittent bipap. Remains on the milrinone drip as well as lasix and zaroxyln. Lower abdominal/groin pain easing with pain meds on board. Plans for surgical intervention with local anesthesia to reduce hernia on Wednesday. 12 pt ROS reviewed and remains unchanged otherwise. Critical Care Time Spent (in minutes): 35 CCU Objective - Vital Signs / Intake & Output Vital Signs (Last 4 hours): Vital Signs Temp Pulse Resp BP Pulse Ox 05/25/18 08:07 109/62 05/25/18 08:00 98.5 F 90 23 90 L 05/25/18 07:37 92 H 24 112/60 96 05/25/18 07:07 90 25 H 110/66 93 L 05/25/18 07:00 91 H 33 H 96 05/25/18 06:37 91 H 29 H 106/55 L 97 05/25/18 06:07 90 31 H 108/56 L 98 05/25/18 06:00 90 31 H 97 05/25/18 05:59 116/62 05/25/18 05:37 91 H 29 H 116/62 98 05/25/18 05:09 90 19 102/66 96 05/25/18 05:00 92 H 28 H 97 Intake and Output (Last 8hrs): Intake & Output 05/24/18 05/25/18 05/25/18 22:59 06:59 14:59 Intake Total 706.2 635.1 7.8 Output Total 800 1100 Balance -93.8 -464.9 7.8 Weight 145 lb 4 oz Intake: Intake, IV Amount 231.2 195.1 7.8 Left Forearm 31.2 35.1 7.8 Right Forearm 200 160 Oral 150 390 Blood Product 325 Red Blood Cells Cpd As1 0 Lr Unit [id number] Red Blood Cells Cpd As1 325 Lr Unit [id number] Other 50 Red Blood Cells Cpd As1 50 Lr Unit [id number] Output: Urine 800 1100 Urine, Voided 800 1100 Other: # Bowel Movements 0 - Physical Exam Head: Positive for: Atraumatic, Normocephalic Pupils: Positive for: PERRL Extroacular Muscles: Positive for: EOMI Mouth: Positive for: Dry Neck: Positive for: Normal Range of Motion Respiratory/Chest: Positive for: Rales, Rhonchi Cardiovascular: Positive for: Normal S1, S2, Irregular Rhythm Abdomen: Positive for: Tenderness, Normal Bowel Sounds, Hernias (R inguinal hernia). Negative for: Distention, Peritoneal Signs, Rebound, Guarding Genitourinary Male: Positive for: Testicle Swelling (R scrotal swelling) Upper Extremity: Positive for: Normal Inspection, NORMAL PULSES, Neurovascularly Intact, Capillary Refill < 2s Lower Extremity: Positive for: Edema, NORMAL PULSES, Neurovascularly Intact, Capillary Refill < 2 s Neurological: Positive for: CN II-XII Intact Skin: Positive for: Warm, Dry, Normal Color Psychiatric: Positive for: Alert, Oriented x 3, Anxious, Depressed Mood - Medications Active Medications: Active Medications Generic Name Dose Route Start Last Admin Trade Name Freq PRN Reason Stop Dose Admin Acetaminophen 650 mg 05/22/18 10:21 Tylenol 325mg Tab PO Q6 PRN Pain, moderate (4-7) Budesonide 0.5 mg 05/22/18 20:00 05/25/18 08:11 Pulmicort Respules INH 0.5 mg RQ12 AYDEE Administration Clopidogrel Bisulfate 75 mg 05/22/18 10:30 05/24/18 10:07 Plavix PO 75 mg DAILY AYDEE Administration Doxycycline Hyclate 100 mg 05/22/18 10:30 05/24/18 21:58 Doryx PO 100 mg Q12H AYDEE Administration Protocol Famotidine 20 mg 05/23/18 10:00 05/24/18 10:07 Pepcid PO 20 mg DAILY AYDEE Administration Fluticasone Propionate 2 spr 05/14/18 18:00 05/24/18 18:34 Flonase JESSICA 2 sprays BID AYDEE Administration Furosemide 40 mg 05/18/18 19:00 05/25/18 05:59 Lasix IVP 40 mg Q12H AYDEE Administration Gabapentin 300 mg 05/22/18 18:00 05/24/18 18:33 Neurontin PO 300 mg BID AYDEE Administration Hydralazine HCl 25 mg 11/20/18 18:00 05/24/18 18:33 Apresoline PO 25 mg TID AYDEE Administration Ceftriaxone Sodium 1 gm/ 100 mls @ 100 mls/hr 05/23/18 10:00 05/24/18 10:07 Sodium Chloride IVPB 100 mls/hr DAILY AYDEE Administration Protocol Milrinone Lactate/Dextrose 20 100 mls @ 4.51 mls/hr 05/24/18 03:00 05/25/18 05:12 mg/ Dextrose IV Not Given .[id number] AYDEE Protocol 0.2 MCG/KG/MIN Insulin Human Regular 0 unit 05/19/18 16:30 05/24/18 22:00 Novolin R SC Not Given ACHS AYDEE Protocol Isosorbide Mononitrate 60 mg 05/14/18 15:00 05/24/18 10:07 Imdur PO 60 mg DAILY AYDEE Administration Lidocaine 2 ea 05/22/18 12:30 05/24/18 10:08 Lidoderm TD 2 ea DAILY AYDEE Administration Metolazone 2.5 mg 05/23/18 10:00 05/24/18 10:07 Zaroxolyn PO 2.5 mg DAILY AYDEE Administration Metoprolol Tartrate 25 mg 05/17/18 16:27 05/24/18 18:34 Lopressor PO 25 mg BID AYDEE Administration Morphine Sulfate 2 mg 05/24/18 09:48 05/24/18 16:48 Morphine IV 2 mg Q3 PRN Administration PAIN, SEVERE 8-10 Phytonadione 10 mg 05/24/18 19:05 05/24/18 21:45 Vitamin K Inj IM 05/26/18 10:01 10 mg DAILY AYDEE Administration Phytonadione 10 mg 05/25/18 10:00 Vitamin K Inj IV BID AYDEE Rosuvastatin Calcium 10 mg 05/14/18 22:00 05/24/18 21:46 Crestor PO 10 mg HS AYDEE Administration Vitamin A 1 ea 05/15/18 18:00 05/24/18 18:35 Vitamin A & D Oint Ud Foilpak TOP 1 ea BID AYDEE Administration - Patient Studies Lab Studies: Lab Studies 05/25/18 05/25/18 05/25/18 Range/Units 05:42 05:42 05:42 WBC 11.7 H (4.8-10.8) K/uL RBC 2.98 L (4.40-5.90) Mil/uL Hgb 8.4 L (12.0-18.0) g/dL Hct 25.8 L (35.0-51.0) % MCV 86.5 (80.0-94.0) fL MCH 28.1 (27.0-31.0) pg MCHC 32.4 L (33.0-37.0) g/dL RDW 15.2 H (11.5-14.5) % Plt Count 180 (130-400) K/uL MPV 9.5 (7.2-11.7) fL Neut % (Auto) 85.0 H (50.0-75.0) % Lymph % (Auto) 1.9 L (20.0-40.0) % Wy[place] % (Auto) 12.7 H (0.0-10.0) % Eos % (Auto) 0.4 (0.0-4.0) % Baso % (Auto) 0.0 (0.0-2.0) % Neut # (Auto) 9.9 H (1.8-7.0) K/uL Lymph # (Auto) 0.2 L (1.0-4.3) K/uL Wy[place] # (Auto) 1.5 H (0.0-0.8) K/uL Eos # (Auto) 0.0 (0.0-0.7) K/uL Baso # (Auto) 0.0 (0.0-0.2) K/uL Neutrophils % (Manual) 89 H (50-75) % Lymphocytes % (Manual) 3 L (20-40) % Monocytes % (Manual) 8 (0-10) % Platelet Estimate Normal (NORMAL) Hypochromasia (manual) Slight Poikilocytosis (manual Slight Anisocytosis (manual) Slight Microcytosis (manual) Slight Target Cells Slight Tear Drop Cells Slight Ovalocytes Slight Douglas Cells Slight PT 24.5 H D (9.7-12.2) SECONDS INR 2.2 D Sodium 136 (132-148) mmol/L Potassium 3.7 (3.6-5.2) mmol/L Chloride 93 L (98-107) mmol/L Carbon Dioxide 34 H (22-30) mmol/L Anion Gap 13 (10-20) BUN 82 H (9-20) mg/dL Creatinine 1.4 (0.8-1.5) mg/dL Est GFR ( Amer) > 60 Est GFR (Non-Af Amer) 51 POC Glucose (mg/dL) (65-110) mg/dL Random Glucose 125 H (75-110) mg/dL Calcium 8.7 (8.6-10.4) mg/dl Phosphorus 3.9 (2.5-4.5) mg/dL Magnesium 1.9 (1.6-2.3) mg/dL Total Bilirubin 1.6 H (0.2-1.3) mg/dL AST 39 (17-59) U/L ALT 48 (21-72) U/L Alkaline Phosphatase 79 (38-126) U/L NT-Pro-B Natriuret Pep (0-900) pg/mL Total Protein 6.2 L (6.3-8.3) g/dL Albumin 3.8 (3.5-5.0) g/dL Globulin 2.5 (2.2-3.9) gm/dL Albumin/Globulin Ratio 1.5 (1.0-2.1) Procalcitonin (0.19-0.49) NG/ML Blood Type Antibody Screen 05/24/18 05/24/18 05/24/18 Range/Units 22:12 16:17 11:15 WBC (4.8-10.8) K/uL RBC (4.40-5.90) Mil/uL Hgb (12.0-18.0) g/dL Hct (35.0-51.0) % MCV (80.0-94.0) fL MCH (27.0-31.0) pg MCHC (33.0-37.0) g/dL RDW (11.5-14.5) % Plt Count (130-400) K/uL MPV (7.2-11.7) fL Neut % (Auto) (50.0-75.0) % Lymph % (Auto) (20.0-40.0) % Wythe % (Auto) (0.0-10.0) % Eos % (Auto) (0.0-4.0) % Baso % (Auto) (0.0-2.0) % Neut # (Auto) (1.8-7.0) K/uL Lymph # (Auto) (1.0-4.3) K/uL Wythe # (Auto) (0.0-0.8) K/uL Eos # (Auto) (0.0-0.7) K/uL Baso # (Auto) (0.0-0.2) K/uL Neutrophils % (Manual) (50-75) % Lymphocytes % (Manual) (20-40) % Monocytes % (Manual) (0-10) % Platelet Estimate (NORMAL) Hypochromasia (manual) Poikilocytosis (manual Anisocytosis (manual) Microcytosis (manual) Target Cells Tear Drop Cells Ovalocytes Douglas Cells PT (9.7-12.2) SECONDS INR Sodium (132-148) mmol/L Potassium (3.6-5.2) mmol/L Chloride (98-107) mmol/L Carbon Dioxide (22-30) mmol/L Anion Gap (10-20) BUN (9-20) mg/dL Creatinine (0.8-1.5) mg/dL Est GFR ( Amer) Est GFR (Non-Af Amer) POC Glucose (mg/dL) 103 87 97 (65-110) mg/dL Random Glucose (75-110) mg/dL Calcium (8.6-10.4) mg/dl Phosphorus (2.5-4.5) mg/dL Magnesium (1.6-2.3) mg/dL Total Bilirubin (0.2-1.3) mg/dL AST (17-59) U/L ALT (21-72) U/L Alkaline Phosphatase (38-126) U/L NT-Pro-B Natriuret Pep (0-900) pg/mL Total Protein (6.3-8.3) g/dL Albumin (3.5-5.0) g/dL Globulin (2.2-3.9) gm/dL Albumin/Globulin Ratio (1.0-2.1) Procalcitonin (0.19-0.49) NG/ML Blood Type Antibody Screen 05/24/18 05/24/18 05/24/18 Range/Units 10:57 10:57 10:57 WBC (4.8-10.8) K/uL RBC (4.40-5.90) Mil/uL Hgb (12.0-18.0) g/dL Hct (35.0-51.0) % MCV (80.0-94.0) fL MCH (27.0-31.0) pg MCHC (33.0-37.0) g/dL RDW (11.5-14.5) % Plt Count (130-400) K/uL MPV (7.2-11.7) fL Neut % (Auto) (50.0-75.0) % Lymph % (Auto) (20.0-40.0) % Wythe % (Auto) (0.0-10.0) % Eos % (Auto) (0.0-4.0) % Baso % (Auto) (0.0-2.0) % Neut # (Auto) (1.8-7.0) K/uL Lymph # (Auto) (1.0-4.3) K/uL Wythe # (Auto) (0.0-0.8) K/uL Eos # (Auto) (0.0-0.7) K/uL Baso # (Auto) (0.0-0.2) K/uL Neutrophils % (Manual) (50-75) % Lymphocytes % (Manual) (20-40) % Monocytes % (Manual) (0-10) % Platelet Estimate (NORMAL) Hypochromasia (manual) Poikilocytosis (manual Anisocytosis (manual) Microcytosis (manual) Target Cells Tear Drop Cells Ovalocytes Douglas Cells PT (9.7-12.2) SECONDS INR Sodium (132-148) mmol/L Potassium (3.6-5.2) mmol/L Chloride (98-107) mmol/L Carbon Dioxide (22-30) mmol/L Anion Gap (10-20) BUN (9-20) mg/dL Creatinine (0.8-1.5) mg/dL Est GFR ( Amer) Est GFR (Non-Af Amer) POC Glucose (mg/dL) (65-110) mg/dL Random Glucose (75-110) mg/dL Calcium (8.6-10.4) mg/dl Phosphorus (2.5-4.5) mg/dL Magnesium (1.6-2.3) mg/dL Total Bilirubin (0.2-1.3) mg/dL AST (17-59) U/L ALT (21-72) U/L Alkaline Phosphatase (38-126) U/L NT-Pro-B Natriuret Pep 3230 H (0-900) pg/mL Total Protein (6.3-8.3) g/dL Albumin (3.5-5.0) g/dL Globulin (2.2-3.9) gm/dL Albumin/Globulin Ratio (1.0-2.1) Procalcitonin 0.18 L (0.19-0.49) NG/ML Blood Type A POSITIVE Antibody Screen Negative 05/24/18 Range/Units 07:44 WBC (4.8-10.8) K/uL RBC (4.40-5.90) Mil/uL Hgb (12.0-18.0) g/dL Hct (35.0-51.0) % MCV (80.0-94.0) fL MCH (27.0-31.0) pg MCHC (33.0-37.0) g/dL RDW (11.5-14.5) % Plt Count (130-400) K/uL MPV (7.2-11.7) fL Neut % (Auto) (50.0-75.0) % Lymph % (Auto) (20.0-40.0) % Wy[place] % (Auto) (0.0-10.0) % Eos % (Auto) (0.0-4.0) % Baso % (Auto) (0.0-2.0) % Neut # (Auto) (1.8-7.0) K/uL Lymph # (Auto) (1.0-4.3) K/uL Wythe # (Auto) (0.0-0.8) K/uL Eos # (Auto) (0.0-0.7) K/uL Baso # (Auto) (0.0-0.2) K/uL Neutrophils % (Manual) (50-75) % Lymphocytes % (Manual) (20-40) % Monocytes % (Manual) (0-10) % Platelet Estimate (NORMAL) Hypochromasia (manual) Poikilocytosis (manual Anisocytosis (manual) Microcytosis (manual) Target Cells Tear Drop Cells Ovalocytes Douglas Cells PT (9.7-12.2) SECONDS INR Sodium (132-148) mmol/L Potassium (3.6-5.2) mmol/L Chloride (98-107) mmol/L Carbon Dioxide (22-30) mmol/L Anion Gap (10-20) BUN (9-20) mg/dL Creatinine (0.8-1.5) mg/dL Est GFR ( Amer) Est GFR (Non-Af Amer) POC Glucose (mg/dL) 84 (65-110) mg/dL Random Glucose (75-110) mg/dL Calcium (8.6-10.4) mg/dl Phosphorus (2.5-4.5) mg/dL Magnesium (1.6-2.3) mg/dL Total Bilirubin (0.2-1.3) mg/dL AST (17-59) U/L ALT (21-72) U/L Alkaline Phosphatase (38-126) U/L NT-Pro-B Natriuret Pep (0-900) pg/mL Total Protein (6.3-8.3) g/dL Albumin (3.5-5.0) g/dL Globulin (2.2-3.9) gm/dL Albumin/Globulin Ratio (1.0-2.1) Procalcitonin (0.19-0.49) NG/ML Blood Type Antibody Screen Laboratory Results - last 24 hr 05/24/18 05/24/18 05/24/18 07:44 10:57 10:57 WBC RBC Hgb Hct MCV MCH MCHC RDW Plt Count MPV Neut % (Auto) Lymph % (Auto) Wy[place] % (Auto) Eos % (Auto) Baso % (Auto) Neut # (Auto) Lymph # (Auto) Wy[place] # (Auto) Eos # (Auto) Baso # (Auto) Neutrophils % (Manual) Lymphocytes % (Manual) Monocytes % (Manual) Platelet Estimate Hypochromasia (manual) Poikilocytosis (manual Anisocytosis (manual) Microcytosis (manual) Target Cells Tear Drop Cells Ovalocytes Rikki Cells PT INR Sodium Potassium Chloride Carbon Dioxide Anion Gap BUN Creatinine Est GFR ( Amer) Est GFR (Non-Af Amer) POC Glucose (mg/dL) 84 Random Glucose Calcium Phosphorus Magnesium Total Bilirubin AST ALT Alkaline Phosphatase NT-Pro-B Natriuret Pep 3230 H Total Protein Albumin Globulin Albumin/Globulin Ratio Procalcitonin 0.18 L Blood Type Antibody Screen 05/24/18 05/24/18 05/24/18 10:57 11:15 16:17 WBC RBC Hgb Hct MCV MCH MCHC RDW Plt Count MPV Neut % (Auto) Lymph % (Auto) Wy[place] % (Auto) Eos % (Auto) Baso % (Auto) Neut # (Auto) Lymph # (Auto) Wythe # (Auto) Eos # (Auto) Baso # (Auto) Neutrophils % (Manual) Lymphocytes % (Manual) Monocytes % (Manual) Platelet Estimate Hypochromasia (manual) Poikilocytosis (manual Anisocytosis (manual) Microcytosis (manual) Target Cells Tear Drop Cells Ovalocytes Rikki Cells PT INR Sodium Potassium Chloride Carbon Dioxide Anion Gap BUN Creatinine Est GFR ( Amer) Est GFR (Non-Af Amer) POC Glucose (mg/dL) 97 87 Random Glucose Calcium Phosphorus Magnesium Total Bilirubin AST ALT Alkaline Phosphatase NT-Pro-B Natriuret Pep Total Protein Albumin Globulin Albumin/Globulin Ratio Procalcitonin Blood Type A POSITIVE Antibody Screen Negative 05/24/18 05/25/18 05/25/18 22:12 05:42 05:42 WBC 11.7 H RBC 2.98 L Hgb 8.4 L Hct 25.8 L MCV 86.5 MCH 28.1 MCHC 32.4 L RDW 15.2 H Plt Count 180 MPV 9.5 Neut % (Auto) 85.0 H Lymph % (Auto) 1.9 L [place] % (Auto) 12.7 H Eos % (Auto) 0.4 Baso % (Auto) 0.0 Neut # (Auto) 9.9 H Lymph # (Auto) 0.2 L Wy[place] # (Auto) 1.5 H Eos # (Auto) 0.0 Baso # (Auto) 0.0 Neutrophils % (Manual) 89 H Lymphocytes % (Manual) 3 L Monocytes % (Manual) 8 Platelet Estimate Normal Hypochromasia (manual) Slight Poikilocytosis (manual Slight Anisocytosis (manual) Slight Microcytosis (manual) Slight Target Cells Slight Tear Drop Cells Slight Ovalocytes Slight Rikki Cells Slight PT INR Sodium 136 Potassium 3.7 Chloride 93 L Carbon Dioxide 34 H Anion Gap 13 BUN 82 H Creatinine 1.4 Est GFR ( Amer) > 60 Est GFR (Non-Af Amer) 51 POC Glucose (mg/dL) 103 Random Glucose 125 H Calcium 8.7 Phosphorus 3.9 Magnesium 1.9 Total Bilirubin 1.6 H AST 39 ALT 48 Alkaline Phosphatase 79 NT-Pro-B Natriuret Pep Total Protein 6.2 L Albumin 3.8 Globulin 2.5 Albumin/Globulin Ratio 1.5 Procalcitonin Blood Type Antibody Screen 05/25/18 05:42 WBC RBC Hgb Hct MCV MCH MCHC RDW Plt Count MPV Neut % (Auto) Lymph % (Auto) [place] % (Auto) Eos % (Auto) Baso % (Auto) Neut # (Auto) Lymph # (Auto) Wy[place] # (Auto) Eos # (Auto) Baso # (Auto) Neutrophils % (Manual) Lymphocytes % (Manual) Monocytes % (Manual) Platelet Estimate Hypochromasia (manual) Poikilocytosis (manual Anisocytosis (manual) Microcytosis (manual) Target Cells Tear Drop Cells Ovalocytes Rikki Cells PT 24.5 H D INR 2.2 D Sodium Potassium Chloride Carbon Dioxide Anion Gap BUN Creatinine Est GFR ( Amer) Est GFR (Non-Af Amer) POC Glucose (mg/dL) Random Glucose Calcium Phosphorus Magnesium Total Bilirubin AST ALT Alkaline Phosphatase NT-Pro-B Natriuret Pep Total Protein Albumin Globulin Albumin/Globulin Ratio Procalcitonin Blood Type Antibody Screen Fingerstick Blood Sugar Results: 106 Review of Systems - Review of Systems All systems: reviewed and no additional remarkable complaints except Review of Systems: as per HPI Critical Care Progress Note - Nutrition Nutrition: Nutrition Category Date Time Status Heart Healthy Diet [DIET] Diets 05/24/18 Dinner Active NPO Diet [DIET] Diets 05/26/18 Dinner Active NPO Diet [DIET] Diets 05/27/18 Breakfast Active Assessment/Plan - Assessment and Plan (Free Text) Assessment: 68 yo male with past medical history of CHF, Afib on Coumadin, aortic/mitral/tricuspid valve replacement, CAD and CABG admitted for 2-3 week history of shortness of breath and cough that worsened over last 2-3 days. CTC- massive cardiomegaly, severe systolic CHF, multifocal PNA. CTAP: New R anterior abdominal wall rectus muscle/sheath hematoma, 11.2 x 6 cm. Large R inguinal hernia contains bowel loop without evidence of bowel obstruction or incarceration. Plans for surgical intervention w/ local anesthesia on Wednesday. Plan: Neuro: Neuropathic pain -on neurontin 100 TID Pulm: Hypoxic respiratory failure -still needing bipap Pneumonia -afebrile, no leukocytosis -CXR (05/21): R basilar opacity unchanged. Cardiomegaly. AICD. Possible very small b/l pleural effusion. Congestive changes. -duonebs, pulmicort -on rocephin, doxycycline CV: Acute on chronic systolic heart failure Hx of aortic/mitral/tricuspid valve replacement s/p AICD placement, CABG -ECHO from 02/05/18: EF 35% -remains dyspneic requiring intermittent bipap use -milrinone ggt -lasix 40 BID -imdur 60 daily -hydralazine 25 tid -Lopressor 25 bid -metolazone 2.5 daily -Cardio recs (Dr. Pantoja) appreciated: maximal tx for CHF has not helped, in site of good diuresis and improved kidney function. Dr Ritesh Chauhan of [facility] contacted, transplant team, to see if he has any suggestions. Dr Pantoja is waiting for him to review pt's BI chart and call back. CAD w/ CABG -asa, plavix, statin, BB, imdur Heme: Atrial fibrillation -INR 2.2 (05/25) -per Cardio: interrogation of AICD revealed abscence of atrial lead, which could ID possible underlying AF. EKG and telemetry without discernible P waves, Cont with anticoagulation,planning for EP input Renal: LOUISE -Pt had baseline Cr of 1.5, jin to 2.0 with diuretics -likely 2/2 diuretics, patient needs diuretics to keep him dry CKD 3 -Nephrology on board: check renal us, quantify urine protein. Maintain Bumex, hold ARBs. GI: Large R inguinal hernia Hematoma -Abdomen obstruction series XR (05/24): Large R groin possibly R scrotal bowel containing hernia. A complete or high grade bowel obstruction seen. -CT abd/pelvis (05/24): New R anterior abdominal wall rectus muscle/sheath hematoma, 11.2 x 6 cm. Large R inguinal hernia contains bowel loop without evidence of bowel obstruction or incarceration. Mild to moderate constipation. Gallstones without evidence of acute cholecystitis. Cardiomegaly. -plan for surgical intervention w/ local anesthesia on Wednesday ID: -on rocephin, doxycycline PPx, Diet, Disposition -GI: protonix -Diet: HHD -Code status: Full code Case discussed with Dr. Leodan Love DO, PGY-1 <Shaun Alcocer S - Last Filed: 05/25/18 16:11> CCU Objective - Vital Signs / Intake & Output Vital Signs (Last 4 hours): Vital Signs Pulse Resp BP Pulse Ox 05/25/18 15:00 90 26 H 93 L 05/25/18 14:37 90 27 H 103/61 95 05/25/18 14:07 92 H 28 H 109/57 L 94 L 05/25/18 14:00 91 H 19 96 05/25/18 13:37 103/65 05/25/18 13:07 90 14 107/60 93 L 05/25/18 13:00 90 31 H 94 L 05/25/18 12:37 91 H 22 108/59 L 98 05/25/18 12:08 90 24 111/66 95 Intake and Output (Last 8hrs): Intake & Output 05/25/18 05/25/18 05/25/18 06:59 14:59 22:59 Intake Total 635.1 965.1 3.9 Output Total 1100 1300 Balance -464.9 -334.9 3.9 Weight 145 lb 4 oz Intake: IV 100 Intake, IV Amount 195.1 145.1 3.9 Left Forearm 35.1 35.1 3.9 Right Forearm 160 110 Oral 390 720 Other 50 Red Blood Cells Cpd As1 50 Lr Unit [id number] Output: Urine 1100 1300 Urine, Voided 1100 1300 Other: # Bowel Movements 0 - Medications Active Medications: Active Medications Generic Name Dose Route Start Last Admin Trade Name Freq PRN Reason Stop Dose Admin Acetaminophen 650 mg 05/22/18 10:21 05/25/18 11:38 Tylenol 325mg Tab PO 650 mg Q6 PRN Administration Pain, moderate (4-7) Budesonide 0.5 mg 05/22/18 20:00 05/25/18 08:11 Pulmicort Respules INH 0.5 mg RQ12 AYDEE Administration Clopidogrel Bisulfate 75 mg 05/22/18 10:30 05/25/18 09:31 Plavix PO 75 mg DAILY AYDEE Administration Doxycycline Hyclate 100 mg 05/22/18 10:30 05/25/18 09:33 Doryx PO 100 mg Q12H AYDEE Administration Protocol Famotidine 20 mg 05/23/18 10:00 05/25/18 09:31 Pepcid PO 20 mg DAILY AYDEE Administration Fluticasone Propionate 2 spr 05/14/18 18:00 05/25/18 09:29 Flonase JESSICA 2 sprays BID AYDEE Administration Furosemide 40 mg 05/18/18 19:00 05/25/18 05:59 Lasix IVP 40 mg Q12H AYDEE Administration Gabapentin 300 mg 05/22/18 18:00 05/25/18 09:31 Neurontin PO 300 mg BID AYDEE Administration Hydralazine HCl 25 mg 05/17/18 18:00 05/25/18 14:53 Apresoline PO 25 mg TID AYDEE Administration Ceftriaxone Sodium 1 gm/ 100 mls @ 100 mls/hr 05/23/18 10:00 05/25/18 09:43 Sodium Chloride IVPB 100 mls/hr DAILY AYDEE Administration Protocol Milrinone Lactate/Dextrose 20 100 mls @ 4.51 mls/hr 05/24/18 03:00 05/25/18 09:44 mg/ Dextrose IV 0.17 mcg/kg/min .[id number] AYDEE 3.9 mls/hr Administration Protocol 0.2 MCG/KG/MIN Insulin Human Regular 0 unit 05/19/18 16:30 05/25/18 12:44 Novolin R SC 2 u ACHS AYDEE Administration Protocol Isosorbide Mononitrate 60 mg 05/14/18 15:00 05/25/18 09:29 Imdur PO 60 mg DAILY AYDEE Administration Lidocaine 2 ea 05/22/18 12:30 05/25/18 09:29 Lidoderm TD 2 ea DAILY AYDEE Administration Metolazone 2.5 mg 05/23/18 10:00 05/25/18 09:32 Zaroxolyn PO 2.5 mg DAILY AYDEE Administration Metoprolol Tartrate 25 mg 05/17/18 16:27 05/25/18 09:30 Lopressor PO 25 mg BID AYDEE Administration Morphine Sulfate 2 mg 05/24/18 09:48 05/24/18 16:48 Morphine IV 2 mg Q3 PRN Administration PAIN, SEVERE 8-10 Phytonadione 10 mg 05/24/18 19:05 05/25/18 09:31 Vitamin K Inj IM 05/26/18 10:01 10 mg DAILY AYDEE Administration Phytonadione 10 mg 05/25/18 10:00 Vitamin K Inj IV BID AYDEE Rosuvastatin Calcium 10 mg 05/14/18 22:00 05/24/18 21:46 Crestor PO 10 mg HS AYDEE Administration Vitamin A 1 ea 05/15/18 18:00 05/25/18 09:32 Vitamin A & D Oint Ud Foilpak TOP 1 ea BID AYDEE Administration - Patient Studies Lab Studies: Lab Studies 05/25/18 05/25/18 05/25/18 Range/Units 11:06 07:23 05:42 WBC (4.8-10.8) K/uL RBC (4.40-5.90) Mil/uL Hgb (12.0-18.0) g/dL Hct (35.0-51.0) % MCV (80.0-94.0) fL MCH (27.0-31.0) pg MCHC (33.0-37.0) g/dL RDW (11.5-14.5) % Plt Count (130-400) K/uL MPV (7.2-11.7) fL Neut % (Auto) (50.0-75.0) % Lymph % (Auto) (20.0-40.0) % [place] % (Auto) (0.0-10.0) % Eos % (Auto) (0.0-4.0) % Baso % (Auto) (0.0-2.0) % Neut # (Auto) (1.8-7.0) K/uL Lymph # (Auto) (1.0-4.3) K/uL Wythe # (Auto) (0.0-0.8) K/uL Eos # (Auto) (0.0-0.7) K/uL Baso # (Auto) (0.0-0.2) K/uL Neutrophils % (Manual) (50-75) % Lymphocytes % (Manual) (20-40) % Monocytes % (Manual) (0-10) % Platelet Estimate (NORMAL) Hypochromasia (manual) Poikilocytosis (manual Anisocytosis (manual) Microcytosis (manual) Target Cells Tear Drop Cells Ovalocytes Douglas Cells PT 24.5 H D (9.7-12.2) SECONDS INR 2.2 D Sodium (132-148) mmol/L Potassium (3.6-5.2) mmol/L Chloride (98-107) mmol/L Carbon Dioxide (22-30) mmol/L Anion Gap (10-20) BUN (9-20) mg/dL Creatinine (0.8-1.5) mg/dL Est GFR ( Amer) Est GFR (Non-Af Amer) POC Glucose (mg/dL) 187 H 120 H (65-110) mg/dL Random Glucose (75-110) mg/dL Calcium (8.6-10.4) mg/dl Phosphorus (2.5-4.5) mg/dL Magnesium (1.6-2.3) mg/dL Total Bilirubin (0.2-1.3) mg/dL AST (17-59) U/L ALT (21-72) U/L Alkaline Phosphatase (38-126) U/L Total Protein (6.3-8.3) g/dL Albumin (3.5-5.0) g/dL Globulin (2.2-3.9) gm/dL Albumin/Globulin Ratio (1.0-2.1) Blood Type Antibody Screen 05/25/18 05/25/18 05/24/18 Range/Units 05:42 05:42 22:12 WBC 11.7 H (4.8-10.8) K/uL RBC 2.98 L (4.40-5.90) Mil/uL Hgb 8.4 L (12.0-18.0) g/dL Hct 25.8 L (35.0-51.0) % MCV 86.5 (80.0-94.0) fL MCH 28.1 (27.0-31.0) pg MCHC 32.4 L (33.0-37.0) g/dL RDW 15.2 H (11.5-14.5) % Plt Count 180 (130-400) K/uL MPV 9.5 (7.2-11.7) fL Neut % (Auto) 85.0 H (50.0-75.0) % Lymph % (Auto) 1.9 L (20.0-40.0) % Wy[place] % (Auto) 12.7 H (0.0-10.0) % Eos % (Auto) 0.4 (0.0-4.0) % Baso % (Auto) 0.0 (0.0-2.0) % Neut # (Auto) 9.9 H (1.8-7.0) K/uL Lymph # (Auto) 0.2 L (1.0-4.3) K/uL Wy[place] # (Auto) 1.5 H (0.0-0.8) K/uL Eos # (Auto) 0.0 (0.0-0.7) K/uL Baso # (Auto) 0.0 (0.0-0.2) K/uL Neutrophils % (Manual) 89 H (50-75) % Lymphocytes % (Manual) 3 L (20-40) % Monocytes % (Manual) 8 (0-10) % Platelet Estimate Normal (NORMAL) Hypochromasia (manual) Slight Poikilocytosis (manual Slight Anisocytosis (manual) Slight Microcytosis (manual) Slight Target Cells Slight Tear Drop Cells Slight Ovalocytes Slight Douglas Cells Slight PT (9.7-12.2) SECONDS INR Sodium 136 (132-148) mmol/L Potassium 3.7 (3.6-5.2) mmol/L Chloride 93 L (98-107) mmol/L Carbon Dioxide 34 H (22-30) mmol/L Anion Gap 13 (10-20) BUN 82 H (9-20) mg/dL Creatinine 1.4 (0.8-1.5) mg/dL Est GFR ( Amer) > 60 Est GFR (Non-Af Amer) 51 POC Glucose (mg/dL) 103 (65-110) mg/dL Random Glucose 125 H (75-110) mg/dL Calcium 8.7 (8.6-10.4) mg/dl Phosphorus 3.9 (2.5-4.5) mg/dL Magnesium 1.9 (1.6-2.3) mg/dL Total Bilirubin 1.6 H (0.2-1.3) mg/dL AST 39 (17-59) U/L ALT 48 (21-72) U/L Alkaline Phosphatase 79 (38-126) U/L Total Protein 6.2 L (6.3-8.3) g/dL Albumin 3.8 (3.5-5.0) g/dL Globulin 2.5 (2.2-3.9) gm/dL Albumin/Globulin Ratio 1.5 (1.0-2.1) Blood Type Antibody Screen 05/24/18 05/24/18 Range/Units 16:17 10:57 WBC (4.8-10.8) K/uL RBC (4.40-5.90) Mil/uL Hgb (12.0-18.0) g/dL Hct (35.0-51.0) % MCV (80.0-94.0) fL MCH (27.0-31.0) pg MCHC (33.0-37.0) g/dL RDW (11.5-14.5) % Plt Count (130-400) K/uL MPV (7.2-11.7) fL Neut % (Auto) (50.0-75.0) % Lymph % (Auto) (20.0-40.0) % Wy[place] % (Auto) (0.0-10.0) % Eos % (Auto) (0.0-4.0) % Baso % (Auto) (0.0-2.0) % Neut # (Auto) (1.8-7.0) K/uL Lymph # (Auto) (1.0-4.3) K/uL Wy[place] # (Auto) (0.0-0.8) K/uL Eos # (Auto) (0.0-0.7) K/uL Baso # (Auto) (0.0-0.2) K/uL Neutrophils % (Manual) (50-75) % Lymphocytes % (Manual) (20-40) % Monocytes % (Manual) (0-10) % Platelet Estimate (NORMAL) Hypochromasia (manual) Poikilocytosis (manual Anisocytosis (manual) Microcytosis (manual) Target Cells Tear Drop Cells Ovalocytes Rikki Cells PT (9.7-12.2) SECONDS INR Sodium (132-148) mmol/L Potassium (3.6-5.2) mmol/L Chloride (98-107) mmol/L Carbon Dioxide (22-30) mmol/L Anion Gap (10-20) BUN (9-20) mg/dL Creatinine (0.8-1.5) mg/dL Est GFR ( Amer) Est GFR (Non-Af Amer) POC Glucose (mg/dL) 87 (65-110) mg/dL Random Glucose (75-110) mg/dL Calcium (8.6-10.4) mg/dl Phosphorus (2.5-4.5) mg/dL Magnesium (1.6-2.3) mg/dL Total Bilirubin (0.2-1.3) mg/dL AST (17-59) U/L ALT (21-72) U/L Alkaline Phosphatase (38-126) U/L Total Protein (6.3-8.3) g/dL Albumin (3.5-5.0) g/dL Globulin (2.2-3.9) gm/dL Albumin/Globulin Ratio (1.0-2.1) Blood Type A POSITIVE Antibody Screen Negative Laboratory Results - last 24 hr 05/24/18 05/24/18 05/24/18 10:57 16:17 22:12 WBC RBC Hgb Hct MCV MCH MCHC RDW Plt Count MPV Neut % (Auto) Lymph % (Auto) [place] % (Auto) Eos % (Auto) Baso % (Auto) Neut # (Auto) Lymph # (Auto) Wy[place] # (Auto) Eos # (Auto) Baso # (Auto) Neutrophils % (Manual) Lymphocytes % (Manual) Monocytes % (Manual) Platelet Estimate Hypochromasia (manual) Poikilocytosis (manual Anisocytosis (manual) Microcytosis (manual) Target Cells Tear Drop Cells Ovalocytes Rikki Cells PT INR Sodium Potassium Chloride Carbon Dioxide Anion Gap BUN Creatinine Est GFR ( Amer) Est GFR (Non-Af Amer) POC Glucose (mg/dL) 87 103 Random Glucose Calcium Phosphorus Magnesium Total Bilirubin AST ALT Alkaline Phosphatase Total Protein Albumin Globulin Albumin/Globulin Ratio Blood Type A POSITIVE Antibody Screen Negative 05/25/18 05/25/18 05/25/18 05:42 05:42 05:42 WBC 11.7 H RBC 2.98 L Hgb 8.4 L Hct 25.8 L MCV 86.5 MCH 28.1 MCHC 32.4 L RDW 15.2 H Plt Count 180 MPV 9.5 Neut % (Auto) 85.0 H Lymph % (Auto) 1.9 L Wy[place] % (Auto) 12.7 H Eos % (Auto) 0.4 Baso % (Auto) 0.0 Neut # (Auto) 9.9 H Lymph # (Auto) 0.2 L Wy[place] # (Auto) 1.5 H Eos # (Auto) 0.0 Baso # (Auto) 0.0 Neutrophils % (Manual) 89 H Lymphocytes % (Manual) 3 L Monocytes % (Manual) 8 Platelet Estimate Normal Hypochromasia (manual) Slight Poikilocytosis (manual Slight Anisocytosis (manual) Slight Microcytosis (manual) Slight Target Cells Slight Tear Drop Cells Slight Ovalocytes Slight Douglas Cells Slight PT 24.5 H D INR 2.2 D Sodium 136 Potassium 3.7 Chloride 93 L Carbon Dioxide 34 H Anion Gap 13 BUN 82 H Creatinine 1.4 Est GFR ( Amer) > 60 Est GFR (Non-Af Amer) 51 POC Glucose (mg/dL) Random Glucose 125 H Calcium 8.7 Phosphorus 3.9 Magnesium 1.9 Total Bilirubin 1.6 H AST 39 ALT 48 Alkaline Phosphatase 79 Total Protein 6.2 L Albumin 3.8 Globulin 2.5 Albumin/Globulin Ratio 1.5 Blood Type Antibody Screen 05/25/18 05/25/18 07:23 11:06 WBC RBC Hgb Hct MCV MCH MCHC RDW Plt Count MPV Neut % (Auto) Lymph % (Auto) [place] % (Auto) Eos % (Auto) Baso % (Auto) Neut # (Auto) Lymph # (Auto) [place] # (Auto) Eos # (Auto) Baso # (Auto) Neutrophils % (Manual) Lymphocytes % (Manual) Monocytes % (Manual) Platelet Estimate Hypochromasia (manual) Poikilocytosis (manual Anisocytosis (manual) Microcytosis (manual) Target Cells Tear Drop Cells Ovalocytes Rikki Cells PT INR Sodium Potassium Chloride Carbon Dioxide Anion Gap BUN Creatinine Est GFR ( Amer) Est GFR (Non-Af Amer) POC Glucose (mg/dL) 120 H 187 H Random Glucose Calcium Phosphorus Magnesium Total Bilirubin AST ALT Alkaline Phosphatase Total Protein Albumin Globulin Albumin/Globulin Ratio Blood Type Antibody Screen Critical Care Progress Note - Nutrition Nutrition: Nutrition Category Date Time Status Heart Healthy Diet [DIET] Diets 05/24/18 Dinner Active NPO Diet [DIET] Diets 05/26/18 Dinner Active NPO Diet [DIET] Diets 05/27/18 Breakfast Active Attending/Attestation - Attestation I have personally seen and examined this patient.: Yes I have fully participated in the care of the patient.: Yes I have reviewed all pertinent clinical information: Yes Notes (Text): 05/25/18 16:09 patient seen and examined in the intensive care unit Continue milrinone drip Surgery on Wednesday under local anesthesia Transfuse FFP before surgery Repeat INR and start heparin drip
--- NOTE | 2018-05-25 09:23 | CP.PCM.PN ---
Subjective - Date & Time of Evaluation Date of Evaluation: 05/25/18 Time of Evaluation: 09:10 - Subjective Subjective: Patient was reporting he is still short of breath and also continues to have the right side abdominal pain. The CT scan showed that there is a non obstructing inguinal hernia but also that there is a hematoma in the right side anterior rectal sheath. INR is lower, he has been getting Vitamin K. He had one unit of PRBC yesterday, Hgb now 8.4 His anticoagulation was held yesterday. However because of the mechanical valve history and atrial fibrillation he is high risk for embolic event. I spoke with patient's yesterday and explained to her the situation. She is well aware that the prognoisis at this time is not good. Objective - Vital Signs/Intake and Output Vital Signs (last 24 hours): Temp Pulse Resp BP Pulse Ox 98.5 F 90 18 125/75 90 L 05/25/18 08:00 05/25/18 09:07 05/25/18 09:07 05/25/18 09:07 05/25/18 09:07 Intake and Output: 05/25/18 05/25/18 06:59 18:59 Intake Total 1000.7 11.7 Output Total 1400 700 Balance -399.3 -688.3 - Medications Medications: Current Medications Acetaminophen (Tylenol 325mg Tab) 650 mg PO Q6 PRN PRN Reason: Pain, moderate (4-7) Budesonide (Pulmicort Respules) 0.5 mg INH RQ12 [facility] Last Admin: 05/25/18 08:11 Dose: 0.5 mg Clopidogrel Bisulfate (Plavix) 75 mg PO DAILY [facility] Last Admin: 05/24/18 10:07 Dose: 75 mg Doxycycline Hyclate (Doryx) 100 mg PO Q12H [facility]; Protocol Last Admin: 05/24/18 21:58 Dose: 100 mg Famotidine (Pepcid) 20 mg PO DAILY [facility] Last Admin: 05/24/18 10:07 Dose: 20 mg Fluticasone Propionate (Flonase) 2 spr JESSICA BID [facility] Last Admin: 05/24/18 18:34 Dose: 2 sprays Furosemide (Lasix) 40 mg IVP Q12H [facility] Last Admin: 05/25/18 05:59 Dose: 40 mg Gabapentin (Neurontin) 300 mg PO BID [facility] Last Admin: 05/24/18 18:33 Dose: 300 mg Hydralazine HCl (Apresoline) 25 mg PO TID [facility] Last Admin: 05/24/18 18:33 Dose: 25 mg Ceftriaxone Sodium 1 gm/ (Sodium Chloride) 100 mls @ 100 mls/hr IVPB DAILY [facility]; Protocol Last Admin: 05/24/18 10:07 Dose: 100 mls/hr Milrinone Lactate/Dextrose 20 (mg/ Dextrose) 100 mls @ 4.51 mls/hr IV .[id number] [facility]; Protocol Last Admin: 05/25/18 05:12 Dose: Not Given Insulin Human Regular (Novolin R) 0 unit SC ACHS [facility]; Protocol Last Admin: 05/24/18 22:00 Dose: Not Given Isosorbide Mononitrate (Imdur) 60 mg PO DAILY [facility] Last Admin: 05/24/18 10:07 Dose: 60 mg Lidocaine (Lidoderm) 2 ea TD DAILY [facility] Last Admin: 05/24/18 10:08 Dose: 2 ea Metolazone (Zaroxolyn) 2.5 mg PO DAILY [facility] Last Admin: 05/24/18 10:07 Dose: 2.5 mg Metoprolol Tartrate (Lopressor) 25 mg PO BID [facility] Last Admin: 05/24/18 18:34 Dose: 25 mg Morphine Sulfate (Morphine) 2 mg IV Q3 PRN PRN Reason: PAIN, SEVERE 8-10 Last Admin: 05/24/18 16:48 Dose: 2 mg Phytonadione (Vitamin K Inj) 10 mg IM DAILY [facility] Stop: 05/26/18 10:01 Last Admin: 05/24/18 21:45 Dose: 10 mg Phytonadione (Vitamin K Inj) 10 mg IV BID [facility] Rosuvastatin Calcium (Crestor) 10 mg PO HS [facility] Last Admin: 05/24/18 21:46 Dose: 10 mg Vitamin A (Vitamin A & D Oint Ud Foilpak) 1 ea TOP BID [facility] Last Admin: 05/24/18 18:35 Dose: 1 ea - Labs Labs: 05/25/18 05:42 05/25/18 05:42 PT 24.5 SECONDS (9.7-12.2) H D 05/25/18 05:42 INR 2.2 D 05/25/18 05:42 APTT 84 SECONDS (21-34) H D 05/20/18 02:40 - Constitutional Appears: Cachectic, Chronically Ill - Respiratory Exam Respiratory Exam: Decreased Breath Sounds, Rales, Rhonchi - Cardiovascular Exam Cardiovascular Exam: Clicks, Irregular Rhythm Additional comments: Mechanical clicks - GI/Abdominal Exam GI & Abdominal Exam: Tenderness - Neurological Exam Neurological Exam: Alert, Awake Neuro motor strength exam: Left Upper Extremity: 4, Right Upper Extremity: 4 - Psychiatric Exam Psychiatric exam: Depressed, Flat Affect - Skin Skin Exam: Pallor, Warm Assessment and Plan - Assessment and Plan (Free Text) Assessment: 1. Acute on chronic systolic heart failure History of Aortic valve replacement, Mitral valve replacement, Tricuspid valve replacement AICD ,CABG 05/25: Appreciate cardiology on case, the patient maybe transferred to another hospital for further care. Because of the hematoma seen on CT scan the anticoagulation was held yesterday. Family is aware that prognosis is not good at this time. 05/24: Again has to use Bipap at night and intermittently throughout the day. Urine out put was 1250 yesterday. And he remains on the IV Milrinone ggt as well as Lasix and Zaroxyln 05/23: Patient remains short of breath requiring the Bipap at night and most the day. He has been on the milrinone and lasix and zaroxyln INR 3.7. Urine out put was 1,700 recorded yesterday Updated family member at bedside as well Milrinone ggt Lasix 40mg bid Imdur 60mg po daily Hydralazine 25mg po tid andrés Lopressor 25mg po bid andrés (As per fitness specialist Interrogation of AICD (Mary) revealed abscence of atrial lead, which could ID possible underlying AF EKG and telemetry without discernible P waves,Cont with anticoagulation,planning for EP input) 2. Abdominal pain - Rectal sheath hematoma and inguinal hernia 05/25: Possible intervention this Wednesday under local anesthesia for the inguinal hernia The anticoagulation held yesterday. He had one unit of PRBC yesterday Patient has inguinal hernia and it having significant amount of pain. NPO now except meds, also obstructive3 series ordered and CT scan of the abdomen and pelvis in case there could be an obstruction 2. Pneumonia w/ shortness of breath 05/23: Currently afebrile and WBC stable. He is on pulmicort and doxycycline Today we added pulmicort,on ceftriaxone and doxy Duonebs PRN Chest x ray without changes ECHO from 02/05/18: EF 35% CXR: Moderate to severe venous congestion with prominent consolidative opacities within mid to lower lung zones. small bilateral pleural effusions. Aortic atherosclertic calcification noted. Enlarged heart with prominent cardiomegaly. Prior valve replacements. Left sided pacemaker. Status post median sternotomy. Degenerative changes in spine and shoulders. Calcifications within the right axilla. CT chest: multilobar pna CXR; severe venous congestion 3.CAD w/ CABG 05/23: Patient remains on crestor, imdur, plavix, ASA, BB Crestor 10mg po HS lasix 40mg bid Imdur 60mg po daily Metoprolol 25mg po bid andrés Zaroxylin 4.LOUISE Likely prerenal in etiology with low blood pressure setting and anemia Nephrology consulted Cardiorenal etiology with increased diuretics patient Cr loses 5.Atrial fibrillation 05/25: INR is lower. Vitamin K was given, anticoagulation held yesterday 05/23: INR 3.7 today (as per fitness specialist Interrogation of AICD (Mary) revealed abscence of atrial lead, which could ID possible underlying AF EKG and telemetry without discernible P waves,Cont with anticoagulation,planning for EP input) 6.Chronic pain Gabapentin 100mg po tid HTN Bumex/Imdur/Lopressor/Hydralazine PPx Influenza vaccine DVT ppx: not indicated at this time in setting of elevated INR GI ppx: protonix 40mg daily andrés
[2018-05-25] MEDS: Lidocaine 5% Patch TD SCH (09:29)
[2018-05-25] MEDS: Fluticasone Nasal 50 mcg/Spray NAS SCH ×2 (09:29→17:37)
[2018-05-25] MEDS: Phytonadione 10 mg/ml Inj (Adult) IM SCH (09:31)
[2018-05-25] MEDS: (Novolin R) Insulin Human Regular 100 units/ml vial SC SCH ×4 (09:31→22:00)
[2018-05-25] MEDS: metOLazone 2.5 MG TAB PO SCH (09:32)
[2018-05-25] MEDS: Vitamins A & D Oint UD Foilpak TOP SCH ×2 (09:32→17:38)
[2018-05-25] MEDS ORDERED: Phytonadione 10 mg/ml Inj (Adult) IV SCH (10:00)
--- NOTE | 2018-05-25 14:02 | CP.PCM.PN ---
Subjective - Date & Time of Evaluation Date of Evaluation: 05/25/18 Time of Evaluation: 13:58 - Subjective Subjective: Pt still has lower abdominal pain. Pt received FFP and Vit K to reverse warfarin. Still has dyspnea at rest. INR is 2.2. Objective - Vital Signs/Intake and Output Vital Signs (last 24 hours): Temp Pulse Resp BP Pulse Ox 98.4 F 90 14 107/60 93 L 05/25/18 12:00 05/25/18 13:07 05/25/18 13:07 05/25/18 13:07 05/25/18 13:07 Intake and Output: 05/25/18 05/25/18 06:59 18:59 Intake Total 1000.7 961.2 Output Total 1400 700 Balance -399.3 261.2 - Medications Medications: Current Medications Acetaminophen (Tylenol 325mg Tab) 650 mg PO Q6 PRN PRN Reason: Pain, moderate (4-7) Last Admin: 05/25/18 11:38 Dose: 650 mg Budesonide (Pulmicort Respules) 0.5 mg INH RQ12 [facility] Last Admin: 05/25/18 08:11 Dose: 0.5 mg Clopidogrel Bisulfate (Plavix) 75 mg PO DAILY [facility] Last Admin: 05/25/18 09:31 Dose: 75 mg Doxycycline Hyclate (Doryx) 100 mg PO Q12H [facility]; Protocol Last Admin: 05/25/18 09:33 Dose: 100 mg Famotidine (Pepcid) 20 mg PO DAILY [facility] Last Admin: 05/25/18 09:31 Dose: 20 mg Fluticasone Propionate (Flonase) 2 spr JESSICA BID [facility] Last Admin: 05/25/18 09:29 Dose: 2 sprays Furosemide (Lasix) 40 mg IVP Q12H [facility] Last Admin: 05/25/18 05:59 Dose: 40 mg Gabapentin (Neurontin) 300 mg PO BID [facility] Last Admin: 05/25/18 09:31 Dose: 300 mg Hydralazine HCl (Apresoline) 25 mg PO TID [facility] Last Admin: 05/25/18 09:28 Dose: 25 mg Ceftriaxone Sodium 1 gm/ (Sodium Chloride) 100 mls @ 100 mls/hr IVPB DAILY [facility]; Protocol Last Admin: 05/25/18 09:43 Dose: 100 mls/hr Milrinone Lactate/Dextrose 20 (mg/ Dextrose) 100 mls @ 4.51 mls/hr IV .[id number] [facility]; Protocol Last Admin: 05/25/18 09:44 Dose: 0.17 mcg/kg/min, 3.9 mls/hr Insulin Human Regular (Novolin R) 0 unit SC ACHS [facility]; Protocol Last Admin: 05/25/18 12:44 Dose: 2 u Isosorbide Mononitrate (Imdur) 60 mg PO DAILY [facility] Last Admin: 05/25/18 09:29 Dose: 60 mg Lidocaine (Lidoderm) 2 ea TD DAILY [facility] Last Admin: 05/25/18 09:29 Dose: 2 ea Metolazone (Zaroxolyn) 2.5 mg PO DAILY [facility] Last Admin: 05/25/18 09:32 Dose: 2.5 mg Metoprolol Tartrate (Lopressor) 25 mg PO BID [facility] Last Admin: 05/25/18 09:30 Dose: 25 mg Morphine Sulfate (Morphine) 2 mg IV Q3 PRN PRN Reason: PAIN, SEVERE 8-10 Last Admin: 05/24/18 16:48 Dose: 2 mg Phytonadione (Vitamin K Inj) 10 mg IM DAILY [facility] Stop: 05/26/18 10:01 Last Admin: 05/25/18 09:31 Dose: 10 mg Phytonadione (Vitamin K Inj) 10 mg IV BID [facility] Rosuvastatin Calcium (Crestor) 10 mg PO HS [facility] Last Admin: 05/24/18 21:46 Dose: 10 mg Vitamin A (Vitamin A & D Oint Ud Foilpak) 1 ea TOP BID [facility] Last Admin: 05/25/18 09:32 Dose: 1 ea - Labs Labs: 05/25/18 05:42 05/25/18 05:42 PT 24.5 SECONDS (9.7-12.2) H D 05/25/18 05:42 INR 2.2 D 05/25/18 05:42 APTT 84 SECONDS (21-34) H D 05/20/18 02:40 - Constitutional Appears: Chronically Ill - Head Exam Head Exam: ATRAUMATIC - Eye Exam Eye Exam: EOMI - ENT Exam ENT Exam: Mucous Membranes Moist - Neck Exam Neck Exam: Full ROM - Respiratory Exam Respiratory Exam: Rhonchi, Wheezes - Cardiovascular Exam Cardiovascular Exam: Irregular Rhythm - GI/Abdominal Exam GI & Abdominal Exam: Normal Bowel Sounds Additional comments: tender lower abdomen bilateral - Exam External exam: NORMAL EXTERNAL EXAM - Extremities Exam Extremities Exam: Full ROM, Normal Inspection - Back Exam Back Exam: NORMAL INSPECTION - Neurological Exam Neurological Exam: Alert, Awake, Oriented x3 - Psychiatric Exam Psychiatric exam: Normal Affect - Skin Skin Exam: Normal Color Assessment and Plan - Assessment and Plan (Free Text) Assessment: 1. Refractory chf, in spite of aggressive treatment: Dr Chauhan at know patient and will call me. 2. Afib: rate is good. Anticoagulated. 3. prosthetic valve function is good. 4. pt to have procedure by Dr Martell under local anesthesia to reduce hernia. Once, finished, IV heparin recommended as soon as possible, as mechanical mitral valve and afib is a very thrombotic condition.
[2018-05-25 16:49] LABS: PROTHROMBIN TIME 21.5 SECONDS (9.7-12.2)
[2018-05-25] MEDS ORDERED: Heparin25000 units/250ml 1/2NS 25,000 UNITS/250 ML BAG IV PRN (17:08)
[2018-05-26 05:57] LABS: BASO % 0.1 % (0.0-2.0); EOS # 0.2 K/uL (0.0-0.7); EOS % 1.9 % (0.0-4.0); LYMPH # 0.3 K/uL (1.0-4.3); LYMPH % 3.1 % (20.0-40.0); MEAN CELL VOLUME 86.3 fL (80.0-94.0); MEAN CORPUSCULAR HEMOGLOBIN 28.2 pg (27.0-31.0); MEAN CORPUSCULAR HGB CONC 32.7 g/dL (33.0-37.0); MEAN PLATELET VOLUME 9.3 fL (7.2-11.7); MONO # 1.3 K/uL (0.0-0.8); MONO % 12.1 % (0.0-10.0); NEUT # 8.9 K/uL (1.8-7.0); NEUT % 82.8 % (50.0-75.0); NRBC % 0.1 % (0.0-2.0); PLATELET COUNT 161 K/uL (130-400); RBC 2.84 Mil/uL (4.40-5.90); RED CELL DISTRIBUTION WIDTH 15.8 % (11.5-14.5); WHITE BLOOD COUNT 10.7 K/uL (4.8-10.8)
[2018-05-26] MEDS: Milrinone 20 MG in Dextrose 5% In Water 80 ML IV SCH ×2 (06:30→22:00)
--- NOTE | 2018-05-26 07:49 | CP.CCUPN ---
<Kevin Love - Last Filed: 05/26/18 17:59> CCU Subjective - Physician Review Subjective (Free Text): 05/26/18 07:49 PGY-1 Critical Care Progress Note for Dr. Jama Patient seen and examined at bedside this AM. Per nurse, patient was having nosebleed overnight with the bipap mask on. Continues to have shortness of breath requiring supplemental o2, Bipap. Continues to complain of RLQ abdominal pain and R sided scrotal tenderness. 12 pt ROS reviewed and otherwise unchanged. Critical Care Time Spent (in minutes): 35 CCU Objective - Vital Signs / Intake & Output Vital Signs (Last 4 hours): Vital Signs Temp Pulse Resp BP Pulse Ox 05/26/18 07:00 97 H 22 96 05/26/18 06:37 95 H 20 94/57 L 97 05/26/18 06:32 117/56 L 05/26/18 06:30 94 H 21 117/56 L 96 05/26/18 06:07 89 21 117/65 100 05/26/18 06:05 90 05/26/18 06:00 90 20 97 05/26/18 05:37 92 H 21 112/65 95 05/26/18 05:35 90 21 106/62 94 L 05/26/18 05:00 90 20 97 05/26/18 04:00 98.1 F 90 25 H 96 Intake and Output (Last 8hrs): Intake & Output 05/25/18 05/26/18 05/26/18 22:59 06:59 14:59 Intake Total 690.0 373.5 13.7 Output Total 1050 800 400 Balance -360.0 -426.5 -386.3 Weight 145 lb 6 oz Intake: IV 100 Intake, IV Amount 90.0 123.5 13.7 Left 78.4 9.8 Left Forearm 31.2 35.1 3.9 Right Forearm 58.8 10 Oral 600 150 Output: Urine 1050 800 400 Urine, Voided 1050 800 400 Other: # Bowel Movements 0 1 0 - Physical Exam Head: Positive for: Atraumatic, Normocephalic Pupils: Positive for: PERRL Extroacular Muscles: Positive for: EOMI Mouth: Positive for: Dry Neck: Positive for: Normal Range of Motion Respiratory/Chest: Positive for: Rales, Rhonchi Cardiovascular: Positive for: Normal S1, S2, Irregular Rhythm Abdomen: Positive for: Tenderness, Normal Bowel Sounds, Hernias (R inguinal hernia). Negative for: Distention, Peritoneal Signs, Rebound, Guarding Genitourinary Male: Positive for: Testicle Swelling (R scrotal swelling) Upper Extremity: Positive for: Normal Inspection, NORMAL PULSES, Neurovascularly Intact, Capillary Refill < 2s Lower Extremity: Positive for: Edema, NORMAL PULSES, Neurovascularly Intact, Capillary Refill < 2 s Neurological: Positive for: CN II-XII Intact Skin: Positive for: Warm, Dry, Normal Color Psychiatric: Positive for: Alert, Oriented x 3, Anxious, Depressed Mood - Medications Active Medications: Active Medications Generic Name Dose Route Start Last Admin Trade Name Freq PRN Reason Stop Dose Admin Acetaminophen 650 mg 05/22/18 10:21 05/25/18 11:38 Tylenol 325mg Tab PO 650 mg Q6 PRN Administration Pain, moderate (4-7) Budesonide 0.5 mg 05/22/18 20:00 05/25/18 20:06 Pulmicort Respules INH 0.5 mg RQ12 AYDEE Administration Clopidogrel Bisulfate 75 mg 05/22/18 10:30 05/25/18 09:31 Plavix PO 75 mg DAILY AYDEE Administration Doxycycline Hyclate 100 mg 05/22/18 10:30 05/25/18 21:46 Doryx PO 100 mg Q12H AYDEE Administration Protocol Famotidine 20 mg 05/23/18 10:00 05/25/18 09:31 Pepcid PO 20 mg DAILY AYDEE Administration Fluticasone Propionate 2 spr 05/14/18 18:00 05/25/18 17:37 Flonase JESSICA 2 sprays BID AYDEE Administration Furosemide 40 mg 05/18/18 19:00 05/26/18 06:32 Lasix IVP 40 mg Q12H AYDEE Administration Gabapentin 300 mg 05/22/18 18:00 05/25/18 17:39 Neurontin PO 300 mg BID AYDEE Administration Hydralazine HCl 25 mg 05/17/18 18:00 05/25/18 17:37 Apresoline PO 25 mg TID AYDEE Administration Ceftriaxone Sodium 1 gm/ 100 mls @ 100 mls/hr 05/23/18 10:00 05/25/18 09:43 Sodium Chloride IVPB 100 mls/hr DAILY AYDEE Administration Protocol Milrinone Lactate/Dextrose 20 100 mls @ 4.51 mls/hr 05/24/18 03:00 05/26/18 06:30 mg/ Dextrose IV 0.17 mcg/kg/min .[id number] AYDEE 3.9 mls/hr Administration Protocol 0.2 MCG/KG/MIN Heparin Sodium/Sodium Chloride 25,000 units in 250 mls @ 9.883 mls/hr 05/25/18 17:08 05/25/18 17:28 Heparin 08164 Units/250ml 1/2 Normal Saline IV 15 units/kg/hr .Q24H PRN 9.883 mls/hr ADJUST RATE PER PROTOCOL Administration Protocol 15 UNITS/KG/HR Insulin Human Regular 0 unit 05/19/18 16:30 05/25/18 22:00 Novolin R SC Not Given ACHS AYDEE Protocol Isosorbide Mononitrate 60 mg 05/14/18 15:00 05/25/18 09:29 Imdur PO 60 mg DAILY AYDEE Administration Lidocaine 2 ea 05/22/18 12:30 05/25/18 09:29 Lidoderm TD 2 ea DAILY AYDEE Administration Metolazone 2.5 mg 05/23/18 10:00 05/25/18 09:32 Zaroxolyn PO 2.5 mg DAILY AYDEE Administration Metoprolol Tartrate 25 mg 05/17/18 16:27 05/25/18 17:38 Lopressor PO 25 mg BID AYDEE Administration Morphine Sulfate 2 mg 05/24/18 09:48 05/24/18 16:48 Morphine IV 2 mg Q3 PRN Administration PAIN, SEVERE 8-10 Phytonadione 10 mg 05/24/18 19:05 05/25/18 09:31 Vitamin K Inj IM 05/26/18 10:01 10 mg DAILY AYDEE Administration Phytonadione 10 mg 05/25/18 10:00 Vitamin K Inj IV BID AYDEE Rosuvastatin Calcium 10 mg 05/14/18 22:00 05/25/18 21:45 Crestor PO 10 mg HS AYDEE Administration Vitamin A 1 ea 05/15/18 18:00 05/25/18 17:38 Vitamin A & D Oint Ud Foilpak TOP 1 ea BID AYDEE Administration - Patient Studies Lab Studies: Lab Studies 11/29/18 11/29/18 11/29/18 Range/Units 07:20 05:45 05:45 WBC (4.8-10.8) K/uL RBC (4.40-5.90) Mil/uL Hgb (12.0-18.0) g/dL Hct (35.0-51.0) % MCV (80.0-94.0) fL MCH (27.0-31.0) pg MCHC (33.0-37.0) g/dL RDW (11.5-14.5) % Plt Count (130-400) K/uL MPV (7.2-11.7) fL Neut % (Auto) (50.0-75.0) % Lymph % (Auto) (20.0-40.0) % [place] % (Auto) (0.0-10.0) % Eos % (Auto) (0.0-4.0) % Baso % (Auto) (0.0-2.0) % Neut # (Auto) (1.8-7.0) K/uL Lymph # (Auto) (1.0-4.3) K/uL [place] # (Auto) (0.0-0.8) K/uL Eos # (Auto) (0.0-0.7) K/uL Baso # (Auto) (0.0-0.2) K/uL Neutrophils % (Manual) (50-75) % Lymphocytes % (Manual) (20-40) % Monocytes % (Manual) (0-10) % Platelet Estimate (NORMAL) Hypochromasia (manual) Poikilocytosis (manual Anisocytosis (manual) Microcytosis (manual) Target Cells Tear Drop Cells Ovalocytes [place] Cells PT (9.7-12.2) SECONDS INR APTT 59 H (21-34) SECONDS POC Glucose (mg/dL) 83 (65-110) mg/dL Phosphorus 3.2 (2.5-4.5) mg/dL Magnesium 1.8 (1.6-2.3) mg/dL 05/26/18 05/26/18 05/25/18 Range/Units 05:45 00:30 21:07 WBC 10.7 (4.8-10.8) K/uL RBC 2.84 L (4.40-5.90) Mil/uL Hgb 8.0 L (12.0-18.0) g/dL Hct 24.5 L (35.0-51.0) % MCV 86.3 (80.0-94.0) fL MCH 28.2 (27.0-31.0) pg MCHC 32.7 L (33.0-37.0) g/dL RDW 15.8 H (11.5-14.5) % Plt Count 161 (130-400) K/uL MPV 9.3 (7.2-11.7) fL Neut % (Auto) 82.8 H (50.0-75.0) % Lymph % (Auto) 3.1 L (20.0-40.0) % [place] % (Auto) 12.1 H (0.0-10.0) % Eos % (Auto) 1.9 (0.0-4.0) % Baso % (Auto) 0.1 (0.0-2.0) % Neut # (Auto) 8.9 H (1.8-7.0) K/uL Lymph # (Auto) 0.3 L (1.0-4.3) K/uL [place] # (Auto) 1.3 H (0.0-0.8) K/uL Eos # (Auto) 0.2 (0.0-0.7) K/uL Baso # (Auto) 0.0 (0.0-0.2) K/uL Neutrophils % (Manual) (50-75) % Lymphocytes % (Manual) (20-40) % Monocytes % (Manual) (0-10) % Platelet Estimate (NORMAL) Hypochromasia (manual) Poikilocytosis (manual Anisocytosis (manual) Microcytosis (manual) Target Cells Tear Drop Cells Ovalocytes [place] Cells PT (9.7-12.2) SECONDS INR APTT 62 H D (21-34) SECONDS POC Glucose (mg/dL) 125 H (65-110) mg/dL Phosphorus (2.5-4.5) mg/dL Magnesium (1.6-2.3) mg/dL 05/25/18 05/25/18 05/25/18 Range/Units 16:29 16:25 11:06 WBC (4.8-10.8) K/uL RBC (4.40-5.90) Mil/uL Hgb (12.0-18.0) g/dL Hct (35.0-51.0) % MCV (80.0-94.0) fL MCH (27.0-31.0) pg MCHC (33.0-37.0) g/dL RDW (11.5-14.5) % Plt Count (130-400) K/uL MPV (7.2-11.7) fL Neut % (Auto) (50.0-75.0) % Lymph % (Auto) (20.0-40.0) % [place] % (Auto) (0.0-10.0) % Eos % (Auto) (0.0-4.0) % Baso % (Auto) (0.0-2.0) % Neut # (Auto) (1.8-7.0) K/uL Lymph # (Auto) (1.0-4.3) K/uL [place] # (Auto) (0.0-0.8) K/uL Eos # (Auto) (0.0-0.7) K/uL Baso # (Auto) (0.0-0.2) K/uL Neutrophils % (Manual) (50-75) % Lymphocytes % (Manual) (20-40) % Monocytes % (Manual) (0-10) % Platelet Estimate (NORMAL) Hypochromasia (manual) Poikilocytosis (manual Anisocytosis (manual) Microcytosis (manual) Target Cells Tear Drop Cells Ovalocytes [place] Cells PT 21.5 H (9.7-12.2) SECONDS INR 2.0 APTT 30 (21-34) SECONDS POC Glucose (mg/dL) 95 187 H (65-110) mg/dL Phosphorus (2.5-4.5) mg/dL Magnesium (1.6-2.3) mg/dL 05/25/18 05/25/18 Range/Units 07:23 05:42 WBC (4.8-10.8) K/uL RBC (4.40-5.90) Mil/uL Hgb (12.0-18.0) g/dL Hct (35.0-51.0) % MCV (80.0-94.0) fL MCH (27.0-31.0) pg MCHC (33.0-37.0) g/dL RDW (11.5-14.5) % Plt Count (130-400) K/uL MPV (7.2-11.7) fL Neut % (Auto) (50.0-75.0) % Lymph % (Auto) (20.0-40.0) % [place] % (Auto) (0.0-10.0) % Eos % (Auto) (0.0-4.0) % Baso % (Auto) (0.0-2.0) % Neut # (Auto) (1.8-7.0) K/uL Lymph # (Auto) (1.0-4.3) K/uL [place] # (Auto) (0.0-0.8) K/uL Eos # (Auto) (0.0-0.7) K/uL Baso # (Auto) (0.0-0.2) K/uL Neutrophils % (Manual) 89 H (50-75) % Lymphocytes % (Manual) 3 L (20-40) % Monocytes % (Manual) 8 (0-10) % Platelet Estimate Normal (NORMAL) Hypochromasia (manual) Slight Poikilocytosis (manual Slight Anisocytosis (manual) Slight Microcytosis (manual) Slight Target Cells Slight Tear Drop Cells Slight Ovalocytes Slight [place] Cells Slight PT (9.7-12.2) SECONDS INR APTT (21-34) SECONDS POC Glucose (mg/dL) 120 H (65-110) mg/dL Phosphorus (2.5-4.5) mg/dL Magnesium (1.6-2.3) mg/dL Laboratory Results - last 24 hr 05/25/18 05/25/18 05/25/18 05:42 07:23 11:06 WBC RBC Hgb Hct MCV MCH MCHC RDW Plt Count MPV Neut % (Auto) Lymph % (Auto) [place] % (Auto) Eos % (Auto) Baso % (Auto) Neut # (Auto) Lymph # (Auto) [place] # (Auto) Eos # (Auto) Baso # (Auto) Neutrophils % (Manual) 89 H Lymphocytes % (Manual) 3 L Monocytes % (Manual) 8 Platelet Estimate Normal Hypochromasia (manual) Slight Poikilocytosis (manual Slight Anisocytosis (manual) Slight Microcytosis (manual) Slight Target Cells Slight Tear Drop Cells Slight Ovalocytes Slight Rikki Cells Slight PT INR APTT POC Glucose (mg/dL) 120 H 187 H Phosphorus Magnesium 05/25/18 05/25/18 05/25/18 16:25 16:29 21:07 WBC RBC Hgb Hct MCV MCH MCHC RDW Plt Count MPV Neut % (Auto) Lymph % (Auto) [place] % (Auto) Eos % (Auto) Baso % (Auto) Neut # (Auto) Lymph # (Auto) [place] # (Auto) Eos # (Auto) Baso # (Auto) Neutrophils % (Manual) Lymphocytes % (Manual) Monocytes % (Manual) Platelet Estimate Hypochromasia (manual) Poikilocytosis (manual Anisocytosis (manual) Microcytosis (manual) Target Cells Tear Drop Cells Ovalocytes [place] Cells PT 21.5 H INR 2.0 APTT 30 POC Glucose (mg/dL) 95 125 H Phosphorus Magnesium 05/26/18 05/26/18 05/26/18 00:30 05:45 05:45 WBC 10.7 RBC 2.84 L Hgb 8.0 L Hct 24.5 L MCV 86.3 MCH 28.2 MCHC 32.7 L RDW 15.8 H Plt Count 161 MPV 9.3 Neut % (Auto) 82.8 H Lymph % (Auto) 3.1 L [place] % (Auto) 12.1 H Eos % (Auto) 1.9 Baso % (Auto) 0.1 Neut # (Auto) 8.9 H Lymph # (Auto) 0.3 L [place] # (Auto) 1.3 H Eos # (Auto) 0.2 Baso # (Auto) 0.0 Neutrophils % (Manual) Lymphocytes % (Manual) Monocytes % (Manual) Platelet Estimate Hypochromasia (manual) Poikilocytosis (manual Anisocytosis (manual) Microcytosis (manual) Target Cells Tear Drop Cells Ovalocytes Rikki Cells PT INR APTT 62 H D POC Glucose (mg/dL) Phosphorus 3.2 Magnesium 1.8 05/26/18 05/26/18 05:45 07:20 WBC RBC Hgb Hct MCV MCH MCHC RDW Plt Count MPV Neut % (Auto) Lymph % (Auto) [place] % (Auto) Eos % (Auto) Baso % (Auto) Neut # (Auto) Lymph # (Auto) [place] # (Auto) Eos # (Auto) Baso # (Auto) Neutrophils % (Manual) Lymphocytes % (Manual) Monocytes % (Manual) Platelet Estimate Hypochromasia (manual) Poikilocytosis (manual Anisocytosis (manual) Microcytosis (manual) Target Cells Tear Drop Cells Ovalocytes [place] Cells PT INR APTT 59 H POC Glucose (mg/dL) 83 Phosphorus Magnesium Fingerstick Blood Sugar Results: 125 Review of Systems - Review of Systems All systems: reviewed and no additional remarkable complaints except Review of Systems: as per HPI Critical Care Progress Note - Nutrition Nutrition: Nutrition Category Date Time Status Heart Healthy Diet [DIET] Diets 05/24/18 Dinner Active NPO Diet [DIET] Diets 05/26/18 Dinner Active NPO Diet [DIET] Diets 05/27/18 Breakfast Active Assessment/Plan - Assessment and Plan (Free Text) Assessment: 68 yo male with past medical history of CHF, Afib on Coumadin, aortic/mitral/tricuspid valve replacement, CAD and CABG admitted for 2-3 week history of shortness of breath and cough that worsened over last 2-3 days. CTC-massive cardiomegaly, severe systolic CHF, multifocal PNA. CTAP: New R anterior abdominal wall rectus muscle/sheath hematoma, 11.2 x 6 cm. Large R inguinal hernia contains bowel loop without evidence of bowel obstruction or incarceration. Plans for surgical intervention w/ local anesthesia on Wednesday. Plan: Neuro: Neuropathic pain -on neurontin 100 TID Pulm: Hypoxic respiratory failure -still needing bipap Pneumonia -afebrile, no leukocytosis -CXR (05/21): R basilar opacity unchanged. Cardiomegaly. AICD. Possible very small b/l pleural effusion. Congestive changes. -duonebs, pulmicort -on rocephin, doxycycline CV: Acute on chronic systolic heart failure Hx of aortic/mitral/tricuspid valve replacement s/p AICD placement, CABG -ECHO from 02/05/18: EF 35% -remains dyspneic requiring intermittent bipap use -milrinone ggt -lasix 40 BID -imdur 60 daily -hydralazine 25 tid -Lopressor 25 bid -metolazone 2.5 daily -Cardio recs (Dr. Pantoja) appreciated: maximal tx for CHF has not helped, in site of good diuresis and improved kidney function. Dr Ritesh Chauhan of [facility] contacted, transplant team, to see if he has any suggestions. Dr Pantoja is waiting for him to review pt's BI chart and call back. CAD w/ CABG -asa, plavix, statin, BB, imdur Heme: Atrial fibrillation -INR 1.5 (05/26) -per Cardio: interrogation of AICD revealed abscence of atrial lead, which could ID possible underlying AF. EKG and telemetry without discernible P waves, Cont with anticoagulation,planning for EP input Renal: LOUISE -Pt had baseline Cr of 1.5, jin to 2.0 with diuretics -likely 2/2 diuretics, patient needs diuretics to keep him dry CKD 3 -Nephrology on board: check renal us, quantify urine protein. Maintain Bumex, hold ARBs. GI: Large R inguinal hernia Hematoma -Abdomen obstruction series XR (05/24): Large R groin possibly R scrotal bowel containing hernia. A complete or high grade bowel obstruction seen. -CT abd/pelvis (05/24): New R anterior abdominal wall rectus muscle/sheath hematoma, 11.2 x 6 cm. Large R inguinal hernia contains bowel loop without evidence of bowel obstruction or incarceration. Mild to moderate constipation. Gallstones without evidence of acute cholecystitis. Cardiomegaly. -plan for surgical intervention w/ local anesthesia on Wednesday ID: -on rocephin, doxycycline PPx, Diet, Disposition -heparin drip held -GI: protonix -Diet: HHD -Code status: Full code Case discussed with Dr. Evita Love , PGY-1 <Don Jama - Last Filed: 05/26/18 19:08> CCU Objective - Vital Signs / Intake & Output Vital Signs (Last 4 hours): Vital Signs Pulse Resp BP Pulse Ox 05/26/18 17:45 115/68 05/26/18 16:07 91 H 21 120/70 99 05/26/18 16:00 91 H 29 H 94 L 05/26/18 15:37 90 26 H 114/59 L 98 05/26/18 15:07 94 H 24 111/66 97 Intake and Output (Last 8hrs): Intake & Output 05/26/18 05/26/18 05/26/18 06:59 14:59 22:59 Intake Total 373.5 354.1 247.8 Output Total 800 1200 150 Balance -426.5 -845.9 97.8 Weight 145 lb 6 oz Intake: IV 100 Intake, IV Amount 123.5 94.1 7.8 Left 78.4 49.0 Left Forearm 35.1 35.1 7.8 Right Forearm 10 10 Oral 150 260 240 Output: Urine 800 1200 150 Urine, Voided 800 1200 150 Other: # Bowel Movements 1 0 1 - Medications Active Medications: Active Medications Generic Name Dose Route Start Last Admin Trade Name Freq PRN Reason Stop Dose Admin Acetaminophen 650 mg 05/22/18 10:21 05/25/18 11:38 Tylenol 325mg Tab PO 650 mg Q6 PRN Administration Pain, moderate (4-7) Budesonide 0.5 mg 05/22/18 20:00 05/26/18 07:50 Pulmicort Respules INH 0.5 mg RQ12 AYDEE Administration Clopidogrel Bisulfate 75 mg 05/22/18 10:30 05/26/18 09:26 Plavix PO 75 mg DAILY AYDEE Administration Doxycycline Hyclate 100 mg 05/22/18 10:30 05/26/18 09:30 Doryx PO 100 mg Q12H AYDEE Administration Protocol Famotidine 20 mg 05/23/18 10:00 05/26/18 09:27 Pepcid PO 20 mg DAILY AYDEE Administration Fluticasone Propionate 2 spr 05/14/18 18:00 05/26/18 09:30 Flonase JESSICA 1 sprays BID AYDEE Administration Furosemide 40 mg 05/18/18 19:00 05/26/18 06:32 Lasix IVP 40 mg Q12H AYDEE Administration Gabapentin 300 mg 05/22/18 18:00 05/26/18 17:45 Neurontin PO 300 mg BID AYDEE Administration Hydralazine HCl 25 mg 05/17/18 18:00 05/26/18 17:45 Apresoline PO 25 mg TID AYDEE Administration Ceftriaxone Sodium 1 gm/ 100 mls @ 100 mls/hr 05/23/18 10:00 05/26/18 09:27 Sodium Chloride IVPB 100 mls/hr DAILY AYDEE Administration Protocol Milrinone Lactate/Dextrose 20 100 mls @ 4.51 mls/hr 05/24/18 03:00 05/26/18 06:30 mg/ Dextrose IV 0.17 mcg/kg/min .[id number] AYDEE 3.9 mls/hr Administration Protocol 0.2 MCG/KG/MIN Heparin Sodium/Sodium Chloride 25,000 units in 250 mls @ 9.883 mls/hr 05/25/18 17:08 05/25/18 17:28 Heparin 15588 Units/250ml 1/2 Normal Saline IV 15 units/kg/hr .Q24H PRN 9.883 mls/hr ADJUST RATE PER PROTOCOL Administration Protocol 15 UNITS/KG/HR Insulin Human Regular 0 unit 05/19/18 16:30 05/26/18 16:25 Novolin R SC Not Given ACHS AYDEE Protocol Isosorbide Mononitrate 60 mg 05/14/18 15:00 05/26/18 09:26 Imdur PO 60 mg DAILY AYDEE Administration Lidocaine 2 ea 05/22/18 12:30 05/26/18 09:28 Lidoderm TD 2 ea DAILY AYDEE Administration Metolazone 2.5 mg 05/23/18 10:00 05/26/18 09:27 Zaroxolyn PO 2.5 mg DAILY AYDEE Administration Metoprolol Tartrate 25 mg 05/17/18 16:27 05/26/18 17:45 Lopressor PO 25 mg BID AYDEE Administration Morphine Sulfate 2 mg 05/24/18 09:48 05/24/18 16:48 Morphine IV 2 mg Q3 PRN Administration PAIN, SEVERE 8-10 Phytonadione 10 mg 05/25/18 10:00 Vitamin K Inj IV BID AYDEE Rosuvastatin Calcium 10 mg 05/14/18 22:00 05/25/18 21:45 Crestor PO 10 mg HS AYDEE Administration Vitamin A 1 ea 05/15/18 18:00 05/26/18 17:50 Vitamin A & D Oint Ud Foilpak TOP 1 ea BID AYDEE Administration - Patient Studies Lab Studies: Lab Studies 05/26/18 05/26/18 05/26/18 Range/Units 16:30 16:04 16:01 WBC (4.8-10.8) K/uL RBC (4.40-5.90) Mil/uL Hgb (12.0-18.0) g/dL Hct (35.0-51.0) % MCV (80.0-94.0) fL MCH (27.0-31.0) pg MCHC (33.0-37.0) g/dL RDW (11.5-14.5) % Plt Count (130-400) K/uL MPV (7.2-11.7) fL Neut % (Auto) (50.0-75.0) % Lymph % (Auto) (20.0-40.0) % [place] % (Auto) (0.0-10.0) % Eos % (Auto) (0.0-4.0) % Baso % (Auto) (0.0-2.0) % Neut # (Auto) (1.8-7.0) K/uL Lymph # (Auto) (1.0-4.3) K/uL [place] # (Auto) (0.0-0.8) K/uL Eos # (Auto) (0.0-0.7) K/uL Baso # (Auto) (0.0-0.2) K/uL Neutrophils % (Manual) (50-75) % Lymphocytes % (Manual) (20-40) % Monocytes % (Manual) (0-10) % Eosinophils % (Manual) (0-4) % Platelet Estimate (NORMAL) Hypochromasia (manual) Poikilocytosis (manual Anisocytosis (manual) [place] Cells PT (9.7-12.2) SECONDS INR APTT (21-34) SECONDS Sodium (132-148) mmol/L Potassium (3.6-5.2) mmol/L Chloride (98-107) mmol/L Carbon Dioxide (22-30) mmol/L Anion Gap (10-20) BUN (9-20) mg/dL Creatinine (0.8-1.5) mg/dL Est GFR ( Amer) Est GFR (Non-Af Amer) POC Glucose (mg/dL) 133 H 48 L 50 L (65-110) mg/dL Random Glucose (75-110) mg/dL Calcium (8.6-10.4) mg/dl Phosphorus (2.5-4.5) mg/dL Magnesium (1.6-2.3) mg/dL Total Bilirubin (0.2-1.3) mg/dL AST (17-59) U/L ALT (21-72) U/L Alkaline Phosphatase (38-126) U/L Total Protein (6.3-8.3) g/dL Albumin (3.5-5.0) g/dL Globulin (2.2-3.9) gm/dL Albumin/Globulin Ratio (1.0-2.1) 05/26/18 05/26/18 05/26/18 Range/Units 14:36 11:19 09:58 WBC (4.8-10.8) K/uL RBC (4.40-5.90) Mil/uL Hgb (12.0-18.0) g/dL Hct (35.0-51.0) % MCV (80.0-94.0) fL MCH (27.0-31.0) pg MCHC (33.0-37.0) g/dL RDW (11.5-14.5) % Plt Count (130-400) K/uL MPV (7.2-11.7) fL Neut % (Auto) (50.0-75.0) % Lymph % (Auto) (20.0-40.0) % [place] % (Auto) (0.0-10.0) % Eos % (Auto) (0.0-4.0) % Baso % (Auto) (0.0-2.0) % Neut # (Auto) (1.8-7.0) K/uL Lymph # (Auto) (1.0-4.3) K/uL [place] # (Auto) (0.0-0.8) K/uL Eos # (Auto) (0.0-0.7) K/uL Baso # (Auto) (0.0-0.2) K/uL Neutrophils % (Manual) (50-75) % Lymphocytes % (Manual) (20-40) % Monocytes % (Manual) (0-10) % Eosinophils % (Manual) (0-4) % Platelet Estimate (NORMAL) Hypochromasia (manual) Poikilocytosis (manual Anisocytosis (manual) [place] Cells PT 16.6 H (9.7-12.2) SECONDS INR 1.5 D APTT 33 D (21-34) SECONDS Sodium 139 (132-148) mmol/L Potassium 3.1 L (3.6-5.2) mmol/L Chloride 90 L (98-107) mmol/L Carbon Dioxide 38 H (22-30) mmol/L Anion Gap 14 (10-20) BUN 90 H (9-20) mg/dL Creatinine 1.3 (0.8-1.5) mg/dL Est GFR ( Amer) > 60 Est GFR (Non-Af Amer) 55 POC Glucose (mg/dL) 275 H (65-110) mg/dL Random Glucose 153 H (75-110) mg/dL Calcium 8.9 (8.6-10.4) mg/dl Phosphorus (2.5-4.5) mg/dL Magnesium (1.6-2.3) mg/dL Total Bilirubin 1.8 H (0.2-1.3) mg/dL AST 52 (17-59) U/L ALT 47 (21-72) U/L Alkaline Phosphatase 98 (38-126) U/L Total Protein 7.0 (6.3-8.3) g/dL Albumin 3.9 (3.5-5.0) g/dL Globulin 3.1 (2.2-3.9) gm/dL Albumin/Globulin Ratio 1.3 (1.0-2.1) 05/26/18 05/26/18 05/26/18 Range/Units 07:20 05:45 05:45 WBC (4.8-10.8) K/uL RBC (4.40-5.90) Mil/uL Hgb (12.0-18.0) g/dL Hct (35.0-51.0) % MCV (80.0-94.0) fL MCH (27.0-31.0) pg MCHC (33.0-37.0) g/dL RDW (11.5-14.5) % Plt Count (130-400) K/uL MPV (7.2-11.7) fL Neut % (Auto) (50.0-75.0) % Lymph % (Auto) (20.0-40.0) % [place] % (Auto) (0.0-10.0) % Eos % (Auto) (0.0-4.0) % Baso % (Auto) (0.0-2.0) % Neut # (Auto) (1.8-7.0) K/uL Lymph # (Auto) (1.0-4.3) K/uL [place] # (Auto) (0.0-0.8) K/uL Eos # (Auto) (0.0-0.7) K/uL Baso # (Auto) (0.0-0.2) K/uL Neutrophils % (Manual) (50-75) % Lymphocytes % (Manual) (20-40) % Monocytes % (Manual) (0-10) % Eosinophils % (Manual) (0-4) % Platelet Estimate (NORMAL) Hypochromasia (manual) Poikilocytosis (manual Anisocytosis (manual) [place] Cells PT (9.7-12.2) SECONDS INR APTT 59 H (21-34) SECONDS Sodium (132-148) mmol/L Potassium (3.6-5.2) mmol/L Chloride (98-107) mmol/L Carbon Dioxide (22-30) mmol/L Anion Gap (10-20) BUN (9-20) mg/dL Creatinine (0.8-1.5) mg/dL Est GFR ( Amer) Est GFR (Non-Af Amer) POC Glucose (mg/dL) 83 (65-110) mg/dL Random Glucose (75-110) mg/dL Calcium (8.6-10.4) mg/dl Phosphorus 3.2 (2.5-4.5) mg/dL Magnesium 1.8 (1.6-2.3) mg/dL Total Bilirubin (0.2-1.3) mg/dL AST (17-59) U/L ALT (21-72) U/L Alkaline Phosphatase (38-126) U/L Total Protein (6.3-8.3) g/dL Albumin (3.5-5.0) g/dL Globulin (2.2-3.9) gm/dL Albumin/Globulin Ratio (1.0-2.1) 05/26/18 05/26/18 05/25/18 Range/Units 05:45 00:30 21:07 WBC 10.7 (4.8-10.8) K/uL RBC 2.84 L (4.40-5.90) Mil/uL Hgb 8.0 L (12.0-18.0) g/dL Hct 24.5 L (35.0-51.0) % MCV 86.3 (80.0-94.0) fL MCH 28.2 (27.0-31.0) pg MCHC 32.7 L (33.0-37.0) g/dL RDW 15.8 H (11.5-14.5) % Plt Count 161 (130-400) K/uL MPV 9.3 (7.2-11.7) fL Neut % (Auto) 82.8 H (50.0-75.0) % Lymph % (Auto) 3.1 L (20.0-40.0) % [place] % (Auto) 12.1 H (0.0-10.0) % Eos % (Auto) 1.9 (0.0-4.0) % Baso % (Auto) 0.1 (0.0-2.0) % Neut # (Auto) 8.9 H (1.8-7.0) K/uL Lymph # (Auto) 0.3 L (1.0-4.3) K/uL [place] # (Auto) 1.3 H (0.0-0.8) K/uL Eos # (Auto) 0.2 (0.0-0.7) K/uL Baso # (Auto) 0.0 (0.0-0.2) K/uL Neutrophils % (Manual) 87 H (50-75) % Lymphocytes % (Manual) 2 L (20-40) % Monocytes % (Manual) 10 (0-10) % Eosinophils % (Manual) 1 (0-4) % Platelet Estimate Normal (NORMAL) Hypochromasia (manual) Slight Poikilocytosis (manual Slight Anisocytosis (manual) Slight [place] Cells Slight PT (9.7-12.2) SECONDS INR APTT 62 H D (21-34) SECONDS Sodium (132-148) mmol/L Potassium (3.6-5.2) mmol/L Chloride (98-107) mmol/L Carbon Dioxide (22-30) mmol/L Anion Gap (10-20) BUN (9-20) mg/dL Creatinine (0.8-1.5) mg/dL Est GFR ( Amer) Est GFR (Non-Af Amer) POC Glucose (mg/dL) 125 H (65-110) mg/dL Random Glucose (75-110) mg/dL Calcium (8.6-10.4) mg/dl Phosphorus (2.5-4.5) mg/dL Magnesium (1.6-2.3) mg/dL Total Bilirubin (0.2-1.3) mg/dL AST (17-59) U/L ALT (21-72) U/L Alkaline Phosphatase (38-126) U/L Total Protein (6.3-8.3) g/dL Albumin (3.5-5.0) g/dL Globulin (2.2-3.9) gm/dL Albumin/Globulin Ratio (1.0-2.1) Laboratory Results - last 24 hr 05/25/18 05/26/18 05/26/18 21:07 00:30 05:45 WBC 10.7 RBC 2.84 L Hgb 8.0 L Hct 24.5 L MCV 86.3 MCH 28.2 MCHC 32.7 L RDW 15.8 H Plt Count 161 MPV 9.3 Neut % (Auto) 82.8 H Lymph % (Auto) 3.1 L [place] % (Auto) 12.1 H Eos % (Auto) 1.9 Baso % (Auto) 0.1 Neut # (Auto) 8.9 H Lymph # (Auto) 0.3 L [place] # (Auto) 1.3 H Eos # (Auto) 0.2 Baso # (Auto) 0.0 Neutrophils % (Manual) 87 H Lymphocytes % (Manual) 2 L Monocytes % (Manual) 10 Eosinophils % (Manual) 1 Platelet Estimate Normal Hypochromasia (manual) Slight Poikilocytosis (manual Slight Anisocytosis (manual) Slight [place] Cells Slight PT INR APTT 62 H D Sodium Potassium Chloride Carbon Dioxide Anion Gap BUN Creatinine Est GFR ( Amer) Est GFR (Non-Af Amer) POC Glucose (mg/dL) 125 H Random Glucose Calcium Phosphorus Magnesium Total Bilirubin AST ALT Alkaline Phosphatase Total Protein Albumin Globulin Albumin/Globulin Ratio 05/26/18 05/26/18 05/26/18 05:45 05:45 07:20 WBC RBC Hgb Hct MCV MCH MCHC RDW Plt Count MPV Neut % (Auto) Lymph % (Auto) [place] % (Auto) Eos % (Auto) Baso % (Auto) Neut # (Auto) Lymph # (Auto) [place] # (Auto) Eos # (Auto) Baso # (Auto) Neutrophils % (Manual) Lymphocytes % (Manual) Monocytes % (Manual) Eosinophils % (Manual) Platelet Estimate Hypochromasia (manual) Poikilocytosis (manual Anisocytosis (manual) [place] Cells PT INR APTT 59 H Sodium Potassium Chloride Carbon Dioxide Anion Gap BUN Creatinine Est GFR ( Amer) Est GFR (Non-Af Amer) POC Glucose (mg/dL) 83 Random Glucose Calcium Phosphorus 3.2 Magnesium 1.8 Total Bilirubin AST ALT Alkaline Phosphatase Total Protein Albumin Globulin Albumin/Globulin Ratio 05/26/18 05/26/18 05/26/18 09:58 11:19 14:36 WBC RBC Hgb Hct MCV MCH MCHC RDW Plt Count MPV Neut % (Auto) Lymph % (Auto) [place] % (Auto) Eos % (Auto) Baso % (Auto) Neut # (Auto) Lymph # (Auto) [place] # (Auto) Eos # (Auto) Baso # (Auto) Neutrophils % (Manual) Lymphocytes % (Manual) Monocytes % (Manual) Eosinophils % (Manual) Platelet Estimate Hypochromasia (manual) Poikilocytosis (manual Anisocytosis (manual) [place] Cells PT 16.6 H INR 1.5 D APTT 33 D Sodium 139 Potassium 3.1 L Chloride 90 L Carbon Dioxide 38 H Anion Gap 14 BUN 90 H Creatinine 1.3 Est GFR ( Amer) > 60 Est GFR (Non-Af Amer) 55 POC Glucose (mg/dL) 275 H Random Glucose 153 H Calcium 8.9 Phosphorus Magnesium Total Bilirubin 1.8 H AST 52 ALT 47 Alkaline Phosphatase 98 Total Protein 7.0 Albumin 3.9 Globulin 3.1 Albumin/Globulin Ratio 1.3 05/26/18 05/26/18 05/26/18 16:01 16:04 16:30 WBC RBC Hgb Hct MCV MCH MCHC RDW Plt Count MPV Neut % (Auto) Lymph % (Auto) [place] % (Auto) Eos % (Auto) Baso % (Auto) Neut # (Auto) Lymph # (Auto) [place] # (Auto) Eos # (Auto) Baso # (Auto) Neutrophils % (Manual) Lymphocytes % (Manual) Monocytes % (Manual) Eosinophils % (Manual) Platelet Estimate Hypochromasia (manual) Poikilocytosis (manual Anisocytosis (manual) [place] Cells PT INR APTT Sodium Potassium Chloride Carbon Dioxide Anion Gap BUN Creatinine Est GFR ( Amer) Est GFR (Non-Af Amer) POC Glucose (mg/dL) 50 L 48 L 133 H Random Glucose Calcium Phosphorus Magnesium Total Bilirubin AST ALT Alkaline Phosphatase Total Protein Albumin Globulin Albumin/Globulin Ratio Critical Care Progress Note - Nutrition Nutrition: Nutrition Category Date Time Status NPO Diet [DIET] Diets 05/26/18 Dinner Active NPO Diet [DIET] Diets 05/27/18 Breakfast Active Attending/Attestation - Attestation I have personally seen and examined this patient.: Yes I have fully participated in the care of the patient.: Yes I have reviewed all pertinent clinical information: Yes Notes (Text): I have seen and examined the patient. Medical records, lab studies, and imaging were reviewed by me and a management plan was formulated on multidisciplinary rounds with resident Dr. Love. I agree with their documented assessment and plan. Patient is in cardiorenal dysfunction. Urine output improved with diuretics and milrinone. still requiring bipap. short term prognosis is guarded, care home prognosis is grave. Will have to rediscuss goals of care with the patient. Critical Care Time 35 minutes. Multi-disciplinary rounds were performed with house staff, nursing, speech therapy, respiratory therapy, pharmacy and nutrition with integrated input from the primary team/attending and other consulting services. The documented time is cumulative and includes review of patient data/exams/labs/chart review and examination of the patient on rounds and throughout the day; time is exclusive of any procedures or teaching time.
[2018-05-26] MEDS: Budesonide 0.5 mg/2 ml Inhal Susp UD INH SCH ×2 (07:50→20:09)
[2018-05-26] MEDS: (Novolin R) Insulin Human Regular 100 units/ml vial SC SCH ×4 (08:06→21:51)
[2018-05-26 08:22] LABS: EOSINOPHIL 1 % (0-4); LYMPHOCYTE 2 % (20-40); MONOCYTE 10 % (0-10); NEUTROPHIL 87 % (50-75); PLATELET ESTIMATE NORMAL (NORMAL); TOTAL CELLS COUNTED 100
[2018-05-26 08:23] LABS: ANISOCYTOSIS SLIGHT; BURR CELLS SLIGHT; HYPOCHROMIC SLIGHT; POIKILOCYTOSIS SLIGHT
--- NOTE | 2018-05-26 09:08 | CP.PCM.PN ---
Subjective - Date & Time of Evaluation Date of Evaluation: 05/26/18 Time of Evaluation: 09:01 - Subjective Subjective: Pt says that blood was dripping from his nose. Stil has abdominal pain. Dyspnea at rest continues Objective - Vital Signs/Intake and Output Vital Signs (last 24 hours): Temp Pulse Resp BP Pulse Ox 98.1 F 97 H 22 94/57 L 96 05/26/18 04:00 05/26/18 08:37 05/26/18 07:00 05/26/18 06:37 05/26/18 07:00 Intake and Output: 05/26/18 05/26/18 06:59 18:59 Intake Total 668.3 13.7 Output Total 1650 400 Balance -981.7 -386.3 - Medications Medications: Current Medications Acetaminophen (Tylenol 325mg Tab) 650 mg PO Q6 PRN PRN Reason: Pain, moderate (4-7) Last Admin: 05/25/18 11:38 Dose: 650 mg Budesonide (Pulmicort Respules) 0.5 mg INH RQ12 [facility] Last Admin: 05/26/18 07:50 Dose: 0.5 mg Clopidogrel Bisulfate (Plavix) 75 mg PO DAILY [facility] Last Admin: 05/25/18 09:31 Dose: 75 mg Doxycycline Hyclate (Doryx) 100 mg PO Q12H [facility]; Protocol Last Admin: 05/25/18 21:46 Dose: 100 mg Famotidine (Pepcid) 20 mg PO DAILY [facility] Last Admin: 05/25/18 09:31 Dose: 20 mg Fluticasone Propionate (Flonase) 2 spr JESSICA BID [facility] Last Admin: 05/25/18 17:37 Dose: 2 sprays Furosemide (Lasix) 40 mg IVP Q12H [facility] Last Admin: 05/26/18 06:32 Dose: 40 mg Gabapentin (Neurontin) 300 mg PO BID [facility] Last Admin: 05/25/18 17:39 Dose: 300 mg Hydralazine HCl (Apresoline) 25 mg PO TID [facility] Last Admin: 05/25/18 17:37 Dose: 25 mg Ceftriaxone Sodium 1 gm/ (Sodium Chloride) 100 mls @ 100 mls/hr IVPB DAILY [facility]; Protocol Last Admin: 05/25/18 09:43 Dose: 100 mls/hr Milrinone Lactate/Dextrose 20 (mg/ Dextrose) 100 mls @ 4.51 mls/hr IV .[id number] [facility]; Protocol Last Admin: 05/26/18 06:30 Dose: 0.17 mcg/kg/min, 3.9 mls/hr Heparin Sodium/Sodium Chloride (Heparin 61753 Units/250ml 1/2 Normal Saline) 25,000 units in 250 mls @ 9.883 mls/hr IV .Q24H PRN; Protocol PRN Reason: ADJUST RATE PER PROTOCOL Last Admin: 05/25/18 17:28 Dose: 15 units/kg/hr, 9.883 mls/hr Insulin Human Regular (Novolin R) 0 unit SC ACHS [facility]; Protocol Last Admin: 05/26/18 08:06 Dose: Not Given Isosorbide Mononitrate (Imdur) 60 mg PO DAILY [facility] Last Admin: 05/25/18 09:29 Dose: 60 mg Lidocaine (Lidoderm) 2 ea TD DAILY [facility] Last Admin: 05/25/18 09:29 Dose: 2 ea Metolazone (Zaroxolyn) 2.5 mg PO DAILY [facility] Last Admin: 05/25/18 09:32 Dose: 2.5 mg Metoprolol Tartrate (Lopressor) 25 mg PO BID [facility] Last Admin: 05/25/18 17:38 Dose: 25 mg Morphine Sulfate (Morphine) 2 mg IV Q3 PRN PRN Reason: PAIN, SEVERE 8-10 Last Admin: 05/24/18 16:48 Dose: 2 mg Phytonadione (Vitamin K Inj) 10 mg IM DAILY [facility] Stop: 05/26/18 10:01 Last Admin: 05/25/18 09:31 Dose: 10 mg Phytonadione (Vitamin K Inj) 10 mg IV BID [facility] Rosuvastatin Calcium (Crestor) 10 mg PO HS [facility] Last Admin: 05/25/18 21:45 Dose: 10 mg Vitamin A (Vitamin A & D Oint Ud Foilpak) 1 ea TOP BID [facility] Last Admin: 05/25/18 17:38 Dose: 1 ea - Labs Labs: 05/26/18 05:45 05/25/18 05:42 PT 21.5 SECONDS (9.7-12.2) H 05/25/18 16:29 INR 2.0 05/25/18 16:29 APTT 59 SECONDS (21-34) H 05/26/18 05:45 - Constitutional Appears: Chronically Ill - Head Exam Head Exam: ATRAUMATIC, NORMAL INSPECTION - Eye Exam Eye Exam: PERRL - ENT Exam ENT Exam: Mucous Membranes Dry - Neck Exam Neck Exam: Full ROM - Respiratory Exam Respiratory Exam: Prolonged Expiratory Phase, Rales, Rhonchi - Cardiovascular Exam Cardiovascular Exam: Irregular Rhythm - GI/Abdominal Exam GI & Abdominal Exam: Tenderness, Hypoactive Bowel Sounds - Extremities Exam Extremities Exam: Pedal Edema - Neurological Exam Neurological Exam: Alert, Awake, Oriented x3 - Psychiatric Exam Psychiatric exam: Anxious - Skin Skin Exam: Pallor Assessment and Plan - Assessment and Plan (Free Text) Assessment: 1. CHF: continues to have negative fluid balance, yet lung exam unchanged. 2. Afib: rate reasonable 3. Paced rhythm 4. Hernia: INR was 2.0 yesterday, PTT 62 today. If INR is acceptable for surgery tomorrow, IV heparin can be stopped 4-6 hours before planned procedure and no FFP should be required. Please start IV heparin with bolus as soon as possible after the procedure. 5. No mechanical valve obstruction. Still waiting to here from [place].
[2018-05-26] MEDS: metOLazone 2.5 MG TAB PO SCH (09:27)
[2018-05-26] MEDS: Phytonadione 10 mg/ml Inj (Adult) IM SCH (09:27)
[2018-05-26] MEDS: Lidocaine 5% Patch TD SCH (09:28)
[2018-05-26] MEDS: Fluticasone Nasal 50 mcg/Spray NAS SCH (09:30)
[2018-05-26] MEDS: Vitamins A & D Oint UD Foilpak TOP SCH ×2 (09:37→17:50)
--- NOTE | 2018-05-26 09:42 | CP.PCM.PN ---
Subjective - Date & Time of Evaluation Date of Evaluation: 05/26/18 Time of Evaluation: 09:30 - Subjective Subjective: Patient seen and examined. There is some nose bleeding overnight - he's been on supplemental oxygen with nasal cannula and Bipap a lot. He continues to have the RLQ abdominal pain as well as tenderness scrotal hernia. I had a discussion about his CODE status and he still wants to be full code. Objective - Vital Signs/Intake and Output Vital Signs (last 24 hours): Temp Pulse Resp BP Pulse Ox 97.1 F L 91 H 21 140/100 H 96 05/26/18 08:00 05/26/18 09:00 05/26/18 09:00 05/26/18 09:35 05/26/18 09:00 Intake and Output: 05/26/18 05/26/18 06:59 18:59 Intake Total 668.3 161.1 Output Total 1650 1000 Balance -981.7 -838.9 - Medications Medications: Current Medications Acetaminophen (Tylenol 325mg Tab) 650 mg PO Q6 PRN PRN Reason: Pain, moderate (4-7) Last Admin: 05/25/18 11:38 Dose: 650 mg Budesonide (Pulmicort Respules) 0.5 mg INH RQ12 [facility] Last Admin: 05/26/18 07:50 Dose: 0.5 mg Clopidogrel Bisulfate (Plavix) 75 mg PO DAILY [facility] Last Admin: 05/26/18 09:26 Dose: 75 mg Doxycycline Hyclate (Doryx) 100 mg PO Q12H [facility]; Protocol Last Admin: 05/26/18 09:30 Dose: 100 mg Famotidine (Pepcid) 20 mg PO DAILY [facility] Last Admin: 05/26/18 09:27 Dose: 20 mg Fluticasone Propionate (Flonase) 2 spr JESSICA BID [facility] Last Admin: 05/26/18 09:30 Dose: 1 sprays Furosemide (Lasix) 40 mg IVP Q12H [facility] Last Admin: 05/26/18 06:32 Dose: 40 mg Gabapentin (Neurontin) 300 mg PO BID [facility] Last Admin: 05/26/18 09:26 Dose: 300 mg Hydralazine HCl (Apresoline) 25 mg PO TID [facility] Last Admin: 05/26/18 09:27 Dose: 25 mg Ceftriaxone Sodium 1 gm/ (Sodium Chloride) 100 mls @ 100 mls/hr IVPB DAILY [facility]; Protocol Last Admin: 05/26/18 09:27 Dose: 100 mls/hr Milrinone Lactate/Dextrose 20 (mg/ Dextrose) 100 mls @ 4.51 mls/hr IV .[id number] [facility]; Protocol Last Admin: 05/26/18 06:30 Dose: 0.17 mcg/kg/min, 3.9 mls/hr Heparin Sodium/Sodium Chloride (Heparin 48774 Units/250ml 1/2 Normal Saline) 25,000 units in 250 mls @ 9.883 mls/hr IV .Q24H PRN; Protocol PRN Reason: ADJUST RATE PER PROTOCOL Last Admin: 05/25/18 17:28 Dose: 15 units/kg/hr, 9.883 mls/hr Insulin Human Regular (Novolin R) 0 unit SC ACHS [facility]; Protocol Last Admin: 05/26/18 08:06 Dose: Not Given Isosorbide Mononitrate (Imdur) 60 mg PO DAILY [facility] Last Admin: 05/26/18 09:26 Dose: 60 mg Lidocaine (Lidoderm) 2 ea TD DAILY [facility] Last Admin: 05/26/18 09:28 Dose: 2 ea Metolazone (Zaroxolyn) 2.5 mg PO DAILY [facility] Last Admin: 05/26/18 09:27 Dose: 2.5 mg Metoprolol Tartrate (Lopressor) 25 mg PO BID [facility] Last Admin: 05/26/18 09:35 Dose: 25 mg Morphine Sulfate (Morphine) 2 mg IV Q3 PRN PRN Reason: PAIN, SEVERE 8-10 Last Admin: 05/24/18 16:48 Dose: 2 mg Phytonadione (Vitamin K Inj) 10 mg IM DAILY [facility] Stop: 05/26/18 10:01 Last Admin: 05/26/18 09:27 Dose: 10 mg Phytonadione (Vitamin K Inj) 10 mg IV BID [facility] Rosuvastatin Calcium (Crestor) 10 mg PO HS [facility] Last Admin: 05/25/18 21:45 Dose: 10 mg Vitamin A (Vitamin A & D Oint Ud Foilpak) 1 ea TOP BID [facility] Last Admin: 05/26/18 09:37 Dose: 1 ea - Labs Labs: 05/26/18 05:45 05/25/18 05:42 PT 21.5 SECONDS (9.7-12.2) H 05/25/18 16:29 INR 2.0 05/25/18 16:29 APTT 59 SECONDS (21-34) H 05/26/18 05:45 - Constitutional Appears: Unkempt, Cachectic, Chronically Ill - Eye Exam Eye Exam: EOMI - ENT Exam ENT Exam: Mucous Membranes Moist - Respiratory Exam Respiratory Exam: Decreased Breath Sounds, Rales - Cardiovascular Exam Cardiovascular Exam: Clicks, Irregular Rhythm Additional comments: Mechanical clicks - Rectal Exam Additional comments: There is tenderness right lower quadrant - Neurological Exam Neurological Exam: Alert, Awake, Oriented x3 Neuro motor strength exam: Left Upper Extremity: 5, Right Upper Extremity: 5 - Psychiatric Exam Psychiatric exam: Depressed, Flat Affect - Skin Skin Exam: Pallor, Warm Assessment and Plan - Assessment and Plan (Free Text) Assessment: 1. Acute on chronic systolic heart failure History of Aortic valve replacement, Mitral valve replacement, Tricuspid valve replacement AICD ,CABG 05/26: Patient still wants to be full code when I spoke with him. He remain on the IV Lasix, Zaroxyln, Milrinon ggt, Lowpressor and Imdur 05/25: Appreciate cardiology on case, the patient maybe transferred to another hospital for further care. Because of the hematoma seen on CT scan the anticoagulation was held yesterday. Family is aware that prognosis is not good at this time. 05/24: Again has to use Bipap at night and intermittently throughout the day. Urine out put was 1250 yesterday. And he remains on the IV Milrinone ggt as well as Lasix and Zaroxyln 05/23: Patient remains short of breath requiring the Bipap at night and most the day. He has been on the milrinone and lasix and zaroxyln INR 3.7. Urine out put was 1,700 recorded yesterday Updated family member at bedside as well Milrinone ggt Lasix 40mg bid Imdur 60mg po daily Hydralazine 25mg po tid andrés Lopressor 25mg po bid andrés (As per senior software quality engineer Interrogation of AICD (Mary) revealed abscence of atrial lead, which could ID possible underlying AF EKG and telemetry without discernible P waves,Cont with anticoagulation,planning for EP input) 2. Abdominal pain - Rectal sheath hematoma and inguinal hernia 05/26: Hgb decreased to 8.0. On heparin ggt at this time because of the atrial fibrillation as well as history of mechanical valves Transfuse as neccessary 05/25: Possible intervention this Wednesday under local anesthesia for the inguinal hernia The anticoagulation held yesterday. He had one unit of PRBC yesterday Patient has inguinal hernia and it having significant amount of pain. NPO now except meds, also obstructive3 series ordered and CT scan of the abdomen and pelvis in case there could be an obstruction 2. Pneumonia w/ shortness of breath 05/23: Currently afebrile and WBC stable. He is on pulmicort and doxycycline Today we added pulmicort,on ceftriaxone and doxy Duonebs PRN Chest x ray without changes ECHO from 02/05/18: EF 35% CXR: Moderate to severe venous congestion with prominent consolidative opacities within mid to lower lung zones. small bilateral pleural effusions. Aortic atherosclertic calcification noted. Enlarged heart with prominent cardiomegaly. Prior valve replacements. Left sided pacemaker. Status post median sternotomy. Degenerative changes in spine and shoulders. Calcifications within the right axilla. CT chest: multilobar pna CXR; severe venous congestion 3. CAD w/ CABG 05/23: Patient remains on crestor, imdur, plavix, ASA, BB Crestor 10mg po HS lasix 40mg bid Imdur 60mg po daily Metoprolol 25mg po bid andrés Zaroxylin 4. LOUISE Likely prerenal in etiology with low blood pressure setting and anemia Nephrology consulted Cardiorenal etiology with increased diuretics patient Cr loses 5. Atrial fibrillation 05/25: INR is lower. Vitamin K was given, anticoagulation held yesterday 05/23: INR 3.7 today (as per senior software quality engineer Interrogation of AICD (Mary) revealed abscence of atrial lead, which could ID possible underlying AF EKG and telemetry without discernible P waves,Cont with anticoagulation,planning for EP input) 6. Chronic pain Gabapentin 100mg po tid HTN PPx Influenza vaccine DVT ppx: not indicated at this time in setting of elevated INR GI ppx: protonix 40mg daily andrés
[2018-05-26 10:47] LABS: ALB/GLOB RATIO 1.3 (1.0-2.1); ALBUMIN 3.9 g/dL (3.5-5.0); ALT/SGPT 47 U/L (21-72); AST/SGOT 52 U/L (17-59); BLOOD UREA NITROGEN 90 mg/dL (9-20); CALCIUM 8.9 mg/dl (8.6-10.4); GFR NON-AFRICAN AMERICAN 55
--- NOTE | 2018-05-26 12:26 | CP.PCM.PN ---
Subjective - Date & Time of Evaluation Date of Evaluation: 05/26/18 Time of Evaluation: 11:00 - Subjective Subjective: Patient is with face mask on and O2 supplement, short of breath and very weak. Patient is expecting transfer to [facility] as he feels there he will get " help for his condition". at bed side. Doctor Gladys spoke to patient about his very guarded prognosis. I reinforced it with and patient. Objective - Vital Signs/Intake and Output Vital Signs (last 24 hours): Temp Pulse Resp BP Pulse Ox 97.1 F L 91 H 20 86/62 L 96 05/26/18 08:00 05/26/18 11:00 05/26/18 11:00 05/26/18 11:00 05/26/18 11:00 Intake and Output: 05/26/18 05/26/18 06:59 18:59 Intake Total 668.3 202.4 Output Total 1650 1000 Balance -981.7 -797.6 - Medications Medications: Current Medications Acetaminophen (Tylenol 325mg Tab) 650 mg PO Q6 PRN PRN Reason: Pain, moderate (4-7) Last Admin: 05/25/18 11:38 Dose: 650 mg Budesonide (Pulmicort Respules) 0.5 mg INH RQ12 [facility] Last Admin: 05/26/18 07:50 Dose: 0.5 mg Clopidogrel Bisulfate (Plavix) 75 mg PO DAILY [facility] Last Admin: 05/26/18 09:26 Dose: 75 mg Doxycycline Hyclate (Doryx) 100 mg PO Q12H [facility]; Protocol Last Admin: 05/26/18 09:30 Dose: 100 mg Famotidine (Pepcid) 20 mg PO DAILY [facility] Last Admin: 05/26/18 09:27 Dose: 20 mg Fluticasone Propionate (Flonase) 2 spr JESSICA BID [facility] Last Admin: 05/26/18 09:30 Dose: 1 sprays Furosemide (Lasix) 40 mg IVP Q12H [facility] Last Admin: 05/26/18 06:32 Dose: 40 mg Gabapentin (Neurontin) 300 mg PO BID [facility] Last Admin: 05/26/18 09:26 Dose: 300 mg Hydralazine HCl (Apresoline) 25 mg PO TID [facility] Last Admin: 05/26/18 09:27 Dose: 25 mg Ceftriaxone Sodium 1 gm/ (Sodium Chloride) 100 mls @ 100 mls/hr IVPB DAILY [facility]; Protocol Last Admin: 05/26/18 09:27 Dose: 100 mls/hr Milrinone Lactate/Dextrose 20 (mg/ Dextrose) 100 mls @ 4.51 mls/hr IV .[id number] [facility]; Protocol Last Admin: 05/26/18 06:30 Dose: 0.17 mcg/kg/min, 3.9 mls/hr Heparin Sodium/Sodium Chloride (Heparin 54173 Units/250ml 1/2 Normal Saline) 25,000 units in 250 mls @ 9.883 mls/hr IV .Q24H [facility]; Protocol PRN Reason: ADJUST RATE PER PROTOCOL Last Admin: 05/25/18 17:28 Dose: 15 units/kg/hr, 9.883 mls/hr Insulin Human Regular (Novolin R) 0 unit SC ACHS [facility]; Protocol Last Admin: 05/26/18 08:06 Dose: Not Given Isosorbide Mononitrate (Imdur) 60 mg PO DAILY [facility] Last Admin: 05/26/18 09:26 Dose: 60 mg Lidocaine (Lidoderm) 2 ea TD DAILY [facility] Last Admin: 05/26/18 09:28 Dose: 2 ea Metolazone (Zaroxolyn) 2.5 mg PO DAILY [facility] Last Admin: 05/26/18 09:27 Dose: 2.5 mg Metoprolol Tartrate (Lopressor) 25 mg PO BID [facility] Last Admin: 05/26/18 09:35 Dose: 25 mg Morphine Sulfate (Morphine) 2 mg IV Q3 PRN PRN Reason: PAIN, SEVERE 8-10 Last Admin: 05/24/18 16:48 Dose: 2 mg Phytonadione (Vitamin K Inj) 10 mg IV BID [facility] Rosuvastatin Calcium (Crestor) 10 mg PO HS [facility] Last Admin: 05/25/18 21:45 Dose: 10 mg Vitamin A (Vitamin A & D Oint Ud Foilpak) 1 ea TOP BID [facility] Last Admin: 05/26/18 09:37 Dose: 1 ea - Labs Labs: 05/26/18 05:45 05/26/18 09:58 PT 21.5 SECONDS (9.7-12.2) H 05/25/18 16:29 INR 2.0 11/28/18 16:29 APTT 59 SECONDS (21-34) H 05/26/18 05:45 - Constitutional Appears: In Acute Distress, Chronically Ill - Head Exam Head Exam: ATRAUMATIC, NORMAL INSPECTION, NORMOCEPHALIC - Eye Exam Eye Exam: EOMI, Normal appearance, PERRL Pupil Exam: NORMAL ACCOMODATION, PERRL - ENT Exam ENT Exam: Mucous Membranes Dry, Normal Exam - Neck Exam Neck Exam: Normal Inspection - Respiratory Exam Respiratory Exam: Accessory Muscle Use, Decreased Breath Sounds, Respiratory Distress - Cardiovascular Exam Cardiovascular Exam: Tachycardia - GI/Abdominal Exam GI & Abdominal Exam: Guarding, Rigid - Rectal Exam Rectal Exam: Deferred - Exam Additional comments: right inguinal hernia - Extremities Exam Extremities Exam: Pedal Edema - Back Exam Back Exam: NORMAL INSPECTION - Neurological Exam Neurological Exam: Alert, Oriented x3 Neuro motor strength exam: Left Upper Extremity: 2/1, Right Upper Extremity: 2/1, Left Lower Extremity: 2/1, Right Lower Extremity: 2/1 - Psychiatric Exam Psychiatric exam: Anxious, Normal Affect, Normal Mood - Skin Skin Exam: Dry, Pallor Assessment and Plan - Assessment and Plan (Free Text) Assessment: Patient is alert, oriented X 3 in mild respiratory distress with O2 on via face mask. Affect is anxious. Patient gets SOB while talking. Abdomen is very tender to right lower quadrant. Per Ct scan, hemathoma is confirmed there and PO anticoagulants are stopped. Patient is on IV Heparin. This places patient at risk for PE due to Hx of A Fib. The inguinal hernia is not occluding and does not present major issue at this time. However, the hernia repair with local anesthesia is being considered. Doctor Gladys discussed patient's condition to me today and asked me to reinforce poor prognosis with patient and his . With at bed side I elicited patient's understanding about his condition. Patient stated desire to be transferred to [facility]. He beliefs there he will get " what he needs for his disease". I reassured patient of his chronic condition and all appropriate measures applied here. Further, I shared with patient and his my disagrement with inguinal hernia repair as it was not his priority at this time. Away from bed side I further discussed patient's prognosis with his . She asked me to talk to her " openly". I repeated my concerns about poor prognosis due to very complex medical Hx. She agreed and was AGAINST transfer to [facility], as it was far away from her home. She asked if she should ask her children from [place] to come over and I reinforced the idea. I did not discuss Code status as patient's attention was all toward cure. I felt , discussing the Code, would make him even more anxious. I suggested DNR/DNI to his . We agreed to met again in am. Impression * Chronically ill male with respiratory distress 2nd to poor cardiac functions * Hemathoma formation ; no surgical intervention decided upon to yet * Inguinal hernia * Patient is in denial of his condition and is reaching out for other options , hoping to get cured * is understanding grave prognosis and will invite her children from [place] to come over Suggestions * O2 support * I do not think that inguinal hernia surgical repair is something we should be thinking about now. That is definitely not patient's priority. Even if surgery is performed, managing surgical pain would be difficult in regards to respiratory distress * DNR/DNI would be the appropriate Code status . Palliative care to further discuss Code status with patient and in am. Advance care planing 46 min
[2018-05-26 14:50] LABS: INR 1.5; PROTHROMBIN TIME 16.6 SECONDS (9.7-12.2)
[2018-05-26] MEDS ORDERED: Potassium Chloride 20 mEq ER Tab PO ONE (15:30)
[2018-05-26] MEDS ORDERED: Dextrose 50% SYRINGE Inj (50 ml) IV STA (16:09)
--- NOTE | 2018-05-26 17:00 | RAD ---
Date of service: 05/26/2018 HISTORY: cardiomegaly, r/o pleral eff COMPARISON: 05/21/2018 FINDINGS: LUNGS: Limited exam. Marked cardiomegaly limits optimal evaluation for the left mid and lower lung zone. A small left pleural effusion is present. This appears increased since the prior exam. The coalescent airspace opacities in the right mid to lower lung zone are similar allowing for the differences in technique. Right inferolateral pleural thickening with or without small pleural fluid effusion here also is bleed similar albeit slightly increasing conspicuity. PLEURA: As above. No pneumothorax seen. CARDIOVASCULAR: There is presence of aortic atherosclerotic calcification on x-ray. Marked cardiomegaly-similar. Midline sternotomy wires and valvular prosthesis similar. Position/ configuration of pacemaker device: Position appears satisfactory. Pulmonary venous congestion-status appears similar OSSEOUS STRUCTURES: Sternotomy as above VISUALIZED UPPER ABDOMEN: Normal. OTHER FINDINGS: None. IMPRESSION: Interval increase left pleural effusion-an inferred increased left basal compressive atelectasis is likely. Evaluation of the left lung base is limited due to the marked cardiomegaly body habitus and technique. Other changes are similar and detailed above.
[2018-05-27 05:41] LABS: BASO % 0.1 % (0.0-2.0); EOS # 0.2 K/uL (0.0-0.7); EOS % 1.9 % (0.0-4.0); HEMOGLOBIN 7.8 g/dL (12.0-18.0); LYMPH # 0.4 K/uL (1.0-4.3); LYMPH % 3.8 % (20.0-40.0); MEAN CELL VOLUME 86.3 fL (80.0-94.0); MEAN CORPUSCULAR HEMOGLOBIN 28.9 pg (27.0-31.0); MEAN CORPUSCULAR HGB CONC 33.4 g/dL (33.0-37.0); MEAN PLATELET VOLUME 9.9 fL (7.2-11.7); MONO # 1.5 K/uL (0.0-0.8); MONO % 14.5 % (0.0-10.0); NEUT # 8.5 K/uL (1.8-7.0); NEUT % 79.7 % (50.0-75.0); PLATELET COUNT 162 K/uL (130-400); RED CELL DISTRIBUTION WIDTH 16.3 % (11.5-14.5); WHITE BLOOD COUNT 10.7 K/uL (4.8-10.8)
[2018-05-27 06:09] LABS: ALB/GLOB RATIO 1.2 (1.0-2.1); ALBUMIN 3.5 g/dL (3.5-5.0); ALT/SGPT 46 U/L (21-72); AST/SGOT 40 U/L (17-59); BLOOD UREA NITROGEN 83 mg/dL (9-20); CALCIUM 8.5 mg/dl (8.6-10.4); GFR NON-AFRICAN AMERICAN 51
[2018-05-27 06:12] LABS: INR 1.4; PROTHROMBIN TIME 15.2 SECONDS (9.7-12.2)
[2018-05-27] MEDS: (Novolin R) Insulin Human Regular 100 units/ml vial SC SCH ×3 (07:51→18:39)
--- NOTE | 2018-05-27 08:07 | CP.CCUPN ---
<Kevin Love - Last Filed: 05/27/18 16:15> CCU Subjective - Physician Review Subjective (Free Text): 05/27/18 08:07 PGY-1 Critical Care Progress Note for Dr. Jama Patient seen and examined at bedside this AM. R inguinal hernia surgery scheduled today cancelled. Continues to have shortness of breath requiring intermittent bipap use. Prognosis remains poor. Patient has accepting physician at [facility], per Dr Pantoja. Awaiting arrangements for transfer. 12 pt ROS reviewed and remains otherwise unchanged. Critical Care Time Spent (in minutes): 35 CCU Objective - Vital Signs / Intake & Output Vital Signs (Last 4 hours): Vital Signs Pulse Resp BP Pulse Ox 05/27/18 06:26 91 H 05/27/18 06:22 109/64 05/27/18 06:00 92 H 28 H 05/27/18 05:54 90 26 H 109/64 95 05/27/18 05:00 91 H 26 H 94 L 05/27/18 04:53 91 H 27 H 113/66 95 Intake and Output (Last 8hrs): Intake & Output 05/26/18 05/27/18 05/27/18 22:59 06:59 14:59 Intake Total 425.1 515.1 Output Total 970 1000 Balance -544.9 -484.9 Weight 72.121 kg Intake: Intake, IV Amount 35.1 35.1 Left Forearm 35.1 35.1 Oral 390 480 Output: Urine 970 1000 Urine, Voided 970 1000 Other: # Bowel Movements 1 - Physical Exam Head: Positive for: Atraumatic, Normocephalic Pupils: Positive for: PERRL Extroacular Muscles: Positive for: EOMI Mouth: Positive for: Dry Neck: Positive for: Normal Range of Motion Respiratory/Chest: Positive for: Rales, Rhonchi Cardiovascular: Positive for: Normal S1, S2, Irregular Rhythm Abdomen: Positive for: Tenderness, Normal Bowel Sounds, Hernias (R inguinal hernia). Negative for: Distention, Peritoneal Signs, Rebound, Guarding Genitourinary Male: Positive for: Testicle Swelling (R scrotal swelling) Upper Extremity: Positive for: Normal Inspection, NORMAL PULSES, Neurovascularly Intact, Capillary Refill < 2s Lower Extremity: Positive for: Edema, NORMAL PULSES, Neurovascularly Intact, Capillary Refill < 2 s Neurological: Positive for: CN II-XII Intact Skin: Positive for: Warm, Dry, Normal Color Psychiatric: Positive for: Alert, Oriented x 3, Anxious, Depressed Mood - Medications Active Medications: Active Medications Generic Name Dose Route Start Last Admin Trade Name Freq PRN Reason Stop Dose Admin Acetaminophen 650 mg 05/22/18 10:21 05/25/18 11:38 Tylenol 325mg Tab PO 650 mg Q6 PRN Administration Pain, moderate (4-7) Budesonide 0.5 mg 05/22/18 20:00 05/26/18 20:09 Pulmicort Respules INH 0.5 mg RQ12 AYDEE Administration Clopidogrel Bisulfate 75 mg 05/22/18 10:30 05/26/18 09:26 Plavix PO 75 mg DAILY AYDEE Administration Doxycycline Hyclate 100 mg 05/22/18 10:30 05/26/18 21:45 Doryx PO 100 mg Q12H AYDEE Administration Protocol Famotidine 20 mg 05/23/18 10:00 05/26/18 09:27 Pepcid PO 20 mg DAILY AYDEE Administration Fluticasone Propionate 2 spr 05/14/18 18:00 05/26/18 09:30 Flonase JESSICA 1 sprays BID AYDEE Administration Furosemide 40 mg 05/18/18 19:00 05/27/18 06:22 Lasix IVP 40 mg Q12H AYDEE Administration Gabapentin 300 mg 05/22/18 18:00 05/26/18 17:45 Neurontin PO 300 mg BID AYDEE Administration Hydralazine HCl 25 mg 05/17/18 18:00 05/26/18 17:45 Apresoline PO 25 mg TID AYDEE Administration Ceftriaxone Sodium 1 gm/ 100 mls @ 100 mls/hr 05/23/18 10:00 05/26/18 09:27 Sodium Chloride IVPB 100 mls/hr DAILY AYDEE Administration Protocol Milrinone Lactate/Dextrose 20 100 mls @ 4.51 mls/hr 05/24/18 03:00 05/26/18 22:00 mg/ Dextrose IV Not Given .[id number] AYDEE Protocol 0.2 MCG/KG/MIN Heparin Sodium/Sodium Chloride 25,000 units in 250 mls @ 9.883 mls/hr 05/25/18 17:08 05/25/18 17:28 Heparin 56136 Units/250ml 1/2 Normal Saline IV 15 units/kg/hr .Q24H PRN 9.883 mls/hr ADJUST RATE PER PROTOCOL Administration Protocol 15 UNITS/KG/HR Insulin Human Regular 0 unit 05/19/18 16:30 05/27/18 07:51 Novolin R SC Not Given ACHS AYDEE Protocol Isosorbide Mononitrate 60 mg 05/14/18 15:00 05/26/18 09:26 Imdur PO 60 mg DAILY AYDEE Administration Lidocaine 2 ea 05/22/18 12:30 05/26/18 09:28 Lidoderm TD 2 ea DAILY AYDEE Administration Metolazone 2.5 mg 05/23/18 10:00 05/26/18 09:27 Zaroxolyn PO 2.5 mg DAILY AYDEE Administration Metoprolol Tartrate 25 mg 05/17/18 16:27 05/26/18 17:45 Lopressor PO 25 mg BID AYDEE Administration Morphine Sulfate 2 mg 05/24/18 09:48 05/24/18 16:48 Morphine IV 2 mg Q3 PRN Administration PAIN, SEVERE 8-10 Phytonadione 10 mg 05/25/18 10:00 Vitamin K Inj IV BID AYDEE Potassium Chloride 20 meq 05/27/18 08:06 K-Dur 20 Meq Er Tab PO 05/27/18 08:07 ONCE ONE Rosuvastatin Calcium 10 mg 05/14/18 22:00 05/26/18 21:51 Crestor PO 10 mg HS AYDEE Administration Vitamin A 1 ea 05/15/18 18:00 05/26/18 17:50 Vitamin A & D Oint Ud Foilpak TOP 1 ea BID AYDEE Administration - Patient Studies Lab Studies: Lab Studies 05/27/18 05/27/18 05/27/18 Range/Units 07:27 05:31 05:31 WBC (4.8-10.8) K/uL RBC (4.40-5.90) Mil/uL Hgb (12.0-18.0) g/dL Hct (35.0-51.0) % MCV (80.0-94.0) fL MCH (27.0-31.0) pg MCHC (33.0-37.0) g/dL RDW (11.5-14.5) % Plt Count (130-400) K/uL MPV (7.2-11.7) fL Neut % (Auto) (50.0-75.0) % Lymph % (Auto) (20.0-40.0) % Jewell % (Auto) (0.0-10.0) % Eos % (Auto) (0.0-4.0) % Baso % (Auto) (0.0-2.0) % Neut # (Auto) (1.8-7.0) K/uL Lymph # (Auto) (1.0-4.3) K/uL Jewell # (Auto) (0.0-0.8) K/uL Eos # (Auto) (0.0-0.7) K/uL Baso # (Auto) (0.0-0.2) K/uL Neutrophils % (Manual) (50-75) % Lymphocytes % (Manual) (20-40) % Monocytes % (Manual) (0-10) % Eosinophils % (Manual) (0-4) % Platelet Estimate (NORMAL) Hypochromasia (manual) Poikilocytosis (manual Anisocytosis (manual) Rikki Cells PT 15.2 H (9.7-12.2) SECONDS INR 1.4 APTT 29 (21-34) SECONDS Sodium (132-148) mmol/L Potassium (3.6-5.2) mmol/L Chloride (98-107) mmol/L Carbon Dioxide (22-30) mmol/L Anion Gap (10-20) BUN (9-20) mg/dL Creatinine (0.8-1.5) mg/dL Est GFR ( Amer) Est GFR (Non-Af Amer) POC Glucose (mg/dL) 80 (65-110) mg/dL Random Glucose (75-110) mg/dL Calcium (8.6-10.4) mg/dl Phosphorus (2.5-4.5) mg/dL Magnesium (1.6-2.3) mg/dL Total Bilirubin (0.2-1.3) mg/dL AST (17-59) U/L ALT (21-72) U/L Alkaline Phosphatase (38-126) U/L Total Protein (6.3-8.3) g/dL Albumin (3.5-5.0) g/dL Globulin (2.2-3.9) gm/dL Albumin/Globulin Ratio (1.0-2.1) Blood Type A POSITIVE Antibody Screen Negative 05/27/18 05/27/18 05/26/18 Range/Units 05:31 05:31 21:16 WBC 10.7 (4.8-10.8) K/uL RBC 2.70 L (4.40-5.90) Mil/uL Hgb 7.8 L (12.0-18.0) g/dL Hct 23.3 L (35.0-51.0) % MCV 86.3 (80.0-94.0) fL MCH 28.9 (27.0-31.0) pg MCHC 33.4 (33.0-37.0) g/dL RDW 16.3 H (11.5-14.5) % Plt Count 162 (130-400) K/uL MPV 9.9 (7.2-11.7) fL Neut % (Auto) 79.7 H (50.0-75.0) % Lymph % (Auto) 3.8 L (20.0-40.0) % Jewell % (Auto) 14.5 H (0.0-10.0) % Eos % (Auto) 1.9 (0.0-4.0) % Baso % (Auto) 0.1 (0.0-2.0) % Neut # (Auto) 8.5 H (1.8-7.0) K/uL Lymph # (Auto) 0.4 L (1.0-4.3) K/uL Jewell # (Auto) 1.5 H (0.0-0.8) K/uL Eos # (Auto) 0.2 (0.0-0.7) K/uL Baso # (Auto) 0.0 (0.0-0.2) K/uL Neutrophils % (Manual) (50-75) % Lymphocytes % (Manual) (20-40) % Monocytes % (Manual) (0-10) % Eosinophils % (Manual) (0-4) % Platelet Estimate (NORMAL) Hypochromasia (manual) Poikilocytosis (manual Anisocytosis (manual) Rikki Cells PT (9.7-12.2) SECONDS INR APTT (21-34) SECONDS Sodium 136 (132-148) mmol/L Potassium 3.5 L (3.6-5.2) mmol/L Chloride 90 L (98-107) mmol/L Carbon Dioxide 37 H (22-30) mmol/L Anion Gap 12 (10-20) BUN 83 H (9-20) mg/dL Creatinine 1.4 (0.8-1.5) mg/dL Est GFR ( Amer) > 60 Est GFR (Non-Af Amer) 51 POC Glucose (mg/dL) 133 H (65-110) mg/dL Random Glucose 96 (75-110) mg/dL Calcium 8.5 L (8.6-10.4) mg/dl Phosphorus 3.0 (2.5-4.5) mg/dL Magnesium 1.7 (1.6-2.3) mg/dL Total Bilirubin 1.1 (0.2-1.3) mg/dL AST 40 (17-59) U/L ALT 46 (21-72) U/L Alkaline Phosphatase 90 (38-126) U/L Total Protein 6.4 (6.3-8.3) g/dL Albumin 3.5 (3.5-5.0) g/dL Globulin 2.9 (2.2-3.9) gm/dL Albumin/Globulin Ratio 1.2 (1.0-2.1) Blood Type Antibody Screen 05/26/18 05/26/18 05/26/18 Range/Units 16:30 16:04 16:01 WBC (4.8-10.8) K/uL RBC (4.40-5.90) Mil/uL Hgb (12.0-18.0) g/dL Hct (35.0-51.0) % MCV (80.0-94.0) fL MCH (27.0-31.0) pg MCHC (33.0-37.0) g/dL RDW (11.5-14.5) % Plt Count (130-400) K/uL MPV (7.2-11.7) fL Neut % (Auto) (50.0-75.0) % Lymph % (Auto) (20.0-40.0) % Jewell % (Auto) (0.0-10.0) % Eos % (Auto) (0.0-4.0) % Baso % (Auto) (0.0-2.0) % Neut # (Auto) (1.8-7.0) K/uL Lymph # (Auto) (1.0-4.3) K/uL Jewell # (Auto) (0.0-0.8) K/uL Eos # (Auto) (0.0-0.7) K/uL Baso # (Auto) (0.0-0.2) K/uL Neutrophils % (Manual) (50-75) % Lymphocytes % (Manual) (20-40) % Monocytes % (Manual) (0-10) % Eosinophils % (Manual) (0-4) % Platelet Estimate (NORMAL) Hypochromasia (manual) Poikilocytosis (manual Anisocytosis (manual) Rikki Cells PT (9.7-12.2) SECONDS INR APTT (21-34) SECONDS Sodium (132-148) mmol/L Potassium (3.6-5.2) mmol/L Chloride (98-107) mmol/L Carbon Dioxide (22-30) mmol/L Anion Gap (10-20) BUN (9-20) mg/dL Creatinine (0.8-1.5) mg/dL Est GFR ( Amer) Est GFR (Non-Af Amer) POC Glucose (mg/dL) 133 H 48 L 50 L (65-110) mg/dL Random Glucose (75-110) mg/dL Calcium (8.6-10.4) mg/dl Phosphorus (2.5-4.5) mg/dL Magnesium (1.6-2.3) mg/dL Total Bilirubin (0.2-1.3) mg/dL AST (17-59) U/L ALT (21-72) U/L Alkaline Phosphatase (38-126) U/L Total Protein (6.3-8.3) g/dL Albumin (3.5-5.0) g/dL Globulin (2.2-3.9) gm/dL Albumin/Globulin Ratio (1.0-2.1) Blood Type Antibody Screen 05/26/18 05/26/18 05/26/18 Range/Units 14:36 11:19 09:58 WBC (4.8-10.8) K/uL RBC (4.40-5.90) Mil/uL Hgb (12.0-18.0) g/dL Hct (35.0-51.0) % MCV (80.0-94.0) fL MCH (27.0-31.0) pg MCHC (33.0-37.0) g/dL RDW (11.5-14.5) % Plt Count (130-400) K/uL MPV (7.2-11.7) fL Neut % (Auto) (50.0-75.0) % Lymph % (Auto) (20.0-40.0) % Jewell % (Auto) (0.0-10.0) % Eos % (Auto) (0.0-4.0) % Baso % (Auto) (0.0-2.0) % Neut # (Auto) (1.8-7.0) K/uL Lymph # (Auto) (1.0-4.3) K/uL Jewell # (Auto) (0.0-0.8) K/uL Eos # (Auto) (0.0-0.7) K/uL Baso # (Auto) (0.0-0.2) K/uL Neutrophils % (Manual) (50-75) % Lymphocytes % (Manual) (20-40) % Monocytes % (Manual) (0-10) % Eosinophils % (Manual) (0-4) % Platelet Estimate (NORMAL) Hypochromasia (manual) Poikilocytosis (manual Anisocytosis (manual) [place]woods Cells PT 16.6 H (9.7-12.2) SECONDS INR 1.5 D APTT 33 D (21-34) SECONDS Sodium 139 (132-148) mmol/L Potassium 3.1 L (3.6-5.2) mmol/L Chloride 90 L (98-107) mmol/L Carbon Dioxide 38 H (22-30) mmol/L Anion Gap 14 (10-20) BUN 90 H (9-20) mg/dL Creatinine 1.3 (0.8-1.5) mg/dL Est GFR ( Amer) > 60 Est GFR (Non-Af Amer) 55 POC Glucose (mg/dL) 275 H (65-110) mg/dL Random Glucose 153 H (75-110) mg/dL Calcium 8.9 (8.6-10.4) mg/dl Phosphorus (2.5-4.5) mg/dL Magnesium (1.6-2.3) mg/dL Total Bilirubin 1.8 H (0.2-1.3) mg/dL AST 52 (17-59) U/L ALT 47 (21-72) U/L Alkaline Phosphatase 98 (38-126) U/L Total Protein 7.0 (6.3-8.3) g/dL Albumin 3.9 (3.5-5.0) g/dL Globulin 3.1 (2.2-3.9) gm/dL Albumin/Globulin Ratio 1.3 (1.0-2.1) Blood Type Antibody Screen 05/26/18 05/24/18 Range/Units 05:45 10:57 WBC (4.8-10.8) K/uL RBC (4.40-5.90) Mil/uL Hgb (12.0-18.0) g/dL Hct (35.0-51.0) % MCV (80.0-94.0) fL MCH (27.0-31.0) pg MCHC (33.0-37.0) g/dL RDW (11.5-14.5) % Plt Count (130-400) K/uL MPV (7.2-11.7) fL Neut % (Auto) (50.0-75.0) % Lymph % (Auto) (20.0-40.0) % Jewell % (Auto) (0.0-10.0) % Eos % (Auto) (0.0-4.0) % Baso % (Auto) (0.0-2.0) % Neut # (Auto) (1.8-7.0) K/uL Lymph # (Auto) (1.0-4.3) K/uL Jewell # (Auto) (0.0-0.8) K/uL Eos # (Auto) (0.0-0.7) K/uL Baso # (Auto) (0.0-0.2) K/uL Neutrophils % (Manual) 87 H (50-75) % Lymphocytes % (Manual) 2 L (20-40) % Monocytes % (Manual) 10 (0-10) % Eosinophils % (Manual) 1 (0-4) % Platelet Estimate Normal (NORMAL) Hypochromasia (manual) Slight Poikilocytosis (manual Slight Anisocytosis (manual) Slight Flatwoods Cells Slight PT (9.7-12.2) SECONDS INR APTT (21-34) SECONDS Sodium (132-148) mmol/L Potassium (3.6-5.2) mmol/L Chloride (98-107) mmol/L Carbon Dioxide (22-30) mmol/L Anion Gap (10-20) BUN (9-20) mg/dL Creatinine (0.8-1.5) mg/dL Est GFR ( Amer) Est GFR (Non-Af Amer) POC Glucose (mg/dL) (65-110) mg/dL Random Glucose (75-110) mg/dL Calcium (8.6-10.4) mg/dl Phosphorus (2.5-4.5) mg/dL Magnesium (1.6-2.3) mg/dL Total Bilirubin (0.2-1.3) mg/dL AST (17-59) U/L ALT (21-72) U/L Alkaline Phosphatase (38-126) U/L Total Protein (6.3-8.3) g/dL Albumin (3.5-5.0) g/dL Globulin (2.2-3.9) gm/dL Albumin/Globulin Ratio (1.0-2.1) Blood Type A POSITIVE Antibody Screen Negative Laboratory Results - last 24 hr 05/24/18 05/26/18 05/26/18 10:57 05:45 09:58 WBC RBC Hgb Hct MCV MCH MCHC RDW Plt Count MPV Neut % (Auto) Lymph % (Auto) Jewell % (Auto) Eos % (Auto) Baso % (Auto) Neut # (Auto) Lymph # (Auto) Jewell # (Auto) Eos # (Auto) Baso # (Auto) Neutrophils % (Manual) 87 H Lymphocytes % (Manual) 2 L Monocytes % (Manual) 10 Eosinophils % (Manual) 1 Platelet Estimate Normal Hypochromasia (manual) Slight Poikilocytosis (manual Slight Anisocytosis (manual) Slight Rikki Cells Slight PT INR APTT Sodium 139 Potassium 3.1 L Chloride 90 L Carbon Dioxide 38 H Anion Gap 14 BUN 90 H Creatinine 1.3 Est GFR ( Amer) > 60 Est GFR (Non-Af Amer) 55 POC Glucose (mg/dL) Random Glucose 153 H Calcium 8.9 Phosphorus Magnesium Total Bilirubin 1.8 H AST 52 ALT 47 Alkaline Phosphatase 98 Total Protein 7.0 Albumin 3.9 Globulin 3.1 Albumin/Globulin Ratio 1.3 Blood Type A POSITIVE Antibody Screen Negative 05/26/18 05/26/18 05/26/18 11:19 14:36 16:01 WBC RBC Hgb Hct MCV MCH MCHC RDW Plt Count MPV Neut % (Auto) Lymph % (Auto) Jewell % (Auto) Eos % (Auto) Baso % (Auto) Neut # (Auto) Lymph # (Auto) Jewell # (Auto) Eos # (Auto) Baso # (Auto) Neutrophils % (Manual) Lymphocytes % (Manual) Monocytes % (Manual) Eosinophils % (Manual) Platelet Estimate Hypochromasia (manual) Poikilocytosis (manual Anisocytosis (manual) Rikki Cells PT 16.6 H INR 1.5 D APTT 33 D Sodium Potassium Chloride Carbon Dioxide Anion Gap BUN Creatinine Est GFR ( Amer) Est GFR (Non-Af Amer) POC Glucose (mg/dL) 275 H 50 L Random Glucose Calcium Phosphorus Magnesium Total Bilirubin AST ALT Alkaline Phosphatase Total Protein Albumin Globulin Albumin/Globulin Ratio Blood Type Antibody Screen 05/26/18 05/26/18 05/26/18 16:04 16:30 21:16 WBC RBC Hgb Hct MCV MCH MCHC RDW Plt Count MPV Neut % (Auto) Lymph % (Auto) Jewell % (Auto) Eos % (Auto) Baso % (Auto) Neut # (Auto) Lymph # (Auto) Jewell # (Auto) Eos # (Auto) Baso # (Auto) Neutrophils % (Manual) Lymphocytes % (Manual) Monocytes % (Manual) Eosinophils % (Manual) Platelet Estimate Hypochromasia (manual) Poikilocytosis (manual Anisocytosis (manual) Rikki Cells PT INR APTT Sodium Potassium Chloride Carbon Dioxide Anion Gap BUN Creatinine Est GFR ( Amer) Est GFR (Non-Af Amer) POC Glucose (mg/dL) 48 L 133 H 133 H Random Glucose Calcium Phosphorus Magnesium Total Bilirubin AST ALT Alkaline Phosphatase Total Protein Albumin Globulin Albumin/Globulin Ratio Blood Type Antibody Screen 05/27/18 05/27/18 05/27/18 05:31 05:31 05:31 WBC 10.7 RBC 2.70 L Hgb 7.8 L Hct 23.3 L MCV 86.3 MCH 28.9 MCHC 33.4 RDW 16.3 H Plt Count 162 MPV 9.9 Neut % (Auto) 79.7 H Lymph % (Auto) 3.8 L Jewell % (Auto) 14.5 H Eos % (Auto) 1.9 Baso % (Auto) 0.1 Neut # (Auto) 8.5 H Lymph # (Auto) 0.4 L Jewell # (Auto) 1.5 H Eos # (Auto) 0.2 Baso # (Auto) 0.0 Neutrophils % (Manual) Lymphocytes % (Manual) Monocytes % (Manual) Eosinophils % (Manual) Platelet Estimate Hypochromasia (manual) Poikilocytosis (manual Anisocytosis (manual) [place] Cells PT INR APTT Sodium 136 Potassium 3.5 L Chloride 90 L Carbon Dioxide 37 H Anion Gap 12 BUN 83 H Creatinine 1.4 Est GFR ( Amer) > 60 Est GFR (Non-Af Amer) 51 POC Glucose (mg/dL) Random Glucose 96 Calcium 8.5 L Phosphorus 3.0 Magnesium 1.7 Total Bilirubin 1.1 AST 40 ALT 46 Alkaline Phosphatase 90 Total Protein 6.4 Albumin 3.5 Globulin 2.9 Albumin/Globulin Ratio 1.2 Blood Type A POSITIVE Antibody Screen Negative 05/27/18 05/27/18 05:31 07:27 WBC RBC Hgb Hct MCV MCH MCHC RDW Plt Count MPV Neut % (Auto) Lymph % (Auto) Jewell % (Auto) Eos % (Auto) Baso % (Auto) Neut # (Auto) Lymph # (Auto) Jewell # (Auto) Eos # (Auto) Baso # (Auto) Neutrophils % (Manual) Lymphocytes % (Manual) Monocytes % (Manual) Eosinophils % (Manual) Platelet Estimate Hypochromasia (manual) Poikilocytosis (manual Anisocytosis (manual) [place] Cells PT 15.2 H INR 1.4 APTT 29 Sodium Potassium Chloride Carbon Dioxide Anion Gap BUN Creatinine Est GFR ( Amer) Est GFR (Non-Af Amer) POC Glucose (mg/dL) 80 Random Glucose Calcium Phosphorus Magnesium Total Bilirubin AST ALT Alkaline Phosphatase Total Protein Albumin Globulin Albumin/Globulin Ratio Blood Type Antibody Screen Fingerstick Blood Sugar Results: 80 Review of Systems - Review of Systems All systems: reviewed and no additional remarkable complaints except Review of Systems: as per HPI Critical Care Progress Note - Nutrition Nutrition: Nutrition Category Date Time Status NPO Diet [DIET] Diets 05/27/18 Breakfast Active Assessment/Plan - Assessment and Plan (Free Text) Assessment: 68 yo male with past medical history of CHF, Afib on Coumadin, aortic/mitral/tricuspid valve replacement, CAD and CABG admitted for 2-3 week history of shortness of breath and cough that worsened over last 2-3 days. CTC-massive cardiomegaly, severe systolic CHF, multifocal PNA. CTAP: New R anterior abdominal wall rectus muscle/sheath hematoma, 11.2 x 6 cm. Large R inguinal hernia contains bowel loop without evidence of bowel obstruction or incarceration. Patient accepted at [facility], awaiting transfer setup. R inguinal hernia surgery cancelled today. Plan: Neuro: Neuropathic pain -on neurontin 100 TID Pulm: Hypoxic respiratory failure -still needing bipap Pneumonia -afebrile, no leukocytosis -CXR (05/21): R basilar opacity unchanged. Cardiomegaly. AICD. Possible very small b/l pleural effusion. Congestive changes. -duonebs, pulmicort -on rocephin, doxycycline CV: Acute on chronic systolic heart failure Hx of aortic/mitral/tricuspid valve replacement s/p AICD placement, CABG -ECHO from 02/05/18: EF 35% -remains dyspneic requiring intermittent bipap use -milrinone ggt -lasix 40 BID -imdur 60 daily -hydralazine 25 tid -Lopressor 25 bid -metolazone 2.5 daily -Cardio recs (Dr. Pantoja) appreciated: maximal tx for CHF has not helped, in site of good diuresis and improved kidney function. Dr Ritesh Chauhan of [facility] contacted, transplant team, to see if he has any suggestions. Dr Pantoja is waiting for him to review pt's BI chart and call back. CAD w/ CABG -asa, plavix, statin, BB, imdur Heme: Atrial fibrillation -INR 1.3 (05/27) -per Cardio: interrogation of AICD revealed abscence of atrial lead, which could ID possible underlying AF. EKG and telemetry without discernible P waves, Cont with anticoagulation,planning for EP input Renal: LOUISE -Pt had baseline Cr of 1.5, jin to 2.0 with diuretics -likely 2/2 diuretics, patient needs diuretics to keep him dry CKD 3 -Nephrology on board: check renal us, quantify urine protein. Maintain Bumex, hold ARBs. GI: Large R inguinal hernia Hematoma -Abdomen obstruction series XR (05/24): Large R groin possibly R scrotal bowel containing hernia. A complete or high grade bowel obstruction seen. -CT abd/pelvis (05/24): New R anterior abdominal wall rectus muscle/sheath hematoma, 11.2 x 6 cm. Large R inguinal hernia contains bowel loop without evidence of bowel obstruction or incarceration. Mild to moderate constipation. Gallstones without evidence of acute cholecystitis. Cardiomegaly. ID: -on rocephin, doxycycline PPx, Diet, Disposition -heparin drip held -GI: protonix -Diet: HHD -Code status: Full code -Prognosis: poor Case discussed with Dr. Evita Love DO, PGY-1 <Don Jama - Last Filed: 05/27/18 17:34> CCU Objective - Vital Signs / Intake & Output Vital Signs (Last 4 hours): Vital Signs Temp Pulse Resp BP Pulse Ox 05/27/18 17:00 93 H 23 100 05/27/18 16:54 90 24 129/76 100 05/27/18 16:00 97.9 F 92 H 24 92 L 05/27/18 15:53 91 H 24 121/74 92 L 05/27/18 15:00 95 H 19 92 L 05/27/18 14:54 93 H 27 H 116/68 91 L 05/27/18 14:00 91 H 23 99 05/27/18 13:53 90 15 129/66 88 L Intake and Output (Last 8hrs): Intake & Output 05/27/18 05/27/18 05/27/18 06:59 14:59 22:59 Intake Total 515.1 245.1 11.7 Output Total 1000 1999 400 Balance -484.9 -1754.9 -388.3 Weight 159 lb Intake: IV 100 Intake, IV Amount 35.1 145.1 11.7 Left Forearm 35.1 35.1 11.7 Right Forearm 110 Oral 480 Output: Urine 1000 1999 400 Urine, Voided 1000 1999 400 - Medications Active Medications: Active Medications Generic Name Dose Route Start Last Admin Trade Name Freq PRN Reason Stop Dose Admin Acetaminophen 650 mg 05/22/18 10:21 05/25/18 11:38 Tylenol 325mg Tab PO 650 mg Q6 PRN Administration Pain, moderate (4-7) Acetazolamide 500 mg 05/27/18 18:00 Diamox 500 Mg Inj IV 05/28/18 10:01 BID AYDEE Budesonide 0.5 mg 05/22/18 20:00 05/27/18 08:11 Pulmicort Respules INH 0.5 mg RQ12 AYDEE Administration Clopidogrel Bisulfate 75 mg 05/22/18 10:30 05/27/18 09:44 Plavix PO Not Given DAILY AYDEE Doxycycline Hyclate 100 mg 05/22/18 10:30 05/27/18 09:42 Doryx PO Not Given Q12H [facility] Protocol Famotidine 20 mg 05/23/18 10:00 05/27/18 09:43 Pepcid PO Not Given DAILY AYDEE Fluticasone Propionate 2 spr 05/14/18 18:00 05/27/18 09:46 Flonase JESSICA 1 sprays BID AYDEE Administration Gabapentin 300 mg 05/22/18 18:00 05/27/18 09:43 Neurontin PO Not Given BID AYDEE Hydralazine HCl 25 mg 05/17/18 18:00 05/27/18 14:01 Apresoline PO 25 mg TID AYDEE Administration Ceftriaxone Sodium 1 gm/ 100 mls @ 100 mls/hr 05/23/18 10:00 05/27/18 10:00 Sodium Chloride IVPB 100 mls/hr DAILY AYDEE Administration Protocol Milrinone Lactate/Dextrose 20 100 mls @ 4.51 mls/hr 05/24/18 03:00 05/27/18 11:00 mg/ Dextrose IV 0.17 mcg/kg/min .[id number] AYDEE 3.83 mls/hr Administration Protocol 0.2 MCG/KG/MIN Heparin Sodium/Sodium Chloride 25,000 units in 250 mls @ 9.883 mls/hr 05/25/18 17:08 05/25/18 17:28 Heparin 70888 Units/250ml 1/2 Normal Saline IV 15 units/kg/hr .Q24H PRN 9.883 mls/hr ADJUST RATE PER PROTOCOL Administration Protocol 15 UNITS/KG/HR Insulin Human Regular 0 unit 05/19/18 16:30 05/27/18 11:30 Novolin R SC Not Given ACHS [facility] Protocol Isosorbide Mononitrate 60 mg 05/14/18 15:00 05/27/18 09:43 Imdur PO Not Given DAILY AYDEE Lidocaine 2 ea 05/22/18 12:30 05/27/18 09:47 Lidoderm TD 2 ea DAILY AYDEE Administration Metolazone 2.5 mg 05/23/18 10:00 05/27/18 10:08 Zaroxolyn PO Not Given DAILY AYDEE Metoprolol Tartrate 25 mg 05/17/18 16:27 05/27/18 09:43 Lopressor PO Not Given BID AYDEE Morphine Sulfate 2 mg 05/24/18 09:48 05/24/18 16:48 Morphine IV 2 mg Q3 PRN Administration PAIN, SEVERE 8-10 Phytonadione 10 mg 05/25/18 10:00 Vitamin K Inj IV BID [facility] Rosuvastatin Calcium 10 mg 05/14/18 22:00 05/26/18 21:51 Crestor PO 10 mg HS AYDEE Administration Vitamin A 1 ea 05/15/18 18:00 05/27/18 10:08 Vitamin A & D Oint Ud Foilpak TOP Not Given BID [facility] Warfarin Sodium 3 mg 05/28/18 14:00 Coumadin PO DAILY [facility] - Patient Studies Lab Studies: Lab Studies 05/27/18 05/27/18 05/27/18 Range/Units 15:59 14:39 11:30 WBC (4.8-10.8) K/uL RBC (4.40-5.90) Mil/uL Hgb (12.0-18.0) g/dL Hct (35.0-51.0) % MCV (80.0-94.0) fL MCH (27.0-31.0) pg MCHC (33.0-37.0) g/dL RDW (11.5-14.5) % Plt Count (130-400) K/uL MPV (7.2-11.7) fL Neut % (Auto) (50.0-75.0) % Lymph % (Auto) (20.0-40.0) % Jewell % (Auto) (0.0-10.0) % Eos % (Auto) (0.0-4.0) % Baso % (Auto) (0.0-2.0) % Neut # (Auto) (1.8-7.0) K/uL Lymph # (Auto) (1.0-4.3) K/uL Jewell # (Auto) (0.0-0.8) K/uL Eos # (Auto) (0.0-0.7) K/uL Baso # (Auto) (0.0-0.2) K/uL Neutrophils % (Manual) (50-75) % Lymphocytes % (Manual) (20-40) % Monocytes % (Manual) (0-10) % Platelet Estimate (NORMAL) Large Platelets Hypochromasia (manual) Poikilocytosis (manual Anisocytosis (manual) PT 14.7 H (9.7-12.2) SECONDS INR 1.3 APTT (21-34) SECONDS Sodium (132-148) mmol/L Potassium (3.6-5.2) mmol/L Chloride (98-107) mmol/L Carbon Dioxide (22-30) mmol/L Anion Gap (10-20) BUN (9-20) mg/dL Creatinine (0.8-1.5) mg/dL Est GFR ( Amer) Est GFR (Non-Af Amer) POC Glucose (mg/dL) 146 H 83 (65-110) mg/dL Random Glucose (75-110) mg/dL Calcium (8.6-10.4) mg/dl Phosphorus (2.5-4.5) mg/dL Magnesium (1.6-2.3) mg/dL Total Bilirubin (0.2-1.3) mg/dL AST (17-59) U/L ALT (21-72) U/L Alkaline Phosphatase (38-126) U/L Total Protein (6.3-8.3) g/dL Albumin (3.5-5.0) g/dL Globulin (2.2-3.9) gm/dL Albumin/Globulin Ratio (1.0-2.1) Blood Type Antibody Screen 05/27/18 05/27/18 05/27/18 Range/Units 07:27 05:31 05:31 WBC (4.8-10.8) K/uL RBC (4.40-5.90) Mil/uL Hgb (12.0-18.0) g/dL Hct (35.0-51.0) % MCV (80.0-94.0) fL MCH (27.0-31.0) pg MCHC (33.0-37.0) g/dL RDW (11.5-14.5) % Plt Count (130-400) K/uL MPV (7.2-11.7) fL Neut % (Auto) (50.0-75.0) % Lymph % (Auto) (20.0-40.0) % Jewell % (Auto) (0.0-10.0) % Eos % (Auto) (0.0-4.0) % Baso % (Auto) (0.0-2.0) % Neut # (Auto) (1.8-7.0) K/uL Lymph # (Auto) (1.0-4.3) K/uL Jewell # (Auto) (0.0-0.8) K/uL Eos # (Auto) (0.0-0.7) K/uL Baso # (Auto) (0.0-0.2) K/uL Neutrophils % (Manual) (50-75) % Lymphocytes % (Manual) (20-40) % Monocytes % (Manual) (0-10) % Platelet Estimate (NORMAL) Large Platelets Hypochromasia (manual) Poikilocytosis (manual Anisocytosis (manual) PT 15.2 H (9.7-12.2) SECONDS INR 1.4 APTT 29 (21-34) SECONDS Sodium (132-148) mmol/L Potassium (3.6-5.2) mmol/L Chloride (98-107) mmol/L Carbon Dioxide (22-30) mmol/L Anion Gap (10-20) BUN (9-20) mg/dL Creatinine (0.8-1.5) mg/dL Est GFR ( Amer) Est GFR (Non-Af Amer) POC Glucose (mg/dL) 80 (65-110) mg/dL Random Glucose (75-110) mg/dL Calcium (8.6-10.4) mg/dl Phosphorus (2.5-4.5) mg/dL Magnesium (1.6-2.3) mg/dL Total Bilirubin (0.2-1.3) mg/dL AST (17-59) U/L ALT (21-72) U/L Alkaline Phosphatase (38-126) U/L Total Protein (6.3-8.3) g/dL Albumin (3.5-5.0) g/dL Globulin (2.2-3.9) gm/dL Albumin/Globulin Ratio (1.0-2.1) Blood Type A POSITIVE Antibody Screen Negative 05/27/18 05/27/18 05/26/18 Range/Units 05:31 05:31 21:16 WBC 10.7 (4.8-10.8) K/uL RBC 2.70 L (4.40-5.90) Mil/uL Hgb 7.8 L (12.0-18.0) g/dL Hct 23.3 L (35.0-51.0) % MCV 86.3 (80.0-94.0) fL MCH 28.9 (27.0-31.0) pg MCHC 33.4 (33.0-37.0) g/dL RDW 16.3 H (11.5-14.5) % Plt Count 162 (130-400) K/uL MPV 9.9 (7.2-11.7) fL Neut % (Auto) 79.7 H (50.0-75.0) % Lymph % (Auto) 3.8 L (20.0-40.0) % Jewell % (Auto) 14.5 H (0.0-10.0) % Eos % (Auto) 1.9 (0.0-4.0) % Baso % (Auto) 0.1 (0.0-2.0) % Neut # (Auto) 8.5 H (1.8-7.0) K/uL Lymph # (Auto) 0.4 L (1.0-4.3) K/uL Jewell # (Auto) 1.5 H (0.0-0.8) K/uL Eos # (Auto) 0.2 (0.0-0.7) K/uL Baso # (Auto) 0.0 (0.0-0.2) K/uL Neutrophils % (Manual) 86 H (50-75) % Lymphocytes % (Manual) 3 L (20-40) % Monocytes % (Manual) 11 H (0-10) % Platelet Estimate Normal (NORMAL) Large Platelets Present Hypochromasia (manual) Slight Poikilocytosis (manual Slight Anisocytosis (manual) Slight PT (9.7-12.2) SECONDS INR APTT (21-34) SECONDS Sodium 136 (132-148) mmol/L Potassium 3.5 L (3.6-5.2) mmol/L Chloride 90 L (98-107) mmol/L Carbon Dioxide 37 H (22-30) mmol/L Anion Gap 12 (10-20) BUN 83 H (9-20) mg/dL Creatinine 1.4 (0.8-1.5) mg/dL Est GFR ( Amer) > 60 Est GFR (Non-Af Amer) 51 POC Glucose (mg/dL) 133 H (65-110) mg/dL Random Glucose 96 (75-110) mg/dL Calcium 8.5 L (8.6-10.4) mg/dl Phosphorus 3.0 (2.5-4.5) mg/dL Magnesium 1.7 (1.6-2.3) mg/dL Total Bilirubin 1.1 (0.2-1.3) mg/dL AST 40 (17-59) U/L ALT 46 (21-72) U/L Alkaline Phosphatase 90 (38-126) U/L Total Protein 6.4 (6.3-8.3) g/dL Albumin 3.5 (3.5-5.0) g/dL Globulin 2.9 (2.2-3.9) gm/dL Albumin/Globulin Ratio 1.2 (1.0-2.1) Blood Type Antibody Screen 05/24/18 Range/Units 10:57 WBC (4.8-10.8) K/uL RBC (4.40-5.90) Mil/uL Hgb (12.0-18.0) g/dL Hct (35.0-51.0) % MCV (80.0-94.0) fL MCH (27.0-31.0) pg MCHC (33.0-37.0) g/dL RDW (11.5-14.5) % Plt Count (130-400) K/uL MPV (7.2-11.7) fL Neut % (Auto) (50.0-75.0) % Lymph % (Auto) (20.0-40.0) % Jewell % (Auto) (0.0-10.0) % Eos % (Auto) (0.0-4.0) % Baso % (Auto) (0.0-2.0) % Neut # (Auto) (1.8-7.0) K/uL Lymph # (Auto) (1.0-4.3) K/uL Jewell # (Auto) (0.0-0.8) K/uL Eos # (Auto) (0.0-0.7) K/uL Baso # (Auto) (0.0-0.2) K/uL Neutrophils % (Manual) (50-75) % Lymphocytes % (Manual) (20-40) % Monocytes % (Manual) (0-10) % Platelet Estimate (NORMAL) Large Platelets Hypochromasia (manual) Poikilocytosis (manual Anisocytosis (manual) PT (9.7-12.2) SECONDS INR APTT (21-34) SECONDS Sodium (132-148) mmol/L Potassium (3.6-5.2) mmol/L Chloride (98-107) mmol/L Carbon Dioxide (22-30) mmol/L Anion Gap (10-20) BUN (9-20) mg/dL Creatinine (0.8-1.5) mg/dL Est GFR ( Amer) Est GFR (Non-Af Amer) POC Glucose (mg/dL) (65-110) mg/dL Random Glucose (75-110) mg/dL Calcium (8.6-10.4) mg/dl Phosphorus (2.5-4.5) mg/dL Magnesium (1.6-2.3) mg/dL Total Bilirubin (0.2-1.3) mg/dL AST (17-59) U/L ALT (21-72) U/L Alkaline Phosphatase (38-126) U/L Total Protein (6.3-8.3) g/dL Albumin (3.5-5.0) g/dL Globulin (2.2-3.9) gm/dL Albumin/Globulin Ratio (1.0-2.1) Blood Type A POSITIVE Antibody Screen Negative Laboratory Results - last 24 hr 05/24/18 05/26/18 05/27/18 10:57 21:16 05:31 WBC 10.7 RBC 2.70 L Hgb 7.8 L Hct 23.3 L MCV 86.3 MCH 28.9 MCHC 33.4 RDW 16.3 H Plt Count 162 MPV 9.9 Neut % (Auto) 79.7 H Lymph % (Auto) 3.8 L Jewell % (Auto) 14.5 H Eos % (Auto) 1.9 Baso % (Auto) 0.1 Neut # (Auto) 8.5 H Lymph # (Auto) 0.4 L Jewell # (Auto) 1.5 H Eos # (Auto) 0.2 Baso # (Auto) 0.0 Neutrophils % (Manual) 86 H Lymphocytes % (Manual) 3 L Monocytes % (Manual) 11 H Platelet Estimate Normal Large Platelets Present Hypochromasia (manual) Slight Poikilocytosis (manual Slight Anisocytosis (manual) Slight PT INR APTT Sodium Potassium Chloride Carbon Dioxide Anion Gap BUN Creatinine Est GFR ( Amer) Est GFR (Non-Af Amer) POC Glucose (mg/dL) 133 H Random Glucose Calcium Phosphorus Magnesium Total Bilirubin AST ALT Alkaline Phosphatase Total Protein Albumin Globulin Albumin/Globulin Ratio Blood Type A POSITIVE Antibody Screen Negative 05/27/18 05/27/18 05/27/18 05:31 05:31 05:31 WBC RBC Hgb Hct MCV MCH MCHC RDW Plt Count MPV Neut % (Auto) Lymph % (Auto) Jewell % (Auto) Eos % (Auto) Baso % (Auto) Neut # (Auto) Lymph # (Auto) Jewell # (Auto) Eos # (Auto) Baso # (Auto) Neutrophils % (Manual) Lymphocytes % (Manual) Monocytes % (Manual) Platelet Estimate Large Platelets Hypochromasia (manual) Poikilocytosis (manual Anisocytosis (manual) PT 15.2 H INR 1.4 APTT 29 Sodium 136 Potassium 3.5 L Chloride 90 L Carbon Dioxide 37 H Anion Gap 12 BUN 83 H Creatinine 1.4 Est GFR ( Amer) > 60 Est GFR (Non-Af Amer) 51 POC Glucose (mg/dL) Random Glucose 96 Calcium 8.5 L Phosphorus 3.0 Magnesium 1.7 Total Bilirubin 1.1 AST 40 ALT 46 Alkaline Phosphatase 90 Total Protein 6.4 Albumin 3.5 Globulin 2.9 Albumin/Globulin Ratio 1.2 Blood Type A POSITIVE Antibody Screen Negative 05/27/18 05/27/18 05/27/18 07:27 11:30 14:39 WBC RBC Hgb Hct MCV MCH MCHC RDW Plt Count MPV Neut % (Auto) Lymph % (Auto) Jewell % (Auto) Eos % (Auto) Baso % (Auto) Neut # (Auto) Lymph # (Auto) Jewell # (Auto) Eos # (Auto) Baso # (Auto) Neutrophils % (Manual) Lymphocytes % (Manual) Monocytes % (Manual) Platelet Estimate Large Platelets Hypochromasia (manual) Poikilocytosis (manual Anisocytosis (manual) PT 14.7 H INR 1.3 APTT Sodium Potassium Chloride Carbon Dioxide Anion Gap BUN Creatinine Est GFR ( Amer) Est GFR (Non-Af Amer) POC Glucose (mg/dL) 80 83 Random Glucose Calcium Phosphorus Magnesium Total Bilirubin AST ALT Alkaline Phosphatase Total Protein Albumin Globulin Albumin/Globulin Ratio Blood Type Antibody Screen 05/27/18 15:59 WBC RBC Hgb Hct MCV MCH MCHC RDW Plt Count MPV Neut % (Auto) Lymph % (Auto) Jewell % (Auto) Eos % (Auto) Baso % (Auto) Neut # (Auto) Lymph # (Auto) Jewell # (Auto) Eos # (Auto) Baso # (Auto) Neutrophils % (Manual) Lymphocytes % (Manual) Monocytes % (Manual) Platelet Estimate Large Platelets Hypochromasia (manual) Poikilocytosis (manual Anisocytosis (manual) PT INR APTT Sodium Potassium Chloride Carbon Dioxide Anion Gap BUN Creatinine Est GFR ( Amer) Est GFR (Non-Af Amer) POC Glucose (mg/dL) 146 H Random Glucose Calcium Phosphorus Magnesium Total Bilirubin AST ALT Alkaline Phosphatase Total Protein Albumin Globulin Albumin/Globulin Ratio Blood Type Antibody Screen EKG/Cardiology Studies: Cardiology / EKG Studies 05/27/18 12:46 EKG [ELECTROCARDIOGRAM] Routine Comment: Mode Of Transportation: Reason For Exam: massive cardiomegaly, systolic chf, sob Critical Care Progress Note - Nutrition Nutrition: Nutrition Category Date Time Status Heart Healthy Diet [DIET] Diets 05/27/18 Lunch Active Attending/Attestation - Attestation I have personally seen and examined this patient.: Yes I have fully participated in the care of the patient.: Yes I have reviewed all pertinent clinical information: Yes Notes (Text): 05/27/18 17:33 I have seen and examined the patient. Medical records, lab studies, and imaging were reviewed by me and a management plan was formulated on multidisciplinary rounds with resident Dr. Love. I agree with their documented assessment and plan. Patient is not improving clinically on milrinone drip, despite adequate diuresis. He is being transferred to [facility] for any possible further interventions (LVAD, transplant). He was too unstable for a hernia repair, so it was aborted. Critical Care Time 35 minutes. Multi-disciplinary rounds were performed with house staff, nursing, speech therapy, respiratory therapy, pharmacy and nutrition with integrated input from the primary team/attending and other consulting services. The documented time is cumulative and includes review of patient data/exams/labs/chart review and examination of the patient on rounds and throughout the day; time is exclusive of any procedures or teaching time.
[2018-05-27] MEDS: Budesonide 0.5 mg/2 ml Inhal Susp UD INH SCH ×2 (08:11→20:21)
[2018-05-27] MEDS: Potassium Chloride 20 mEq ER Tab PO ONE ×2 (08:40→08:51)
[2018-05-27 08:43] LABS: ANISOCYTOSIS SLIGHT; HYPOCHROMIC SLIGHT; LARGE PLATELETS PRESENT; LYMPHOCYTE 3 % (20-40); MONOCYTE 11 % (0-10); NEUTROPHIL 86 % (50-75); PLATELET ESTIMATE NORMAL (NORMAL); POIKILOCYTOSIS SLIGHT; TOTAL CELLS COUNTED 100
[2018-05-27] MEDS ORDERED: Potassium Chloride 20 mEq ER Tab PO ONE (09:00)
--- NOTE | 2018-05-27 09:34 | CP.PCM.PN ---
Subjective - Date & Time of Evaluation Date of Evaluation: 05/27/18 Time of Evaluation: 09:00 - Subjective Subjective: Patient prognosis remains very poor. I've been talking to his as well as patient and also yesterday I appreciate palliative care speaking with the patient and as well. This morning on the Bipap since he became short of breath overnight. He still has the RLQ pain with light palpation from the rectal sheath hematoma He also reports ongoing discomfort from the right inguinal hernia as well. Objective - Vital Signs/Intake and Output Vital Signs (last 24 hours): Temp Pulse Resp BP Pulse Ox 97.8 F 91 H 21 116/67 96 05/27/18 08:00 05/27/18 08:14 05/27/18 08:00 05/27/18 07:53 05/27/18 08:00 Intake and Output: 05/27/18 05/27/18 06:59 18:59 Intake Total 680.7 7.8 Output Total 1500 400 Balance -819.3 -392.2 - Medications Medications: Current Medications Acetaminophen (Tylenol 325mg Tab) 650 mg PO Q6 PRN PRN Reason: Pain, moderate (4-7) Last Admin: 05/25/18 11:38 Dose: 650 mg Budesonide (Pulmicort Respules) 0.5 mg INH RQ12 [facility] Last Admin: 05/27/18 08:11 Dose: 0.5 mg Clopidogrel Bisulfate (Plavix) 75 mg PO DAILY [facility] Last Admin: 05/26/18 09:26 Dose: 75 mg Doxycycline Hyclate (Doryx) 100 mg PO Q12H [facility]; Protocol Last Admin: 05/26/18 21:45 Dose: 100 mg Famotidine (Pepcid) 20 mg PO DAILY [facility] Last Admin: 05/26/18 09:27 Dose: 20 mg Fluticasone Propionate (Flonase) 2 spr JESSICA BID [facility] Last Admin: 05/26/18 09:30 Dose: 1 sprays Furosemide (Lasix) 40 mg IVP Q12H [facility] Last Admin: 05/27/18 06:22 Dose: 40 mg Gabapentin (Neurontin) 300 mg PO BID [facility] Last Admin: 05/26/18 17:45 Dose: 300 mg Hydralazine HCl (Apresoline) 25 mg PO TID [facility] Last Admin: 05/26/18 17:45 Dose: 25 mg Ceftriaxone Sodium 1 gm/ (Sodium Chloride) 100 mls @ 100 mls/hr IVPB DAILY [facility]; Protocol Last Admin: 05/26/18 09:27 Dose: 100 mls/hr Milrinone Lactate/Dextrose 20 (mg/ Dextrose) 100 mls @ 4.51 mls/hr IV .[id number] [facility]; Protocol Last Admin: 05/26/18 22:00 Dose: Not Given Heparin Sodium/Sodium Chloride (Heparin 72829 Units/250ml 1/2 Normal Saline) 25,000 units in 250 mls @ 9.883 mls/hr IV .Q24H PRN; Protocol PRN Reason: ADJUST RATE PER PROTOCOL Last Admin: 05/25/18 17:28 Dose: 15 units/kg/hr, 9.883 mls/hr Insulin Human Regular (Novolin R) 0 unit SC ACHS [facility]; Protocol Last Admin: 05/27/18 07:51 Dose: Not Given Isosorbide Mononitrate (Imdur) 60 mg PO DAILY [facility] Last Admin: 05/26/18 09:26 Dose: 60 mg Lidocaine (Lidoderm) 2 ea TD DAILY [facility] Last Admin: 05/26/18 09:28 Dose: 2 ea Metolazone (Zaroxolyn) 2.5 mg PO DAILY [facility] Last Admin: 05/26/18 09:27 Dose: 2.5 mg Metoprolol Tartrate (Lopressor) 25 mg PO BID [facility] Last Admin: 05/26/18 17:45 Dose: 25 mg Morphine Sulfate (Morphine) 2 mg IV Q3 PRN PRN Reason: PAIN, SEVERE 8-10 Last Admin: 05/24/18 16:48 Dose: 2 mg Phytonadione (Vitamin K Inj) 10 mg IV BID [facility] Rosuvastatin Calcium (Crestor) 10 mg PO HS [facility] Last Admin: 05/26/18 21:51 Dose: 10 mg Vitamin A (Vitamin A & D Oint Ud Foilpak) 1 ea TOP BID [facility] Last Admin: 05/26/18 17:50 Dose: 1 ea - Labs Labs: 05/27/18 05:31 05/27/18 05:31 PT 15.2 SECONDS (9.7-12.2) H 05/27/18 05:31 INR 1.4 05/27/18 05:31 APTT 29 SECONDS (21-34) 05/27/18 05:31 - Constitutional Appears: Cachectic, Chronically Ill - Head Exam Additional comments: Today on bipap - Eye Exam Eye Exam: EOMI, Normal appearance - ENT Exam ENT Exam: Mucous Membranes Moist - Cardiovascular Exam Cardiovascular Exam: Clicks, Irregular Rhythm Additional comments: Prominnent mechanical clicks - Neurological Exam Neurological Exam: Alert, Awake, Oriented x3 Neuro motor strength exam: Left Upper Extremity: 4, Right Upper Extremity: 4 - Psychiatric Exam Psychiatric exam: Anxious, Depressed, Flat Affect - Skin Skin Exam: Pallor, Warm Assessment and Plan - Assessment and Plan (Free Text) Assessment: 1. Acute on chronic systolic heart failure History of Aortic valve replacement, Mitral valve replacement, Tricuspid valve replacement, AICD ,CABG 05/27: His urine out put was 3250, he remains on milronine ggt. However despite diureses his breathing is still very poor. Palliative care came and spoke with him. understands prognosis is very poor. 05/26: Patient still wants to be full code when I spoke with him. He remain on the IV Lasix, Zaroxyln, Milrinon ggt, Lowpressor and Imdur 05/25: Appreciate cardiology on case, the patient maybe transferred to another hospital for further care. Because of the hematoma seen on CT scan the anticoagulation was held yesterday. Family is aware that prognosis is not good at this time. 05/24: Again has to use Bipap at night and intermittently throughout the day. Urine out put was 1250 yesterday. And he remains on the IV Milrinone ggt as well as Lasix and Zaroxyln 05/23: Patient remains short of breath requiring the Bipap at night and most the day. He has been on the milrinone and lasix and zaroxyln INR 3.7. Urine out put was 1,700 recorded yesterday Updated family member at bedside as well Milrinone ggt Lasix 40mg bid Imdur 60mg po daily Hydralazine 25mg po tid andrés Lopressor 25mg po bid andrés (As per mill machinist Interrogation of AICD (Mary) revealed abscence of atrial lead, which could ID possible underlying AF EKG and telemetry without discernible P waves,Cont with anticoagulation,planning for EP input) 2. Abdominal pain - Rectal sheath hematoma and inguinal hernia 05/27: Decreased Hgb to 7.8, currently off of anticoagulation and off of heparin at this time for potential hernia repair. 05/26: Hgb decreased to 8.0. On heparin ggt at this time because of the atrial fibrillation as well as history of mechanical valves Transfuse as neccessary 05/25: Possible intervention this Wednesday under local anesthesia for the inguinal hernia The anticoagulation held yesterday. He had one unit of PRBC yesterday Patient has inguinal hernia and it having significant amount of pain. NPO now except meds, also obstructive3 series ordered and CT scan of the abdomen and pelvis in case there could be an obstruction 2. Pneumonia w/ shortness of breath 05/23: Currently afebrile and WBC stable. He is on pulmicort and doxycycline Today we added pulmicort,on ceftriaxone and doxy Duonebs PRN Chest x ray without changes ECHO from 02/05/18: EF 35% CXR: Moderate to severe venous congestion with prominent consolidative opacities within mid to lower lung zones. small bilateral pleural effusions. Aortic atherosclertic calcification noted. Enlarged heart with prominent cardiomegaly. Prior valve replacements. Left sided pacemaker. Status post median sternotomy. Degenerative changes in spine and shoulders. Calcifications within the right axilla. CT chest: multilobar pna CXR; severe venous congestion 3. CAD w/ CABG 05/23: Patient remains on crestor, imdur, plavix, ASA, BB Crestor 10mg po HS lasix 40mg bid Imdur 60mg po daily Metoprolol 25mg po bid andrés Zaroxylin 4. LOUISE Likely prerenal in etiology with low blood pressure setting and anemia Nephrology consulted Cardiorenal etiology with increased diuretics patient Cr loses 5. Atrial fibrillation 05/27: Currently anticogulation is off for potential procedure later today. 05/25: INR is lower. Vitamin K was given, anticoagulation held yesterday 05/23: INR 3.7 today (as per mill machinist Interrogation of AICD (Mary) revealed abscence of atrial lead, which could ID possible underlying AF EKG and telemetry without discernible P waves,Cont with anticoagulation,planning for EP input) 6. Chronic pain Gabapentin 100mg po tid HTN PPx Influenza vaccine DVT ppx: not indicated at this time in setting of elevated INR GI ppx: protonix 40mg daily andrés
[2018-05-27] MEDS: Fluticasone Nasal 50 mcg/Spray NAS SCH ×2 (09:46→18:28)
[2018-05-27] MEDS: Lidocaine 5% Patch TD SCH (09:47)
[2018-05-27] MEDS: Vitamins A & D Oint UD Foilpak TOP SCH (10:08)
[2018-05-27] MEDS: metOLazone 2.5 MG TAB PO SCH (10:08)
[2018-05-27] MEDS: Milrinone 20 MG in Dextrose 5% In Water 80 ML IV SCH (11:00)
--- NOTE | 2018-05-27 12:44 | CP.PCM.PN ---
Subjective - Date & Time of Evaluation Date of Evaluation: 05/27/18 Time of Evaluation: 09:00 - Subjective Subjective: Patient seen and examined at bedside, lying down comfortably. Afebrile and in no acute distress. Patient still complains of SOB that requires intermittent BiPAP Denies fever/chills, chest pain, and dizziness Surgical intervention for hernia is scheduled for today 05/26/18 CXR: Increased left pleural effusion Still waiting to hear from [facility], as per Dr. Pantoja. Continue BiPAP, milrinone drip, lasiz, and zaroxyln, as well as Abx and other medications. Objective - Vital Signs/Intake and Output Vital Signs (last 24 hours): Temp Pulse Resp BP Pulse Ox 97.8 F 90 27 H 115/74 100 05/27/18 12:00 05/27/18 12:00 05/27/18 12:00 05/27/18 11:53 05/27/18 12:00 Intake and Output: 05/27/18 05/27/18 06:59 18:59 Intake Total 680.7 33.4 Output Total 1500 1600 Balance -819.3 -1566.6 - Medications Medications: Current Medications Acetaminophen (Tylenol 325mg Tab) 650 mg PO Q6 PRN PRN Reason: Pain, moderate (4-7) Last Admin: 05/25/18 11:38 Dose: 650 mg Acetazolamide (Diamox 500 Mg Inj) 500 mg IV BID [facility] Stop: 05/28/18 10:01 Budesonide (Pulmicort Respules) 0.5 mg INH RQ12 [facility] Last Admin: 05/27/18 08:11 Dose: 0.5 mg Clopidogrel Bisulfate (Plavix) 75 mg PO DAILY [facility] Last Admin: 05/27/18 09:44 Dose: Not Given Doxycycline Hyclate (Doryx) 100 mg PO Q12H [facility]; Protocol Last Admin: 05/27/18 09:42 Dose: Not Given Famotidine (Pepcid) 20 mg PO DAILY [facility] Last Admin: 05/27/18 09:43 Dose: Not Given Fluticasone Propionate (Flonase) 2 spr JESSICA BID [facility] Last Admin: 05/27/18 09:46 Dose: 1 sprays Gabapentin (Neurontin) 300 mg PO BID [facility] Last Admin: 05/27/18 09:43 Dose: Not Given Hydralazine HCl (Apresoline) 25 mg PO TID [facility] Last Admin: 05/27/18 09:42 Dose: Not Given Ceftriaxone Sodium 1 gm/ (Sodium Chloride) 100 mls @ 100 mls/hr IVPB DAILY [facility]; Protocol Last Admin: 05/26/18 09:27 Dose: 100 mls/hr Milrinone Lactate/Dextrose 20 (mg/ Dextrose) 100 mls @ 4.51 mls/hr IV .[id number] [facility]; Protocol Last Admin: 05/26/18 22:00 Dose: Not Given Heparin Sodium/Sodium Chloride (Heparin 43240 Units/250ml 1/2 Normal Saline) 25,000 units in 250 mls @ 9.883 mls/hr IV .Q24H PRN; Protocol PRN Reason: ADJUST RATE PER PROTOCOL Last Admin: 05/25/18 17:28 Dose: 15 units/kg/hr, 9.883 mls/hr Insulin Human Regular (Novolin R) 0 unit SC ACHS [facility]; Protocol Last Admin: 05/27/18 07:51 Dose: Not Given Isosorbide Mononitrate (Imdur) 60 mg PO DAILY [facility] Last Admin: 05/27/18 09:43 Dose: Not Given Lidocaine (Lidoderm) 2 ea TD DAILY [facility] Last Admin: 05/27/18 09:47 Dose: 2 ea Metolazone (Zaroxolyn) 2.5 mg PO DAILY [facility] Last Admin: 05/26/18 09:27 Dose: 2.5 mg Metoprolol Tartrate (Lopressor) 25 mg PO BID [facility] Last Admin: 05/27/18 09:43 Dose: Not Given Morphine Sulfate (Morphine) 2 mg IV Q3 PRN PRN Reason: PAIN, SEVERE 8-10 Last Admin: 05/24/18 16:48 Dose: 2 mg Phytonadione (Vitamin K Inj) 10 mg IV BID [facility] Rosuvastatin Calcium (Crestor) 10 mg PO HS [facility] Last Admin: 05/26/18 21:51 Dose: 10 mg Vitamin A (Vitamin A & D Oint Ud Foilpak) 1 ea TOP BID [facility] Last Admin: 05/26/18 17:50 Dose: 1 ea - Labs Labs: 05/27/18 05:31 05/27/18 05:31 PT 15.2 SECONDS (9.7-12.2) H 05/27/18 05:31 INR 1.4 05/27/18 05:31 APTT 29 SECONDS (21-34) 05/27/18 05:31
--- NOTE | 2018-05-27 12:54 | RAD ---
Date of service: 05/27/2018 HISTORY: CHF, cardiomegaly, effusion COMPARISON: Comparison chest 05/26/[address] scan chest 05/14/2018.. FINDINGS: LUNGS: Pulmonary venous congestive changes with bilateral mid to lower lobe alveolar-type infiltrates and bilateral effusions left larger than right. Infiltrates. PLEURA: No significant pleural effusion identified, no pneumothorax apparent. CARDIOVASCULAR: Aneurysmal dilatation of the thoracic aorta is less well seen on this chest radiograph compared to high-resolution CT chest. Mild aortic atherosclerotic calcification present. Marked cardiomegaly. There is splaying of the georgi suggesting atrial enlargement.. Sternotomy wires, CABG clips, aortic and mitral valve replacements. In situ bipolar pacemaker/defibrillator OSSEOUS STRUCTURES: No significant abnormalities. VISUALIZED UPPER ABDOMEN: Normal. OTHER FINDINGS: None. IMPRESSION: Marked cardiomegaly. Mild pulmonary venous congestive changes with bilateral lower lobe alveolar-type infiltrates and bilateral effusions. Aneurysmal dilatation of the thoracic aorta less well seen on this study as compared to high-resolution CT chest.
--- NOTE | 2018-05-27 13:41 | CP.PCM.PN ---
Subjective - Date & Time of Evaluation Date of Evaluation: 05/27/18 Time of Evaluation: 13:36 - Subjective Subjective: Pt still has sdyspnea at rest. Hernia procedure canceled. CXR my review, no change in chf, despite very good diuresis. Cr stable at 1.4. ECG show regular rhythm, probably atrial flutter. Objective - Vital Signs/Intake and Output Vital Signs (last 24 hours): Temp Pulse Resp BP Pulse Ox 97.8 F 90 27 H 115/74 100 05/27/18 12:00 05/27/18 12:00 05/27/18 12:00 05/27/18 11:53 05/27/18 12:00 Intake and Output: 05/27/18 05/27/18 06:59 18:59 Intake Total 680.7 133.4 Output Total 1500 1600 Balance -819.3 -1466.6 - Medications Medications: Current Medications Acetaminophen (Tylenol 325mg Tab) 650 mg PO Q6 PRN PRN Reason: Pain, moderate (4-7) Last Admin: 05/25/18 11:38 Dose: 650 mg Acetazolamide (Diamox 500 Mg Inj) 500 mg IV BID [facility] Stop: 05/28/18 10:01 Budesonide (Pulmicort Respules) 0.5 mg INH RQ12 [facility] Last Admin: 05/27/18 08:11 Dose: 0.5 mg Clopidogrel Bisulfate (Plavix) 75 mg PO DAILY [facility] Last Admin: 05/27/18 09:44 Dose: Not Given Doxycycline Hyclate (Doryx) 100 mg PO Q12H [facility]; Protocol Last Admin: 05/27/18 09:42 Dose: Not Given Famotidine (Pepcid) 20 mg PO DAILY [facility] Last Admin: 05/27/18 09:43 Dose: Not Given Fluticasone Propionate (Flonase) 2 spr JESSICA BID [facility] Last Admin: 05/27/18 09:46 Dose: 1 sprays Gabapentin (Neurontin) 300 mg PO BID [facility] Last Admin: 05/27/18 09:43 Dose: Not Given Hydralazine HCl (Apresoline) 25 mg PO TID [facility] Last Admin: 05/27/18 09:42 Dose: Not Given Ceftriaxone Sodium 1 gm/ (Sodium Chloride) 100 mls @ 100 mls/hr IVPB DAILY [facility]; Protocol Last Admin: 05/27/18 10:00 Dose: 100 mls/hr Milrinone Lactate/Dextrose 20 (mg/ Dextrose) 100 mls @ 4.51 mls/hr IV .[id number] [facility]; Protocol Last Admin: 05/27/18 11:00 Dose: 0.17 mcg/kg/min, 3.83 mls/hr Heparin Sodium/Sodium Chloride (Heparin 22947 Units/250ml 1/2 Normal Saline) 25,000 units in 250 mls @ 9.883 mls/hr IV .Q24H PRN; Protocol PRN Reason: ADJUST RATE PER PROTOCOL Last Admin: 05/25/18 17:28 Dose: 15 units/kg/hr, 9.883 mls/hr Insulin Human Regular (Novolin R) 0 unit SC ACHS [facility]; Protocol Last Admin: 05/27/18 11:30 Dose: Not Given Isosorbide Mononitrate (Imdur) 60 mg PO DAILY [facility] Last Admin: 05/27/18 09:43 Dose: Not Given Lidocaine (Lidoderm) 2 ea TD DAILY [facility] Last Admin: 05/27/18 09:47 Dose: 2 ea Metolazone (Zaroxolyn) 2.5 mg PO DAILY [facility] Last Admin: 05/27/18 10:08 Dose: Not Given Metoprolol Tartrate (Lopressor) 25 mg PO BID [facility] Last Admin: 05/27/18 09:43 Dose: Not Given Morphine Sulfate (Morphine) 2 mg IV Q3 PRN PRN Reason: PAIN, SEVERE 8-10 Last Admin: 05/24/18 16:48 Dose: 2 mg Phytonadione (Vitamin K Inj) 10 mg IV BID [facility] Rosuvastatin Calcium (Crestor) 10 mg PO HS [facility] Last Admin: 05/26/18 21:51 Dose: 10 mg Vitamin A (Vitamin A & D Oint Ud Foilpak) 1 ea TOP BID [facility] Last Admin: 05/27/18 10:08 Dose: Not Given - Labs Labs: 05/27/18 05:31 05/27/18 05:31 PT 15.2 SECONDS (9.7-12.2) H 05/27/18 05:31 INR 1.4 05/27/18 05:31 APTT 29 SECONDS (21-34) 05/27/18 05:31 - Constitutional Appears: Chronically Ill - Eye Exam Eye Exam: EOMI Pupil Exam: NORMAL ACCOMODATION - ENT Exam ENT Exam: Mucous Membranes Dry - Respiratory Exam Respiratory Exam: Rales - Cardiovascular Exam Cardiovascular Exam: REGULAR RHYTHM - GI/Abdominal Exam GI & Abdominal Exam: Normal Bowel Sounds Additional comments: abdominal hematoma - Exam External exam: Ecchymosis (warm good pulses) - Back Exam Back Exam: NORMAL INSPECTION - Neurological Exam Neurological Exam: Alert, Awake, Oriented x3 - Psychiatric Exam Psychiatric exam: Anxious Assessment and Plan - Assessment and Plan (Free Text) Assessment: 1. Pt has reached an impasse, and no therapy can be offered her at [facility],and pt 's chf is refractory. The heart failure team at [facility] have agreed to accept him and arrangements are being made for transfer. 2. Warfarin loading.
[2018-05-27 14:56] LABS: INR 1.3; PROTHROMBIN TIME 14.7 SECONDS (9.7-12.2)
[2018-05-27 21:46] VITALS: TEMP 98.5
[2018-05-27 23:19] VITALS: BP 99/54; PULSE 90; RESP 24; O2SAT 99
--- NOTE | 2018-05-28 08:49 | CP.PCM.DIS ---
Provider - Provider Date of Admission: 05/14/18 12:35 Attending physician: Sophy Huynh MD Consults: 05/14/18 14:55 Palliative Care Consult Routine Comment: Consulting Provider: Cristina Ash Physician Instructions: Reason For Exam: goals of care 05/16/18 12:24 Pulmonology Consult Routine Comment: Consulting Provider: Shaun Alcocer Consulting Physician: Shaun Alcocer Reason for Consult: Pneumonia 05/16/18 15:51 Nephrology Consult Routine Comment: Consulting Provider: Kamar Berg Consulting Physician: Kamar Berg Reason for Consult: Cr 2.0 possible LOUISE 05/17/18 13:05 Physician Consult Routine Comment: Consulting Provider: Dino Pratt Consulting Physician: Dino Pratt Reason for Consult: heart failure, Afib, AVR, MVR 05/24/18 13:37 Physician Consult Routine Comment: Consulting Provider: Victoriano Martell Consulting Physician: Victoriano Martell Reason for Consult: New R abd wall rectus m./sheath hematoma, Large R inguinal hernia Additional Comments: hematoma 11.2 x 6 cm 05/25/18 09:59 Palliative Care Consult Routine Comment: Consulting Provider: Cristina Ash Physician Instructions: Reason For Exam: acute shortness of breath from CHF, also bleeding Time Spent in preparation of Discharge (in minutes): 29 Hospital Course - Lab Results Lab Results: Micro Results 05/20/18 18:00 Sputum Induced Gram Stain - Final 05/20/18 18:00 Sputum Induced Sputum Culture - Final Yeast Species 05/18/18 05:36 Nose MRSA Culture (Admit) - Final MRSA NOT DETECTED 05/14/18 10:36 Blood Blood Culture - Final NO GROWTH AFTER 5 DAYS 05/14/18 10:36 Blood Gram Stain - Final TEST NOT PERFORMED 05/14/18 10:16 Blood Blood Culture - Final NO GROWTH AFTER 5 DAYS 05/14/18 10:16 Blood Gram Stain - Final TEST NOT PERFORMED Most Recent Lab Values WBC 10.7 K/uL (4.8-10.8) 05/27/18 05:31 RBC 2.70 Mil/uL (4.40-5.90) L 05/27/18 05:31 Hgb 7.8 g/dL (12.0-18.0) L 05/27/18 05:31 Hct 23.3 % (35.0-51.0) L 05/27/18 05:31 MCV 86.3 fL (80.0-94.0) 05/27/18 05:31 MCH 28.9 pg (27.0-31.0) 05/27/18 05:31 MCHC 33.4 g/dL (33.0-37.0) 05/27/18 05:31 RDW 16.3 % (11.5-14.5) H 05/27/18 05:31 Plt Count 162 K/uL (130-400) 05/27/18 05:31 MPV 9.9 fL (7.2-11.7) 05/27/18 05:31 Neut % (Auto) 79.7 % (50.0-75.0) H 05/27/18 05:31 Lymph % (Auto) 3.8 % (20.0-40.0) L 05/27/18 05:31 [place] % (Auto) 14.5 % (0.0-10.0) H 05/27/18 05:31 Eos % (Auto) 1.9 % (0.0-4.0) 05/27/18 05:31 Baso % (Auto) 0.1 % (0.0-2.0) 05/27/18 05:31 Neut # (Auto) 8.5 K/uL (1.8-7.0) H 05/27/18 05:31 Lymph # (Auto) 0.4 K/uL (1.0-4.3) L 05/27/18 05:31 [place] # (Auto) 1.5 K/uL (0.0-0.8) H 05/27/18 05:31 Eos # (Auto) 0.2 K/uL (0.0-0.7) 05/27/18 05:31 Baso # (Auto) 0.0 K/uL (0.0-0.2) 05/27/18 05:31 Neutrophils % (Manual) 86 % (50-75) H 05/27/18 05:31 Band Neutrophils % 2 % (0-2) 05/24/18 06:05 Lymphocytes % (Manual) 3 % (20-40) L 05/27/18 05:31 Monocytes % (Manual) 11 % (0-10) H 05/27/18 05:31 Eosinophils % (Manual) 1 % (0-4) 05/26/18 05:45 Toxic Granulation Present 05/19/18 06:15 Platelet Estimate Normal (NORMAL) 05/27/18 05:31 Large Platelets Present 05/27/18 05:31 Giant Platelets Present 05/15/18 07:58 Polychromasia Slight 05/22/18 07:04 Hypochromasia (manual) Slight 05/27/18 05:31 Poikilocytosis (manual Slight 05/27/18 05:31 Basophilic Stippling Slight 05/24/18 06:05 Anisocytosis (manual) Slight 05/27/18 05:31 Microcytosis (manual) Slight 05/25/18 05:42 Target Cells Slight 05/25/18 05:42 Tear Drop Cells Slight 05/25/18 05:42 Ovalocytes Slight 05/25/18 05:42 [place] Cells Slight 05/26/18 05:45 Acanthocytes (Spur) Slight 05/17/18 08:21 PT 14.7 SECONDS (9.7-12.2) H 05/27/18 14:39 INR 1.3 05/27/18 14:39 APTT 29 SECONDS (21-34) 05/27/18 05:31 pO2 28 mm/Hg (30-55) L 05/14/18 10:17 VBG pH 7.34 (7.32-7.43) 05/14/18 10:17 VBG pCO2 51 mmHg (40-60) 05/14/18 10:17 VBG HCO3 24.3 mmol/L 05/14/18 10:17 VBG Total CO2 29.1 mmol/L (22-28) H 05/14/18 10:17 VBG O2 Sat (Calc) 58.3 % (40-65) 05/14/18 10:17 VBG Base Excess 0.9 mmol/L (0.0-2.0) 05/14/18 10:17 VBG Potassium 4.1 mmol/L (3.6-5.2) 05/14/18 10:17 Sodium 140.0 mmol/l (132-148) 05/14/18 10:17 Chloride 107.0 mmol/L (98-107) 05/14/18 10:17 Glucose 82 mg/dl (75-110) 05/14/18 10:17 Lactate 1.3 mmol/L (0.7-2.1) 05/14/18 10:17 Liter Flow 3.0 05/14/18 10:17 Sodium 136 mmol/L (132-148) 05/27/18 05:31 Potassium 3.5 mmol/L (3.6-5.2) L 05/27/18 05:31 Chloride 90 mmol/L (98-107) L 05/27/18 05:31 Carbon Dioxide 37 mmol/L (22-30) H 05/27/18 05:31 Anion Gap 12 (10-20) 05/27/18 05:31 BUN 83 mg/dL (9-20) H 05/27/18 05:31 Creatinine 1.4 mg/dL (0.8-1.5) 05/27/18 05:31 Est GFR ( Amer) > 60 05/27/18 05:31 Est GFR (Non-Af Amer) 51 05/27/18 05:31 POC Glucose (mg/dL) 107 mg/dL (65-110) 05/27/18 21:38 Random Glucose 96 mg/dL (75-110) 05/27/18 05:31 Calcium 8.5 mg/dl (8.6-10.4) L 05/27/18 05:31 Phosphorus 3.0 mg/dL (2.5-4.5) 05/27/18 05:31 Magnesium 1.7 mg/dL (1.6-2.3) 05/27/18 05:31 Iron 48 ug/dL (49-181) L 05/17/18 08:21 TIBC 378 ug/dL (250-450) 05/17/18 08:21 % Saturation 13 (20-55) L 05/17/18 08:21 Ferritin 27.4 ng/mL 05/17/18 08:21 Total Bilirubin 1.1 mg/dL (0.2-1.3) 05/27/18 05:31 AST 40 U/L (17-59) 05/27/18 05:31 ALT 46 U/L (21-72) 05/27/18 05:31 Alkaline Phosphatase 90 U/L (38-126) 05/27/18 05:31 Total Creatine Kinase 79 U/L (55-170) 05/15/18 03:30 CK-MB (Mass) 1.80 ng/mL (0.0-3.38) 05/15/18 03:30 Troponin I 0.0120 ng/mL (0.00-0.120) 05/15/18 03:30 NT-Pro-B Natriuret Pep 3230 pg/mL (0-900) H 05/24/18 10:57 Total Protein 6.4 g/dL (6.3-8.3) 05/27/18 05:31 Albumin 3.5 g/dL (3.5-5.0) 05/27/18 05:31 Globulin 2.9 gm/dL (2.2-3.9) 05/27/18 05:31 Albumin/Globulin Ratio 1.2 (1.0-2.1) 05/27/18 05:31 Procalcitonin 0.18 NG/ML (0.19-0.49) L 05/24/18 10:57 Venous Blood Potassium 4.1 mmol/L (3.6-5.2) 05/14/18 10:17 Urine Color Yellow (YELLOW) 05/16/18 22:56 Urine Clarity Clear (Clear) 05/16/18 22:56 Urine pH 5.0 (5.0-8.0) 05/16/18 22:56 Ur Specific [place] 1.012 (1.003-1.030) 05/16/18 22:56 Urine Protein 1+ mg/dL (NEGATIVE) H 05/16/18 22:56 Urine Glucose (UA) Normal mg/dL (Normal) 05/16/18 22:56 Urine Ketones Negative mg/dL (NEGATIVE) 05/16/18 22:56 Urine Blood 2+ (NEGATIVE) H 05/16/18 22:56 Urine Nitrate Negative (NEGATIVE) 05/16/18 22:56 Urine Bilirubin Negative (NEGATIVE) 05/16/18 22:56 Urine Urobilinogen Normal mg/dL (0.2-1.0) 05/16/18 22:56 Ur Leukocyte Esterase Neg Corrie/uL (Negative) 05/16/18 22:56 Urine WBC (Auto) 1 /hpf (0-5) 05/16/18 22:56 Urine RBC (Auto) 12 /hpf (0-3) H 05/16/18 22:56 Hyaline Casts 0-2 /lpf (0-2) 05/16/18 22:56 Ur Random Creatinine 78.0 mg/dL 05/16/18 22:56 Ur Random Sodium 5 mmol/L 05/16/18 22:56 Ur Random Urea Nitrogn 695 mg/dL 05/16/18 22:56 Influenza Typ A,B (EIA) Negative for flu a/b (NEGATIVE) 05/14/18 13:25 Blood Type A POSITIVE 05/27/18 05:31 Antibody Screen Negative 05/27/18 05:31 - Hospital Course Hospital Course: This is a very sick 68 year old gentelman with extensive cardiac history including multiple mechanical heart valve replacements as well as CAD and stenting, atrial fibrillation, and CHD. On 05/14 the patient came with acute shortness of breath and was found to be in a CHF exacerbation and suspected pneumonia as well. Shortly after admission was moved to the ICU for continuous IV milrinone infusion and disureses. He has been in the ICU here at [facility] for 9 days and while he did achieve good urinary diureses, he remained short of breath and the chest XRAYs remained very congested. He was often on Bipap and could not move from bed due to dyspnea on exertion developing. He was found to also have developed an right abdominal hematoma as well as inguinal hernia. There was plans for potential surgery however this was called off due to the patient's respiratory status. It has been explained multiple times to the patient's and patient that because of the atril fibrillation and mechanical heart valves that anticoagulation is very difficult because of the abdominal hematoma found Ulitmately the patient was moved to [facility] for further treatment of his CHF. We have been talking to the patient's family member (his ) numerous times to explain that the prognosis is very poor. Also we have had discussions with the patient with sabrina to code status and he wants to remain full code. Wero Graham Discharge Exam - Head Exam Head Exam: ATRAUMATIC, NORMAL INSPECTION, NORMOCEPHALIC - Respiratory Exam Respiratory Exam: Decreased Breath Sounds, Rales, Wheezes - Cardiovascular Exam Cardiovascular Exam: Clicks, Irregular Rhythm, Systolic Murmur - GI/Abdominal Exam GI & Abdominal Exam: Distended, Hernia, Normal Bowel Sounds - Neurological Exam Neurological exam: Alert, Oriented x3 - Psychiatric Exam Psychiatric exam: Normal Affect, Normal Mood - Skin Skin Exam: Normal Color Discharge Plan - Follow Up Plan Condition: GOOD Disposition: Trans to Other Acute Care Hosp
== END 2018-05-27 22:20 | disposition short-term general hospital (02) | DRG 194 ==
LOC: C.ER 08:48 → C.9E 12:35 → C.6T 13:16 → C.9I 05-17 20:30
PROVIDERS: ADMIT Internal Medicine; ATTEND Internal Medicine
PROC: 5A09557 Assistance with Respiratory Ventilation, Greater than 96 Consecutive Hours, Continuous Positive Airway Pressure (ICD-10-PCS; 2018-05-19)
PROC: 30233N1 Transfusion of Nonautologous Red Blood Cells into Peripheral Vein, Percutaneous Approach (ICD-10-PCS; principal; 2018-05-25)
DX: I13.0 Hypertensive heart and chronic kidney disease with heart failure and stage 1 through stage 4 chronic kidney disease, or unspecified chronic kidney disease (principal); N17.0 Acute kidney failure with tubular necrosis; J18.1 Lobar pneumonia, unspecified organism; J96.10 Chronic respiratory failure, unspecified whether with hypoxia or hypercapnia; I27.20 Pulmonary hypertension, unspecified; I48.2 Chronic atrial fibrillation; I48.92 Unspecified atrial flutter; N18.3 Chronic kidney disease, stage 3 (moderate); I25.10 Atherosclerotic heart disease of native coronary artery without angina pectoris; I50.23 Acute on chronic systolic (congestive) heart failure; I44.0 Atrioventricular block, first degree; Z95.2 Presence of prosthetic heart valve; Z66 Do not resuscitate; Z87.891 Personal history of nicotine dependence; Z95.0 Presence of cardiac pacemaker; I87.8 Other specified disorders of veins; Z51.5 Encounter for palliative care; R79.1 Abnormal coagulation profile; Z79.01 Long term (current) use of anticoagulants; E78.00 Pure hypercholesterolemia, unspecified; D64.9 Anemia, unspecified

== ENCOUNTER 2018-10-17 17:01 | Inpatient (IN) | payer MEDICAID, SELFPAY | END 2018-10-19 17:39 | disposition home or self-care (01) | DRG 532 | LOC: C.9E 23:59 → C.5S 10-18 08:00 → C.ER 17:01 → C.9I 22:25 | DX: G40.909 Epilepsy, unspecified, not intractable, without status epilepticus (principal); I50.22 Chronic systolic (congestive) heart failure; I13.0 Hypertensive heart and chronic kidney disease with heart failure and stage 1 through stage 4 chronic kidney disease, or unspecified chronic kidney disease; I08.3 Combined rheumatic disorders of mitral, aortic and tricuspid valves; N18.9 Chronic kidney disease, unspecified; R64 Cachexia; I48.91 Unspecified atrial fibrillation; I25.10 Atherosclerotic heart disease of native coronary artery without angina pectoris; D63.1 Anemia in chronic kidney disease; I73.9 Peripheral vascular disease, unspecified; G93.89 Other specified disorders of brain; K40.90 Unilateral inguinal hernia, without obstruction or gangrene, not specified as recurrent; E78.5 Hyperlipidemia, unspecified; E78.00 Pure hypercholesterolemia, unspecified; F41.9 Anxiety disorder, unspecified; Z95.2 Presence of prosthetic heart valve; Z95.0 Presence of cardiac pacemaker; Z95.1 Presence of aortocoronary bypass graft; Z95.5 Presence of coronary angioplasty implant and graft; Z86.73 Personal history of transient ischemic attack (TIA), and cerebral infarction without residual deficits; Z87.891 Personal history of nicotine dependence; Z79.01 Long term (current) use of anticoagulants; Z91.14 Patient's other noncompliance with medication regimen; Z91.19 Patient's noncompliance with other medical treatment and regimen; Z79.899 Other long term (current) drug therapy; Z82.49 Family history of ischemic heart disease and other diseases of the circulatory system ==